=== PATIENT | female | born 1995 | race Caucasian/White ===

== ENCOUNTER 2019-04-30 17:07 | Emergency (ER) | payer MEDICAID, SELFPAY ==
[2019-04-30 17:13] VITALS: BP 101/66; PULSE 96; RESP 16; TEMP 36.3; O2SAT 100
[2019-04-30] MEDS: Acetaminophen 500 MG TAB 1000 MG PO (17:38)
--- NOTE | 2019-04-30 18:54 | ED.GENADUL_ITS ---
Discharge Plan Disposition Patient Disposition: HOME Condition: Stable Discharge Details Chief Complaint: EarProblem Clinical Impression: Viral illness Primary Care Provider: Jj Huff ED Provider: Rebecca Rod Home Meds and New Rx's Prescriptions: No Action levothyroxine [Synthroid] 88 MCG tablet 125 mcg PO DAILY RF: 0 sertraline 50 mg Tablet 50 mg DAILY RF: 0 Discharge Instructions Instructions: Viral Syndrome (ED) Additional Instructions: Drink plenty of fluids. Use nasal saline rinsing several times a day as discussed. 5 minutes after nasal saline rinsing use Flonase [id number]. Rest activities as tolerated. Increase vitamin C. Consider decongestants [id number] for your ear pain. Consider Motrin or Tylenol for your ear pain. If developing fevers, increasing cough, worsening symptoms or alarming symptoms have immediate reevaluation Recheck with PCP if not improving the next 3 to 5 days Stand Alone Forms: Work Release Discharge Data Discharge Date/Time-TO BE ENTERED AT DEPARTURE: 04/30/19 18:52 Medical Decision Making Is a pleasant 24-year-old patient presenting to the emergency room for complaints of left ear pain. Patient reports onset of illness approximately 4 days ago associated nasal congestion, sore throat, body ache mild headache. Patient reports she had a sore throat originally which has since improved. Patient does complain of moderate left-sided ear pain which has developed in the last 24 hours for which she is primarily concerned. Patient does report nausea developing in the last 24 hours no associated vomiting or diarrhea. Patient denies abdominal pain. Patient denies any voice change or trismus. No other concerning complaints at this time. Patient does report her child was ill with the flu 1-1/2 to 2 weeks ago. Patient's influenza testing is ultimately negative. We did discuss conservative treatments and management of her symptoms. Patient consents to nasal saline rinses, [id number] management. Encouraged prompt follow-up with primary care doctor. Work note provided. The patient was stable and requested discharge. Prior to discharge, my usual and customary return precautions were reviewed with the patient - this included follow-up instructions and reasons to return to the Emergency Department if conditions worsens, does not improve as expected, or other new concerns arise. HPI General Date/Time Provider Initiated Documentation: 04/30/19 17:14 . HPI Narrative: This is a 24-year-old patient presenting for complaints of 4 days of illness. Patient reports nasal congestion and sore throat. Patient reports sore throat has since improved. Persistent nasal congestion. Patient predominantly concerned with complaints of left-sided ear pain which is worse in the last 24 hours. Mild headache, reports body ache. Does report mild dizziness. Denies measured fever or chills. Does report nausea beginning yesterday without associated vomiting. No abdominal pain. Denies diarrhea. Patient has been reporting a food aversion for the last 2 days. Patient denies difficulty breathing shortness of breath or wheezing. No other concerns or complaints at this time. Related Data Home Medications Medication Instructions Recorded Confirmed levothyroxine [Synthroid] 125 mcg PO DAILY 04/20/17 04/30/19 sertraline 50 mg DAILY 04/30/19 04/30/19 Allergies Allergy/AdvReac Type Severity Reaction Status Date / Time No Known Allergies Allergy Unverified 04/20/17 15:11 General Stated Complaint: EarProblem ARIAS: 4 Review of Systems All systems reviewed & are unremarkable except as noted in HPI and below Constitutional Constitutional: Denies chills, Denies fever(s), Reports headache(s) and Reports malaise ENT Ears, Nose, Mouth, and Throat: Denies dizziness, Reports otalgia, Reports headache(s), Reports nasal congestion, Reports sinus pressure and Reports sore throat Cardiovascular Cardiovascular: Denies chest pain and Denies dyspnea on exertion Respiratory Respiratory: Reports cough, Denies dyspnea on exertion and Denies wheezing Gastrointestinal Gastrointestinal: Denies abdominal pain, Denies diarrhea, Reports nausea and Denies vomiting Genitourinary Genitourinary: Denies dysuria Neurologic Neurologic: Denies dizziness and Reports headache(s) Allergic/Immunologic Allergic/Immunologic: Denies wheezing [facility] Social History Smoking/Tobacco Use Status: Never Alcohol Intake: never Substance use type: does not use Do you feel safe at home: Yes Do you feel safe in your relationship?: Yes Exam Narrative Exam Narrative: CONST: Healthy appearing patient, in no acute distress. Well hydrated. Alert and oriented. HENMT: Head nomocephalic, normal to inspection. Atraumatic. Hearing grossly normal. TMs with effusion bilaterally, no associated erythema or bulging. Mild pharyngeal erythema. EYES: General normal appearance. Alignment normal. Eyelids normal. Conjunctiva normal. NECK: Normal visual inspection. FROM. Trachea midline. No Midline tenderness. No cervical lymphadenopathy present CHEST: Normal insepection of the chest. RESP: Normal respiratory effort. Speaking full sentences. No cough. No audible wheezing. No retractions. Breath sounds clear, full and equal bilaterally. No wheezing, rhonchi or rale CARDIO: No JVD. No murmurs, regular rate and rhythm GI: Abdomen soft, nontender. No peritoneal signs. Course Vital Signs Vital signs: Vital Signs Temperature 36.3 C L 04/30/19 17:13 Pulse 96 H 04/30/19 17:13 Respiratory Rate 16 04/30/19 17:13 Blood Pressure 101/66 04/30/19 17:13 Pulse Oximetry 100 04/30/19 17:13 Temperature 36.3 C L 04/30/19 17:13 Temperature Source Tympanic 04/30/19 17:13 Pulse 96 H 04/30/19 17:13 Respiratory Rate 16 04/30/19 17:13 Respiratory Effort Non-Labored 04/30/19 17:16 Blood Pressure 101/66 04/30/19 17:13 Blood Pressure Position Supine 04/30/19 17:13 Pulse Oximetry 100 04/30/19 17:13 Oxygen Delivery Method Room Air 04/30/19 17:13 Oxygen Flow Rate 0 04/30/19 17:13 Pain Level 4 04/30/19 17:38 Lab/Test Results Lab/Test Results: 04/30/19 17:30 Nose Influenza Types A,B Antigen - Final
== END 2019-04-30 18:52 | disposition home or self-care (01) ==
PROVIDERS: Emergency Provider Physician Assistant; PCP Internal Medicine Sleep Medicine
DX: B34.8 Other viral infections of unspecified site (principal)
CPT/HCPCS: 87449; 99282

== ENCOUNTER 2020-01-16 11:52 | Emergency (ER) | payer MEDICAID, SELFPAY ==
[2020-01-16] VITALS (12 sets, daily range): BP systolic 94–100; BP diastolic 58–65; PULSE 81–82; RESP 17; TEMP 36.5–37; O2SAT 97–100
--- NOTE | 2020-01-16 12:28 | ED.GENADUL_ITS ---
Discharge Plan Disposition Patient Disposition: HOME Condition: Good Discharge Details Clinical Impression: Viral illness Primary Care Provider: Josiane Chase ED Provider: Alix Juarez Home Meds and New Rx's Prescriptions: Continued levothyroxine [Synthroid] 88 MCG tablet 150 mcg PO DAILY RF: 0 sertraline 50 mg Tablet 100 mg PO DAILY RF: 0 [place] 200 mg tablet 200 mg PO BID RF: 0 Discharge Instructions Instructions: Viral Syndrome (ED) Additional Instructions: He has had any evidence of a fracture on your x-ray. However, there is concern for potential viral infection. Is also can cause discomfort you have been experiencing. This includes water intake. Tylenol intermittently as needed for discomfort. Felipe testing is pending. Please quarantine until his results have returned. If you develop difficulty breathing, shortness of breath or new/worsening symptoms to seek care with again. Otherwise no please follow-up with primary care if symptoms do not completely resolve in the next few weeks. Stand Alone Forms: PENDING COVID-19 TESTING, Work Release Discharge Data Discharge Date/Time-TO BE ENTERED AT DEPARTURE: 01/16/20 15:22 Medical Decision Making Patient is a pleasant 24-year-old female presents today with chief complaint of left-sided rib pain. She reports that a few weeks ago she fell and landed with her left arm under the left chest. Since that time she has been having left- sided anterior chest pain. Reports this primarily under the left breast. Worse with deep inspiration and coughing. Denies any pain at rest. She denies any cough. No fevers or chills. Denies any abdominal pain. Is concerned that the symptoms have persisted. Plan for XR. FINDINGS: Bones/joints: Old left clavicular fracture noted. Soft tissues: Normal. IMPRESSION: No evidence for fracture. FINDINGS: Lungs: There is some minimal ill-defined parenchymal opacity at the lung bases, mild ground-glass change. No definite focal consolidation. Pleural space: Unremarkable. No pleural effusion. No pneumothorax. Heart/Mediastinum: Unremarkable. No cardiomegaly. Bones/joints: Unremarkable. IMPRESSION: No evidence for acute posttraumatic abnormality. Minimal hazy ground-glass change in the lung bases uncertain chronicity or significance. Clinical correlation requested with respect to possible viral into Discussed findings with the patient. In particular, we did discuss the potential of COVID-19. 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 Patient continues to be concerned regarding the amount of discomfort she is having. X-ray advised that she does have a viral infection and this may be the source of her pain. We discussed disposition at length and decision was made to perform baseline labs. Labs reviewed. No leukocytosis. Stable H&H. D-dimer is within normal limits. CMP is without abnormality. Discussed with patient. Advised likely contusion contusion with persistent pleuritic chest discomfort. We also discussed that she could potentially have a small fracture that is noted to be visualized. Return precautions were discussed at length. Encourage close follow-up with her primary care. All of her questions and concerns were addressed she is agreement this plan. HPI General Mode of arrival: ambulatory . Date/Time Provider Initiated Documentation: 01/16/20 12:28 . Limitations to Documentation: no limitations . Information obtained by: patient and RN notes reviewed . History of Present Illness 24 year old F presents to the emergency department with the chief complaint of left sided pleuritic chest pain, described as moderate, with intensity rated at 8. Quality is described as aching, and is localized to the chest. Patient reports no radiation. Patient started experiencing this week(s) and it has been constant. Immobilization improves symptom(s), Movement worsens symptoms . Patient notes shortness of breath; denies fever/chills, loss of appetite, nausea/vomiting, rash and weakness. Patient did receive the following treatments prior to arrival, none Related Data Home Medications Medication Instructions Recorded Confirmed levothyroxine [Synthroid] 150 mcg PO DAILY 04/20/17 01/16/20 sertraline 100 mg PO DAILY 04/30/19 01/16/20 Orilissa 200 mg PO BID 01/16/20 01/16/20 Allergies Allergy/AdvReac Type Severity Reaction Status Date / Time No Known Allergies Allergy Unverified 01/16/20 12:06 General Stated Complaint: Chest/Rib ARIAS: 3 Review of Systems Constitutional Constitutional: Reports as per HPI, Denies chills, Denies fever(s), Denies headache(s), Denies lethargy and Denies poor appetite Eyes Eyes: Denies change in vision ENT Ears, Nose, Mouth, and Throat: Denies dizziness and Denies headache(s) Cardiovascular Cardiovascular: Reports as per HPI, Denies chest pain at rest, Denies dyspnea and Denies dyspnea on exertion Respiratory Respiratory: Reports as per HPI, Denies chest congestion, Denies cough, Reports pain on inspiration, Reports pain with cough, Denies dyspnea, Denies dyspnea on exertion and Denies wheezing Gastrointestinal Gastrointestinal: Reports as per HPI, Denies abdominal pain, Denies diarrhea, Denies nausea and Denies vomiting Musculoskeletal Musculoskeletal: Reports as per HPI and Denies back pain Integumentary/Breasts Skin/Breast: Reports as per HPI and Denies rash Neurologic Neurologic: Reports as per HPI, Denies dizziness and Denies headache(s) Allergic/Immunologic Allergic/Immunologic: Denies wheezing [facility] Social History Smoking/Tobacco Use Status: Never Alcohol Intake: never Drug use: Never Substance use type: does not use Do you feel safe at home: Yes Do you feel safe in your relationship?: Yes Exam Const General: cooperative, healthy appearing, comfortable, no acute distress and well developed Nutritional Appearance: average body habitus and well nourished Orientation: alert, awake and oriented x3 HENMT Head: normal to inspection Ears: hearing grossly normal bilaterally Mouth: moist mucous membranes Chest Chest: normal inspection of the chest, normal palpation of entire chest wall, no crepitus, localized rib tenderness with anteroposterior compression (under left breast) and tenderness Breast inspection: normal inspection of the breasts Resp Effort & Inspection: normal respiratory effort, able to speak in complete sentences and no respiratory distress Auscultation: clear to auscultation bilaterally, no rales, no rhonchi and no wheezes Cardio Rate: regular rate Rhythm: regular rhythm Heart Sounds: S1 normal and S2 normal GI Inspection: normal to inspection, no edema and non-distended Palpation: soft, no hepatosplenomegaly, not firm, no guarding, not rigid and nontender Auscultation: normal bowel sounds Back/Spine/Pelvis Back: no CVA tenderness Thoracic/Lumbar Spine: thoracic and lumbar spine normal to inspection Skin General skin exam: no rashes or lesions noted Trauma: no lacerations or abrasions Neuro General: patient alert, patient awake and patient oriented x3 Cognition: normal cognition Speech: speech normal Gait: normal gait Extrem General: normal to inspection, capillary refill normal, no pedal edema, no calf tenderness and normal gait Psych Appearance: grossly normal and well kempt Mental Status: mental status grossly normal Speech and Movement: speech and movement normal Course Vital Signs Vital signs: Vital Signs Temperature 36.5 C 01/16/20 12:02 Pulse 82 01/16/20 12:02 Blood Pressure 100/65 01/16/20 12:02 Pulse Oximetry 100 01/16/20 12:02 Temperature 36.5 C 01/16/20 12:02 Temperature Source Temporal Artery Scan 01/16/20 12:02 Pulse 82 01/16/20 12:02 Respiratory Effort 01/16/20 12:14 Blood Pressure 100/65 01/16/20 12:02 Blood Pressure Position Sitting 01/16/20 12:02 Pulse Oximetry 100 01/16/20 12:02 Oxygen Delivery Method Room Air 01/16/20 12:02 Oxygen Flow Rate 0 01/16/20 12:02 Pain Level 8 01/16/20 12:14 Lab/Test Results Lab/Test Results: POC- Test(urine) Negative
--- NOTE | 2020-01-16 12:50 | DI.RAD_ITS ---
EXAM: XR RIBS LT W PA LAT CHEST CLINICAL HISTORY: fall few weeks ago, left rib pain TECHNIQUE: COMPARISON: No exams were available for comparison FINDINGS: PA and lateral chest and 2 additional views of the left ribs were obtained. No rib fracture seen. N o evidence of pneumothorax or pleural effusion. The lungs are clear. Cardiac size is within normal limits. IMPRESSION: Negative examination of the chest and left ribs. RADIATION DOSE DELIVERED: Total DLP
--- NOTE | 2020-01-16 13:04 | DI.VRAD_ITS ---
PROCEDURE INFORMATION: Exam: XR Left Ribs Exam date and time: 01/16/2020 12:45 PM Age: 24 years old Clinical indication: Other: Fall few weeks ago, left rib pain TECHNIQUE: Imaging protocol: XR Left ribs. Views: 2 views. COMPARISON: No relevant prior studies available. FINDINGS: Bones/joints: Old left clavicular fracture noted. Soft tissues: Normal. IMPRESSION: No evidence for fracture. PROCEDURE INFORMATION: Exam: XR Chest, 2 Views Exam date and time: 01/16/2020 12:45 PM Age: 24 years old Clinical indication: Other: Fall few weeks ago, left rib pain TECHNIQUE: Imaging protocol: XR of the chest Views: 2 views. COMPARISON: No relevant prior studies available. FINDINGS: Lungs: There is some minimal ill-defined parenchymal opacity at the lung bases, mild ground-glass change. No definite focal consolidation. Pleural space: Unremarkable. No pleural effusion. No pneumothorax. Heart/Mediastinum: Unremarkable. No cardiomegaly. Bones/joints: Unremarkable. IMPRESSION: No evidence for acute posttraumatic abnormality. Minimal hazy ground-glass change in the lung bases uncertain chronicity or significance. Clinical correlation requested with respect to possible viral into T. Dictated and Authenticated by: Cyndee Garner MD. Ordering:MARCELO Thomson MD
[2020-01-16 13:55] LABS: Abs Immature Grans 0.02 10^3/uL (0.0-0.06); Absolute Basophil Count 0.02 10^3/uL (0.0-0.2); Absolute Eosinophil Count 0.07 10^3/uL (0.0-0.7); Absolute Lymphocyte Count 3.07 10^3/uL (1.2-3.4); Absolute Monocyte Count 0.39 10^3/uL (0.1-0.8); Absolute Neutrophil Count 3.57 10^3/uL (1.2-6.7); Basophils % 0.3; HGB 12.3 g/dL (11.2-15.7); Immature Grans % 0.3; MCH 29.9 pg (27.0-33.0); MCHC 33.2 % (32.0-36.0); MCV 89.8 fL (80-95); MPV 10.1 fL (8.0-11.0); Monocytes % 5.5; Neutrophils % 49.9; Nucleated RBC 0 %; Platelet Count 264 10^3/uL (130-400); RBC 4.12 10^6/uL (3.93-5.22); RDW 12.4 % (11.7-14.6); RDW-SD 40.6 fL; WBC 7.14 10^3/uL (4.4-10.8)
[2020-01-16] MEDS: Acetaminophen 500 MG TAB 1000 MG PO (14:02)
[2020-01-16 14:13] LABS: ALT 15 U/L (14-59); AST 20 U/L (15-37); Albumin 3.7 g/dL (3.4-5.0); Alkaline Phosphatase 47 U/L (46-116); Anion Gap 6.5 mmol/L (3-11); BUN 12 mg/dL (7-18); Bilirubin, Total 0.5 mg/dL (0.2-1.0); CO2 26.5 mmol/L (21.0-32.0); CREATININE 0.68 mg/dL (0.55-1.02); Calcium 8.6 mg/dL (8.5-10.1); Chloride 105 mmol/L (98-107); Glucose 93 mg/dL (74-106); Potassium 3.7 mmol/L (3.5-5.1); Sodium 138 mmol/L (136-145); Total Protein 7.4 g/dL (6.4-8.2)
[2020-01-16 14:30] LABS: D-Dimer 326 ng/mlFEU (<500)
[2020-01-17 02:52] LABS: COVID-19 RT-PCR UVMMC Result Negative (Negative)
--- NOTE | 2020-01-18 10:32 | NUR.NOTE ---
Nursing Note: Negative COVID result to pt by phone after identity verified at 1032.
== END 2020-01-16 15:22 | disposition home or self-care (01) ==
PROVIDERS: Emergency Provider Physician Assistant; PCP Nurse Practitioner
DX: S20.212A Contusion of left front wall of thorax, initial encounter (principal); W19.XXXA Unspecified fall, initial encounter; R07.81 Pleurodynia; B34.9 Viral infection, unspecified; Z03.818 Encounter for observation for suspected exposure to other biological agents ruled out
CPT/HCPCS: 36415; 80053; 81025; 99284; U0003; 71046; 71100; 85025; 85379

== ENCOUNTER 2020-04-04 14:57 | Outpatient (REF) | payer MEDICAID, SELFPAY ==
[2020-04-04 18:29] LABS: HCT 37.3 % (36.0-46.0); HGB 12.6 g/dL (11.2-15.7); MCH 29.4 pg (27.0-33.0); MCHC 33.8 % (32.0-36.0); MCV 86.9 fL (80-95); MPV 11.3 fL (8.0-11.0); Platelet Count 224 10^3/uL (130-400); RBC 4.29 10^6/uL (3.93-5.22); RDW 11.5 % (11.7-14.6)
[2020-04-04 18:33] LABS: Anion Gap 5.1 mmol/L (3-11); BUN 11 mg/dL (7-18); CO2 28.9 mmol/L (21.0-32.0); CREATININE 0.76 mg/dL (0.55-1.02); Calcium 8.9 mg/dL (8.5-10.1); Chloride 106 mmol/L (98-107); Glucose 72 mg/dL (74-106); Potassium 3.9 mmol/L (3.5-5.1); Sodium 140 mmol/L (136-145); TSH (W/Ref FT4) 0.12 uIU/mL (0.36-3.74)
[2020-04-04 18:52] LABS: FREE T4 1.21 ng/dL (0.76-1.46)
[2020-04-06 17:38] LABS: T4 10.4 ug/mL (4.7-13.3)
== END 2020-04-04 15:17 ==
LOC: NCHCN 14:57
PROVIDERS: PCP Family Medicine; Visit Provider Family Medicine
DX: E03.9 Hypothyroidism, unspecified (principal); R53.83 Other fatigue
CPT/HCPCS: 80048; 85027; 84436; 84439; 84443

== ENCOUNTER 2020-04-09 14:55 | Emergency (ER) | payer MEDICAID, SELFPAY ==
[2020-04-09] VITALS (29 sets, daily range): BP systolic 94–110; BP diastolic 42–73; PULSE 69–105; RESP 13–27; TEMP 36.4; O2SAT 97–100
--- NOTE | 2020-04-09 14:45 | RT.EKG_ITS ---
APPROVED REPORT Exam: Resting ECG Patient Location: E HR:93 bpm ECG Measurements Heart Rate 93 AXIS IA 146 P 76 QRSd 67 QRS 72 QT 342 T 53 QTc 426 Conclusion Sinus rhythm...normal P axis, V-rate 60- 99
--- NOTE | 2020-04-09 15:15 | DI.CT_ITS ---
EXAM: CT CHEST PE CTA CLINICAL HISTORY: chest tightness. TECHNIQUE: Imaging Protocol: Axial CT angiography was performed with multi-slice acquisition and mu lti-planar and/or 3D reconstructions. CONTRAST MATERIAL: Intravenous: Omnipaque 350 Contrast volume:60 mL COMPARISON: No exams were available for comparison FINDINGS: Tracheobronchial tree: Patent where visualized. Pulmonary parenchyma: No consolidation or dominant measurable mass. No architectural distortion. Pulmonary Arteries: No evidence of filling defect to suggest pulmonary emboli. Mediastinum and Daly: No dominant adenopathy or fluid collection. Visualized thyroid gland: Unremarkable. Pleura: No effusion or pneumothorax. Heart: The heart is not dilated. No coronary artery calcifications are seen. No pericardial effusion. Aorta: Thoracic aorta non-dilated. No evidence of dissection. Upper abdomen: Unremarkable. Bones: Normal. Soft tissues: Unremarkable. IMPRESSION: No evidence of pulmonary embolism, thoracic aortic dissection or aneurysm. RADIATION DOSE DELIVERED: 287.1mGy.cm Total DLP DATA REPOSITORY: All CT scans at this facility are submitted to the National Radiology Data Registry (NRDR) Dose Index Registry (DIR) with the [employer] (A[employer]). RADIATION OPTIMIZATION: All CT scans at this facility use at least one of these dose optimization te chniques: automated exposure control; mA and/or kV adjustment per patient size (includes targeted exa ms where dose is matched to clinical indication); or iterative reconstruction.
--- NOTE | 2020-04-09 15:21 | ED.GENADUL_ITS ---
Discharge Plan Disposition Patient Disposition: HOME Condition: Stable Discharge Details Clinical Impression: Heart palpitations, Hypokalemia Primary Care Provider: Elisabeth Louis ED Provider: Alix Juarez Home Meds and New Rx's Prescriptions: Continued levothyroxine [Synthroid] 88 mcg tablet 137 mcg PO DAILY RF: 0 sertraline 50 mg Tablet 100 mg PO DAILY RF: 0 [place] 200 mg tablet 200 mg PO BID RF: 0 Discharge Instructions Instructions: Heart Palpitations (ED), Hypokalemia (ED) Additional Instructions: Your labs showed low potassium. This was replaced here. Please read attached information on low potassium and had increased this in your diet. Your imaging and labs otherwise were without significant abnormality. Holter monitor has been placed. Please follow respiratory therapy guidelines regarding care of this. I would like for you to follow-up with your primary care this week for reevaluation. Please call on Saturday to schedule appointment. If you develop fever/chills, increased pain, difficulty breathing or any new/worsening symptoms please seek care urgently once again. Referrals: Elisabeth Louis MD [Primary Care Provider] - Discharge Data Discharge Date/Time-TO BE ENTERED AT DEPARTURE: 04/09/20 17:56 Medical Decision Making <Ruddy Springer MD - Last Filed: 05/07/20 10:57> 1524?- 24-year-old female with history of hypothyroidism, here with chest tigh tness that started around 1030. Lungs clear to auscultation with no wheeze. Saturating well in no respiratory distress. Patient is tachycardic with normal blood pressure. Concern for acute pulmonary embolism. Screening ECG was reviewed and interpreted by me: Please see report, sinus rhythm 93 bpm, no STEMI, nondiagnostic. No risk factor for ACS. Plan to obtain CT of the chest to assess for pulmonary embolism. <ROSSY Owens - Last Filed: 04/09/20 17:31> Care transition to myself from Dr. Springer. Please see his initial note regarding history, presentation and exam. In brief, patient is a pleasant 24-year-old female who presented today with chest tightness as well as a feeling of palpitations. Patient does have a history of hypothyroidism and did recently have her medications changed. At the time I assume care, labs and imaging were pending. Labs reviewed. No leukocytosis. Stable H&H. Potassium slightly low at 3.2. Will replenish this orally. Glucose 139. Otherwise, plan. Normal limits. Opponent is within normal limits. TSH within normal limits. CTA reviewed by radiologist: FINDINGS: Pulmonary arteries: Normal. No pulmonary emboli. Aorta: Unremarkable. No aortic aneurysm. No aortic dissection. Lungs: Unremarkable. No consolidation. No masses. Pleural space: Unremarkable. No pneumothorax. No pleural effusion. Heart: Unremarkable. No cardiomegaly. No pericardial effusion. Lymph nodes: Unremarkable. No enlarged lymph nodes. Bones/joints: Unremarkable. No acute fracture. Soft tissues: Unremarkable. IMPRESSION: No acute findings. I discussed these findings with the patient. She and I discussed her presentation further. Symptoms began approximately 6 hours prior to arrival. I do not feel that repeat troponin is warranted at point. Patient does report that she has had palpitations for several years. She reports that she gets them daily. This may or may not be accompanied with some shortness of breath or chest discomfort. I do feel that traffic monitor specialist would be appropriate. Encouraged to follow-up closely discussed this further with her primary care. Return precautions were discussed. All of her questions and concerns were addressed and she is in agreement with this plan. HPI <Ruddy Springer MD - Last Filed: 05/07/20 10:57> General Mode of arrival: ambulatory . Date/Time Provider Initiated Documentation: 04/09/20 14:57 . Limitations to Documentation: no limitations . Information obtained by: patient . HPI Narrative: 24-year-old female with history of hypothyroidism presents with chief complaint of chest pain. Patient notes that chest discomfort started around 1030 this morning while driving. Discomfort came on suddenly. Feels like tightness. She has associated shortness of breath. She notes she feels like her heart is racing. She has no associated nausea or dizziness. No leg swelling or calf pain. No recent immobility. Patient notes recently had levothyroxine dose decreased. Related Data Home Medications Medication Instructions Recorded Confirmed sertraline 100 mg PO DAILY 04/30/19 04/09/20 Orilissa 200 mg PO BID 01/16/20 04/09/20 levothyroxine 88 mcg tablet 137 mcg PO DAILY tab 04/06/20 04/09/20 Allergies Allergy/AdvReac Type Severity Reaction Status Date / Time No Known Allergies Allergy Unverified 04/09/20 15:03 General Stated Complaint: Chest Pain ARIAS: 2 Review of Systems <Ruddy Springer MD - Last Filed: 05/07/20 10:57> All systems reviewed & are unremarkable except as noted in HPI and below Constitutional Constitutional: Denies fever(s) Cardiovascular Cardiovascular: Reports as per HPI and Reports chest pain Respiratory Respiratory: Reports as per HPI PFSH <Ruddy Springer MD - Last Filed: 05/07/20 10:57> Medical History Endometriosis Hypothyroid Migraines Right hand paresthesia Surgical History H/O arthroscopy of shoulder H/O right knee surgery Social History Smoking/Tobacco Use Status: Never Smoking risk assessment performed?: Yes Alcohol Intake: never Drug use: Never Substance use type: does not use Household members: children Housing: apartment Number of Children: 2 current occupation: unemployed Pets and animals: Yes Pets and animals: cat(s) What type of physical activity do you participate in: none Seatbelt use: always Do you feel safe at home: Yes Do you feel safe in your relationship?: Yes Exam <Ruddy Springer MD - Last Filed: 05/07/20 10:57> Const General: cooperative and no acute distress HENMT Mouth: moist mucous membranes Eyes Conjunctivae: normal conjunctivae Sclera: normal sclerae Neck Neck: trachea midline Resp Auscultation: clear to auscultation bilaterally, no rales, no rhonchi and no wheezes Cardio Jugular venous pressure: no JVD Rate: tachycardic Rhythm: regular rhythm GI Palpation: soft, not firm, no guarding, no masses, not rigid and nontender Skin General skin exam: no rashes or lesions noted Neuro General: patient alert, patient awake and tone normal Extrem General: no calf tenderness and no edema Psych Appearance: grossly normal Mental Status: mental status grossly normal Course <Ruddy Springer MD - Last Filed: 05/07/20 10:57> Vital Signs Vital signs: Vital Signs Temperature 36.4 C L 04/09/20 14:59 Pulse 101 H 04/09/20 14:59 Respiratory Rate 18 04/09/20 14:59 Blood Pressure 105/67 04/09/20 14:59 Pulse Oximetry 98 04/09/20 14:59 Temperature 36.4 C L 04/09/20 14:59 Pulse 101 H 04/09/20 14:59 Respiratory Rate 18 04/09/20 14:59 Respiratory Effort 04/09/20 15:04 Blood Pressure 105/67 04/09/20 14:59 Blood Pressure Position Sitting 04/09/20 14:59 Pulse Oximetry 98 04/09/20 14:59 Oxygen Delivery Method Room Air 04/09/20 14:59 Oxygen Flow Rate 0 04/09/20 14:59 Pain Level 7 04/09/20 14:59 Sign Out <Ruddy Springer MD - Last Filed: 05/07/20 10:57> Sign Out Data: Sign Out Comment: Care signed out to ROSSY Juarez. Please see my documentation regarding initial ED presentation and course. Plan at signout is to followup labs and ct. reassess patient for disposition. Last updated by Ruddy Springer MD at 04/09/20 15:46
[2020-04-09 15:42] LABS: Absolute Basophil Count 0.03 10^3/uL (0.0-0.2); Absolute Eosinophil Count 0.08 10^3/uL (0.0-0.7); Absolute Lymphocyte Count 2.68 10^3/uL (1.2-3.4); Absolute Monocyte Count 0.28 10^3/uL (0.1-0.8); Absolute Neutrophil Count 2.08 10^3/uL (1.2-6.7); Basophils % 0.6; Eosinophils % 1.6; HCT 37.1 % (36.0-46.0); HGB 12.8 g/dL (11.2-15.7); MCHC 34.5 % (32.0-36.0); MCV 86.9 fL (80-95); MPV 10.6 fL (8.0-11.0); Monocytes % 5.4; Neutrophils % 40.4; Nucleated RBC 0 %; Platelet Count 209 10^3/uL (130-400); RBC 4.27 10^6/uL (3.93-5.22); RDW 12.1 % (11.7-14.6); RDW-SD 38.3 fL; WBC 5.15 10^3/uL (4.4-10.8)
[2020-04-09] MEDS: Omnipaque 350 MG/ML 100 ML BTL IJ (15:57)
[2020-04-09] MEDS: Normal Saline - Diluent 50 ML VIAL IV (15:58)
[2020-04-09 16:04] LABS: ALT 21 U/L (14-59); AST 17 U/L (15-37); Albumin 3.6 g/dL (3.4-5.0); Alkaline Phosphatase 65 U/L (46-116); Anion Gap 8.7 mmol/L (3-11); BUN 11 mg/dL (7-18); Bilirubin, Total 0.4 mg/dL (0.2-1.0); CO2 25.3 mmol/L (21.0-32.0); CREATININE 0.85 mg/dL (0.55-1.02); Calcium 8.6 mg/dL (8.5-10.1); Chloride 105 mmol/L (98-107); Glucose 139 mg/dL (74-106); Magnesium 1.9 mg/dL (1.8-2.4); Potassium 3.2 mmol/L (3.5-5.1); Sodium 139 mmol/L (136-145); TSH (W/Ref FT4) 0.45 uIU/mL (0.36-3.74); Total Protein 7.5 g/dL (6.4-8.2); Troponin I < 0.05 ng/mL (<0.06)
--- NOTE | 2020-04-09 16:26 | DI.VRAD_ITS ---
PROCEDURE INFORMATION: Exam: CT Angiography Chest With Contrast Exam date and time: 04/09/2020 4:00 PM Age: 24 years old Clinical indication: Chest pain; Other: Chest tightness TECHNIQUE: Imaging protocol: Computed tomographic angiography of the chest with intravenous contrast. 3D rendering (Not supervised by radiologist): MIP and/or 3D reconstructed images were created by the technologist. Radiation optimization: All CT scans at this facility use at least one of these dose optimization techniques: automated exposure control; mA and/or kV adjustment per patient size (includes targeted exams where dose is matched to clinical indication); or iterative reconstruction. Contrast material: OMNIPAQUE 350; Contrast volume: 60 ml; Contrast route: INTRAVENOUS (IV); COMPARISON: CR XR RIBS LT W PA LAT CHEST 01/16/2020 12:43 PM FINDINGS: Pulmonary arteries: Normal. No pulmonary emboli. Aorta: Unremarkable. No aortic aneurysm. No aortic dissection. Lungs: Unremarkable. No consolidation. No masses. Pleural space: Unremarkable. No pneumothorax. No pleural effusion. Heart: Unremarkable. No cardiomegaly. No pericardial effusion. Lymph nodes: Unremarkable. No enlarged lymph nodes. Bones/joints: Unremarkable. No acute fracture. Soft tissues: Unremarkable. IMPRESSION: No acute findings. Dictated and Authenticated by: Graham Conde MD. Ordering:MIN Fox MD
--- NOTE | 2020-04-09 17:00 | HOLTER_ITS ---
APPROVED REPORT Exam Type: HOLTER MONITOR APPLICATION Patient Location: E Conclusion This is a 48 Holter monitor ordered for symptoms of palpitations Rhythm throughout was sinus. Average heart rate was 80. Minimum was 58, maximum 135 There were no atrial or ventricular dysrhythmias There was no atrial fibrillation, no pauses greater than 3 seconds, no high-grade AV block No patient symptoms were reported
[2020-04-09] MEDS: POTASSIUM CHLORIDE 20 MEQ, POTASSIUM CHLORIDE 10 MEQ 30 MEQ PO (17:26)
== END 2020-04-09 17:56 | disposition home or self-care (01) ==
PROVIDERS: Student in an Organized Health Care Education/Training Program; Emergency Provider Physician Assistant; PCP Family Medicine
DX: R00.2 Palpitations (principal); E87.6 Hypokalemia; E03.9 Hypothyroidism, unspecified
CPT/HCPCS: 36415; 71275; 80053; 81025; 93005; 99285; 83735; 84443; 84484; 85025; 93010; 93225; 99284; J3490

== ENCOUNTER 2020-04-09 17:02 | Outpatient (RCR) | payer MEDICAID, SELFPAY | END 2020-04-24 23:59 | disposition home or self-care (01) | LOC: RT 17:02 | PROVIDERS: PCP Family Medicine; Visit Provider Family Medicine | DX: R00.2 Palpitations (principal) | CPT/HCPCS: 93225; 93226 ==

== ENCOUNTER 2020-05-31 14:50 | Outpatient (REF) | payer MEDICAID, SELFPAY ==
[2020-05-31 18:38] LABS: FREE T4 0.98 ng/dL (0.76-1.46); Potassium 3.5 mmol/L (3.5-5.1); TSH (W/Ref FT4) 0.58 uIU/mL (0.36-3.74)
[2020-06-01 16:37] LABS: T3, Total 116 ng/dL (97-169)
== END 2020-05-31 14:51 | disposition home or self-care (01) ==
LOC: NCHCN 14:50
PROVIDERS: PCP Family Medicine; Visit Provider Family Medicine
DX: E03.9 Hypothyroidism, unspecified (principal)
CPT/HCPCS: 84132; 84436; 84439; 84443; 84480

== ENCOUNTER 2020-06-02 12:10 | Outpatient (CLI) | payer MEDICAID, SELFPAY ==
--- NOTE | 2020-06-02 14:53 | DI.RAD_ITS ---
EXAM: XR FOOT RT COMPLETE CLINICAL HISTORY: PAIN IN RT TOE, M79.674, S/P TRIP AND FALL ON RT LEG, BABY TOE SWOLLEN,. TECHNIQUE: 2D digital imaging was performed. COMPARISON: No exams were available for comparison FINDINGS: BONES: There is an oblique lucency on the oblique view of the right foot passing through the base of the distal phalanx of the 5th toe consistent with a nondisplaced fracture. No bony destructive lesio n is seen. JOINTS: No dislocation present. SOFT TISSUE: Normal. IMPRESSION: Nondisplaced intra-articular fracture involving the distal phalanx of the right little toe. DATA REPOSITORY: RADIATION DOSE DELIVERED:
== END 2020-06-02 12:30 ==
PROVIDERS: PCP Family Medicine; Visit Provider Nurse Practitioner
DX: S92.534A Nondisplaced fracture of distal phalanx of right lesser toe(s), initial encounter for closed fracture (principal)
CPT/HCPCS: 73630

== ENCOUNTER 2020-06-29 10:51 | Outpatient (REF) | payer MEDICAID, SELFPAY ==
[2020-06-29 15:47] LABS: TSH (W/Ref FT4) 1.18 uIU/mL (0.36-3.74)
== END 2020-06-29 10:52 | disposition home or self-care (01) ==
LOC: NCHCN 10:51
PROVIDERS: PCP Family Medicine; Visit Provider Nurse Practitioner
DX: E03.9 Hypothyroidism, unspecified (principal)
CPT/HCPCS: 84443

== ENCOUNTER 2020-07-21 16:44 | Outpatient (REF) | payer MEDICAID, SELFPAY ==
[2020-07-21 14:03] LABS: Abs Immature Grans 0.01 10^3/uL (0.0-0.06); Absolute Basophil Count 0.05 10^3/uL (0.0-0.2); Absolute Eosinophil Count 0.37 10^3/uL (0.0-0.7); Absolute Lymphocyte Count 2.02 10^3/uL (1.2-3.4); Absolute Monocyte Count 0.52 10^3/uL (0.1-0.8); Absolute Neutrophil Count 3.28 10^3/uL (1.2-6.7); Basophils % 0.8; Eosinophils % 5.9; HCT 40.7 % (36.0-46.0); HGB 13.6 g/dL (11.2-15.7); Immature Grans % 0.2; Lymphocytes % 32.3; MCHC 33.4 % (32.0-36.0); MCV 89.6 fL (80-95); MPV 10.8 fL (8.0-11.0); Monocytes % 8.3; Neutrophils % 52.5; Nucleated RBC 0 %; Platelet Count 300 10^3/uL (130-400); RBC 4.54 10^6/uL (3.93-5.22); RDW 12.4 % (11.7-14.6); RDW-SD 41.4 fL; WBC 6.25 10^3/uL (4.4-10.8)
[2020-07-21 14:22] LABS: Total Iron Binding Capacity 406 ug/dL (250-450)
[2020-07-21 14:56] LABS: Lithium 0.3 mmol/l (0.6-1.2)
[2020-07-21 15:06] LABS: ALT 22 U/L (14-59); AST 19 U/L (15-37); Albumin 3.6 g/dL (3.4-5.0); Alkaline Phosphatase 85 U/L (46-116); Anion Gap 5.7 mmol/L (3-11); BUN 12 mg/dL (7-18); Bilirubin, Total 0.8 mg/dL (0.2-1.0); CO2 28.3 mmol/L (21.0-32.0); CREATININE 0.7 mg/dL (0.55-1.02); Calcium 8.9 mg/dL (8.5-10.1); Chloride 109 mmol/L (98-107); Ferritin 31 ng/mL (8-252); Glucose 80 mg/dL (74-106); Potassium 4.1 mmol/L (3.5-5.1); Sodium 143 mmol/L (136-145); TSH (W/Ref FT4) 0.09 uIU/mL (0.36-3.74); Total Protein 7.2 g/dL (6.4-8.2); Vitamin B12 552 pg/mL (193-986)
[2020-07-21 15:25] LABS: FREE T4 1.18 ng/dL (0.76-1.46)
== END 2020-07-21 16:45 | disposition home or self-care (01) ==
LOC: NCHCN 16:44
PROVIDERS: PCP Family Medicine; Visit Provider Nurse Practitioner
DX: F41.8 Other specified anxiety disorders (principal); Z51.81 Encounter for therapeutic drug level monitoring; Z79.899 Other long term (current) drug therapy; R51.9 Headache, unspecified; E03.9 Hypothyroidism, unspecified
CPT/HCPCS: 80053; 80178; 82607; 82728; 83550; 84439; 84443; 85025

== ENCOUNTER 2020-11-11 10:46 | Outpatient (REF) | payer MEDICAID, SELFPAY ==
[2020-11-11 15:01] LABS: T4 8.6 ug/mL (4.7-13.3)
[2020-11-11 21:52] LABS: T3, Total 130 ng/dL (97-169)
== END 2020-11-11 10:47 | disposition home or self-care (01) ==
LOC: NCHCN 10:46
PROVIDERS: PCP Family Medicine; Visit Provider Nurse Practitioner
DX: E03.9 Hypothyroidism, unspecified (principal)
CPT/HCPCS: 84436; 84443; 84480

== ENCOUNTER 2021-04-26 20:48 | Outpatient (REF) | payer MEDICAID, SELFPAY ==
[2021-04-26 21:22] LABS: Lithium 0.5 mmol/l (0.6-1.2)
[2021-04-26 21:36] LABS: Albumin 3.8 g/dL (3.4-5.0); Anion Gap 9.5 mmol/L (3-11); BUN 12 mg/dL (7-18); CO2 25.5 mmol/L (21.0-32.0); CREATININE 0.7 mg/dL (0.55-1.02); Calcium 9.4 mg/dL (8.5-10.1); Chloride 105 mmol/L (98-107); FREE T4 1.14 ng/dL (0.76-1.46); Glucose 73 mg/dL (74-106); PHOSPHORUS 2.9 mg/dL (2.6-4.7); Potassium 3.8 mmol/L (3.5-5.1); Sodium 140 mmol/L (136-145); TSH 0.52 uIU/mL (0.36-3.74)
[2021-04-27 18:02] LABS: T3,Free 3.2 pg/mL (2.8-5.3)
== END 2021-04-26 20:49 | disposition home or self-care (01) ==
LOC: LBN 20:48
PROVIDERS: PCP Family Medicine; Visit Provider Nurse Practitioner Family
DX: E03.9 Hypothyroidism, unspecified (principal); F31.78 Bipolar disorder, in full remission, most recent episode mixed; F43.12 Post-traumatic stress disorder, chronic; Z56.6 Other physical and mental strain related to work
CPT/HCPCS: 80069; 80178; 84439; 84443; 84481

== ENCOUNTER 2021-10-26 02:53 | Outpatient (CLI) | payer MEDICAID, SELFPAY ==
[2021-10-26 08:45] LABS: Anion Gap 6.5 mmol/L (3-11); BUN 12 mg/dL (7-18); CO2 25.5 mmol/L (21.0-32.0); CREATININE 0.8 mg/dL (0.55-1.02); Calcium 9.1 mg/dL (8.5-10.1); Chloride 105 mmol/L (98-107); FREE T4 1.07 ng/dL (0.76-1.46); Glucose 93 mg/dL (74-106); Potassium 3.9 mmol/L (3.5-5.1); Sodium 137 mmol/L (136-145); TSH 2.21 uIU/mL (0.36-3.74)
[2021-10-26 09:08] LABS: Lithium 0.5 mmol/l (0.6-1.2)
== END 2021-10-26 02:54 | disposition home or self-care (01) ==
LOC: LBO 02:53
PROVIDERS: PCP Family Medicine; Visit Provider Nurse Practitioner Family
DX: F31.78 Bipolar disorder, in full remission, most recent episode mixed (principal); F43.12 Post-traumatic stress disorder, chronic; F51.05 Insomnia due to other mental disorder; Z62.820 Parent-biological child conflict; Z79.899 Other long term (current) drug therapy; Z51.81 Encounter for therapeutic drug level monitoring
CPT/HCPCS: 36415; 80048; 80178; 84439; 84443

== ENCOUNTER 2022-05-29 21:05 | Outpatient (REF) | payer MEDICAID, SELFPAY ==
--- OUTSIDE RECORDS SUMMARY | 2022-05-29 21:07 | XMS_ITS | Continuity of Care Document ---
Author Name Unknown Organization [facility] Address [address] [place] [id number] Care Team Providers Care Vessel Operator Name Role Phone Ludin JOHNSON, Walt Vanegas Primary Care Physician Encounter [facility] NBR [id number] Date(s): 01/12/22 - 01/12/[address] [address]- [place] Encounter Diagnosis Shoulder pain, right(Discharge Diagnosis) - 01/12/22 Discharge Disposition: Home or Self Care Attending Physician: Melvin Chin DO Admitting Physician: Melvin Chin DO Allergies, Adverse Reactions, Alerts No Known Medication Allergies Assessment and Plan Future Appointments Functional Status 01/12/22 Other exposure to Infectious Disease Non e Medications Aleve 220 mg oral tablet 1 cap, Oral, every 8 hr, PRN as needed for pain, # 40 cap, 0 Refill(s) Start Date: 12/28/21 Status: Ordered lamoTRIgine 100 mg oral tablet, extended release 100 mg = 1 tab, Oral, Daily, # 7 tab, 0 Refill(s) Start Date: 12/28/21 Status: Ordered levothyroxine 125 mcg (0.125 mg) oral tablet 125 mcg = 1 tab, Oral, Daily, # 30 tab, 0 Refill(s) Start Date: 12/28/21 Status: Ordered lithium 300 mg oral tablet 300 mg = 1 tab, Oral, Daily, 0 Refill(s) Start Date: 12/28/21 Status: Ordered medroxyPROGESTERone 150 mg/mL intramuscular suspension 150 mg = 1 mL, IM, every 3 mo, # 1 mL, 0 Refill(s) Start Date: 12/28/21 Status: Ordered norethindrone 5 mg oral tablet 5 mg = 1 tab, Oral, Daily, # 90 tab, 0 Refill(s) Start Date: 12/28/21 Status: Ordered oxyCODONE 5 mg oral tablet 5 mg = 1 tab, Oral, every 4 hr, PRN pain, moderate, # 8 tab, 0 Refill(s), Pharmacy: [facility], 157, cm, 12/28/21 16:17:00 EDT, Height/Length Dosing, 73, kg, 12/28/21 16:17:00 EDT, WeightDosing Start Date: 01/04/22 Stop Date: 01/07/22 Status: Ordered Mental Status 01/12/22 Eye Opening Response Remy Spontaneous ly Best Verbal Response Remy Oriented Best Motor Response Ione Obeys comman ds Remy Coma Score 15 Problem List Condition Confirmation Course Effective Dates Status H ealth Status Informant Hypotension Confirmed Active Hypothyroidism Confirmed Active Migraine Confirmed Active Palpitations Confirmed Active Shoulder pain, right Confirmed Active Tachycardia Confirmed Active Procedures Procedure Date Related Diagnosis Body Site Status Cholecystectomy Laparoscopy 1 01/04/22 Completed Arthroscopic knee operation 2 Completed Arthroscopy of shoulder 3 Completed Bilateral guillotine tonsillectomy Completed EA - Endometrial ablation 4 Completed EGD - Esophagogastroduodenoscopy Completed Laparoscopic left salpingo-oophorectomy Completed Release of tendon 5 Compl eted 1auto-populated from documented surgical case 2x3 3x2 4x3 ablation and implants 5right wrist Results Laboratory List Name Date CBC w/ Diff 01/12/22 Comprehensive Metabolic Panel (CMP) 12/24 04/15 Lactic Acid 01/12/22 Automated Diff 01/12/22 Pathology Request 01/04/22 Most recent to oldest [Reference Range]: 1 WBC [4.8-10.8 K/mcL] 5.8 K/mcL (01/12/22 10:41 AM) RBC [4.20-6.10 Million/mcL] 4.18 Million /mcL *LOW* (01/12/22 10:41 AM) Neutro Auto [42.2-75.2 %] 65.5 % (01/12/22 10:41 AM) Lymph Auto [20.5-51.1 %] 22.2 % (01/12/22 10:41 AM) Pepin Auto [1.7-9.3 %] 10.1 % *HI* (01/12/22 10:41 AM) Basophil Auto [0.0-0.2 %] 0.3 % *HI* (01/12/22 10:41 AM) BUN [8-26 mg/dL] 10 mg/dL (01/12/22 10:41 AM) Glucose Level [74-106 mg/dL] 100 mg/dL (01/12/22 10:41 AM) Potassium Level [3.5-5.1 mmol/L] 3.6 mmo l/L (01/12/22 10:41 AM) Baso Absolute [0.0-0.2 K/mcL] 0.0 K/mcL (01/12/22 10:41 AM) MCV [80.0-99.0 fL] 89.7 fL (01/12/22 10:41 AM) AST [15-41 IntlUnit/L] 21 IntlUnit/L (01/12/22 10:41 AM) ALT [14-54 IntlUnit/L] 21 IntlUnit/L (01/12/22 10:41 AM) MCHC [32.0-36.0 g/dL] 32.8 g/dL (01/12/22 10:41 AM) Osmolality [275-295 mOsm/kg] 275 mOsm/kg (01/12/22 10:41 AM) Sodium Level [134-143 mmol/L] 138 mmol/L (01/12/22 10:41 AM) Lymph Absolute [1.2-3.4 K/mcL] 1.3 K/mcL (01/12/22 10:41 AM) Hct [37.0-52.0 %] 37.5 % (01/12/22 10:41 AM) Calcium Level [8.9-10.3 mg/dL] 9.0 mg/dL (01/12/22 10:41 AM) Pepin Absolute [0.1-0.6 K/mcL] 0.6 K/mcL (01/12/22 10:41 AM) Albumin Level [3.5-5.0 g/dL] 3.9 g/dL (01/12/22 10:41 AM) Protein Total [6.5-8.1 g/dL] 7.5 g/dL (01/12/22 10:41 AM) MCH [27.0-31.0 pg] 29.4 pg (01/12/22 10:41 AM) Neutro Absolute [1.4-6.5 K/mcL] 3.8 K/mc L (01/12/22 10:41 AM) Bilirubin Total [0.2-1.2 mg/dL] 1.0 mg/d L (01/12/22 10:41 AM) Hgb [12.0-18.0 g/dL] 12.3 g/dL (01/12/22 10:41 AM) Alk Phos [38-130 IntlUnit/L] 88 IntlUnit /L (01/12/22 10:41 AM) MPV [7.4-10.4 fL] 10.3 fL (01/12/22 10:41 AM) Platelets [130-400 K/mcL] 274 K/mcL (01/12/22 10:41 AM) CO2 [22-32 mmol/L] 23 mmol/L (01/12/22 10:41 AM) Eos Absolute [0.0-0.2 K/mcL] 0.1 K/mcL (01/12/22 10:41 AM) Lactic Acid Lvl [0.5-2.2 mmol/L] 0.9 mmo l/L (01/12/22 10:41 AM) eGFR Non-AA 123 *NA* (01/12/22 10:41 AM) eGFR AA 123 *NA* (01/12/22 10:41 AM) Chloride Level [98-111 mmol/L] 106 mmol/ L (01/12/22 10:41 AM) RDW-CV [11.5-14.5 %] 12.5 % (01/12/22 10:41 AM) A/G Ratio 1.1 *NA* (01/12/22 10:41 AM) BUN/Creat Ratio [8.0-20.0] 14.5 (01/12/22 10:41 AM) Globulin 3.6 *NA* (01/12/22 10:41 AM) Imm Gran Absolute 0.01 *NA* (01/12/22 10:41 AM) Imm Gran Auto [0.0-0.5 %] 0.2 % (01/12/22 10:41 AM) Pathology Request See scan report (01/04/22 9:00 AM) Creatinine Level [0.44-1.00 mg/dL] 0.69 mg/dL (01/12/22 10:41 AM) Anion Gap [3.0-12.0] 9.0 (01/12/22 10:41 AM) Eos, Auto [0.00-3.00 %] 1.70 % (01/12/22 10:41 AM) Radiology Reports * Exam Date Time Procedure Performing Provider Status 01/12/22 11:[address] Abdomen and Pelvi s w/ Contrast Maricel Wright (Verified) Notes: (CT Abdomen and Pelvis w/ Contrast) Reason For Exam: right shoulder pain CT Abdomen and Pelvis w/ Contrast EXAM DESCRIPTION: CT Abdomen and Pelvis w/ Contrast 01/12/2022 INDICATION: RIGHT SHOULDER PAIN TECHNIQUE: All CT scans at this facility use at least one of these dose optimization techniques: Automated exposure control; mA and/or kV adjustment per patient size (includes targeted exams where dose is matched to clinical indication); or iterative reconstruction. Technique: Axial CT images of the abdomen/pelvis with IV contrast administration 100 cc of Isovue-300 contrast was utilized COMPARISON: 12/01/2021 FINDINGS: No focal hepatic lesion. Normal enhancement of the main hepatic veins and main portal vein. Normal spleen size without focal mass Status post recent cholecystectomy by history. No findings in the surgical bed to suggest postsurgical complication. Adrenal glands and pancreas appear within normal limits. Stable small low-attenuation lesion involving the right mid kidney, too small to characterize. This likely reflects small cyst as described previously. No solid renal mass, hydronephrosis or perinephric fluid collection on either side. Normal caliber abdominal aorta. No retroperitoneal adenopathy in the abdomen or pelvis. No pelvic mass identified No bowel dilatation to suggest obstruction or ileus. Normal appendix. No ascites. Small pockets of free intraperitoneal air in the upper abdomen most consistent with recent postoperative state. Minimal subsegmental atelectasis or scarring in the lingula as described previously. Visualized lung bases are otherwise clear. No suspicious regional osseous lesions. IMPRESSION: Status post recent cholecystectomy. No abnormal fluid collection or findings in the surgical bed to suggest postsurgical complication. Nonobstructive bowel pattern. No mesenteric inflammatory stranding. Normal appendix Small pockets of free intraperitoneal air in the upper abdomen consistent with recent postoperative state. Additional nonacute findings as detailed above. JOB #: [id number] Final Signed by: Micheal Bettencourt MD Signed (Electronic Signature): 01/12/2022 11:27 am Vital Signs Most recent to oldest [Reference Range]: 1 Temperature Oral [35.8-37.3 Deg C] 36.8 Deg C (01/12/22 9:43 AM) Peripheral Pulse Rate [60-100 bpm] 95 bp m (01/12/22 9:43 AM) Respiratory Rate [12-24 br/min] 16 br/mi n (01/12/22 9:43 AM) Blood Pressure [90-140/60-90 mmHg] 112/6 6mmHg (01/12/22 9:43 AM) Weight Dosing 72.00 kg (01/12/22 10:04 AM) Weight Estimated 72.00 kg (01/12/22 9:43 AM) Height/Length Dosing 157.000 cm (01/12/22 10:04 AM) Height/Length Estimated 157.000 cm (01/12/22 9:43 AM) Social History Social History Type Response Tobacco Never tobacco user T obacco Use:. Sex Hospital Discharge Instructions Patient Education 01/12/2022 10:54:25 Minimally Invasive Cholecystectomy, Care After Minimally Invasive Cholecystectomy, Care After This sheet gives you information about how to care for yourself after your procedure. Your health care provider may also give you more specific instructions. If you have problems or questions, contact your health care provider. What can I expect after the procedure? After the procedure, it is common to have: ??? Pain at your incision sites. You will be given medicines to control this pain. ??? Mild nausea or vomiting. ??? Bloating and possible shoulder pain from the gas that was used during the procedure. Follow these instructions at home: Medicines ??? Take [id number] and prescription medicines only as told by your health care provider. ??? If you were prescribed an antibiotic medicine, take or use it as told by your health care provider. Do not stop using the antibiotic even if you start to feel better. ??? Ask your health care provider if the medicine prescribed to you: ??? Requires you to avoid driving or using machinery. ??? Can cause constipation. You may need to take these actions to prevent or treat constipation: ??? Drink enough fluid to keep your urine pale yellow. ??? Take [id number]-hukkxsc or prescription medicines. ??? Eat foods that are high in fiber, such as beans, whole grains, and fresh fruits and vegetables. ??? Limit foods that are high in fat and processed sugars, such as fried or sweet foods. Incision care ??? Follow instructions from your health care provider about how to take care of your incisions. Make sure you: ??? Wash your hands with soap and water for at least 20 seconds before and after you change your bandage (dressing). If soap and water are not available, use hand executive director sheltered workshop. ??? Change your dressing as told by your health care provider. ??? Leave stitches (sutures), skin glue, or adhesive strips in place. These skin closures may need to be in place for 2 weeks or longer. If adhesive strip edges start to loosen and curl up, you may trim the loose edges. Do not remove adhesive strips completely unless your health care provider tellsyou to do that. ??? Do not take baths, swim, or use a hot tub until your health care provider approves. Ask your health care provider if you may take showers. You may only be allowed to take sponge baths. ??? Check your incision area every day for signs of infection. Check for: ??? More redness, swelling, or pain. ??? Fluid or blood. ??? Warmth. ??? Pus or a bad smell. Activity ??? Rest as told by your health care provider. ??? Avoid sitting for a long time without moving. Get up to take short walks every 1???2 hours. This is important to improve blood flow and breathing. Ask for help if you feel weak or unsteady. ??? Do not lift anything that is heavier than 10 lb (4.5 kg), or the limit that you are told, untilyour health care provider says that it is safe. ??? Do not play contact sports until your health care provider approves. ??? Do not return to work or school until your health care provider approves. ??? Return to your normal activities as told by your health care provider. Ask your health care provider what activities are safe for you. General instructions ??? If you were given a sedative during the procedure, it can affect you for several hours. Do not drive or operate machinery until your health care provider says that it is safe. ??? Keep all follow-up visits as told by your health care provider. This is important. Contact a health care provider if: ??? You develop a rash. ??? You have more redness, swelling, or pain around your incisions. ??? You have fluid or blood coming from your incisions. ??? Your incisions feel warm to the touch. ??? You have pus or a bad smell coming from your incisions. ??? You have a fever. ??? One or more of your incisions breaks open. Get help right away if: ??? You have trouble breathing. ??? You have chest pain. ??? You have increasing pain in your shoulders. ??? You faint or feel dizzy when you stand. ??? You have severe pain in your abdomen. ??? You have nausea or vomiting that lasts for more than one day. ??? You have leg pain. Summary ??? After your procedure, it is common to have pain at the incision sites. You may also have nauseaor bloating. ??? Follow your health care provider's instructions about medicine, activity restrictions, and caring for your incision areas. Do not do activities that require a lot of effort. ??? Contact a health care provider if you have a fever or other signs of infection, such as more redness, swelling, or pain around the incisions. ??? Get help right away if you have chest pain, increasing pain in the shoulders, or trouble breathing. This information is not intended to replace advice given to you by your health care provider. Make sure you discuss any questions you have with your health care provider. Document Revised: 12/09/2019 Document Reviewed: 12/09/2019 Else[employer] Patient Education ?? 2021 [employer] Follow Up Care 01/12/2022 09:43:48 With:Walt Noland MD Address: [facility] [address] [place], [place] [id number]- When:[address] Abdomen and Pelvis W contrast IV * Micheal Bettencourt MD: VERIFY, VERIFY Event Display: Report EXAM DESCRIPTION: CT Abdomen and Pelvis w/ Contrast 01/12/2022 INDICATION: RIGHT SHOULDER PAIN TECHNIQUE: All CT scans at this facility use at least one of these dose optimization techniques: Automated exposure control; mA and/or kV adjustment per patient size (includes targeted exams where dose is matched to clinical indication); or iterative reconstruction. Technique: Axial CT images of the abdomen/pelvis with IV contrast administration 100 cc of Isovue-300 contrast was utilized COMPARISON: 12/01/2021 FINDINGS: No focal hepatic lesion. Normal enhancement of the main hepatic veins and main portal vein. Normal spleen size without focal mass Status post recent cholecystectomy by history. No findings in the surgical bed to suggest postsurgical complication. Adrenal glands and pancreas appear within normal limits. Stable small low-attenuation lesion involving the right mid kidney, too small to characterize. This likely reflects small cyst as described previously. No solid renal mass, hydronephrosis or perinephric fluid collection on either side. Normal caliber abdominal aorta. No retroperitoneal adenopathy in the abdomen or pelvis. No pelvic mass identified No bowel dilatation to suggest obstruction or ileus. Normal appendix. No ascites. Small pockets of free intraperitoneal air in the upper abdomen most consistent with recent postoperative state. Minimal subsegmental atelectasis or scarring in the lingula as described previously. Visualized lung bases are otherwise clear. No suspicious regional osseous lesions. IMPRESSION: Status post recent cholecystectomy. No abnormal fluid collection or findings in the surgical bed to suggest postsurgical complication. Nonobstructive bowel pattern. No mesenteric inflammatory stranding. Normal appendix Small pockets of free intraperitoneal air in the upper abdomen consistent with recent postoperative state. Additional nonacute findings as detailed above. JOB #: [id number] Final Signed by: Micheal Bettencourt MD Signed (Electronic Signature): 01/12/2022 11:27 am Patient Care team information Personnel Name: Walt Noland MD Address: Address: [facility] [address] [place] [address]
--- OUTSIDE RECORDS SUMMARY | 2022-05-29 21:07 | XMS_ITS | Continuity of Care Document ---
Author Name Unknown Organization [facility] Address [address] [place] [address] Encounter [facility] NBR [id number] Date(s): 01/04/22 - 01/04/22 [facility] [address] [place] [address]- [place] Encounter Diagnosis Biliary colic(Discharge Diagnosis) - 01/04/22 Gallbladder polyp(Discharge Diagnosis) - 01/04/22 Discharge Disposition: Home-No Follow Up Attending Physician: Walt Noland MD Admitting Physician: Walt Noland MD Allergies, Adverse Reactions, Alerts No Known Medication Allergies Functional Status 01/04/22 Anti-Embolism Device Activity: In place 01/04/22 Family Member Travel History No recent [facility] Recent Travel History No recent travel Other exposure to Infectious Disease Non e [...] moderate, # 8 tab, 0 Refill(s), Pharmacy: [facility], 157, cm, 12/28/21 16:17:00 EDT, Height/Length Dosing, 73, kg, 12/28/21 16:17:00 EDT, WeightDosing Start Date: 01/04/22 Stop Date: 01/07/22 Status: Ordered Problem List Condition Confirmation Course Effective Dates Status Health St atus Informant Hypotension Confirmed Active Hypothyroidism Confirmed Active Migraine Confirmed Active Palpitations Confirmed Active Tachycardia Confirmed Active Procedures Procedure [...] 3x2 4x3 ablation and implants 5right wrist Vital Signs Most recent to oldest [Reference Range]: 1 2 3 Temperature Temporal Artery [36-38 Deg C] 37.4 Deg C (01/04/22 12:03 PM) 37.5 Deg C (01/04/22 11:34 AM) 37.5 Deg C (01/04/22 10:50 AM) Temperature Temporal Artery (DegF) [97.3-100 Deg F] 99.5 Deg F (01/04/22 11:34 AM) 99.5 Deg F (01/04/22 10:50 AM) Peripheral Pulse Rate [60-100 bpm] 90 bpm (01/04/22 11:34 AM) 80 bpm (01/04/22 11:19 AM) 86 bpm (01/04/22 11:05 AM) Heart Rate Monitored [60-100 bpm] 90 bpm (01/04/22 6:50 AM) Blood Pressure [90-140/60-90 mmHg] 120/82mmHg (01/04/22 11:34 AM) 115/77mmHg (01/04/22 11:19 AM) 114/73mmHg (01/04/22 11:05 AM) Mean Arterial Pressure, Cuff [65-140 mmHg] 95 mmHg (01/04/22 11:34 AM) 90 mmHg (01/04/22 11:19 AM) 87 mmHg (01/04/22 11:05 AM) Mean Arterial Pressure Cuff 94 mmHg (01/04/22 11:34 AM) 88 mmHg (01/04/22 11:19 AM) 86 mmHg (01/04/22 11:05 AM) Weight 73.000 kg (12/28/21 4:12 PM) Weight Dosing 73.000 kg (12/28/21 4:12 PM) Height 157.000 cm (12/28/21 4:12 PM) Height/Length Dosing 157.000 cm (12/28/21 4:12 PM) Social History Social History Type Response Tobacco Never tobacco user T obacco Use:. Sex Hospital Discharge Instructions Follow Up Care 12/25/2021 17:01:21 With:Walt Noland MD Address: [facility] [address] [place] [address] When:01/31/2022 09:00:00
--- OUTSIDE RECORDS SUMMARY | 2022-05-29 21:07 | XMS_ITS | Continuity of Care Document ---
Author Name Unknown Organization [facility] Ambulatory Clinics Address [address] [place] [address] Care Team Providers Care Qualitative Field Coordinator Name Role Phone Ludin JOHNSON, Walt Vanegas Primary Care Physician Encounter [facility] NBR [id number] Date(s): 02/09/22 - 02/09/22 [facility] Ambulatory Clinics [address], [place] [address] Encounter Diagnosis Acne(Discharge Diagnosis) - 02/09/22 BCP ( control pills) initiation(Discharge Diagnosis) - 02/09/22 Women's annual routine gynecological examination(Discharge Diagnosis) - 02/09/22 Encounter for Papanicolaou smear for cervical cancer screening(Discharge Diagnosis) - 02/09/22 Encounter for special screening examination for infection with predominantly sexual mode of transmission(Discharge Diagnosis) - 02/09/22 Acquired hypothyroidism(Discharge Diagnosis) - 02/09/22 Endometriosis of pelvic peritoneum(Discharge Diagnosis) - 02/09/22 Discharge Disposition: Home or Self Care Attending Physician: Matias Levy MD, FACOG Allergies, Adverse Reactions, Alerts No Known Medication Allergies Functional Status 02/09/22 Recent Travel History No recent travel Other exposure to Infectious Disease Non e Medications !-Ortho Tri-Cyclen oral tablet 1 tab, Oral, Daily, # 84 tab, 4 Refill(s), Pharmacy: [facility], 157, cm, 01/12/22 10:04:00 EDT, Height/Length Dosing, 72, kg, 01/12/22 10:04:00 EDT, Weight Dosing Start Date: 02/09/22 Status: Ordered Aleve 220 mg oral tablet 1 cap, Oral, every 8 hr, PRN as needed for pain, # 40 cap, 0 Refill(s) Start Date: 12/28/21 Status: Ordered lamoTRIgine 100 mg oral tablet 60 EA, TAKE 1 TABLET BY MOUTH ONCE DAILY DIRECTED WITH 25MG TABLETS DIRECTED, 0 Refill(s) Start Date: 01/31/22 Status: Ordered lamoTRIgine 25 mg oral tablet 60 EA, TAKE ONE TABLET BY MOUTH ONCE DAILY WITH 100MG AND DIRECTED, 0 Refill(s) Start Date: 01/31/22 Status: Ordered levothyroxine 125 mcg (0.125 mg) oral tablet 125 mcg = 1 tab, Oral, Daily, # 30 tab, 0 Refill(s) Start Date: 12/28/21 Status: Ordered lithium 450 mg oral tablet, extended release 450 mg = 1 tab, Oral, Daily, # 60 tab, 0 Refill(s) Start Date: 01/31/22 Status: Ordered SEROquel 50 mg oral tablet 1 Unknown, 0 Refill(s) Start Date: 01/31/22 Status: Ordered Tylenol Extra Strength 500 mg oral tablet QID, 1 Unknown, 0 Refill(s) Start Date: 01/31/22 Status: Ordered Problem List Condition Confirmation Course Effective Dates Status H ealth Status Informant Acquired hypothyroidism Confirmed Active Blood pressure taking Confirmed Active Carpal tunnel syndrome of right wrist Confirmed Active Chest pain Confirmed Active Chronic migraine without aura with status migrainosus Confirmed Active Closed traumatic dislocation of patellofemoral joint Confirmed Active Dysmenorrhea Confirmed Active Dysphagia Confirmed Active Endometriosis of pelvic peritoneum Confirmed Active Flushing Confirmed Active Grief finding Confirmed Active Enoch thyroiditis Confirmed Active Hypotension Confirmed Active Hypothyroidism Confirmed Active Insomnia Confirmed Active Left lower quadrant pain Confirmed Active Migraine Confirmed Active Migraine with aura Confirmed Active Mixed anxiety and depressive disorder Confirmed Active Moderate recurrent major depression Confirmed Active Multiple joint pain Confirmed Active Pain of right knee joint Confirmed Active Palpitations Confirmed Active Persistent hypersomnia Confirmed Active Refractory migraine without aura Confirmed Active Restless legs Confirmed Active Sciatica Confirmed Active Shoulder pain, right Confirmed Active Snoring Confirmed Active Tachycardia Confirmed Active Tension-type headache Confirmed Active Procedures Procedure Date Related Diagnosis [...] Most recent to oldest [Reference Range]: 1 Blood Pressure [90-140/60-90 mmHg] 102/6 8mmHg (02/09/22 8:45 AM) Weight 71.5 kg (02/09/22 8:45 AM) Weight Measured (lbs) 157.63 lb (02/09/22 8:45 AM) [place] Body Weight Calculated 50.1 kg (02/09/22 8:45 AM) Height 157.48 cm (02/09/22 8:45 AM) Height/Length Measured (inches) 62 inch (02/09/22 8:45 AM) BSA Measured 1.77 m2 (02/09/22 8:45 AM) Body Mass Index 28.83 kg/m2 (02/09/22 8:45 AM) Social History Social History Type Response Tobacco Never tobacco user T obacco Use:. Sex Hospital Discharge Instructions Follow Up Care 02/05/2022 17:40:17 With:Matias Levy MD, FACOG Address: [address] [place] [id number] When:Within 1 Year(s) Physician Outpatient Note * Matias Levy MD, FACOG: PERFORM, MODIFY Event Display: Office Clinic Note Physician Authored Date: [id number] KENYETTA VASQUEZ :1995 Age:26 years Sex:Female Visit Date:02/09/2022 Primary Care Physician: Walt Noland MD Chief Complaint Bliat abdominal pain 08/01. Sharp, changes, feels when sitting. Vaginal odor? Would like a Pap with CT/NG. LMP in November, for 3 weeks, ??passed large clots. Normally doesn't get a period, on Depo. May want to switch to OCP. History of Present Illness 40 pound weight gain but on Depoprovera and norethindrone as well as Datil.?? Thyroid level checked recently and told it was okay. Diet and exercise okay. Review of Systems See above. Bipolar. S/P laparoscopic cholecystectomy Physical Exam Vitals & Measurements BP:??102/68?? HT:??157.48??cm?? WT:??71.5??kg?? BMI:??28.83?? BSA:??1.77?? HEENT- masked, acne.?? Thyroid palpable with greater lobe on right.Chest clear to P&A. Heart without murmur.?? Breasts normal without grave changes.?? Abdomen with recent GB scars. No masses or tenderness. BS active. Vulva with vitiligo left side.?? Marital introitus with no ulcers or papillarychanges.?? Cystocele. Vagina with white discharge.?? HUSSEIN/wet prep with pH high 5.5, neg whiff, no hy phae, trich and rare clue cell. Cervix with ectropion that bled with pap. Nontender. Uterus symmetrical, normal size, mobile and no cul de sac nodularity. Extremities benign. Psych- no evidence f anxiety or??depression today. ?? Assessment/Plan 1.??Acne??L70.9 Will be imroved off DepoProvera. Ordered: !-Ortho Tri-Cyclen oral tablet, 1 tab, Oral, Daily, # 84 tab, 4 Refill(s), Pharmacy: [facility], 157, cm, 01/12/22 10:04:00 EDT, Height/Length Dosing, 72, kg, 01/12/22 10:04:00 EDT, Weight Dosing ?? 2.??BCP ( control pills) initiation??Z30.011 Will get periods back but low dose should help from getting recurrent endometriosis Ordered: !-Ortho Tri-Cyclen oral tablet, 1 tab, Oral, Daily, # 84 tab, 4 Refill(s), Pharmacy: [facility], 157, cm, 01/12/22 10:04:00 EDT, Height/Length Dosing, 72, kg, 01/12/22 10:04:00 EDT, Weight Dosing ?? 3.??Encounter for special screening examination for infection with predominantly sexual mode of transmission??Z11.3 Pap GC/Chlamydia sent.?? Wet smear and HUSSEIN negative in the office. Declines blood work for syphilisand HIV/Hepatitis Ordered: !-Ortho Tri-Cyclen oral tablet, 1 tab, Oral, Daily, # 84 tab, 4 Refill(s), Pharmacy: [facility], 157, cm, 01/12/22 10:04:00 EDT, Height/Length Dosing, 72, kg, 01/12/22 10:04:00 EDT, Weight Dosing Outside Lab Request, 02/09/22 9:16:00 EST, Stop date 02/09/22 9:16:00 EST, [facility], Pap reflex to HPV if ASCUS, CT/NG, Encounter for Papanicolaou smear for cervical cancer screening Encounter for special screening examination for infection with predominantly sexual mode... ?? 4.??Encounter for Papanicolaou smear for cervical cancer screening??Z12.4 Pap done- call with result. Ordered: !-Ortho Tri-Cyclen oral tablet, 1 tab, Oral, Daily, # 84 tab, 4 Refill(s), Pharmacy: [facility], 157, cm, 01/12/22 10:04:00 EDT, Height/Length Dosing, 72, kg, 01/12/22 10:04:00 EDT, Weight Dosing Outside Lab Request, 02/09/22 9:16:00 EST, Stop date 02/09/22 9:16:00 EST, [facility], Pap reflex to HPV if ASCUS, CT/NG, Encounter for Papanicolaou smear for cervical cancer screening Encounter for special screening examination for infection with predominantly sexual mode... ?? 5.??Women's annual routine gynecological examination??Z01.419 Doing well otherwise. ?? 6.??Acquired hypothyroidism??E03.9 Has had thyroid level checked so less likely to be cause of weight gain??but can feel goiter.? 7.??Endometriosis of pelvic peritoneum??N80.30 No symptoms at present. ?? Follow Up Instructions With When Contact Information Matias Levy MD, FACOG In 1 year [address] [place] [address] Additional Instructions: Problem List/Past Medical History Ongoing Acquired hypothyroidism Blood pressure taking Carpal tunnel syndrome of right wrist Chest pain Chronic migraine without aura with status migrainosus Closed traumatic dislocation of patellofemoral joint Dysmenorrhea Dysphagia Endometriosis of pelvic peritoneum Flushing Grief finding Enoch thyroiditis Hypotension Hypothyroidism Insomnia Left lower quadrant pain Migraine Migraine with aura Mixed anxiety and depressive disorder Moderate recurrent major depression Multiple joint pain Pain of right knee joint Palpitations Persistent hypersomnia Refractory migraine without aura Restless legs Sciatica Shoulder pain, right Snoring Tachycardia Tension-type headache Historical Procedure/Surgical History ???Cholecystectomy Laparoscopy (01/04/2022)???Arthroscopic knee operation???Arthroscopy of shoulder???Bilateral guillotine tonsillectomy???EA - Endometrial ablation???EGD - Esophagogastroduodenoscopy???Laparoscopic left salpingo-oophorectomy???Release of tendon Medications !-Ortho Tri-Cyclen oral tablet, 1 tab, Oral, Daily, 4 refills Aleve 220 mg oral tablet, 1 cap, Oral, every 8 hr, PRN lamoTRIgine 100 mg oral tablet lamoTRIgine 25 mg oral tablet levothyroxine 125 mcg (0.125 mg) oral tablet, 125 mcg= 1 tab, Oral, Daily lithium 450 mg oral tablet, extended release, 450 mg= 1 tab, Oral, Daily SEROquel 50 mg oral tablet Tylenol Extra Strength 500 mg oral tablet, QID Allergies No Known Medication Allergies Social History Alcohol Never Electronic Cigarette/Vaping Electronic Cigarette Use: Never. 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 Home/Environment Lives with Children. Living situation: Home/Independent. Sexual Sexually active: No. Substance Use Never Tobacco Never tobacco user Tobacco Use:. Family History Alive and well: Mother. Asthma: Son. Heart attack: Father. Hypothyroidism: Father. Electronically Signed on 02/09/22 09:36 AM Matias Levy MD, FACOG Electronically Signed on 02/09/22 07:32 PM Matias Levy MD, FACOG Patient Care team information Personnel Name: Walt Noland MD Address: Address: [facility] [address] [place] [address]
--- OUTSIDE RECORDS SUMMARY | 2022-05-29 21:07 | XMS_ITS | Continuity of Care Document ---
Author Name Unknown Organization [facility] Ambulatory Clinics Address [address] [place] [address] Care Team Providers Care Propulsion Engineer Name Role Phone Ludin JOHNSON, Walt Vanegas Primary Care Physician Encounter [facility] NBR [id number] Date(s): 01/31/22 - 01/31/22 [facility] Ambulatory Clinics [address] [place] [address]- [place] Encounter Diagnosis S/P laparoscopic cholecystectomy(Discharge Diagnosis) - 01/31/22 Discharge Disposition: Home or Self Care Attending Physician: Walt Noland MD Allergies, Adverse Reactions, Alerts No Known Medication Allergies Functional Status 01/31/22 Living Environment Home Environment No qualifying data available Other exposure to Infectious Disease Non e [...] release 450 mg = 1 tab, Oral, BID, # 60 tab, 0 Refill(s) Start Date: 01/31/22 Status: Ordered medroxyPROGESTERone 150 mg/mL intramuscular suspension 150 mg = 1 mL, IM, every 3 mo, # 1 mL, 0 Refill(s) Start Date: 12/28/21 Status: Ordered norethindrone 5 mg oral tablet 5 mg = 1 tab, Oral, Daily, # 90 tab, 0 Refill(s) Start Date: 12/28/21 Status: Ordered norethindrone-ethinyl estradiol 1 mg-20 mcg oral tablet 0 Refill(s) Start Date: 01/31/22 Status: Ordered [...] recent to oldest [Reference Range]: 1 Temperature Temporal Artery [36-38 Deg C ] 36.8 Deg C (01/31/22 10:09 AM) Apical Heart Rate [60-100 bpm] 94 bpm (01/31/22 10:09 AM) Blood Pressure [90-140/60-90 mmHg] 108/7 4mmHg (01/31/22 10:09 AM) Weight 71.6 kg (01/31/22 10:09 AM) Weight Measured (lbs) 157.851 lb (01/31/22 10:09 AM) [place] Body Weight Calculated 50.1 kg (01/31/22 10:09 AM) Height 157.48 cm (01/31/22 10:09 AM) Height/Length Measured (inches) 62 inch (01/31/22 10:09 AM) BSA Measured 1.77 m2 (01/31/22 10:09 AM) Body Mass Index 28.87 kg/m2 (01/31/22 10:09 AM) Social History Social History Type Response Tobacco Never tobacco user T obacco Use:. Sex Physician Outpatient Note * Walt Noland MD: PERFORM Event Display: Office Clinic Note Physician Authored Date: [id number] YARELI GANT :1995 Age:26 years Sex:Female Visit Date:01/31/2022 Primary Care Physician: Walt Noland MD History of Present Illness Yareli Gant is a 26-year-old woman??who presents in follow-up 4 weeks s/p laparoscopic cholecystectomy. ??Yareli reports that she is recovering well from her surgery. ??She had??significant postoperative pain and presented to the emergency department on??01/12/2022??where CT was performed which demonstrated expected postsurgical changes and??no acute findings.?? Since that time, she has had resolution of her pain. ??She has been eating and drinking without issue. ??She denies diarrhea or constipation. ??She no longer is experiencing??colic symptoms. ??She has had no recent fevers or chills. ??Her incisions are healing well without erythema or drainage. Physical Exam Vitals & Measurements T:??36.8?C ??(Temporal Artery)?? HR:??94??(Apical)?? BP:??108/74?? SpO2:??99%?? HT:??157.48??cm?? WT:??71.6??kg?? BMI:??28.87?? BSA:??1.77?? General: No acute distress, pleasant, conversant CV: RRR Pulmonary: Regular breathing rate and effort Abdomen: Soft,??nontender, nondistended,??laparoscopic incisions healing well without erythema or drainage Assessment/Plan 1.??S/P laparoscopic cholecystectomy??Z90.49 Yareli Gant is a 26-year-old woman with??a history of biliary colic symptoms??and gallbladder??polyp??who is now 4 weeks s/p laparoscopic cholecystectomy. ??Yareli is recovering well. ??She has responded??quite well to??cholecystectomy and is no longer having??abdominal pain.?? We reviewed the results of her pathology which demonstrated cholesterolosis of the gallbladder.?? She??may now resume her usual activities without restriction. ??She has already to return to work. ??She can call with anyfurther questions or concerns. Problem List/Past Medical History Ongoing Acquired hypothyroidism [...] pain, right Snoring Tachycardia Tension-type headache Historical No qualifying data Procedure/Surgical History ???Cholecystectomy Laparoscopy (01/04/2022)???Arthroscopic knee operation???Arthroscopy of shoulder???Bilateral guillotine tonsillectomy???EA - Endometrial ablation???EGD - Esophagogastroduodenoscopy???Laparoscopic left salpingo-oophorectomy???Release of tendon Medications Aleve 220 mg oral tablet, 1 cap, Oral, every 8 hr, PRN lamoTRIgine 100 mg oral tablet lamoTRIgine 25 mg oral tablet levothyroxine 125 mcg (0.125 mg) oral tablet, 125 mcg= 1 tab, Oral, Daily lithium 450 mg oral tablet, extended release, 450 mg= 1 tab, Oral, BID medroxyPROGESTERone 150 mg/mL intramuscular suspension, 150 mg= 1 mL, IM, every 3 mo norethindrone 5 mg oral tablet, 5 mg= 1 tab, Oral, Daily norethindrone-ethinyl estradiol 1 mg-20 mcg oral tablet SEROquel 50 mg oral tablet Tylenol Extra Strength 500 mg oral tablet, QID Allergies No Known Medication Allergies Social History Alcohol Never Electronic Cigarette/Vaping Electronic Cigarette Use: Never. Substance Use Never Tobacco Never tobacco user Tobacco Use:. Electronically Signed on 01/31/22 10:32 AM Walt Noland MD Patient Care team information Care Team Personnel Name: Walt Noland MD Position: Physician Member Role: Primary Care Physician Address: Address: [facility] [address] [place] [address] Care Team Related Persons Name: JOHNNY VU
--- OUTSIDE RECORDS SUMMARY | 2022-05-29 21:07 | XMS_ITS | Continuity of Care Document ---
Author Name Unknown Organization [facility] Ambulatory Clinics Address [address] [place] [address] Care Team Providers Care Diabetologist Name Role Phone Ludin JOHNSON, Walt Vanegas Primary Care Physician Encounter [facility] NBR [id number] Date(s): 01/05/22 - 01/05/22 [facility] Ambulatory Clinics [address] [place] [address]- Discharge Disposition: Home or Self Care Attending Physician: Walt Noland MD Allergies, Adverse Reactions, Alerts No Known Medication Allergies Medications Aleve 220 mg oral tablet 1 [...] moderate, # 8 tab, 0 Refill(s), Pharmacy: [facility], 157, cm, 12/28/21 16:17:00 EDT, [...] 3x2 4x3 ablation and implants 5right wrist Social History Social History Type Response Tobacco Never tobacco user T obacco Use:. Sex Patient Care team information Personnel Name: Walt Noland MD Address: Address: [facility] [address] [place] [address]
--- OUTSIDE RECORDS SUMMARY | 2022-05-29 21:08 | XMS_ITS ---
Author Name Rubenskamari Walt Address [address], [place] [id number] Organization [facility] Address [address], [place] [id number] Care Team Providers Care Food And Drug Inspector Name Role Phone Walt Noland Unavailable [phone] PROBLEMS Type Condition ICD9-CM Code PBS92-NE Code Onset Dates Condition Status SNOMED Code Problem Encounter for examination of blood pressure without abnormal findings Z01.30 Active 30761858 Problem Migraine without aura, intractable 346.11 Active 482921216 Problem Chronic migraine w/o aura, w/ intractable migraine, w/ status migrainosus 346.73 Active 746547350 870235 Problem Depression, major, recurrent, moderate F33.1 Active 75364491 Problem Migraine with aura and without status migrainosus, not intractable G43.109 Active 3381898 Problem Dysphagia 787.20 Active 10502156 Problem Insomnia NOS 307.42 Active 284589884 Problem Polyarthralgia 719.49 Active 84488509 Problem Chest pain 786.50 Active 56073901 Problem Endometriosis of pelvic peritoneum N80.3 Active 229056068 Problem Dysmenorrhea N94.6 Active 868210140 Problem Depression with anxiety F41.8 Active 763318805 Problem Hypothyroidism, unspecified E03.9 Active 78407039 Problem Grief reaction F43.20 Active 30163864 Problem Tension headache G44.209 Active 3502210 08 Problem Hypothyroidism, unspecified type E03.9 Active Problem Vasomotor flushing R23.2 Active 32303 0007 Problem Snoring 786.09 Active 33239128 Problem Enoch's thyroiditis E06.3 Active 66357039 Problem Restless legs syndrome 333.94 Active 16528994 Problem Hypersomnia, persistent 307.44 Active 624516975 Problem Hypothyroidism (acquired) E03.9 Active Problem Acute back pain with sciatica, left M54.42 Active 46918992 Problem LLQ abdominal pain R10.32 Active 92009 6002 Problem Acquired hypothyroidism E03.9 Active ALLERGIES No Known Allergies ENCOUNTERS Encounter Location Date Diagnosis [facility] [address] [id number] Nov, Polyp of gallbladder K82.4 and Biliary colic K80.50 [facility] [address] [id number] Nov, [address] [id number] Nov, Encounter for management and injection of depo-Provera Z30.[address] [id number] Oct, [address] [id number] Sep, Encounter for management and injection of depo-Provera Z30.42 [facility] [address] [place] [address] [id number] July, Normal exam Z00.[address] [id number] Jun, Encounter for Depo-Provera contraception Z30.42 [facility] [address] [place] [address] [id number] Jun, Encounter for screening laboratory testing for COVID-19 virus Z20.822 and Right acute otitis media H66.[address] [id number] Apr, Endometriosis N80.[address] [id number] 11 Apr, 2021 Encounter for management and injection of depo-Provera Z30.[address] [id number] 09 Apr, [address] [id number] Feb, Endometriosis of pelvic peritoneum N80.3 ; Dysmenorrhea N94.6 ; Vasomotor flushing R23.2 and Initiation of Depo Provera Z30.[address] [id number] 13 Nov, 2020 Endometriosis of pelvic peritoneum N80.[address] [id number] 12 Jul, 2020 Endometriosis of pelvic peritoneum N80.3 ; Dysmenorrhea N94.6 and Vasomotor flushing R23.[address] [id number] July, Vasomotor flushing R23.[address] [id number] Jun, [address] [id number] Jun, [address] [id number] May, [address] [id number] May, Endometriosis of pelvic peritoneum N80.[address] [id number] 05 May, 2020 Endometriosis N80.9 ; Dysmenorrhea N94.6 and Endometriosis of pelvic peritoneum N80.[address] [id number] 08 Apr, 2020 Amenorrhea N91.2 and Encounter for Depo-Provera contraception Z30.[address] [id number] 08 Apr, 2020 Endometriosis of pelvic peritoneum N80.[address] [place], [place] [id number] Mar, [address] [id number] 14 Mar, 2020 Endometriosis of pelvic peritoneum N80.3 and Enoch's thyroiditis E06.[address] [place] [address] [id number] 14 Feb, 2020 Acquired hypothyroidism E03.[address] [id number] 09 Feb, 2020 Acquired hypothyroidism E03.[address] [id number] 08 Feb, 2020 Acquired hypothyroidism E03.9 ; Endometriosis of pelvic peritoneum N80.3 and Vasomotor flushing R23.[address] [id number] 11 Jan, 2020 Acquired hypothyroidism E03.[address] [id number] 10 Jan, 2020 Hypothyroidism (acquired) E03.[address] [id number] 10 Jan, 2020 Endometriosis of pelvic peritoneum N80.[address] [id number] 23 Dec, 2019 Acquired hypothyroidism E03.[address] [id number] Dec, LLQ abdominal pain R10.32 and Endometriosis of pelvic peritoneum N80.[address] [id number] 07 Dec, 2019 Endometriosis of pelvic peritoneum N80.3 and Vasomotor flushing R23.[address] [place] [address] [id number] 25 Nov, 2019 Endometriosis of pelvic peritoneum N80.3 and LLQ abdominal pain R10.[address] [id number] 14 Nov, 2019 Screening examination for infectious disease Z11.9 ; Other specified bacterial agents as the cause of diseases classified elsewhere B96.89 and Acute vaginitis N76.[address] [place], [place] [id number] 04 Nov, 2019 Depression with anxiety F41.8 ; Endometriosis N80.9 and Acquired hypothyroidism E03.9 Matias Levy MD [address] [place] [id number] Oct, Acquired hypothyroidism E03.[address] [place], [place] [id number] Oct, Depression with anxiety F41.8 and Acquired hypothyroidism E03.[address] [id number] Oct, [address] [id number] Sep, [address] [id number] Sep, Acute pelvic pain R10.2 and Endometriosis of pelvic peritoneum N80.[address] [id number] Sep, Endometriosis N80.[address] [id number] Aug, Incisional pain L76.[address] [id number] 15 Aug, 2019 Screening examination for infectious disease Z11.9 ; Endometriosis N80.9 and Dysmenorrhea N94.[address] [id number] 15 Aug, [address] [id number] 12 Aug, [address] [id number] 11 Aug, 2019 Dysuria R30.[address] [id number] 05 Aug, 2019 Surgery follow-up examination Z09 [address] [id number] 02 Aug, 2019 Encounter for removal of intrauterine contraceptive device Z30.432 and Encounter for Depo-Provera contraception Z30.[address] [place] [address] [id number] Aug, LLQ abdominal pain R10.32 ; Endometriosis determined by laparoscopy N80.9 ; IUD (intrauterine device) in place Z97.5 and Frequent urination R35.[address] [place] [address] [id number] July, [facility] [address] [place] [id number] July, Endometriosis determined by laparoscopy N80.9 ; LLQ abdominal pain R10.32 and IUD (intrauterine device) in place Z97.5 [facility] [place] [address] [id number] July, [address] [id number] July, [address] [id number] July, [address] [id number] July, LLQ abdominal pain R10.32 ; Endometriosis determined by laparoscopy N80.9 ; Encounter for observation for suspected exposure to other biological agents ruled out Z03.818 ; IUD (intrauterine device) in place Z97.5 and Vaginal discharge N89.[address] [id number] 16 Jun, 2019 Trichomoniasis A59.[address] [id number] Apr, Trichomoniasis of vagina A59.01 ; Encounter for screening for malignant neoplasm of cervix Z12.4 ; Encounter for screening for infections with a predominantly sexual mode of transmission Z11.3 and Vaginal discharge N89.[address] [id number] Apr, [address] [id number] Feb, [address] [id number] Jan, [address] [id number] Jan, IUD surveillance Z30.431 and History of chlamydia Z86.[address] [id number] Dec, [address] [id number] Dec, [facility] [address] [place], [place] [id number] Dec, [address] [id number] Nov, [address] [id number] Nov, [address] [id number] Nov, Screening examination for infectious disease Z11.9 ; Encounter for insertion of intrauterine contraceptive device Z30.430 ; General counseling and advice for contraceptive management Z30.09 ; Dysmenorrhea N94.6 and Endometriosis of pelvic peritoneum N80.[address] [id number] Nov, [address] [id number] Oct, Trichomonas contact, treated Z20.2 and Surgery follow-up examination Z09 [address] [id number] Oct, Trichomonas contact, treated Z20.2 ; Surgery follow-up examination Z09 and Hypothyroidism (acquired) E03.9 [facility] [address] [place], [place] [id number] Sep, [facility] [address] [facility] [address] [place], [place] [id number] Sep, Inguinal adenopathy R59.0 [facility] [place] [address], [place] [id number] Sep, [address] [id number] Sep, Encounter for management and injection of depo-Provera Z30.42 ; History of chlamydia Z86.19 and Trichomonas infection A59.[address] [id number] Aug, [facility] [address] [facility] [address] [place] [address] [id number] Aug, [facility] [address] [facility] [address] [place] [address] [id number] Aug, Left groin pain R10.32 and Endometriosis of pelvic peritoneum N80.3 [facility] [address] [facility] [address] [place] [address] [id number] Aug, [facility] [address] [facility] [address] [place] [address] [id number] Aug, [facility] [address] [facility] [address] [place] [address] [id number] Aug, Metrorrhagia N92.1 and Dysmenorrhea N94.[address] [place] [address] [id number] July, Vasomotor flushing R23.[address] [place] [address] [id number] Jun, [address] [place] [address] [id number] Jun, Initiation of Depo Provera Z30.013 and Encounter for Depo-Provera contraception Z30.[address] [place] [address] [id number] Jun, Hypothyroidism, unspecified E03.[address] [place] [address] [id number] May, [address] [place] [address] [id number] Apr, Depression with anxiety F41.[address] [place] [address] [id number] 14 Mar, 2018 care and examination Z39.2 and Other mental disorders complicating the puerperium O99.[address] [place] [address] [id number] Feb, care and examination immediately after delivery Z39.[address] [place] [address] [id number] Feb, [address] [place], [place] [id number] Feb, care and examination Z39.2 ; Tension headache G44.209 ; Migraine with aura and without status migrainosus, not intractable G43.109 and Acute back pain with sciatica, left M54.[address] [place] [id number] Feb, [address] [place] [address] [id number] Jan, Encounter for supervision of other normal , third trimester Z34.[address] [place] [address] [id number] Jan, [address] [place] [address] [id number] Jan, Encounter for supervision of other normal , third trimester Z34.[address] [place] [address] [id number] 20 Jan, [address] [place] [address] [id number] 19 Jan, 2018 Threatened labor at term O47.[address] [place] [address] [id number] Jan, [address] [place] [address] [id number] Jan, Encounter for supervision of other normal , third trimester Z34.83 and Uterine contractions during O62.[address] [place] [address] [id number] Jan, Encounter for supervision of other normal , third trimester Z34.83 and 38 weeks gestation of Z3A.[address] [place] [address] [id number] 07 Jan, 2018 Encounter for supervision of other normal , third trimester Z34.83 ; 37 weeks gestation of Z3A.37 and Encounter for screening Z36.[address] [place] [address] [id number] 30 Dec, 2017 Encounter for supervision of other normal , third trimester Z34.83 and 36 weeks gestation of Z3A.[address] [place] [address] [id number] Dec, [address] [place], [place] [id number] Dec, Threatened premature labor in third trimester O47.[address] [place], [place] [id number] Dec, [address] [facility] [address] [place], [place] [id number] Dec, [address] [place], [place] [id number] Dec, Encounter for supervision of other normal , third trimester Z34.[address] [place], [place] [id number] Dec, [address] [place], [place] [id number] Dec, Encounter for supervision of other normal , third trimester Z34.[address] [place] [address] [id number] Dec, [address] [place], [place] [id number] Dec, [address] [place] [address] [id number] Dec, Premature uterine contractions O47.[address] [place] [address] [id number] Dec, Encounter for supervision of other normal , third trimester Z34.83 and Hypothyroidism (acquired) E03.[address] [place] [address] [id number] Nov, Encounter for supervision of other normal , third trimester Z34.83 and Need for Tdap vaccination Z23 [address] [place], [place] [id number] Nov, Encounter for supervision of other normal , third trimester Z34.83 and Threatened premature labor in third trimester O47.[address] [place], [place] [id number] Oct, Encounter for supervision of other normal , second trimester Z34.[address] [place], [place] [id number] Oct, Encounter for supervision of other normal , second trimester Z34.82 and Hypothyroidism, unspecified type E03.[address] [id number] Oct, [address] [id number] Oct, Encounter for supervision of other normal , second trimester Z34.[address] [id number] Sep, Encounter for supervision of other normal , second trimester Z34.82 ; Endocrine, nutritional and metabolic diseases complicating , second trimester O99.282 and 20 weeks gestation of Z3A.[address] [id number] Sep, [address] [id number] Aug, [address] [id number] Aug, Encounter for supervision of other normal , second trimester Z34.[address] [id number] Aug, Encounter for supervision of other normal , second trimester Z34.[address] [id number] July, [facility] [address] [place] [address] [id number] July, Upper respiratory tract infection, unspecified type J06.[address] [id number] July, Encounter for supervision of other normal , first trimester Z34.81 [facility] [address] [place] [address] [id number] July, Depression with anxiety F41.8 ; Hypothyroidism, unspecified E03.9 and Migraine with aura and without status migrainosus, not intractable G43.[address] [id number] Jun, Irregular menstruation N92.[address] [id number] Jun, Threatened O20.0 [facility] [address] [place], [place] [id number] May, Acute midline low back pain without sciatica M54.[address] [id number] May, Secondary amenorrhea N91.1 ; Encounter for test, result positive Z32.01 and Hypothyroidism, unspecified E03.9 [facility] [address] [place], [place] [id number] May, Hypothyroidism, unspecified type E03.[address] [id number] May, Hypothyroidism, unspecified E03.9 ; Depression with anxiety F41.8 and Migraine with aura and without status migrainosus, not intractable G43.[address] [id number] Apr, Surgery follow-up examination Z09 ; Endometriosis of pelvic peritoneum N80.3 and Dysmenorrhea N94.6 [facility] [address] [place] [address] [id number] Apr, Tension headache G44.209 and Grief reaction F43.[address] [id number] Mar, [facility] [address] [place] [id number] Mar, [facility] [address] [place], [place] [id number] Feb, [address] [id number] Feb, Endometriosis of pelvic peritoneum N80.3 and Dysmenorrhea N94.[address] [id number] Feb, Endometriosis of pelvic peritoneum N80.3 [facility] [address] [id number] Feb, [address] [id number] Feb, [address] [id number] Jan, Dysmenorrhea N94.6 ; Endometriosis of pelvic peritoneum N80.3 and Vasomotor flushing R23.2 [facility] [address] [place], [place] [id number] Jan, Vasomotor flushing R23.2 ; Endometriosis of pelvic peritoneum N80.3 ; Dysmenorrhea N94.6 and LLQ abdominal pain R10.32 [facility] [address] [place], [place] [id number] Jan, [facility] [address] [facility] [address] [facility] [address] [place] [id number] Jan, Endometriosis of pelvic peritoneum N80.3 and Combined abdominal and pelvic pain R10.30 [facility] [address] [place], [place] [id number] Dec, [facility] [address] [facility] [address] [place] [id number] Dec, [facility] [address] [facility] [address] [facility] [address] [place] [address] [id number] Dec, [facility] [address] [place], [place] [id number] Dec, [facility] [address] [facility] [address] [place] [address] [id number] Dec, [facility] [address] [facility] [address] [place] [address] [id number] Dec, [facility] [address] [facility] [facility] [address] [place] [address] [id number] Dec, [facility] [address] [facility] [address] [place] [address] [id number] Dec, Endometriosis of pelvic peritoneum N80.3 [facility] [address] [place], [place] [id number] Nov, [facility] [address] [place], [place] [id number] Nov, [facility] [address] [place] [address] [id number] Nov, Endometriosis of pelvic peritoneum N80.3 [facility] [address] [place] [id number] Nov, [facility] [address] [facility] [facility] [address] [place] [address] [id number] Oct, [facility] [address] [id number] Oct, [address] [id number] Oct, [address] [id number] Oct, Encounter for screening for malignant neoplasm of cervix Z12.4 [facility] [address] [id number] Oct, [address] [id number] Oct, Hypothyroidism, unspecified E03.[address] [id number] Oct, [address] [id number] Oct, [address] [id number] Oct, Hypothyroidism, unspecified E03.9 ; Migraine with aura and without status migrainosus, not intractable G43.109 and Depression with anxiety F41.[address] [id number] Sep, [address] [id number] Sep, Depression, major, recurrent, moderate F33.[address] [id number] Sep, [address] [id number] Sep, Endometriosis of pelvic peritoneum N80.3 and Dysmenorrhea N94.[address] [id number] Sep, Abnormal thyroid blood test R94.[address] [id number] Sep, [address] [id number] Sep, [address] [id number] Sep, Annual physical exam Z00.00 ; Hypothyroidism, unspecified E03.9 ; Migraine with aura and without status migrainosus, not intractable G43.109 and Depression with anxiety F41.8 [facility] [address] [place], [place] [id number] Aug, [address] [place] [address] [id number] July, care and examination Z39.2 and OCP (oral contraceptive pills) initiation Z30.[address] [id number] Jun, Encounter for supervision of normal first in third trimester Z34.[address] [id number] Jun, Encounter for supervision of normal first in third trimester Z34.[address] [id number] May, Encounter for supervision of normal first in third trimester Z34.[address] [id number] May, Encounter for supervision of normal first in third trimester Z34.[address] [id number] May, [address] [id number] May, Encounter for supervision of normal first in third trimester Z34.03 and 37 weeks gestation of Z3A.[address] [id number] May, [address] [id number] May, Encounter for supervision of normal first in third trimester Z34.[address] [place] [address] [id number] May, [address] [id number] Apr, Encounter for supervision of normal first , third trimester Z34.03 ; Hypothyroidism, unspecified E03.9 ; 34 weeks gestation of Z3A.34 and Encounter for immunization Z23 [facility] [address] [place], [place] [id number] Apr, Encounter for supervision of normal first in third trimester Z34.03 and 32 weeks gestation of Z3A.32 [facility] [address] [place], [place] [id number] Apr, [facility] [address] [place], [place] [id number] Apr, [facility] [address] [place], [place] [id number] Mar, Encounter for supervision of normal first in third trimester Z34.03 [facility] [address] [place], [place] [id number] Mar, [facility] [address] [place], [place] [id number] Mar, Encounter for supervision of normal first , third trimester Z34.03 and 30 weeks gestation of Z3A.30 [facility] [address] [place], [place] [id number] Mar, Abnormal glucose tolerance test (GTT) during , antepartum O99.810 [facility] [address] [place], [place] [id number] Mar, Encounter for supervision of normal first in third trimester Z34.03 and Hypothyroidism, unspecified E03.9 [facility] [address] [place], [place] [id number] Mar, [facility] [address] [place], [place] [id number] Mar, [facility] [address] [place], [place] [id number] Feb, [facility] [address] [place], [place] [id number] Feb, [facility] [address] [place], [place] [id number] Feb, Encounter for supervision of normal first in second trimester Z34.02 [facility] [address] [place], [place] [id number] Jan, [facility] [address] [place], [place] [id number] Jan, Encounter for supervision of normal first in second trimester Z34.02 [facility] [address] [facility] [address] [place], [place] [id number] Dec, Encounter for supervision of normal first in second trimester Z34.02 [facility] [address] [facility] [address] [place], [place] [id number] Dec, Encounter for supervision of normal first in second trimester Z34.02 ; Pelvic and perineal pain R10.2 and Other specified related conditions, unspecified trimester O26.899 [facility] [address] [facility] [address] [place], [place] [id number] Dec, [facility] [address] [facility] [address] [place], [place] [id number] Dec, [facility] [address] [facility] [address] [place], [place] [id number] Nov, [facility] [address] [place], [place] [id number] Nov, Encounter for supervision of normal first , second trimester Z34.02 [facility] [address] [place], [place] [id number] Nov, Encounter for supervision of normal first in second trimester Z34.02 [facility] [address] [place], [place] [id number] Oct, Encounter for supervision of normal first in first trimester Z34.01 and RLQ abdominal pain R10.31 [facility] [address] [place], [place] [id number] Oct, [facility] [address] [facility] [address] [place], [place] [id number] Sep, [facility] [address] [facility] [address] [place], [place] [id number] Sep, [facility] [address] [place], [place] [id number] Sep, [facility] [address] [place], [place] [id number] July, Pre-conception counseling Z31.69 ; Endometriosis of pelvic peritoneum N80.3 and Dysmenorrhea N94.6 [facility] [address] [place], [place] [id number] July, [facility] [address] [place], [place] [id number] Jun, Endometriosis of pelvic peritoneum N80.3 [facility] [address] [place], [place] [id number] May, Endometriosis of pelvic peritoneum N80.3 [facility] [address] [place] [address] [id number] Apr, Endometriosis of pelvic peritoneum N80.3 [facility] [address] [place] [address] [id number] Apr, [facility] [address] [place] [address] [id number] Apr, Dysmenorrhea N94.6 and Endometriosis of pelvic peritoneum N80.[address] [place] [address] [id number] Mar, Endometriosis of pelvic peritoneum N80.3 [facility] [address] [place] [address] [id number] Mar, [facility] [address] [place] [address] [id number] Feb, Endometriosis of pelvic peritoneum N80.3 [facility] [address] [place] [address] [id number] Feb, [facility] [address] [place] [address] [id number] Jan, Endometriosis of pelvic peritoneum 617.3 [facility] [address] [place] [address] [id number] Dec, [facility] [address] [place], [place] [id number] Nov, Dysmenorrhea 625.3 and Endometriosis of pelvic peritoneum 617.3 [facility] [address] [place] [address] [id number] Nov, [facility] [address] [place], [place] [id number] Oct, Polyarthralgia 719.49 [facility] [address] [place], [place] [id number] Oct, Polyarthralgia 719.[address] [id number] Mar, Endometriosis of pelvic peritoneum 617.3 and Dysmenorrhea 625.[address] [id number] Mar, Abdominal pain, left lower quadrant 789.[address] [id number] Feb, [address] [id number] Feb, Abdominal pain, left lower quadrant 789.[address] [id number] Feb, Contraceptive management V25.9 ; Initiation of Depo Provera V25.02 and TEST NEGATIVE V72.[address] [id number] Jan, [address] [id number] Nov, Irregular menses 626.[address] [id number] Nov, [address] [id number] Nov, [address] [id number] Nov, Corpus luteum cyst 620.1 and Irregular menses 626.[address] [id number] Nov, Abdominal pain, left lower quadrant 789.[address] [id number] Sep, Irregular menses 626.4 and Hypothyroid 244.9 [facility] [address] [place] [address] [id number] Sep, [facility] [address] [place] [address] [id number] Sep, Insomnia NOS 307.42 ; Snoring 786.09 and Restless legs syndrome 333.94 [facility] [address] [place], [place] [id number] Aug, Dysphagia 787.20 [facility] [address] [place] [id number] Aug, [facility] [address] [place], [place] [id number] Aug, Chest pain 786.50 [facility] [address] [facility] [address] [place] [id number] Aug, Insomnia NOS 307.42 ; Hypersomnia, persistent 307.44 ; Snoring 786.09 and Restless legs syndrome 333.94 [facility] [address] [place] [id number] Aug, Dysphagia 787.20 [facility] [address] [place] [address] [id number] Aug, [facility] [address] [place] [address] [id number] Aug, Dysphagia 787.20 [facility] [address] [place] [address] [id number] Aug, [facility] [address] [place] [id number] Aug, [address] [place] [address] [id number] July, Hypothyroid 244.9 ; Irregular menstruation 626.4 and Pre-conception counseling V26.49 [facility] [address] [place] [address] [id number] July, [facility] [address] [place] [address] [id number] July, Dysphagia 787.20 [facility] [address] [facility] [address] [place] [id number] Jun, Insomnia NOS 307.42 ; Hypersomnia, persistent 307.44 ; Snoring 786.09 and Restless legs syndrome 333.94 [facility] [address] [place] [address] [id number] Jun, [facility] [address] [place] [address] [id number] Jun, Dysphagia 787.20 [facility] [address] [place] [id number] Jun, [facility] [address] [place] [id number] Jun, Dysmenorrhea 625.[address] [facility] [address] [place] [id number] May, Migraine without aura, intractable 346.11 and Depression 311 [facility] [address] [facility] [address] [place], [place] [id number] May, Dysmenorrhea 625.3 [facility] [address] [place], [place] [id number] Apr, [facility] [address] [place], [place] [id number] Apr, [facility] [address] [place], [place] [id number] Apr, Dysmenorrhea 625.3 [facility] [address] [place], [place] [id number] Mar, [facility] [address] [place], [place] [id number] Mar, Endometriosis of pelvic peritoneum 617.3 and Dysmenorrhea 625.3 [facility] [address] [place], [place] [id number] Mar, Dysmenorrhea 625.3 and Endometriosis of pelvic peritoneum 617.3 [facility] [address] [place], [place] [id number] Mar, [facility] [address] [place], [place] [id number] Mar, [facility] [address] [place] [id number] Feb, [facility] [address] [place] [id number] Feb, [facility] [address] [place], [place] [id number] Feb, [facility] [address] [place], [place] [id number] Feb, Abdominal pain 789.00 [facility] [address] [place], [place] [id number] Nov, 2012 Abdominal pain 789.[address] [facility] [address] [place] [address] [id number] Nov, [facility] [address] [place] [address] [id number] Nov, Abdominal pain 789.00 [facility] [address] [place], [place] [id number] Sep, [facility] [address] [id number] Sep, [facility] [address] [id number] Sep, Neoplasm of unspecified nature of bone, soft tissue, and skin 239.2 [facility] [address] [place] [address] [id number] July, Dehiscence of external operation wound 998.32 and Benign neoplasm of skin of ear 216.2 [facility] [address] [place] [address] [id number] Jun, [facility] [address] [place] [address] [id number] Jun, [facility] [address] [place] [id number] Jun, Enlargement of tonsils 474.11 ; Adenoids 474.9 ; 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.01 and Neoplasm of unspecified nature of bone, soft tissue, and skin 239.2 UNKNOWN Jun, [facility] [address] [place] [address] [id number] Jun, Enlargement of tonsils 474.11 and Neoplasm of unspecified nature of bone, soft tissue, and skin 239.2 [facility] [address] [place] [address] [id number] Mar, Enlargement of tonsils 474.11 and Neoplasm of unspecified nature of bone, soft tissue, and skin 239.2 [facility] [address] [place], [place] [id number] Mar, [facility] [address] [place], [place] [id number] Feb, Neck Sprain/Strain 847.[address] [facility] [address] [place], [place] [id number] Dec, Migraine variants, other, w/ intractable migraine, w/ status migrainosus 346.23 [facility] [address] [id number] Dec, [facility] [address] [id number] Dec, Chronic migraine w/o aura, w/ intractable migraine, w/ status migrainosus 346.73 and Dizziness 780.4 [facility] [address] [place] [address] [id number] Oct, Pharyngitis 462 [facility] [address] [place] [address] [id number] Oct, Pain, not otherwise specified 780.96 [facility] [address] [id number] July, [facility] [address] [id number] July, Chronic migraine w/o aura, w/ intractable migraine, w/ status migrainosus 346.73 ; Tachycardia 785.0 and Dizziness 780.4 [facility] [address] [place] [address] [id number] July, Anxiety disorder NOS 300.00 [facility] [address] [place] [address] [id number] May, Back pain 724.5 [facility] [address] [place] [address] [id number] Apr, Strep throat 034.0 [facility] [address] [place] [address] [id number] Mar, SHOULDER REGION DIS NEC 726.2 [facility] [address] [place] [address] [id number] Feb, CLAVICLE FX AT 767.2 [facility] [address] [id number] Jan, Migraine, other, with intractable migraine so stated 346.81 and Syncope and collapse 780.2 [facility] [address] [place] [address] [id number] Dec, [facility] [address] [place] [address] [id number] Dec, [facility] [address] [place] [address] [id number] Dec, CHEST PAIN NOS 786.50 [facility] [address] [id number] Dec, [facility] [address] [id number] Dec, Migraine, other, with intractable migraine so stated 346.81 [facility] [address] [place] [address] [id number] Nov, [facility] [address] [place] [address] [id number] Oct, Migraine, other, without mention of intractable migraine 346.80 [facility] [address] [place] [address] [id number] Oct, Bronchitis NOS 490 [facility] [address] [place] [address] [id number] Sep, Migraine, unspecified, without mention of intractable migraine 346.90 [facility] [address] [place] [address] [id number] Jun, Migraine, unspecified, without mention of intractable migraine 346.90 [facility] [address] [place] [address] [id number] Jun, [facility] [address] [place] [address] [id number] Apr, [facility] [address] [place] [address] [id number] Apr, [facility] [address] [place] [address] [id number] Mar, [facility] [address] [place] [address] [id number] Mar, [facility] [address] [place] [address] [id number] Mar, IMMUNIZATIONS Vaccine Route Administration Date Status Leuprolide IM Intramuscular June 23, 2013 Administe red Depo Provera 150mg/1mL (medroxyPROGESTERone) IM Intramuscular July 14, 2021 Administered medroxyprogesterone acetate IM Intramuscular Mar 02 014 Administered Depo Provera 150mg/1mL (medroxyPROGESTERone) IM Intramuscular September 22, 2021 Administered Lupron Depot (Leuprolide acetate) IM Intramuscular Feb 01, 2015 Administered Depo Provera 150mg/1mL (medroxyPROGESTERone) IM Intramuscular Dec 01, 2021 Administered Lupron Depot (Leuprolide acetate) IM Intramuscular Mar 03, 2015 Administered Peds - HPV Unknown Apr 21, 2007 Administered Depo Provera 150mg/1mL (medroxyPROGESTERone) IM Intramuscular August 25, 2019 Administered Peds - HPV Unknown August 13, 2007 Administered Depo Provera 150mg/1mL (medroxyPROGESTERone) IM Intramuscular May 02, 2020 Administered Td -Adult Unknown August 30, 2010 Administered Depo Provera 150mg/1mL (medroxyPROGESTERone) IM Intramuscular Feb 22, 2021 Administered Leuprolide IM Intramuscular May 26, 2013 Administe red Depo Provera 150mg/1mL (medroxyPROGESTERone) IM Intramuscular May 05, 2021 Administered Peds - DTaP Unknown 1995 Administered Lupron Depot (Leuprolide acetate) IM Intramuscular Apr 18, 2015 Administered Lupron Depot (Leuprolide acetate) IM Intramuscular May 17, 2015 Administered Peds - Hib Unknown July 15, 1996 Administered Peds - Hib Unknown 1995 Administered Peds - Hib Unknown 1995 Administered Peds - Hib Unknown 1995 Administered Peds - DTaP Unknown Nov 21, 2000 Administered Peds - DTaP Unknown July 15, 1996 Administered Peds - DTaP Unknown 1995 Administered Peds - DTaP Unknown 1995 Administered Lupron Depot (Leuprolide acetate) IM Intramuscular May Administered Polio ( eg.,IPV,OPV) Unknown Nov 21, 2000 Adminis tered Lupron Depot (Leuprolide acetate) IM Intramuscular Jan 30, 2017 Administered Peds - MMR Unknown July 15, 1996 Administered Lupron Depot (Leuprolide acetate) IM Intramuscular Mar 07, 2017 Administered Peds - MMR Unknown Nov 21, 2000 Administered Tdap - Adult IM Intramuscular Dec 13, 2017 Administer ed Peds - Hep B Unknown 1995 Administered MICHELLE - Flu VACC 6 MONTHS > IM Intramuscular Dec 25 8 Administered Lupron Depot (Leuprolide acetate) IM Intramuscular Jun Administered Polio ( eg.,IPV,OPV) Unknown 1995 Admin istered Tdap - Adult IM Intramuscular May 16, 2016 Administere d Polio ( eg.,IPV,OPV) Unknown 1995 Admini stered Lupron Depot (Leuprolide acetate) IM Intramuscular Nov Administered Polio ( eg.,IPV,OPV) Unknown 1995 Adminis tered Lupron Depot (Leuprolide acetate) IM Intramuscular Dec 31, 2016 Administered Peds - Hep B Unknown Mar 04, 1996 Administered zzMedroxyprrogesterone ACETA TE (Depo-Provera) IM Intramuscular July 04, 2018 Administered Peds - Varicella Unknown 1995 Administere d Peds - HPV Unknown Apr 19, 2006 Administered zzMedroxyprrogesterone ACETA TE (Depo-Provera) IM Intramuscular September 22, 2018 Administered Depo Provera 150mg/1mL (medroxyPROGESTERone) IM Intramuscular Dec 17, 2018 Administered SOCIAL HISTORY Qualifiers Date Never Smoker REASON FOR REFERRAL FUNCTIONAL STATUS PLAN OF CARE Activity Details VITAL SIGNS Height 62 in 2021-12-18 Height 62 in 2021-12-01 Height 62 in 2021-09-22 Height 62 in 2021-08-08 Height 62 in 2021-07-12 Height 62 in 2021-05-05 Height 62 in 2021-02-22 Height 62 in 2020-08-03 Height 62 in 2020-05-27 Height 62 in 2020-04-07 Height 62 in 2020-03-01 Height 62 in 2020-02-02 Height 62 in 2020-01-05 Height 62 in 2019-12-30 Height 62 in 2019-12-18 Height 62 in 2019-12-07 Height 62 in 2019-11-13 Height 62 in 2019-10-22 Height 62 in 2019-09-29 Height 62 in 2019-09-14 Height 62 in 2019-09-07 Height 62 in 2019-09-03 Height 62 in 2019-08-28 Height 62 in 2019-08-25 Height 62 in 2019-08-24 Height 62 in 2019-07-29 Height 62 in 2019-05-15 Height 62 in 2019-01-23 Height 62 in 2018-12-17 Height 62 in 2018-11-19 Height 62 in 2018-11-05 Height 62 in 2018-09-30 Height 62 in 2018-09-22 Height 62 in 2018-09-09 Height 62 in 2018-08-25 Height 62 in 2018-07-30 Height 62 in 2018-07-04 Height 62 in 2018-05-06 Height 62 in 2018-04-07 Height 62 in 2018-03-05 Height 62 in 2018-03-03 Height 62 in 2017-09-30 Height 62 in 2017-08-12 Height 62 in 2017-08-06 Height 62 in 2017-07-25 Height 62 in 2017-07-09 Height 62 in 2017-07-03 Height 62 in 2017-06-14 Height 62 in 2017-06-10 Height 62 in 2017-05-23 Height 62 in 2017-05-14 Height 62 in 2017-04-25 Height 62 in 2017-03-11 Height 62 in 2017-03-07 Height 62 in 2017-02-11 Height 62 in 2017-01-30 Height 62 in 2017-01-25 Height 62 in 2016-11-30 Height 62 in 2016-11-12 Height 62 in 2016-10-23 Height 62 in 2016-10-16 Height 62 in 2016-10-02 Height 62 in 2016-08-14 Height 62 in 2015-11-22 Height 62 in 2015-07-27 Height 62 in 2015-07-15 Height 62 in 2015-06-14 Height 62 in 2015-04-29 Height 62 in 2015-03-03 Height 62 in 2015-02-01 Height 62 in 2014-12-15 Height 62 in 2014-11-22 Height 62 in 2014-11-08 Height 62 in 2014-04-19 Height 62 in 2014-03-31 Height 62 in 2014-03-02 Height 62 in 2013-12-22 Height 62 in 2013-12-02 Height 62 in 2013-11-25 Height 62 in 2013-10-14 Height 5 ft 2 in in 2013-09-16 Height 5 ft 2 in in 2013-09-02 Height 5 ft 2 in in 2013-08-26 Height 62 in 2013-08-19 Height 62 in 2013-08-14 Height 62 in 2013-07-22 Height 62 in 2013-07-10 Height 62 in 2013-06-23 Height 62 in 2013-05-26 Height 62 in 2013 Height 62 in 2013-04-03 Height 62 in 2013-03-06 Height 62 in 2012-12-08 Height 5 ft 2 in in 2012-11-25 Height 62 in 2011-10-09 Height 62 in 2011-07-30 Height 62 in 2011-04-23 Height 60 in 2010-01-02 Weight 162.8 lbs 2021-12-18 Weight 162.4 lbs 2021-12-01 Weight 154.2 lbs 2021-09-22 Weight 150 lbs 2021-08-08 Weight 150.8 lbs 2021-07-12 Weight 155.8 lbs 2021-05-05 Weight 143 lbs 2021-02-22 Weight 140.0 lbs 2020-08-03 Weight 135 lbs 2020-05-27 Weight 127.8 lbs 2020-04-07 Weight 131 lbs 2020-03-01 Weight 127.8 lbs 2020-02-02 Weight 124.4 lbs 2020-01-05 Weight 123.6 lbs 2019-12-30 Weight 120.4 lbs 2019-12-18 Weight 119.4 lbs 2019-12-07 Weight 120 lb 6 oz lbs 2019-11-13 Weight 119 lb 8 oz lbs 2019-10-22 Weight 121.0 lbs 2019-09-29 Weight 119 lbs 2019-09-14 Weight 119.2 lbs 2019-09-07 Weight 120.2 lbs 2019-09-03 Weight 119.2 lbs 2019-08-28 Weight 120 lb 4 oz lbs 2019-08-25 Weight 119.8 lbs 2019-08-24 Weight 121 lb 6 oz lbs 2019-07-29 Weight 119 lb 8 oz lbs 2019-05-15 Weight 117.6 lbs 2019-01-23 Weight 113.6 lbs 2018-12-17 Weight 113.6 lbs 2018-11-19 Weight 116.6 lbs 2018-11-05 Weight 120.8 lbs 2018-09-30 Weight 120.0 lbs 2018-09-22 Weight 121.2 lbs 2018-09-09 Weight 121.6 lbs 2018-08-25 Weight 122.4 lbs 2018-07-30 Weight 125.2 lbs 2018-07-04 Weight 131.8 lbs 2018-05-06 Weight 137.2 lbs 2018-04-07 Weight 139.6 lbs 2018-03-05 Weight 140.6 lbs 2018-03-03 Weight 160.2 lbs 2018-02-18 Weight 159.6 lbs 2018-02-17 Weight 157.4 lbs 2018-02-10 Weight 157.8 lbs 2018-02-05 Weight 156.8 lbs 2018-01-29 Weight 153.2 lbs 2018-01-21 Weight 151.4 lbs 2018-01-15 Weight 151.4 lbs 2018-01-13 Weight 152.0 lbs 2018-01-06 Weight 150.6 lbs 2017-12-27 Weight 149.8 lbs 2017-12-25 Weight 146.6 lbs 2017-12-13 Weight 147.0 lbs 2017-12-09 Weight 141.6 lbs 2017-11-20 Weight 136.2 lbs 2017-10-23 Weight 129.8 lbs 2017-09-30 Weight 121.6 lbs 2017-09-02 Weight 124.0 lbs 2017-08-23 Weight 120.0 lbs 2017-08-12 Weight 120.8 lbs 2017-08-06 Weight 122 lbs 2017-07-25 Weight 126.6 lbs 2017-07-09 Weight 128.6 lbs 2017-07-03 Weight 129 lb 4 oz lbs 2017-06-14 Weight 128 lbs 2017-06-10 Weight 131 lbs 2017-05-23 Weight 131.6 lbs 2017-05-14 Weight 130.0 lbs 2017-04-25 Weight 132.0 lbs 2017-03-11 Weight 131.0 lbs 2017-03-07 Weight 133.6 lbs 2017-02-11 Weight 131.8 lbs 2017-01-30 Weight 131.0 lbs 2017-01-25 Weight 135.6 lbs 2016-11-12 Weight 136.8 lbs 2016-10-23 Weight 138.4 lbs 2016-10-16 Weight 132 lbs 2016-10-02 Weight 138.4 lbs 2016-08-14 Weight 159.6 lbs 2016-07-02 Weight 158.0 lbs 2016-06-26 Weight 157.4 lbs 2016-06-20 Weight 156.0 lbs 2016-06-13 Weight 155.8 lbs 2016-06-06 Weight 151.4 lbs 2016-05-29 Weight 149.4 lbs 2016-05-16 Weight 148.2 lbs 2016-05-02 Weight 147.2 lbs 2016-04-23 Weight 143.8 lbs 2016-04-18 Weight 141.0 lbs 2016-04-03 Weight 135.6 lbs 2016-03-06 Weight 129.8 lbs 2016-02-06 Weight 126.2 lbs 2016-01-12 Weight 124.6 lbs 2016-01-10 Weight 120.2 lbs 2015-12-15 Weight 121.4 lbs 2015-11-22 Weight 120.6 lbs 2015-07-27 Weight declined lbs 2015-07-15 Weight 122.8 lbs 2015-06-14 Weight 123.8 lbs 2015-05-17 Weight 125.4 lbs 2015-04-29 Weight 127.2 lbs 2015-03-03 Weight 130.6 lbs 2015-02-01 Weight 129.0 lbs 2014-12-15 Weight 125 lbs 2014-11-22 Weight 124 lbs 2014-11-08 Weight 117.6 lbs 2014-04-19 Weight 121.6 lbs 2014-03-31 Weight 122.6 lbs 2014-03-23 Weight 124 lbs 2014-03-02 Weight 126.2 lbs 2013-12-22 Weight 124.2 lbs 2013-12-02 Weight 124.2 lbs 2013-11-25 Weight 123 lbs 2013-10-14 Weight 123 lbs 2013-09-28 Weight 122 lb 2 oz lbs 2013-09-16 Weight 119 lb 8 oz lbs 2013-09-02 Weight 119 lbs 2013-09-02 Weight 124 lbs 2013-08-26 Weight 124.6 lbs 2013-08-19 Weight 120 lbs 2013-08-14 Weight 119 lbs 2013-07-22 Weight 118 lbs 2013-07-10 Weight 118.4 lbs 2013-06-23 Weight 118 lbs 2013-06-16 Weight 117.6 lbs 2013-05-26 Weight 117.4 lbs 2013-04-29 Weight 116 lbs 2013 Weight 115.2 lbs 2013-04-03 Weight 113 lb 4 oz lbs 2013-03-06 Weight 114 lb 0 oz lbs 2012-12-08 Weight 114 lbs 2012-11-25 Weight 109 lbs 2011-10-09 Weight 106 lbs 2011-07-30 Weight 104 lbs 2011-04-23 Weight 104.6 lbs 2010-01-02 Weight 100 lbs 2009-08-17 Weight 103.25 lbs lbs 2009-08-01 Weight 98lbs lbs 2009-06-17 Weight 98.6 lbs 2009-03-16 Weight 97 lbs 2009-02-03 Weight 97 lbs 2008-12-31 Weight 97.0 lbs 2008-11-19 Weight 100.4 lbs 2008-10-08 Weight 100.8 lbs lbs 2008-07-12 Temperature 98 degrees Fahrenheit 2021-12-18 Temperature 97.9 degrees Fahrenheit Temperature 98.8 degrees Fahrenheit Temperature Tympanic:98.1 degrees Fahrenheit 2019-08-25 Temperature 98.3 degrees Fahrenheit Temperature Temporal:98.7 degrees Fahrenheit 2018-09-30 Temperature Temporal:100.0 degrees Fahrenhei t 2013-09-02 Temperature 98.8 degrees Fahrenheit Temperature 99 degrees Fahrenheit 2009-11-19 Temperature 98.4 degrees Fahrenheit Temperature 98.3 degrees Fahrenheit Temperature 97.4 degrees Fahrenheit Temperature 98.3 degrees Fahrenheit Temperature 96.7 degrees Fahrenheit Temperature 98.5 degrees Fahrenheit Temperature 97.9 T degrees Fahrenheit 07-12 Heart Rate 88 /min 2021-12-18 Heart Rate 80 /min 2021-08-08 Heart Rate 98 /min 2021-07-12 Heart Rate 90 /min 2020-03-01 Heart Rate 76 /min 2018-09-30 Heart Rate 87 /min 2017-08-12 Heart Rate 80 /min 2017-07-25 Heart Rate 100 /min 2017-06-14 Heart Rate 94 /min 2017-05-23 Heart Rate 100 /min 2017-04-25 Heart Rate 72 /min 2016-10-23 Heart Rate 68 /min 2016-10-02 Heart Rate 88 /min 2014-11-22 Heart Rate 102 /min 2014-11-08 Heart Rate 68 /min 2013-09-28 Heart Rate 70 /min 2013-09-16 Heart Rate 104 /min 2013-09-02 Heart Rate 98 /min 2013-09-02 Heart Rate 80 /min 2013-08-26 Heart Rate 79 /min 2013-08-14 Heart Rate 92 /min 2013-07-22 Heart Rate 67 /min 2013-06-16 Heart Rate 100 /min 2012-11-25 Heart Rate 87 /min 2011-10-09 Heart Rate 92 /min 2011-07-30 Heart Rate 88 /min 2011-06-25 Heart Rate 84 /min 2011-04-23 Heart Rate 88 /min 2010-01-02 Heart Rate 100 /min 2009-08-17 Heart Rate 78 /min 2009-03-16 Heart Rate 68 /min 2009-02-03 Heart Rate 66 /min 2008-12-31 Oximetry 99 2021-12-18 Oximetry 100 2021-08-08 Oximetry 99 2021-07-12 Oximetry 98 2018-09-30 Oximetry 98 2017-08-12 Oximetry 100 2017-07-25 Oximetry 99 2017-06-14 Oximetry 96 2017-05-23 Oximetry 96 2017-04-25 Oximetry 98 2016-10-23 Oximetry 97 2016-10-02 Oximetry 100 2013-09-28 Oximetry 100 2013-09-02 Oximetry 100 2013-07-22 Respiratory Rate 18 /min 2021-07-12 Respiratory Rate 16 /min 2017-06-10 Respiratory Rate 16 /min 2013-09-02 Respiratory Rate 16 /min 2013-07-22 Respiratory Rate 16 /min 2011-10-09 Respiratory Rate 16 /min 2011-07-30 Respiratory Rate 16 /min 2011-06-25 Respiratory Rate 16 /min 2011-04-23 BMI 29.77 kg/m2 2021-12-18 BMI 29.70 kg/m2 2021-12-01 BMI 28.20 kg/m2 2021-09-22 BMI 27.43 kg/m2 2021-08-08 BMI 27.58 kg/m2 2021-07-12 BMI 28.49 kg/m2 2021-05-05 BMI 26.15 kg/m2 2021-02-22 BMI 25.60 kg/m2 2020-08-03 BMI 24.69 kg/m2 2020-05-27 BMI 23.37 kg/m2 2020-04-07 BMI 23.96 kg/m2 2020-03-01 BMI 23.37 kg/m2 2020-02-02 BMI 22.75 kg/m2 2020-01-05 BMI 22.60 kg/m2 2019-12-30 BMI 22.02 kg/m2 2019-12-18 BMI 21.84 kg/m2 2019-12-07 BMI 22.01 kg/m2 2019-11-13 BMI 21.85 kg/m2 2019-10-22 BMI 22.13 kg/m2 2019-09-29 BMI 21.76 kg/m2 2019-09-14 BMI 21.80 kg/m2 2019-09-07 BMI 21.98 kg/m2 2019-09-03 BMI 21.80 kg/m2 2019-08-28 BMI 21.99 kg/m2 2019-08-25 BMI 21.91 kg/m2 2019-08-24 BMI 22.20 kg/m2 2019-07-29 BMI 21.85 kg/m2 2019-05-15 BMI 21.51 kg/m2 2019-01-23 BMI 20.78 kg/m2 2018-12-17 BMI 20.78 kg/m2 2018-11-19 BMI 21.32 kg/m2 2018-11-05 BMI 22.09 kg/m2 2018-09-30 BMI 21.95 kg/m2 2018-09-22 BMI 22.17 kg/m2 2018-09-09 BMI 22.24 kg/m2 2018-08-25 BMI 22.38 kg/m2 2018-07-30 BMI 22.90 kg/m2 2018-07-04 BMI 24.10 kg/m2 2018-05-06 BMI 25.09 kg/m2 2018-04-07 BMI 25.53 kg/m2 2018-03-05 BMI 25.71 kg/m2 2018-03-03 BMI 23.741 kg/m2 2017-09-30 BMI 21.95 kg/m2 2017-08-12 BMI 22.095 kg/m2 2017-08-06 BMI 22.31 kg/m2 2017-07-25 BMI 23.15 kg/m2 2017-07-09 BMI 23.52 kg/m2 2017-07-03 BMI 23.64 kg/m2 2017-06-14 BMI 23.41 kg/m2 2017-06-10 BMI 23.96 kg/m2 2017-05-23 BMI 24.07 kg/m2 2017-05-14 BMI 23.77 kg/m2 2017-04-25 BMI 24.14 kg/m2 2017-03-11 BMI 23.96 kg/m2 2017-03-07 BMI 24.43 kg/m2 2017-02-11 BMI 24.10 kg/m2 2017-01-30 BMI 23.96 kg/m2 2017-01-25 BMI 24.80 kg/m2 2016-11-12 BMI 25.02 kg/m2 2016-10-23 BMI 25.31 kg/m2 2016-10-16 BMI 24.14 kg/m2 2016-10-02 BMI 25.31 kg/m2 2016-08-14 BMI 21.98 kg/m2 2015-12-15 BMI 22.20 kg/m2 2015-11-22 BMI 22.06 kg/m2 2015-07-27 BMI 22.46 kg/m2 2015-06-14 BMI 22.93 kg/m2 2015-04-29 BMI 23.26 kg/m2 2015-03-03 BMI 23.88 kg/m2 2015-02-01 BMI 23.59 kg/m2 2014-12-15 BMI 22.86 kg/m2 2014-11-22 BMI 22.68 kg/m2 2014-11-08 BMI 21.51 kg/m2 2014-04-19 BMI 22.24 kg/m2 2014-03-31 BMI 22.68 kg/m2 2014-03-02 BMI 23.08 kg/m2 2013-12-22 BMI 22.71 kg/m2 2013-12-02 BMI 22.71 kg/m2 2013-11-25 BMI 22.49 kg/m2 2013-10-14 BMI 22.33 kg/m2 2013-09-16 BMI 21.85 kg/m2 2013-09-02 BMI 22.68 kg/m2 2013-08-26 BMI 22.79 kg/m2 2013-08-19 BMI 21.95 kg/m2 2013-08-14 BMI 21.76 kg/m2 2013-07-22 BMI 21.58 kg/m2 2013-07-10 BMI 21.65 kg/m2 2013-06-23 BMI 21.51 kg/m2 2013-05-26 BMI 21.21 kg/m2 2013 BMI 21.07 kg/m2 2013-04-03 BMI 20.71 kg/m2 2013-03-06 BMI 20.85 kg/m2 2012-12-08 BMI 20.85 kg/m2 2012-11-25 BMI 19.93 kg/m2 2011-10-09 BMI 19.39 kg/m2 2011-07-30 BMI 19.02 kg/m2 2011-04-23 BMI 20.43 kg/m2 2010-01-02 Blood pressure systolic 110 mm Hg Blood pressure diastolic 72 mm Hg 2021-11 MEDICATIONS Medication Instructions Dosage Frequency Start Date End Date Duration Status Norethindrone Acetate 5 MG Orally Once a day 1 tablet 24h 11 Apr, 2021 7 Jul, 2022 90 days Active Aleve 220 MG Orally every 12 hrs 1 tablet with food or milk as needed 12h Active Levothyroxine Sodium 125 MCG Orally Once a day 1 tablet in the morning on an empty stomach 24h 25 Oct, 2019 Active Tylenol Extra Strength 500 MG Orally every 6 hrs 1 tablet as needed 6h Active Sertraline HCl 25 MG Orally once daily 1/2 tablets 24h Not-Takin g [place] Carbonate 300 MG Orally Once a day 1 capsule 24h Active lamoTRIgine 25 MG Orally once daily 1 tablets 24h Active SEROquel 50 MG Orally Once a day 1 tablet at bedtime 24h Not-Takin g LamoTRIgine 100mg Active PROCEDURES Procedure Date Ordered Result Body Site RAPID STREP TEST CLIA Nov 19, 2009 SUBSEQUENT CARE Dec 27, 2017 SUBSEQUENT CARE Jan 12, 2016 SUBSEQUENT CARE Jan 21, 2018 SUBSEQUENT CARE Nov 20, 2017 URINE TEST July 04, 2018 IH URINALYSIS NONAUTO W/O SCOPE Mar 31, 2014 REMOVE TONSILS AND ADENOIDS, AGE 12+ YRS July 04 2 MEDROXYPROGESTERONE ACETATE INJECTION 1 MG August 24 SUBSEQUENT CARE June 13, 2016 SUBSEQUENT CARE September 02, 2017 SUBSEQUENT CARE Feb 18, 2018 THER/PROPH/DIAG INJ, SC/IM Dec 31, 2016 THER/PROPH/DIAG INJ, SC/IM Mar 03, 2015 SUBSEQUENT CARE Mar 06, 2016 SUBSEQUENT CARE Jan 29, 2018 URINALYSIS NONAUTO W/O SCOPE October 22, 2019 IMMUNIZATION ADMINISTRATION May 16, 2016 SUBSEQUENT CARE Feb 06, 2016 URINE TEST Apr 29, 2013 THER/PROPH/DIAG INJ, SC/IM July 14, 2021 SUBSEQUENT CARE Dec 25, 2017 THER/PROPH/DIAG INJ, SC/IM July 15, 2015 URINE TEST Mar 02, 2014 SUBSEQUENT CARE Apr 18, 2016 THER/PROPH/DIAG INJ, SC/IM May 17, 2015 SUBSEQUENT CARE May 29, 2016 SUBSEQUENT CARE Feb 11, 2018 CARE VISIT Apr 07, 2018 SUBSEQUENT CARE Apr 23, 2016 CARE VISIT Mar 05, 2018 Lupron Depot (Leuprolide acetate) Jan 30, 2017 IUD INSERTION Dec 17, 2018 THER/PROPH/DIAG INJ, SC/IM June 14, 2015 SUBSEQUENT CARE May 02, 2016 CARE VISIT Mar 03, 2018 URINE TEST June 23, 2013 SUBSEQUENT CARE Feb 05, 2018 SUBSEQUENT CARE Jan 13, 2018 MEDROXYPROGESTERONE ACETATE INJECTION 1 MG May 02 1 SUBSEQUENT CARE July 02, 2016 Lupron Depot (Leuprolide acetate) Nov 30, 2016 SUBSEQUENT CARE Dec 13, 2017 PSYCHIATRIC DIAGNOSTIC EVALUATION October 18, 2016 IH URINALYSIS NONAUTO W/O SCOPE September 03, 2019 SUBSEQUENT CARE Feb 17, 2018 SUBSEQUENT CARE Dec 09, 2017 LEUPROLIDE ACETATE 7.5 MG SUSPENSION June 23, 2013 URINE TEST August 19, 2013 RAPID STREP TEST CLIA May 10, 2009 URINALYSIS NONAUTO W/O SCOPE May 15, 2019 MEDROXYPROGESTERONE ACETATE INJECTION 1 MG Feb 22 1 THER/PROPH/DIAG INJ, SC/IM Mar 02, 2014 THER/PROPH/DIAG INJ, SC/IM Dec 01, 2021 HUSSEIN/[place] VAGINAL May 15, 2019 SHAVE FACE <.5 CM July 05, 2011 IMMUNIZATION ADMINISTRATION Dec 25, 2017 MEDROXYPROGESTERONE ACETATE INJECTION 1 MG September 22 SUBSEQUENT CARE May 16, 2016 MICHELLE - Flu VACC 6 MONTHS > Dec 25, 2017 EGD WITH BIOPSYS September 01, 2013 SUBSEQUENT CARE September 30, 2017 SUBSEQUENT CARE August 23, 2017 IH URINALYSIS NONAUTO W/O SCOPE August 24, 2019 INITIAL CARE VISIT Dec 15, 2015 URINE TEST Mar 23, 2014 Tdap - Adult May 16, 2016 Lupron Depot (Leuprolide acetate) Mar 07, 2017 INITIAL CARE VISIT August 06, 2017 SUBSEQUENT CARE June 06, 2016 MEDROXYPROGESTERONE ACETATE INJECTION 1 MG July 04 019 THER/PROPH/DIAG INJ, SC/IM Feb 01, 2015 THER/PROPH/DIAG INJ, SC/IM August 25, 2019 IUD REMOVAL August 25, 2019 THER/PROPH/DIAG INJ, SC/IM May 02, 2020 THER/PROPH/DIAG INJ, SC/IM September 22, 2021 URINE TEST May 26, 2013 CHEMO [place] ANTINEOPL SQ/IM June 23, 2013 THER/PROPH/DIAG INJ, SC/IM Feb 22, 2021 IMMUNIZATION ADMINISTRATION Dec 13, 2017 THER/PROPH/DIAG INJ, SC/IM July 04, 2018 SUBSEQUENT CARE Apr 03, 2016 THER/PROPH/DIAG INJ, SC/IM Apr 18, 2015 CARE VISIT August 14, 2016 SUBSEQUENT CARE Feb 05, 2018 LEUPROLIDE ACETATE 7.5 MG SUSPENSION May 26, 2013 URINE TEST Apr 07, 2018 THER/PROPH/DIAG INJ, SC/IM May 05, 2021 LNG-RELEASING IUC SYS 52MG 5 YR DUR Dec 17, 2018 URINE TEST Feb 01, 2015 URINE TEST Dec 22, 2013 CHEMO [place] ANTINEOPL SQ/IM May 26, 2013 SHAVE FACE <.5 CM July 05, 2011 THER/PROPH/DIAG INJ, SC/IM Mar 07, 2017 MEDROXYPROGESTERONE ACETATE INJECTION 1 MG Dec 17 THER/PROPH/DIAG INJ, SC/IM September 22, 2018 SHAVE FACE <.5 CM July 05, 2011 THER/PROPH/DIAG INJ, SC/IM Dec 17, 2018 MEDROXYPROGESTERONE ACETATE INJECTION 1 MG May 05 2 SUBSEQUENT CARE Jan 06, 2018 SUBSEQUENT CARE Oct 23, 2017 URINE TEST June 10, 2017 HUSSEIN/[place] VAGINAL July 29, 2019 SUBSEQUENT CARE June 20, 2016 Tdap - Adult Dec 13, 2017 TREATMENT SUPERFICIAL WOUND DEHISCENCE; SIMPLE June [id number] SUBSEQUENT CARE June 26, 2016 IH URINALYSIS NONAUTO W/O SCOPE June 26, 2016 RESULTS Name Result Date Reference Range CBC, WITH AUTO DIFF 2021-12-01 WBC 10.1 4.8-10.8 RBC 4.52 4.20-5.40 HGB 13.5 12.0-16.0 HCT 40.9 37.0-47.0 MCV 90.5 81.0-99.0 MCH 29.9 27.0-31.0 MCHC 33.0 32.0-37.0 RDW-CV 12.3 11.5-14.5 PLT 325 130-400 MPV 10.4 7.4-10.4 NE% 55.7 42.2-75.2 LY% 33.8 20.5-51.1 MO% 7.1 1.7-9.3 EO% 2.6 0.9-2.9 BA% 0.5 0.0-0.8 NE# 5.6 1.4-6.5 LY# 3.4 1.2-3.4 MO# 0.7 0.1-0.6 EO# 0.3 0.0-0.2 BA# 0.1 0.0-0.2 CT ABD/PELVIS W CONTRAST 2021-12-01 URINALYSIS COMPLETE 2021-12-01 COLOR YELLOW YELLOW CLARITY CLEAR CLEAR SPECIFIC GRAVITY 1.015 1.000-1.030 pH 6.0 5.0-8.0 PROTEIN NEGATIVE NEGATIVE GLUCOSE NEGATIVE NEGATIVE KETONES NEGATIVE NEGATIVE UROBILINOGEN 0.2 0.2 E.U./DL BILIRUBIN NEGATIVE NEGATIVE BLOOD LARGE NEGATIVE LEUKOCYTES SMALL NEGATIVE NITRITES NEGATIVE NEGATIVE RBCs 0-3 0-3 SQ EPITHELIAL CELLS 0-3 0-3 CLUE CELLS NONE SEEN RTE CELLS 0-3 TRANSITIONAL EPIs 4-6 0-3 BACTERIA 1+ NONE SEEN CRYSTALS NONE SEEN HYALINE CASTS NONE SEEN GRANULAR CASTS NONE SEEN RBC CASTS NONE SEEN WBC CASTS NONE SEEN WAXY CASTS NONE SEEN CELLULAR CASTS NONE SEEN YEAST NONE SEEN TRICHOMONADS NONE SEEN SPERMATOZOA SEEN NONE SEEN URINE CULTURE YES NO COMPREHENSIVE METABOLIC PROFILE 2021-12-01 SODIUM 135 134-143 POTASSIUM 3.9 3.5-5.1 CHLORIDE 101 98-111 CO2 25 22-32 CALCIUM 9.6 8.9-10.3 GLUCOSE 94 74-106 BUN 16 8-26 CREATININE 0.94 0.44-1.00 TOTAL BILIRUBIN 1.1 0.3-1.2 TOTAL PROTEIN 8.3 6.5-8.1 ALBUMIN 4.7 3.5-5.0 ALKALINE PHOS 92 38-130 AST 24 15-41 ALT 17 14-54 A/GAP 9.0 3.0-12.0 B/CR 17.0 8.0-20.0 OSMOLARITY 271 275-295 GLOBULIN 3.6 2.3-3.5 A/G 1.3 1.0-2.5 CULTURE URINE 2021-12-01 HCG SCREEN, URINE 2021-12-01 HCG SCREEN, URINE NEGATIVE NEGATIVE UHCG-TEXT If a urine specimen is too dilute (ie: Specific [place] <1.005) it may not contain exhibit display representative levels of hcg. If the test is negative and is still suspected, a first morning specimen should be obtained and retested. COVID 19 (POS) SOFIA2 SARS Ag Flu A Flu B SARS negative COVID 19 SCREENING PCR ([id number]) 2021-02-28 SARS-CoV-2, [place] Detected Not Detected CT HEAD WO CONTRAST 2020-10-28 Test (Rapid) Urine 2020-05-02 Result negative Control Passed INFLUENZAE SCREEN (A, B) 2020-03-03 INFLUENZA A Ag NEGATIVE NEGATIVE INFLUENZA B Ag NEGATIVE NEGATIVE FLU INT Flu Negative Result: A negative flu test result does NOT exclude an influenza infection on this screening assay. Correlation with clinical impression is recommended to determine if subsequent test ABNORMAL TSH/FT4 2020-03-01 TSH 0.13 0.45-5.33 T4F 1.11 0.61-1.12 THYROID ABS EVALUATION ([id number]) 2020-03-01 Thyrotropin Receptor Ab, Serum <1.10 0.00-1.75 Thyroid Peroxidase (TPO) Ab 345 0-34 TSH 2020-02-02 TSH 5.82 0.45-5.33 XR RIBS LEFT W PA CHEST 2020-01-10 TSH THYROID STIMULATING HORMONE CHLAMYDIA/GONOCOCCUS, by PCR 2019-12-07 PCR GENITAL SPECIMEN GENITAL SPECIMEN FO R PCR TESTING C.trach by PCR NOT DETECTED NOT DETECTED N. gonorrhoeae PCR NOT DETECTED NOT DETEC MIQUEL TSH 2019-11-16 TSH 4.33 0.45-5.33 CBC, WITH AUTO DIFF 2019-10-25 WBC 7.0 4.8-10.8 RBC 4.22 4.20-5.40 HGB 12.7 12.0-16.0 HCT 37.3 37.0-47.0 MCV 88.4 81.0-99.0 MCH 30.1 27.0-31.0 MCHC 34.0 32.0-37.0 RDW-CV 12.4 11.5-14.5 PLT 249 130-400 MPV 10.5 7.4-10.4 NE% 46.8 42.2-75.2 LY% 42.9 20.5-51.1 MO% 8.4 1.7-9.3 EO% 1.4 0.9-2.9 BA% 0.4 0.0-0.8 NE# 3.3 1.4-6.5 LY# 3.0 1.2-3.4 MO# 0.6 0.1-0.6 EO# 0.1 0.0-0.2 BA# 0.0 0.0-0.2 URINALYSIS COMPLETE 2019-10-25 COLOR Yellow YELLOW CLARITY Clear CLEAR SPECIFIC GRAVITY 1.015 1.000-1.030 pH 6.5 5.0-8.0 PROTEIN Negative NEGATIVE GLUCOSE Negative NEGATIVE KETONES Negative NEGATIVE UROBILINOGEN 0.2 E.U./dL 0.2 E.U./DL BILIRUBIN Negative NEGATIVE BLOOD Negative NEGATIVE LEUKOCYTES Trace NEGATIVE NITRITES Negative NEGATIVE RBCs 0-3 0-3 SQ EPITHELIAL CELLS 4-6 0-3 CLUE CELLS NONE SEEN RTE CELLS 0-3 TRANSITIONAL EPIs 0-3 BACTERIA 1+ NONE SEEN CRYSTALS NONE SEEN HYALINE CASTS NONE SEEN GRANULAR CASTS NONE SEEN RBC CASTS NONE SEEN WBC CASTS NONE SEEN WAXY CASTS NONE SEEN CELLULAR CASTS NONE SEEN YEAST NONE SEEN TRICHOMONADS NONE SEEN SPERMATOZOA SEEN NONE SEEN URINE CULTURE YES NO COMPREHENSIVE METABOLIC PROFILE 2019-10-25 SODIUM 136 136-145 POTASSIUM 3.1 3.5-5.1 CHLORIDE 102 98-111 CO2 25 22-32 CALCIUM 8.9 8.9-10.3 BUN 12 8-26 CREATININE 0.65 0.44-1.00 TOTAL BILIRUBIN 1.2 0.3-1.2 TOTAL PROTEIN 7.2 6.5-8.1 ALBUMIN 4.2 3.5-5.0 ALKALINE PHOS 45 32-92 AST 32 15-41 ALT 17 14-54 A/GAP 9.0 3.0-12.0 B/CR 18.5 8.0-20.0 OSMOLARITY 271 275-295 GLOBULIN 3.0 2.3-3.5 A/G 1.4 1.0-2.5 CULTURE URINE 2019-10-25 LIPASE 2019-10-25 LIPASE 49 18-51 MAGNESIUM 2019-10-25 MAGNESIUM 2.1 1.8-2.5 HCG SCREEN, URINE 2019-10-25 HCG SCREEN, URINE NEGATIVE NEGATIVE UHCG-TEXT If a urine specimen is too dilute (ie: Specific [place] <1.005) it may not contain exhibit display representative levels of hcg. If the test is negative and is still suspected, a first morning specimen vickie URINALYSIS, DIP ONLY 2019-10-22 CLARITY clear COLOR light yellow NITRITES negative REDUCING SUBSTANCES SPECIFIC GRAVITY 1.010 UROBILINOGEN negative BILIRUBIN negative BLOOD negative GLUCOSE negative KETONES small pH 6 PROTEIN negative LEUKOCYTES negative CBC, WITH AUTO DIFF 2019-09-27 WBC 6.3 4.8-10.8 RBC 4.34 4.20-5.40 HGB 13.0 12.0-16.0 HCT 38.2 37.0-47.0 MCV 88.0 81.0-99.0 MCH 30.0 27.0-31.0 MCHC 34.0 32.0-37.0 RDW-CV 12.5 11.5-14.5 PLT 252 130-400 MPV 10.4 7.4-10.4 NE% 46.8 42.2-75.2 LY% 44.7 20.5-51.1 MO% 6.7 1.7-9.3 EO% 1.1 0.9-2.9 BA% 0.5 0.0-0.8 NE# 2.9 1.4-6.5 LY# 2.8 1.2-3.4 MO# 0.4 0.1-0.6 EO# 0.1 0.0-0.2 BA# 0.0 0.0-0.2 URINALYSIS COMPLETE 2019-09-27 COLOR Yellow YELLOW CLARITY Clear CLEAR SPECIFIC GRAVITY 1.015 1.000-1.030 pH 6.5 5.0-8.0 PROTEIN Negative NEGATIVE GLUCOSE Negative NEGATIVE KETONES Negative NEGATIVE UROBILINOGEN 0.2 E.U./dL 0.2 E.U./DL BILIRUBIN Negative NEGATIVE BLOOD Negative NEGATIVE LEUKOCYTES Trace NEGATIVE NITRITES Negative NEGATIVE RBCs 0-3 0-3 SQ EPITHELIAL CELLS 0-3 0-3 CLUE CELLS NONE SEEN RTE CELLS 0-3 TRANSITIONAL EPIs 0-3 0-3 BACTERIA RARE NONE SEEN CRYSTALS NONE SEEN HYALINE CASTS NONE SEEN GRANULAR CASTS NONE SEEN RBC CASTS NONE SEEN WBC CASTS NONE SEEN WAXY CASTS NONE SEEN CELLULAR CASTS NONE SEEN YEAST NONE SEEN TRICHOMONADS NONE SEEN SPERMATOZOA SEEN NONE SEEN URINE CULTURE YES NO COMPREHENSIVE METABOLIC PROFILE 2019-09-27 SODIUM 139 136-145 POTASSIUM 3.3 3.5-5.1 CHLORIDE 106 98-111 CO2 25 22-32 CALCIUM 9.4 8.9-10.3 BUN 10 8-26 CREATININE 0.57 0.44-1.00 TOTAL BILIRUBIN 1.5 0.3-1.2 TOTAL PROTEIN 7.4 6.5-8.1 ALBUMIN 4.3 3.5-5.0 ALKALINE PHOS 47 32-92 AST 19 15-41 ALT 15 14-54 A/GAP 8.0 3.0-12.0 B/CR 17.5 8.0-20.0 OSMOLARITY 276 275-295 GLOBULIN 3.1 2.3-3.5 A/G 1.4 1.0-2.5 CULTURE URINE 2019-09-27 LIPASE 2019-09-27 LIPASE 40 18-51 HCG SCREEN, URINE 2019-09-27 HCG SCREEN, URINE NEGATIVE NEGATIVE UHCG-TEXT If a urine specimen is too dilute (ie: Specific [place] <1.005) it may not contain exhibit display representative levels of hcg. If the test is negative and is still suspected, a first morning specimen vickie CHLAMYDIA/GONOCOCCUS, by PCR 2019-09-07 PCR GENITAL SPECIMEN GENITAL SPECIMEN FO R PCR TESTING C.trach by PCR NOT DETECTED NOT DETECTED N. gonorrhoeae PCR NOT DETECTED NOT DETEC MIQUEL URINE DIP ([facility]) 2019-09-03 Color yellow Clarity clear Glucose negative Bilirubin negative Ketones small Specific [place] 1.010 Blood negative PH 6 Protein negative Uro negative Nitrates negative Leukocytes trace CULTURE URINE 2019-09-03 URINE DIP ([facility]) 2019-08-24 Color dk yellow Clarity clear Glucose neg Bilirubin neg Ketones neg Specific [place] 1.020 Blood about 250 PH 5 Protein trace Uro normal Nitrates neg Leukocytes ++ CULTURE URINE 2019-08-24 COVID 19 SCREENING PCR ([id number]) 2019-08-10 SARS-CoV-2, [place] Not Detected Not Detected Pap Lb, rfx HPV ASCU 2019-05-15 . Note: . Clinical history: DIAGNOSIS: Specimen adequacy: Additional comment: Recommendation: Performed by: Electronically signed by: Test ordered: Maturation index: Amended report: Addendum: QC reviewed by: Cytology history: Special procedure: QA comment: Diagnosis provided by: Source: Pathologist provided ICD9: * * * * Clinician provided ICD9: Interpretation LBP CPT Code Automation URINALYSIS, DIP ONLY 2019-05-15 CLARITY cloudy COLOR yellow NITRITES negative REDUCING SUBSTANCES SPECIFIC GRAVITY 1.005 UROBILINOGEN negative BILIRUBIN negative BLOOD trace GLUCOSE negative KETONES small pH 6 PROTEIN negative LEUKOCYTES 2+ CHLAMYDIA/GONOCOCCUS, by PCR 2019-05-15 C. trachomatis by PCR Not detected PCR GENITAL SPECIMEN N. gonorrhoeae by PCR Not detected Chlamydia trachomatis, [place] Neisseria gonorrhoeae, [place] Please note: CHLAMYDIA/GONOCOCCUS, by PCR 2019-01-23 PCR GENITAL SPECIMEN GENITAL SPECIMEN FO R PCR TESTING C.trach by PCR NOT DETECTED NOT DETECTED N. gonorrhoeae PCR NOT DETECTED NOT DETEC MIQUEL CHLAMYDIA/GONOCOCCUS, by PCR 2018-12-17 PCR GENITAL SPECIMEN GENITAL SPECIMEN FO R PCR TESTING C.trach by PCR DETECTED NOT DETECTED N. gonorrhoeae PCR NOT DETECTED NOT DETEC MIQUEL Vaginitis/Vaginosis, DNA Probe 2018-11-19 Kristina species Gardnerella vaginalis Trichomonas vaginalis TSH 2018-11-05 TSH 3.97 0.45-5.33 CHLAMYDIA/GONOCOCCUS, by PCR 2018-09-22 C.trach by PCR NOT DETECTED NOT DETECTED N. gonorrhoeae PCR NOT DETECTED NOT DETEC MIQUEL US PELVIC LIMITED 2018-09-24 ABNORMAL TSH/FT4 2018-07-04 TSH 0.03 0.45-5.33 T4F 0.91 0.61-1.12 Test (Rapid) Urine 2018-07-04 Result negative Control Passed Test (Rapid) Urine 2018-04-07 Result negative Control Passed CBC, NO DIFF 2018-02-18 WBC 11.3 4.8-10.8 RBC 4.22 4.20-5.40 HGB 11.5 12.0-16.0 HCT 34.8 37.0-47.0 MCV 82.5 81.0-99.0 MCH 27.3 27.0-31.0 MCHC 33.0 32.0-37.0 RDW-CV 14.6 11.5-14.5 PLT 293 130-400 URINE DIP ([facility]) 2018-02-17 Color Clarity Glucose negative Bilirubin Ketones Specific [place] Blood PH Protein negative Uro Nitrates Leukocytes URINE DIP ([facility]) Color Clarity Glucose neg Bilirubin Ketones Specific [place] Blood PH Protein negative Uro Nitrates Leukocytes URINE DIP ([facility]) 2018-01-29 Color Clarity Glucose negative Bilirubin Ketones Specific [place] Blood PH Protein negative Uro Nitrates Leukocytes GROUP-B STREP SCREEN - RAPID PCR 2018-01-29 Group B Strep by PCR NEGATIVE NEGATIV E URINE DIP ([facility]) 2018-01-21 Color Clarity Glucose negative Bilirubin Ketones Specific [place] Blood PH Protein negative Uro Nitrates Leukocytes URINE DIP ([facility]) 2018-01-13 Color Clarity Glucose negative Bilirubin Ketones Specific [place] Blood PH Protein negative Uro Nitrates Leukocytes URINALYSIS COMPLETE 2018-01-02 COLOR Yellow YELLOW CLARITY Clear CLEAR SPECIFIC GRAVITY 1.015 1.000-1.030 pH 7.5 5.0-8.0 PROTEIN Negative NEGATIVE GLUCOSE Negative NEGATIVE KETONES Negative NEGATIVE UROBILINOGEN 0.2 E.U./dL 0.2 E.U./DL BILIRUBIN Negative NEGATIVE BLOOD Negative NEGATIVE LEUKOCYTES Small NEGATIVE NITRITES Negative NEGATIVE RBCs 0-3 0-3 SQ EPITHELIAL CELLS 6-10 0-3 CLUE CELLS NONE SEEN RTE CELLS 0-3 TRANSITIONAL EPIs 0-3 BACTERIA NONE SEEN NONE SEEN CRYSTALS NONE SEEN HYALINE CASTS NONE SEEN GRANULAR CASTS NONE SEEN RBC CASTS NONE SEEN WBC CASTS NONE SEEN WAXY CASTS NONE SEEN CELLULAR CASTS NONE SEEN YEAST NONE SEEN TRICHOMONADS NONE SEEN URINE CULTURE NO NO CBC, WITH AUTO DIFF 2017-12-28 WBC 10.8 4.8-10.8 RBC 3.81 4.20-5.40 HGB 11.1 12.0-16.0 HCT 33.3 37.0-47.0 MCV 87.4 81.0-99.0 MCH 29.1 27.0-31.0 MCHC 33.3 32.0-37.0 RDW-CV 13.2 11.5-14.5 PLT 252 130-400 MPV 11.1 7.4-10.4 NE% 77.3 42.2-75.2 LY% 14.1 20.5-51.1 MO% 7.1 1.7-9.3 EO% 0.7 0.9-2.9 BA% 0.2 0.0-0.8 NE# 8.4 1.4-6.5 LY# 1.5 1.2-3.4 MO# 0.8 0.1-0.6 EO# 0.1 0.0-0.2 BA# 0.0 0.0-0.2 RPR 2017-12-28 RPR NON-REACTIVE NON-REACTIVE GROUP-B STREP SCREEN - RAPID PCR 2017-12-28 Group B Strep by PCR NEGATIVE NEGATIV E URINALYSIS COMPLETE 2017-12-28 COLOR Yellow YELLOW CLARITY Clear CLEAR SPECIFIC GRAVITY 1.010 1.000-1.030 pH 7.0 5.0-8.0 PROTEIN Negative NEGATIVE GLUCOSE Negative NEGATIVE KETONES Negative NEGATIVE UROBILINOGEN 0.2 E.U./dL 0.2 E.U./DL BILIRUBIN Negative NEGATIVE BLOOD Trace-intact NEGATIVE LEUKOCYTES Negative NEGATIVE NITRITES Negative NEGATIVE RBCs 0-3 0-3 SQ EPITHELIAL CELLS 50-99 0-3 CLUE CELLS NONE SEEN RTE CELLS 0-3 TRANSITIONAL EPIs 0-3 BACTERIA NONE SEEN NONE SEEN CRYSTALS NONE SEEN HYALINE CASTS NONE SEEN GRANULAR CASTS NONE SEEN RBC CASTS NONE SEEN WBC CASTS NONE SEEN WAXY CASTS NONE SEEN CELLULAR CASTS NONE SEEN YEAST NONE SEEN TRICHOMONADS NONE SEEN URINE CULTURE NO NO COMPREHENSIVE METABOLIC PROFILE 2017-12-28 SODIUM 135 136-145 POTASSIUM 3.6 3.5-5.1 CHLORIDE 103 98-111 CO2 22 22-32 CALCIUM 8.3 8.9-10.3 BUN 7 8-26 CREATININE 0.35 0.44-1.00 TOTAL BILIRUBIN 0.8 0.3-1.2 TOTAL PROTEIN 6.7 6.5-8.1 ALBUMIN 3.0 3.5-5.0 ALKALINE PHOS 110 38-130 AST 19 15-41 ALT 12 14-54 A/GAP 10.0 3.0-12.0 B/CR 20.0 8.0-20.0 OSMOLARITY 267 275-295 GLOBULIN 3.7 2.3-3.5 A/G 0.8 1.0-2.5 FIBRINOGEN 2017-12-28 FIBRINOGEN 421 208-434 FIBRONECTIN 2017-12-27 FIBRONECTIN POSITIVE NEGATIVE FFN_TEXT Interpretation of NE GATIVE result: a) 124 out of 125 symptomatic women with a negative result will not deliver within the next 14 days. b) 15 out of 16 high-risk asymptomatic women with a negative r TSH 2017-12-25 TSH 4.11 0.45-5.33 URINE DIP ([facility]) 2017-12-25 Color Clarity Glucose negative Bilirubin Ketones Specific [place] Blood PH Protein negative Uro Nitrates Leukocytes URINE DIP ([facility]) 2017-12-13 Color Clarity Glucose negative Bilirubin Ketones Specific [place] Blood PH Protein negative Uro Nitrates Leukocytes URINE DIP ([facility]) 2017-12-09 Color Clarity Glucose negative Bilirubin Ketones Specific [place] Blood PH Protein negative Uro Nitrates Leukocytes FIBRONECTIN 2017-12-09 FIBRONECTIN NEGATIVE NEGATIVE FFN_TEXT Interpretation of NE GATIVE result: a) 124 out of 125 symptomatic women with a negative result will not deliver within the next 14 days. b) 15 out of 16 high-risk asymptomatic women with a negative r CBC, WITH AUTO DIFF 2017-11-20 WBC 9.0 4.8-10.8 RBC 3.65 4.20-5.40 HGB 11.1 12.0-16.0 HCT 32.6 37.0-47.0 MCV 89.3 81.0-99.0 MCH 30.4 27.0-31.0 MCHC 34.0 32.0-37.0 RDW-CV 12.9 11.5-14.5 PLT 214 130-400 MPV 11.0 7.4-10.4 NE% 77.0 42.2-75.2 LY% 14.7 20.5-51.1 MO% 6.9 1.7-9.3 EO% 0.6 0.9-2.9 BA% 0.2 0.0-0.8 NE# 7.0 1.4-6.5 LY# 1.3 1.2-3.4 MO# 0.6 0.1-0.6 EO# 0.1 0.0-0.2 BA# 0.0 0.0-0.2 TSH 2017-11-20 TSH 8.43 0.45-5.33 URINE DIP ([facility]) 2017-11-20 Color Clarity Glucose negative Bilirubin Ketones Specific [place] Blood PH Protein negative Uro Nitrates Leukocytes GLUCOSE DRAKE GESTATIONAL(50GM) 2017-11-20 GLUCOSE - 1 HR POST 98 <=135 URINALYSIS DIP w/REFLEX MICRO 2017-11-02 COLOR Yellow YELLOW CLARITY Clear CLEAR SPECIFIC GRAVITY 1.020 1.000-1.030 pH 7.0 5.0-8.0 PROTEIN Negative NEGATIVE GLUCOSE Negative NEGATIVE KETONES 15 mg/dL NEGATIVE UROBILINOGEN 0.2 E.U./dL 0.2 E.U./DL BILIRUBIN Negative NEGATIVE BLOOD Negative NEGATIVE LEUKOCYTES Negative NEGATIVE NITRITES Negative NEGATIVE TSH 2017-10-23 TSH 2.34 0.45-5.33 URINE DIP ([facility]) 2017-10-23 Color Clarity Glucose negative Bilirubin Ketones Specific [place] Blood PH Protein negative Uro Nitrates Leukocytes CHLAMYDIA/GC by PCR URINE 2017-09-30 C.trach by PCR NOT DETECTED NOT DETECTED N. gonorrhoeae PCR NOT DETECTED NOT DETEC MIQUEL USR The patient should n ot have urinated for at least 1 hour prior to specimen collection. Female patients should not cleanse the labial area prior to collecting the specimen. Male patients should n TSH 2017-09-30 TSH 5.84 0.45-5.33 URINE DIP ([facility]) 2017-09-30 Color Clarity Glucose negative Bilirubin Ketones Specific [place] Blood PH Protein negative Uro Nitrates Leukocytes ALPHA FETOPROTEIN, QUAD SCREEN ([id number]) 2017-09-02 Results Report Test Results: *Screen Negative* Gest. Age on Collection Date 16.1 Gestat. Age Based On LMP Maternal Age At BEATRIZ 22.8 Race Weight 122 Insulin Dep Diabetes No Multiple Gestation No AFP Value 38.4 AFP MoM 1.00 hCG Value 32803 hCG MoM 0.29 uE3 Value 1.04 uE3 MoM 1.24 ARIANA Value 105.05 ARIANA MoM 0.54 OSBR [place] 1 [place] [address] DSR (Second Trimester) 1 [place] [address] DSR (By Age) 1 IN 1108 T18 Risk Not increased T18 (By Age) 1:4318 Interpretation Comment Comments: Comment PDF . US OB GREATER THAN 14 WEEKS 2017-09-30 CULTURE URINE & COLONY COUNT 2017-08-06 URINE DIP ([facility]) Color Clarity Glucose negative Bilirubin Ketones Specific [place] Blood PH Protein negative Uro Nitrates Leukocytes CBC, WITH AUTO DIFF 2017-08-05 COMPREHENSIVE METABOLIC PROFILE 2017-08-05 ALBUMIN 4.3 3.5-5.0 ALKALINE PHOS 63 38-130 A/GAP 9.0 3.0-12.0 B/CR 15.1 8.0-20.0 OSMOLARITY 267 275-295 GLOBULIN 2.9 2.3-3.5 A/G 1.5 1.0-2.5 AMYLASE 2017-08-05 LIPASE 2017-08-05 URINALYSIS DIP w/REFLEX MICRO 2017-08-05 COLOR Dark yellow YELLOW CLARITY Slightly Cloudy CLEAR SPECIFIC GRAVITY 1.015 1.000-1.030 pH 5.5 5.0-8.0 PROTEIN 30 mg/dL NEGATIVE GLUCOSE Negative NEGATIVE KETONES >=160 mg/dL NEGATIVE UROBILINOGEN 0.2 E.U./dL 0.2 E.U./DL BILIRUBIN Small NEGATIVE BLOOD Negative NEGATIVE LEUKOCYTES Negative NEGATIVE NITRITES Negative NEGATIVE TSH / Reflexed FT4 2017-08-05 CBC, WITH AUTO DIFF 2017-07-12 WBC 9.8 4.8-10.8 RBC 4.16 4.20-5.40 HGB 12.1 12.0-16.0 HCT 35.7 37.0-47.0 MCV 85.8 81.0-99.0 MCH 29.1 27.0-31.0 MCHC 33.9 32.0-37.0 RDW-CV 13.0 11.5-14.5 PLT 231 130-400 MPV 10.9 7.4-10.4 NE% 87.7 42.2-75.2 LY% 6.7 20.5-51.1 MO% 4.4 1.7-9.3 EO% 0.9 0.9-2.9 BA% 0.1 0.0-0.8 NE# 8.6 1.4-6.5 LY# 0.7 1.2-3.4 MO# 0.4 0.1-0.6 EO# 0.1 0.0-0.2 BA# 0.0 0.0-0.2 COMPREHENSIVE METABOLIC PROFILE 2017-07-12 SODIUM 134 136-145 POTASSIUM 3.2 3.5-5.1 CHLORIDE 102 98-111 CO2 22 22-32 CALCIUM 8.9 8.9-10.3 BUN 8 8-26 CREATININE 0.45 0.44-1.00 TOTAL BILIRUBIN 1.9 0.3-1.2 TOTAL PROTEIN 7.3 6.5-8.1 ALBUMIN 4.2 3.5-5.0 [place]KALINE PHOS 58 38-130 AST 16 15-41 ALT 13 14-54 A/GAP 10.0 3.0-12.0 B/CR 17.8 8.0-20.0 OSMOLARITY 266 275-295 GLOBULIN 3.1 2.3-3.5 A/G 1.4 1.0-2.5 LIPASE 2017-07-12 LIPASE 26 18-51 US OB LESS THAN 14 WEEKS 2017-07-09 BASIC METABOLIC PROFILE 2017-07-02 SODIUM 134 136-145 POTASSIUM 3.4 3.5-5.1 CHLORIDE 102 98-111 CO2 24 22-32 CALCIUM 9.0 8.9-10.3 BUN 9 8-26 CREATININE 0.50 0.44-1.00 EGFR >60 EGFR CMT Multiply calculated EGFR by 1.025 for Afro-americans. A/GAP 8.0 3.0-12.0 OSMOLARITY 267 275-295 B/CR 18.0 8.0-20.0 CBC, WITH AUTO DIFF 2017-07-02 WBC 7.9 4.8-10.8 RBC 4.20 4.20-5.40 HGB 12.2 12.0-16.0 HCT 36.0 37.0-47.0 MCV 85.7 81.0-99.0 MCH 29.0 27.0-31.0 MCHC 33.9 32.0-37.0 RDW-CV 12.7 11.5-14.5 PLT 288 130-400 MPV 10.8 7.4-10.4 NE% 63.3 42.2-75.2 LY% 27.7 20.5-51.1 MO% 7.8 1.7-9.3 EO% 0.8 0.9-2.9 BA% 0.3 0.0-0.8 NE# 5.0 1.4-6.5 LY# 2.2 1.2-3.4 MO# 0.6 0.1-0.6 EO# 0.1 0.0-0.2 BA# 0.0 0.0-0.2 HCG, BETA (QUANT) 2017-07-02 BETA HCG 79573.0 <=5.0 BHCG INT WEEKS POST LMP APPRO XIMATE HCG (mIU/mL) 3-4 weeks 9 - 130 4-5 weeks 75 - 2600 5-6 weeks URINALYSIS DIP w/REFLEX MICRO 2017-07-02 COLOR Yellow YELLOW CLARITY Clear CLEAR SPECIFIC GRAVITY 1.010 1.000-1.030 pH 7.0 5.0-8.0 PROTEIN Negative NEGATIVE GLUCOSE Negative NEGATIVE KETONES Negative NEGATIVE UROBILINOGEN 0.2 E.U./dL 0.2 E.U./DL BILIRUBIN Negative NEGATIVE BLOOD Negative NEGATIVE LEUKOCYTES Negative NEGATIVE NITRITES Negative NEGATIVE TSH 2017-06-10 TSH 1.04 0.45-5.33 Test (Rapid) Urine 2017-06-10 Result positive Control Passed HEPATITIS B SURFACE ANTIGEN, 2017-06-10 HEP B SURFACE AG NON-REACTIVE NON-REACTIV E RPR, 2017-06-10 RPR NON-REACTIVE NON-REACTIVE RUBELLA IGG ANTIBODY 2017-06-10 TYPE AND SCREEN, 2017-06-10 ABORh O POSITIVE ANTIBODY SCREEN NEGATIVE NEGATIVE TS COMM Pre-op Type & Screen specimens are valid for 7 days. If the patient has been transfused or been within the past 3 months, the specimen is only valid for 3 days. CBC (W/HIV) 2017-06-10 WBC 4.9 4.8-10.8 RBC 4.35 4.20-5.40 HGB 12.5 12.0-16.0 HCT 37.0 37.0-47.0 MCV 85.1 81.0-99.0 MCH 28.7 27.0-31.0 MCHC 33.8 32.0-37.0 RDW-CV 12.7 11.5-14.5 PLT 294 130-400 MPV 10.3 7.4-10.4 NE% 62.3 42.2-75.2 LY% 26.6 20.5-51.1 MO% 8.5 1.7-9.3 EO% 1.6 0.9-2.9 BA% 0.6 0.0-0.8 NE# 3.0 1.4-6.5 LY# 1.3 1.2-3.4 MO# 0.4 0.1-0.6 EO# 0.1 0.0-0.2 BA# 0.0 0.0-0.2 HIV12P 2017-06-10 HIV1/O/2 Abs,P24Ag NON-REACTIVE NON-REACT MARIA ELENA TSH 2017-05-23 TSH 30.32 0.45-5.33 T4, FREE 2017-05-23 T4F 0.55 0.61-1.12 US PELVIC ULTRASOUND 2017-02-11 HCG, BETA (QUANT) 2017-01-25 BETA HCG <0.6 <=5.0 BHCG INT WEEKS POST LMP APPRO XIMATE HCG (mIU/mL) 3-4 weeks 9 - 130 4-5 weeks 75 - 2600 5-6 weeks XR RIBS LEFT W PA CHEST 2016-11-18 Pap Lb, rfx HPV ASCU 2016-11-12 . Note: . Clinical history: DIAGNOSIS: Specimen adequacy: Additional comment: Recommendation: Performed by: Electronically signed by: Test ordered: Maturation index: Amended report: Addendum: QC reviewed by: Cytology history: Special procedure: QA comment: Diagnosis provided by: Source: Pathologist provided ICD9: * * * * Clinician provided ICD9: Interpretation LBP CPT Code Automation XR FOOT 3 VIEW RIGHT 2016-10-24 TSH 2016-10-18 TSH 0.39 0.45-5.33 CBC, WITH AUTO DIFF 2016-10-10 WBC 6.1 4.8-10.8 RBC 4.64 4.20-5.40 HGB 13.1 12.0-16.0 HCT 39.5 37.0-47.0 MCV 85.1 81.0-99.0 MCH 28.2 27.0-31.0 MCHC 33.2 32.0-37.0 RDW-CV 12.5 11.5-14.5 PLT 283 130-400 MPV 10.8 7.4-10.4 NE% 62.7 42.2-75.2 LY% 27.4 20.5-51.1 MO% 7.6 1.7-9.3 EO% 1.8 0.9-2.9 BA% 0.3 0.0-0.8 NE# 3.8 1.4-6.5 LY# 1.7 1.2-3.4 MO# 0.5 0.1-0.6 EO# 0.1 0.0-0.2 BA# 0.0 0.0-0.2 URINALYSIS COMPLETE 2016-10-10 COLOR Yellow YELLOW CLARITY Slightly Cloudy CLEAR SPECIFIC GRAVITY 1.020 1.000-1.030 pH 6.0 5.0-8.0 PROTEIN Negative NEGATIVE GLUCOSE Negative NEGATIVE KETONES Negative NEGATIVE UROBILINOGEN 0.2 E.U./dL 0.2 E.U./DL BILIRUBIN Negative NEGATIVE BLOOD Negative NEGATIVE LEUKOCYTES Trace NEGATIVE NITRITES Negative NEGATIVE RBCs 0-3 SQ EPITHELIAL CELLS 10-25 0-3 RTE CELLS 0-3 TRANSITIONAL EPIs 0-3 BACTERIA RARE NONE SEEN CRYSTALS NONE SEEN HYALINE CASTS NONE SEEN GRANULAR CASTS NONE SEEN RBC CASTS NONE SEEN WBC CASTS NONE SEEN WAXY CASTS NONE SEEN YEAST NONE SEEN TRICHOMONADS NONE SEEN LIPID PROFILE 2016-10-10 CHOLESTEROL 146 129-209 TRIGLYCERIDES 100 10-150 HDL 50 40-80 LDL (CALCULATED) 76 RISK RATIO 2.9 RISK INTERP RISK MALE FEMALE 1/2 average 3.4 3.3 Average 5.0 4.4 2x Average 9.6 COMPREHENSIVE METABOLIC PROFILE 2016-10-10 SODIUM 133 136-145 POTASSIUM 4.0 3.5-5.1 CHLORIDE 102 98-111 CO2 27 22-32 CALCIUM 9.1 8.9-10.3 BUN 9 8-26 CREATININE 0.59 0.44-1.00 TOTAL BILIRUBIN 1.4 0.3-1.2 TOTAL PROTEIN 6.8 6.5-8.1 ALBUMIN 4.0 3.5-5.0 ALKALINE PHOS 89 38-130 AST 23 15-41 ALT 21 14-54 A/GAP 4.0 3.0-12.0 B/CR 15.3 8.0-20.0 OSMOLARITY 264 275-295 GLOBULIN 2.8 2.3-3.5 A/G 1.4 1.0-2.5 TSH / Reflexed FT4 2016-10-10 CBC, WITH AUTO DIFF 2016-07-03 WBC 17.8 4.8-10.8 RBC 4.21 4.20-5.40 HGB 12.8 12.0-16.0 HCT 37.8 37.0-47.0 MCV 89.8 81.0-99.0 MCH 30.4 27.0-31.0 MCHC 33.9 32.0-37.0 RDW-CV 13.7 11.5-14.5 PLT 237 130-400 MPV 10.9 7.4-10.4 NE% 90.2 42.2-75.2 LY% 5.3 20.5-51.1 MO% 4.1 1.7-9.3 EO% 0.0 0.9-2.9 BA% 0.1 0.0-0.8 NE# 16.1 1.4-6.5 LY# 0.9 1.2-3.4 MO# 0.7 0.1-0.6 EO# 0.0 0.0-0.2 BA# 0.0 0.0-0.2 URINE DIP ([facility]) 2016-06-26 Color Clarity Glucose negative Bilirubin Ketones Specific [place] Blood PH Protein negative Uro Nitrates Leukocytes URINE DIP ([facility]) 2016-06-20 Color Clarity Glucose negative Bilirubin Ketones Specific [place] Blood PH Protein negative Uro Nitrates Leukocytes URINE DIP ([facility]) 2016-06-13 Color Clarity Glucose negative Bilirubin Ketones Specific [place] Blood PH Protein negative Uro Nitrates Leukocytes URINALYSIS DIP w/REFLEX MICRO 2016-06-04 COLOR Light yellow YELLOW CLARITY HAZY CLEAR SPECIFIC GRAVITY 1.010 1.000-1.030 pH 7.0 5.0-8.0 PROTEIN Negative NEGATIVE GLUCOSE Negative NEGATIVE KETONES 80 mg/dL NEGATIVE UROBILINOGEN 0.2 E.U./dL 0.2 E.U./DL BILIRUBIN Negative NEGATIVE BLOOD Negative NEGATIVE LEUKOCYTES Negative NEGATIVE NITRITES Negative NEGATIVE URINE DIP ([facility]) 2016-05-29 Color Clarity Glucose negative Bilirubin Ketones Specific [place] Blood PH Protein negative Uro Nitrates Leukocytes GROUP-B STREP SCREEN - RAPID PCR 2016-05-29 Group B Strep by PCR NEGATIVE NEGATIV E URINE DIP ([facility]) 2016-04-23 Color Clarity Glucose negative Bilirubin Ketones Specific [place] Blood PH Protein negative Uro Nitrates Leukocytes GLUCOSE DRAKE - 3HR 2016-04-16 FASTING 84 <=95 1 HOUR GLUCOSE 85 <=180 2 HR GLUCOSE 98 <=155 3 HR GLUCOSE 100 <=140 URINE DIP ([facility]) 2016-04-03 Color Clarity Glucose negative Bilirubin Ketones Specific [place] Blood PH Protein negative Uro Nitrates Leukocytes GLUCOSE DRAKE GESTATIONAL(50GM) 2016-04-03 GLUCOSE - 1 HR POST 136 <=135 CHLAMYDIA/GC by PCR URINE 2016-04-03 C.trach by PCR NOT DETECTED NOT DETECTED N. gonorrhoeae PCR NOT DETECTED NOT DETEC MIQUEL USR The patient should n ot have urinated for at least 1 hour prior to specimen collection. Female patients should not cleanse the labial area prior to collecting the specimen. Male patients should n US ABDOMINAL LIMITED 2016-04-02 CBC, WITH AUTO DIFF 2016-03-30 WBC 11.9 4.8-10.8 RBC 3.82 4.20-5.40 HGB 11.8 12.0-16.0 HCT 34.5 37.0-47.0 MCV 90.3 81.0-99.0 MCH 30.9 27.0-31.0 MCHC 34.2 32.0-37.0 RDW-CV 13.1 11.5-14.5 PLT 243 130-400 MPV 10.4 7.4-10.4 NE% 76.4 42.2-75.2 LY% 13.9 20.5-51.1 MO% 8.0 1.7-9.3 EO% 0.9 0.9-2.9 BA% 0.1 0.0-0.8 NE# 9.1 1.4-6.5 LY# 1.7 1.2-3.4 MO# 1.0 0.1-0.6 EO# 0.1 0.0-0.2 BA# 0.0 0.0-0.2 COMPREHENSIVE METABOLIC PROFILE 2016-03-30 SODIUM 136 136-145 POTASSIUM 3.3 3.5-5.1 CHLORIDE 104 98-111 CO2 23 21-32 CALCIUM 8.6 8.9-10.3 BUN 7 7-18 CREATININE 0.31 0.55-1.02 TOTAL BILIRUBIN 0.4 0.3-1.2 TOTAL PROTEIN 6.3 6.4-8.2 ALBUMIN 3.1 3.5-5.0 ALKALINE PHOS 80 38-130 ALT 14 14-54 AST 20 15-41 A/GAP 9.0 3.0-12.0 B/CR 22.6 8.0-20.0 OSMOLARITY 269 275-295 GLOBULIN 3.2 2.3-3.5 A/G 1.0 1.0-2.5 LIPASE 2016-03-30 LIPASE 20 18-51 BASIC METABOLIC PROFILE 2016-03-21 SODIUM 135 136-145 POTASSIUM 3.9 3.5-5.1 CHLORIDE 103 101-111 CO2 26 21-32 CALCIUM 9.0 8.9-10.3 BUN 10 7-18 CREATININE 0.40 0.55-1.02 EGFR >60 EGFR CMT Multiply calculated EGFR by 1.025 for Afro-americans. A/GAP 6.0 3.0-12.0 OSMOLARITY 267 275-295 B/CR 25.0 8.0-20.0 CBC, WITH AUTO DIFF 2016-03-21 WBC 10.5 4.8-10.8 RBC 3.95 4.20-5.40 HGB 12.2 12.0-16.0 HCT 36.1 37.0-47.0 MCV 91.4 81.0-99.0 MCH 30.9 27.0-31.0 MCHC 33.8 32.0-37.0 RDW-CV 13.2 11.5-14.5 PLT 234 130-400 MPV 10.5 7.4-10.4 NE% 79.7 42.2-75.2 LY% 10.5 20.5-51.1 MO% 8.4 1.7-9.3 EO% 0.8 0.9-2.9 BA% 0.1 0.0-0.8 NE# 8.4 1.4-6.5 LY# 1.1 1.2-3.4 MO# 0.9 0.1-0.6 EO# 0.1 0.0-0.2 BA# 0.0 0.0-0.2 TSH w/REFLEX TO FT4 2016-03-21 TSH 3.82 0.45-5.33 ALPHA FETOPROTEIN, QUAD SCREEN ([id number]) 2016-01-12 Results Report Test Results: *Screen Negative* Gest. Age on Collection Date 16.3 Gestat. Age Based On BEATRIZ Maternal Age At BEATRIZ 21.2 Race Weight 126 Insulin Dep Diabetes No Multiple Gestation No AFP Value 74.4 AFP MoM 1.98 hCG Value 00153 hCG MoM 1.61 uE3 Value 1.28 uE3 MoM 1.32 ARIANA Value 140.47 ARIANA MoM 0.72 OSBR Risk 1 IN 842 DSR (Second Trimester) 1 [place] [address] DSR (By Age) 1 IN 1144 T18 Risk Not increased T18 (By Age) 1:4459 Interpretation Comment Comments: Comment US OB GREATER THAN 14 WEEKS 2016-02-06 URINE DIP ([facility]) 2016-01-10 Color lt yellow Clarity clear Glucose negative Bilirubin negative Ketones negative Specific [place] 1.005 Blood negative PH 7 Protein negative Uro negative Nitrates negative Leukocytes negative US OB LESS THAN 14 WEEKS 2015-12-23 URINE DIP ([facility]) 2015-12-15 Color Clarity Glucose negative Bilirubin Ketones Specific [place] Blood PH Protein negative Uro Nitrates Leukocytes CULTURE URINE 2015-11-22 HEPATITIS B SURFACE ANTIGEN, 2015-11-22 HEP B SURFACE AG NON-REACTIVE NON-REACTIV E RPR, 2015-11-22 RPR NON-REACTIVE NON-REACTIVE RUBELLA IGG ANTIBODY 2015-11-22 RUB HEAD REFERENCE RANGE: (IU /mL) <5.0 : NON-IMMUNE 5.0 - 9.9 : CRAWFORD ZONE >= 10.0 : IMMUNE TYPE AND SCREEN, 2015-11-22 ABORh O POSITIVE ANTIBODY SCREEN NEGATIVE NEGATIVE TS COMM Pre-op Type & Screen specimens are valid for 7 days. If the patient has been transfused or been within the past 3 months, the specimen is only valid for 3 days. CBC (W/HIV) 2015-11-22 WBC 9.2 4.8-10.8 RBC 4.19 4.20-5.40 HGB 12.4 12.0-16.0 HCT 36.8 37.0-47.0 MCV 87.8 81.0-99.0 MCH 29.6 27.0-31.0 MCHC 33.7 32.0-37.0 RDW-CV 12.7 11.5-14.5 PLT 229 130-400 MPV 10.7 7.4-10.4 NE% 76.6 42.2-75.2 LY% 16.1 20.5-51.1 MO% 6.3 1.7-9.3 EO% 0.7 0.9-2.9 BA% 0.1 0.0-0.8 NE# 7.0 1.4-6.5 LY# 1.5 1.2-3.4 MO# 0.6 0.1-0.6 EO# 0.1 0.0-0.2 BA# 0.0 0.0-0.2 HIV12P 2015-11-22 HIV1/O/2 Abs,P24Ag NON-REACTIVE NON-REACT MARIA ELENA BASIC METABOLIC PROFILE 2015-10-19 SODIUM 138 136-145 POTASSIUM 3.7 3.5-5.1 CHLORIDE 104 98-107 CO2 26 21-32 CALCIUM 9.0 8.5-10.1 BUN 9 7-18 CREATININE 0.70 0.55-1.02 EGFR >60 EGFR CMT Multiply calculated EGFR by 1.025 for Afro-americans. A/GAP 8.0 3.0-12.0 OSMOLARITY 274 275-295 B/CR 12.9 8.0-20.0 CBC, WITH AUTO DIFF 2015-10-19 WBC 9.3 4.8-10.8 RBC 4.46 4.20-5.40 HGB 13.1 12.0-16.0 HCT 38.6 37.0-47.0 MCV 86.5 81.0-99.0 MCH 29.4 27.0-31.0 MCHC 33.9 32.0-37.0 RDW-CV 13.2 11.5-14.5 PLT 257 130-400 MPV 10.5 7.4-10.4 NE% 59.2 42.2-75.2 LY% 30.9 20.5-51.1 MO% 7.9 1.7-9.3 EO% 1.6 0.9-2.9 BA% 0.3 0.0-0.8 NE# 5.5 1.4-6.5 LY# 2.9 1.2-3.4 MO# 0.7 0.1-0.6 EO# 0.2 0.0-0.2 BA# 0.0 0.0-0.2 HCG, BETA (QUANT) 2015-10-19 BETA HCG 232.0 <=6.0 BHCG INT WEEKS POST LMP APPRO XIMATE HCG (mIU/mL) 3-4 weeks 9 - 130 4-5 weeks 75 - 2600 5-6 weeks URINALYSIS DIP w/REFLEX MICRO 2015-10-19 COLOR Yellow YELLOW CLARITY Clear CLEAR SPECIFIC GRAVITY <=1.005 1.000-1.030 pH 6.0 5.0-8.0 PROTEIN Negative NEGATIVE GLUCOSE Negative NEGATIVE KETONES Negative NEGATIVE UROBILINOGEN 0.2 E.U./dL 0.2 E.U./DL BILIRUBIN Negative NEGATIVE BLOOD Negative NEGATIVE LEUKOCYTES Negative NEGATIVE NITRITES Negative NEGATIVE HCG SCREEN, URINE 2015-10-19 HCG SCREEN, URINE POSITIVE NEGATIVE UHCG-TEXT If a urine specimen is too dilute (ie: Specific [place] <1.005) it may not contain exhibit display representative levels of hcg. If the test is negative and is still suspected, a first morning specimen vickie US PELVIC ULTRASOUND 2015-10-19 Test (Rapid) Urine 2015-02-01 Result negative Control Passed SEDIMENTATION RATE 2014-11-08 ESR 13 <=20 CASS W/REFLEX ([id number]) 2014-11-08 CASS Direct Negative Negative ANTI-CCP IgG ANTIBODY ([id number]) 2014-11-08 CCP Antibodies IgG/IgA <1 0-19 C-REACTIVE PROTEIN (CRP) 2014-11-08 CRP 1.5 <=3.0 HLA-B27 ([id number]) 2014-11-08 HLA-B27 Negative RHEUMATOID FACTOR ([id number]) 2014-11-08 RA Latex Turbid 11.3 0.0-13.9 ANTI-RO (SS-A) IgG ANTIBODY ([id number]) 2014-11-08 Sjogren's Anti-SS-A <0.2 0.0-0.9 URINE DIP ([facility]) 2014-03-31 Color yellow Clarity clear Glucose neg Bilirubin neg Ketones neg Specific [place] 1.010 Blood neg PH 7 Protein neg Uro neg Nitrates neg Leukocytes neg US PELVIC ULTRASOUND 2014-03-24 Test (Rapid) Urine 2014-03-23 Result negative Control Passed Test (Rapid) Urine 2014-03-02 Result negatve Control Passed Test (Rapid) Urine 2013-12-22 Result negative Control Passed US GEOLOGICAL ENGINEERING TEACHER TRANSVAGINAL 2013-11-26 FERRITIN 2013-09-28 IRON/TRANSFERRIN PANEL 2013-09-28 IRON 136 50-170 TIBC 357 250-400 IRON SATURATION 38 20-55 TSH 2013-08-19 Test (Rapid) Urine Result Control Passed FL BARIUM SWALLOW WITH SPEECH 2013-07-31 Test (Rapid) Urine 2013-06-23 Result negative Control Passed Test (Rapid) Urine 2013-05-26 Result negative Control Passed Test (Rapid) Urine 2013-04-29 Result negative Control Passed CT ABD/PELVIS W CONTRAST 2012-12-02 HCG SCREEN, URINE 2011-07-05 URINE HCG SCREEN NEGATIVE NEGATIVE UHCG INTERPRETIVE TEXT If a urine specim en is too dilute (ie: Specific [place] <1.005) it may not contain exhibit display representative levels of hcg. If the test is negative and is still suspected, a first morning specimen vickie CBC WITH DIF 2010 CBC WITH DIF WBC 9.5 4.80-10.80 RBC 4.51 4.20-5.40 HGB 13.3 12.0-16.0 HCT 39.9 37.0-47.0 MCV 88.6 81.0-99.0 MCH 29.6 27.0-31.0 MCHC 33.4 32.0-36.0 RDW 12.0 11.50-14.50 PLT 215 130-400 MPV 8.9 7.40-10.40 NE% 80.8 42.20-75.20 LY% 12.8 20.50-51.10 MO% 5.0 1.70-9.30 EO% 0.7 0.90-2.90 BA% 0.7 0.0-0.80 NE# 7.6 1.40-6.50 LY# 1.2 1.20-3.40 MO# 0.5 0.10-0.60 EO# 0.1 0.0-0.20 BA# 0.1 0.0-0.20 RBC MORPH NORMAL ANISO MICRO MACRO HYPO POIK SEGS 76 42-75 BAND 1 0-6 LYM 14 20-51 LYMA 2 0-0 MONO 6 2-9 EO 1 0.90-2.90 PLT ESTIMATE ADEQUATE PANEL II 2010 PANEL II SODIUM 139 136-145 POTASSIUM 3.8 3.50-5.10 CHLORIDE 103 99-108 CO2 26 21-31 CALCIUM 9.3 8.40-10.30 GLUCOSE 107 70-105 BUN 13 7-22 CREATININE 0.56 0.30-0.80 A/GAP 10.0 3.0-12.0 B/CR 23.2 8.0-20.0 AGE 15 eGFR NON-AFR 146 XR CERVICAL 3 VIEW 2010-03-17 CULTURE ROUTINE/NOT BLOOD 2009-11-19 CULTURE ROUTINE/NOT BLOOD XR CERVICAL 3 VIEW 2009-11-09 TSH 2009-08-17 TSH 4.06 0.49-4.67 Rapid Strep Screen 2009-05-10 Result positive XR CLAVICLE LEFT 2009-01-17 MRI : Brain without contrast REASON FOR VISIT GEOLOGICAL ENGINEERING TEACHER purvi Pradhan, GEOLOGICAL ENGINEERING TEACHER abnormal bleeding/pelvic pain, GS G/U ED VISIT GB PAIN, GS- F/U ED VISIT GBPAIN., ED f/u - gallbladder, GEOLOGICAL ENGINEERING TEACHER Depo-has been for about a week now. dark red bleeding, passing clots and is crampy, Pt brought her own depo to the office to be given, passing large blood clots, GEOLOGICAL ENGINEERING TEACHER Depo, michelle blood pressure check, pt reports that she was at ortho appointment earlier today and had high blood pressure and wants to be checked out, Depo Inj, michelle congestion ear pain-orourke f150 blue, Point of Service COVID 19 Screening, refill request Norethindrone Acetate 5 mg. , GEOLOGICAL ENGINEERING TEACHER DEPO INJ, NS forInjection today, GEOLOGICAL ENGINEERING TEACHER DEPO INJ, GEOLOGICAL ENGINEERING TEACHER discuss going back on Depo, * pt called update/ Prior Auth request, GEOLOGICAL ENGINEERING TEACHER 6 month follow up, GEOLOGICAL ENGINEERING TEACHER 1 month follow up, GEOLOGICAL ENGINEERING TEACHER pain, same pain , new diagnosis of bipolar , hot flashes, GEOLOGICAL ENGINEERING TEACHER Depo, FYI-Addendum to closed t.e. 07/15/2020, ? cancel Depo appt and start the oral BCP, prior auth, Med refill PA, GEOLOGICAL ENGINEERING TEACHER having a lot of pain, GEOLOGICAL ENGINEERING TEACHER Depo Shot, FYI-rx Depo, *Orilissa->depo, GEOLOGICAL ENGINEERING TEACHER 4 month follow up , GEOLOGICAL ENGINEERING TEACHER 4 month follow up , Thyroid, lab results, GEOLOGICAL ENGINEERING TEACHER EST ? HORMONE ISSUES ? 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, GEOLOGICAL ENGINEERING TEACHER , GEOLOGICAL ENGINEERING TEACHER 2 month follow up, GEOLOGICAL ENGINEERING TEACHER vaginal burning and itching, burning and itching for a few day , GEOLOGICAL ENGINEERING TEACHER EST TELE VISIT, GEOLOGICAL ENGINEERING TEACHER f/u and Depo, Labs, GEOLOGICAL ENGINEERING TEACHER discuss changing meds, FYI-starting new med, Prior Authorization request, *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 UTI, GEOLOGICAL ENGINEERING TEACHER 2 wk post-op, started feeling better Saturday night after IUD was removed by Dr. Levy. Still some pain but it is improving. Was given Depo this day too. , GEOLOGICAL ENGINEERING TEACHER lot of pain, unable to work, GEOLOGICAL ENGINEERING TEACHER , return to work, GEOLOGICAL ENGINEERING TEACHER , Preop update, pre op phone call, Increasing pain, surgery , GEOLOGICAL ENGINEERING TEACHER re- testing, yellow discharge/ foul odor, GEOLOGICAL ENGINEERING TEACHER , discuss wheel worker. concern, GEOLOGICAL ENGINEERING TEACHER Depo, Levothyroxine Refill Request, GEOLOGICAL ENGINEERING TEACHER 4 week Mirena follow up, currently taking Keflex for Mastitis, No Show for 4m f/up appt today, Shoulder pain/wants refe rral to Dr. Barajas, gy est f/up , thrush, Referral - Left Shoulder Pain, L/M w/answering service, +Chlam, GEOLOGICAL ENGINEERING TEACHER discussion about changing b/c, has 1 week of bleeding about every 2 weeks, she a lot of pelvic pain. Wants to try a different control , N/S Call, GEOLOGICAL ENGINEERING TEACHER Depo, GEOLOGICAL ENGINEERING TEACHER Depo, GEOLOGICAL ENGINEERING TEACHER follow up, GEOLOGICAL ENGINEERING TEACHER 2 week f/u , GEOLOGICAL ENGINEERING TEACHER 4 week post op, LAZARO, GEOLOGICAL ENGINEERING TEACHER Laparoscopy with possible resection or ablation of endometriosis, [facility]/testing with ANN MARIE Snow left groin pain (u/s being done on 09/24), pre op phone call, GEOLOGICAL ENGINEERING TEACHER Depo & follow up Chlamydia, ? yeast infection-itching, vaginal irritation, white discharge, surgery, Left groin pain, GEOLOGICAL ENGINEERING TEACHER Continued pain and bleeding, sharp pain left groin area-feels swollen and she thinks that there is a lump there-wants exam, Preop for laparoscopy with ablation of endometriosos, STD treatment question, OCP Rx denial, GEOLOGICAL ENGINEERING TEACHER heavy bleeding for 3 weeks,GEOLOGICAL ENGINEERING TEACHER hot flashes, hot flashes worse at night, GEOLOGICAL ENGINEERING TEACHER , Results request, GEOLOGICAL ENGINEERING TEACHER initiate depo, mini pill and bleeding, rx, EILEEN- Refugio Pt - Transfer of Care/DATA WAREHOUSING MANAGER, GEOLOGICAL ENGINEERING TEACHER 4 week follow up, mood has improved since starting the Zoloft, GEOLOGICAL ENGINEERING TEACHER 6 week post , wants rx for ocp, GEOLOGICAL ENGINEERING TEACHER 6 week post , GEOLOGICAL ENGINEERING TEACHER 6 week post , GEOLOGICAL ENGINEERING TEACHER vaginal discharge, would like exam. , Mucus question, PC - cough x 2 weeks, Est pt -2 week post - headache and back ache, Headache and back pain, OB labor check, Bloody show, cramping, OB follow up, Pain, * OB follow up, OB- back pain, tailbone pain, stomach pain, OB- back pain, tailbone pain, stomach pain, Non-tolerable pain, OB EST PER [facility], OB follow up, [facility]: OB f/u, OB followup, [facility]: OB f/u, PC-6 mo f/up, PC-re establish care/refugio pt, OB EST 2 WK F/UP, [facility]: OB f/u, pressure/pain, OB fu-back pain, cramping, feeling worse- 35 weeks , Back and , OB fu back pain, Back pain , tylenol not helping, ? labor, contractions, back pain, msg left w/msg mgmt, OB increase cramping and back pain , OB follow up, * OB follow up, OB 3 WK F/U, OB EST ABD & BACK PAIN, # 7 SCALE 1-10, 30 WKS ob, PC 6mo f/up , TSH, OB follow up, Abdominal pain after eating , OB follow up, not feeling well, headache for last 3 days, crampy, OB EST 4 WK F/UP S/P OB I.S., msg left w/msg mgmt, Need to schedule OB US & appt here to follow, OB follow up- CC urine, OB f/u-want to discuss her placenta. , please call, PSY CONSULT, PC- Coughing x 1 week, LMP 05/12/17, LMP 05/12/17, PC-thyroid chk, GEOLOGICAL ENGINEERING TEACHER follow up , GEOLOGICAL ENGINEERING TEACHER ED F/U L SIDE PAIN-, went to the ED last night due to dizziness and LLQ pain, PSY CONSULT, PC - back pain post fall a couple weeks ago/fell down the stairs a couple of weeks ago, GEOLOGICAL ENGINEERING TEACHER EST OB CONFIRMATION NEEDED, PC- Follow up Thyroid, wheel worker 6 wk post op, PC - headache x 3 days, fatigue, Lupron Injections, GEOLOGICAL ENGINEERING TEACHER Laparoscopic removal of endometriosis implants, pre op phone call, GEOLOGICAL ENGINEERING TEACHER EST still has pain despite Lupron, wants to discuss plan, Preop- laparoscopic evaluation with ablation of endometriosis, Lupron, Lupron, Lupron, meds, Lupron-fyi, GEOLOGICAL ENGINEERING TEACHER follow up, still has pain and hot flashes, student ok, GEOLOGICAL ENGINEERING TEACHER discuss new plan/possible Lupron injection, GEOLOGICAL ENGINEERING TEACHER discuss new plan/possible Lupron injection, GEOLOGICAL ENGINEERING TEACHER Lupron, HCG results, GEOLOGICAL ENGINEERING TEACHER abdominal pain, PC-3 mo f/up thyroid, test, FYI, Cramping while on Lupron, Referral to [facility] Dr Barajas, * BC pills,please call , PC - on-going rib pain, GEOLOGICAL ENGINEERING TEACHER Lupron, GEOLOGICAL ENGINEERING TEACHER Lupron, please call , FYI, GEOLOGICAL ENGINEERING TEACHER Lupron, NS CALL #1, psy f/u, Depo, Returning you rcall, bleeding again, GEOLOGICAL ENGINEERING TEACHER 3 month follow up pap, PSY f/u, Lupron, resend Rx, unknown, Lupron forms, PC-3 wk f/up, Lupron, PSY Consult, Prior Auth. request for Lupron, GEOLOGICAL ENGINEERING TEACHER ? endometriosis coming back, repeat TSH, and has a cold., new patient, PC-DATA WAREHOUSING MANAGER, Needs DATA WAREHOUSING MANAGER appointment, GEOLOGICAL ENGINEERING TEACHER 6 week post , wants BCP, OB follow up ob, OB follow up ob, OB- severe back pain since 4am, hurts to move out of bed, OB follow up ob, OB follow up ob, pain, OB follow up ob, Pt seen sooner- OB follow up ob, OB EST pelvic pressure, lost mucus plug yesterday and since th en has had cramping and back pain, have a lot of pelvic pressure. , Lost mucous plug, OB follow up ob, OB follow up ob, ? sick with Flu, OB follow up- heart check, Pain in the pelvis, decreasedFM, OB follow up, * Needs 3 hr, OB follow up- need urine for chlamydia/ GC, pain, Pain at top of belly, dizziness, OB follow up, TSH from [facility], OB follow up ob, GEOLOGICAL ENGINEERING TEACHER follow up Lupron, OB follow up, OB? bladder infection, Ultrasound, OB US , r/s to [facility] on 12/14 for new OB, NEW OB- confirmed in ER on 10/19/15-LMP-09/05/15, GEOLOGICAL ENGINEERING TEACHER-pain in lower right side of abdomen, pain in lower right side of abdomen, moved appt in nov , pain, please call, pt not getting these anymore, GEOLOGICAL ENGINEERING TEACHER talk about getting , stop Lupron, GEOLOGICAL ENGINEERING TEACHER Lupron, GEOLOGICAL ENGINEERING TEACHER Lupron, GEOLOGICAL ENGINEERING TEACHER Lupron, GEOLOGICAL ENGINEERING TEACHER discuss Lupron, GEOLOGICAL ENGINEERING TEACHER Lupron, ?, GEOLOGICAL ENGINEERING TEACHER Lupron follow up, GEOLOGICAL ENGINEERING TEACHER Lupron, GEOLOGICAL ENGINEERING TEACHER Lupron, * Appt, needed latest appt of the day, GEOLOGICAL ENGINEERING TEACHER Lupron, side effects from the Lupron, GEOLOGICAL ENGINEERING TEACHER Lupron injection, prescription, GEOLOGICAL ENGINEERING TEACHER irregular bleeding and pain with intercourse, appointment, RHE f/u on labs, c/o of aching all over/KN, RHE-polyarticular hand pain-new pt paperwork mailed, c/o of joints hurting all over /KN, GEOLOGICAL ENGINEERING TEACHER follow up from [facility] infertility consult, pt comingin every 8 weeks, Pt will call back to reschedule, GEOLOGICAL ENGINEERING TEACHER - followup Depo/Pelvic Pain, GEOLOGICAL ENGINEERING TEACHER follow up after ultrasound, increased pain, GEOLOGICAL ENGINEERING TEACHER left ovarian pain, started a week ago, GEOLOGICAL ENGINEERING TEACHER discuss control options. PT has used Depo in the past and thinks she would like to start this again, Clomid, GEOLOGICAL ENGINEERING TEACHER test. Pt says she has sharp pains that come and go since yesterday, questions, seen 12/02/13, timing of clomid second dose - FYI, GEOLOGICAL ENGINEERING TEACHER follow up from 11/26 ultrasound, GEOLOGICAL ENGINEERING TEACHER follow up from 11/26 ultrasound-dr in the OR, GEOLOGICAL ENGINEERING TEACHER follow up from ER visit 11/23/13, still has some pain only slightly better , GEOLOGICAL ENGINEERING TEACHER no period x 2 months. Pt would like to try to get and has not had period for last 2 months, Ferritin level, NCPUL 3wk f/up, GI 2 wk fu 09/01 egd. Pt reports that the painful breathing/SOB normalized after a couple days. She continues to c/o dysphagia. The Zegrid did help a little withacid reflux, progress note, GI fu egd 09/[address] ramos, difficulty breathing after EGD yesterday. Pt states it hurts, on her left side, to breath, NCPUL sleep study f/up, GI EGD, progress note, GI -dyspahagia, Pt c/o difficulties swallowing liquid and solid food. This has been problematic for herentire life. Occasionaly she will choke on her food but is able to cough it up, Lab results, PSG, GEOLOGICAL ENGINEERING TEACHER ? endometriosis of the bladder, referral, ENT -1 mo fu;scope, poss GI eval, ent-1 mo fu , GEOLOGICAL ENGINEERING TEACHER lupron hast not shipped yet, shot to be delivered 07/24, NCPUL snoring and insomnia, referral, ent-spots in ears, dysphagia, *hot flashes, GEOLOGICAL ENGINEERING TEACHER lupron shot, SHILPI fu headaches, GEOLOGICAL ENGINEERING TEACHER Lupron injection, Lupron,Depo, GEOLOGICAL ENGINEERING TEACHER test, burning, GEOLOGICAL ENGINEERING TEACHER 4 wk post op, Pt states Worse , GEOLOGICAL ENGINEERING TEACHER continued pain, Pt states as above-Continuous sharp pain rates 9/10 on pain scale, pain, still in pain, GEOLOGICAL ENGINEERING TEACHER laparoscopy w/ probably removal of endometriosis, Preop phone ge, surgery consent, GEOLOGICAL ENGINEERING TEACHER uterine pain, has bothered her since the summer. she says that it is sharp shooting pain. does not have a regular menses due to the depo, Preop for laparoscopic evaluation, GEOLOGICAL ENGINEERING TEACHER worsening superpubic pain/neg CT-has had lower abdominal pain for a few months now, does not have menses due to depo. was having menses when due to get shot-LMP 3 months ago. Tylenol #3 was given for pain but it doesn't really work so she doesn't use it often, oral contrast, [facility] abd pain referred by Pat Ojeda; Pt c/o lower abdominal pain that has been present for the past month. Pt states that this is a constant pain that progressivly getting worse. She had US a few weeks that were normal. Only recent lab is TSH (per pt)., ENT blisters in her ear, ENT 1 MO FU T&A, ENT STITCH REMOVAL, ENT TONSILS , ENT PRE-OP SURGERY NB, ENT TONSILS, XR RESULTS, PED hurts to turn her head...going on x 1 month...no injury..hastried Motrin, Aleve and heat with no improvement, Sore throat started today, holter, Waiting for call back, SHILPI fu headaches, PED poss thrush, ped neck pain x 2 mos, No known injury, Stopped Prozac and Topamax... ran out of meds, PED 3 wk F/U anxiety, thyroid, SHILPI fu migraines, PED fu er for anxiety, Chest pain on and off for two months/back pain for 1 mth-has seen . , sick for1 day-headache, congested. No fever, PED fu fx clavical, fu collarbone fx, fu migraines, Less amounts of migraines daily. Fainting spell 12/31., school note, xray results, left collarbone hurts-fell 1 week ago, migraines, MRI, migraines, MRI, FU HEADACHES, cold x 2 weeks, Cough and runny nose, FU HEADACHES, fu headaches, fu headaches, immunizations pre-load, fu headaches, shoulder hurts, roldan, headaches, fainting spells Insurance Providers Health Insurance Type Health Plan Insurance Address Health Plan Insurance Phone Health Plan Insurance Name Health Plan Coverage Dates Member ID Patient Relationship to Subscriber Patient Address Patient Phone Patient Name Patient Date of Subscriber ID Subscriber Name Subscriber Date of Group No [place] [address] [place] self Yareli Gant [id number] [place] [address] CLAIM PROCESSING DEPT [facility] [address] [place] self Yareli Gant [id number] [employer] [place] CLAIMS [address] [facility] [address] [employer] self Yareli Gant [id number] [place] [address] [facility] [id number] [place] Yareli Gant [id number] [employer] [place] CLAIMS [address] [facility] [address] [employer] self Yareli Gant [id number] RHC CENPATICO for N[employer] [address] [facility] [address] [employer] C[employer] for N[employer]F self Yareli Gant [id number] [place] [address] [facility] [address] [place] self Yareli Gant [id number] [place] CLAIM PROCESSING DEPT [address] [facility] [address] [place] self Yareli Gant [id number] [place] [address] [facility] [address] [place] self Yareli Gant [id number]
[2022-05-29 21:40] LABS: Abs Immature Grans 0.03 10^3/uL (0.0-0.06); Absolute Basophil Count 0.05 10^3/uL (0.0-0.2); Absolute Eosinophil Count 0.18 10^3/uL (0.0-0.7); Absolute Lymphocyte Count 2.68 10^3/uL (1.2-3.4); Absolute Monocyte Count 0.46 10^3/uL (0.1-0.8); Absolute Neutrophil Count 5.11 10^3/uL (1.2-6.7); Basophils % 0.6; Eosinophils % 2.1; HCT 37.5 % (36.0-46.0); HGB 12.2 g/dL (11.2-15.7); Immature Grans % 0.4; Lymphocytes % 31.5; MCH 29.3 pg (27.0-33.0); MCHC 32.5 % (32.0-36.0); MCV 90 fL (80-95); MPV 10.9 fL (8.0-11.0); Monocytes % 5.4; Platelet Count 302 10^3/uL (130-400); RBC 4.17 10^6/uL (3.93-5.22); RDW 12.9 % (11.7-14.6); WBC 8.51 10^3/uL (4.4-10.8)
[2022-05-29 22:06] LABS: ALT 17 U/L (14-59); AST 31 U/L (15-37); Albumin 3.6 g/dL (3.4-5.0); Alkaline Phosphatase 96 U/L (46-116); Anion Gap 8.5 mmol/L (3-11); BUN 11 mg/dL (7-18); Bilirubin, Total 0.3 mg/dL (0.2-1.0); CO2 26.5 mmol/L (21.0-32.0); CREATININE 0.9 mg/dL (0.55-1.02); Calcium 9.1 mg/dL (8.5-10.1); Chloride 106 mmol/L (98-107); Estimated GFR 89.86 (mL/min/1.73m2); Glucose 92 mg/dL (74-106); Potassium 4.3 mmol/L (3.5-5.1); Sodium 141 mmol/L (136-145); TSH (W/Ref FT4) 49.88 uIU/mL (0.36-3.74); Total Protein 7.6 g/dL (6.4-8.2)
== END 2022-05-29 21:06 | disposition home or self-care (01) ==
LOC: NCHCN 21:05
PROVIDERS: PCP Family Medicine; Visit Provider Nurse Practitioner Family
DX: E03.9 Hypothyroidism, unspecified (principal); F41.8 Other specified anxiety disorders; F43.10 Post-traumatic stress disorder, unspecified; R53.83 Other fatigue; Z79.899 Other long term (current) drug therapy
CPT/HCPCS: 80053; 84439; 84443; 85025

== ENCOUNTER 2022-07-16 15:05 | Outpatient (REF) | payer MEDICAID, SELFPAY ==
[2022-07-16 15:23] LABS: TSH (W/Ref FT4) 0.04 uIU/mL (0.36-3.74)
[2022-07-16 15:51] LABS: FREE T4 1.27 ng/dL (0.76-1.46)
== END 2022-07-16 15:06 | disposition home or self-care (01) ==
LOC: NCHCN 15:05
PROVIDERS: PCP Family Medicine; Visit Provider Nurse Practitioner Family
DX: E03.9 Hypothyroidism, unspecified (principal)
CPT/HCPCS: 84439; 84443

== ENCOUNTER 2022-08-08 12:09 | Outpatient (REF) | payer MEDICAID, SELFPAY ==
[2022-08-08 16:41] LABS: ALT 29 U/L (14-59); AST 20 U/L (15-37); Albumin 3.9 g/dL (3.4-5.0); Alkaline Phosphatase 100 U/L (46-116); Anion Gap 8.3 mmol/L (3-11); BUN 7 mg/dL (7-18); Bilirubin, Total 0.9 mg/dL (0.2-1.0); CO2 26.7 mmol/L (21.0-32.0); CREATININE 0.8 mg/dL (0.55-1.02); Calcium 9.9 mg/dL (8.5-10.1); Chloride 104 mmol/L (98-107); Glucose 92 mg/dL (74-106); Lipase 35 U/L (16-77); Potassium 4.2 mmol/L (3.5-5.1); Sodium 139 mmol/L (136-145); Total Protein 7.8 g/dL (6.4-8.2)
== END 2022-08-08 12:10 | disposition home or self-care (01) ==
LOC: LBN 12:09
PROVIDERS: PCP Family Medicine; Visit Provider Physician Assistant Medical
DX: R11.10 Vomiting, unspecified (principal)
CPT/HCPCS: 80053; 83690

== ENCOUNTER 2022-09-04 15:48 | Outpatient (REF) | payer MEDICAID, SELFPAY ==
[2022-09-04 16:20] LABS: TSH 0.02 uIU/mL (0.36-3.74)
== END 2022-09-04 15:49 | disposition home or self-care (01) ==
LOC: NCHCN 15:48
PROVIDERS: PCP Family Medicine; Visit Provider Nurse Practitioner Family
DX: E03.9 Hypothyroidism, unspecified (principal)
CPT/HCPCS: 84443

== ENCOUNTER 2022-11-07 07:15 | Day surgery (SDC) | payer MEDICAID, SELFPAY ==
[2022-11-07 07:38] VITALS: BP 103/71; PULSE 82; RESP 16; TEMP 36.4; O2SAT 95
--- NOTE | 2022-11-07 07:52 | ANES.PREOP_ITS ---
General Info Date of Service Date Performed: 11/07/22 Height: 5 ft 2 in Weight: 64.3 kg Body Mass Index (BMI): 25.9 Surgical Procedure: Operation Date: 11/07/22 09:05 Proposed Procedure Side Surgeon p Gastroscopy Susy Grande MD Meds Allergies and Home Medications Allergies Allergy/AdvReac Type Severity Reaction Status Date / Time No Known Allergies Allergy Unverified 11/07/22 07:42 Home Medication Medication Instructions Recorded albuterol sulfate 90 mcg/actuation 2 puff inhalation Q6H PRN 10/11/22 aerosol inhaler (ProAir HFA) lamotrigine 100 mg tablet 100 mg PO DAILY 10/11/22 lamotrigine 25 mg tablet 25 mg PO DAILY 10/11/22 levothyroxine 100 mcg capsule 100 mcg PO DAILY 10/11/22 lithium carbonate 300 mg capsule 300 mg PO QHS 10/11/22 norgestimate-ethinyl estradiol 1 tab PO DAILY 10/11/22 0.18 mg/0.215mg/0.25mg-35 mcg(28)tablet (Tri-Estarylla) omeprazole 20 mg capsule,delayed 20 mg PO DAILY 10/11/22 release quetiapine 100 mg tablet 100 mg PO DAILY 10/11/22 sucralfate 1 gram tablet (Carafate) 1 g PO QACHS 10/11/22 Current Visit Medications: Current Medications Generic Name Dose Route Start Last Admin Trade Name Freq PRN Reason Stop Dose Admin Ringer's Solution 1,000 mls @ 80 mls/hr 11/07/22 06:00 IV 11/07/22 23:59 INFUSION NIKITA IV Miscellaneous Supplies 1 each 11/07/22 06:00 Iv Access IV 11/07/22 23:59 DIRECTED NIKITA Sodium Chloride 0 ml 11/07/22 06:00 Normal Saline Flush 10 Ml Syr IV 11/07/22 23:59 PRN PRN Sodium Chloride 0 ml 11/07/22 06:00 Normal Saline 10 Ml Vial IJ 11/07/22 23:59 DIRECTED PRN Sterile Water 0 ml 11/07/22 06:00 Water,Injection,Sterile 10 Ml Vial IJ 11/07/22 23:59 DIRECTED PRN PFSH Active Problems Active Problems: Problem Status Onset Code Viral illness B34.9 Right hand paresthesia R20.2 Gastritis K29.70 Dehydration E86.0 Diarrhea R19.7 Nausea and vomiting R11.2 Abdominal pain R10.9 Medical History Medical History Anxiety and depression Asthma, exercise induced Endometriosis Fatigue Generalized headaches Hypothyroid Migraines PTSD (post-traumatic stress disorder) Per pt. states she usually has panic attacks when she's waken up where she has to be put back to sleep Medical History Comments:: Per pt. states she usually has panic attacks when she's waken up where she has to be put back to sleep Surgical History Surgical History H/O arthroscopy of shoulder H/O right knee surgery Tobacco Smoking/Tobacco Use Status: Never Alcohol Alcohol Intake: never Substance Use Substance use: Never Substance use type: does not use Vital Signs and Lab Results Vital Signs Most Recent Vital Signs in EMR: Most Recent Vital Signs Temp Pulse Resp BP Pulse Ox 36.4 C L 82 16 103/71 95 11/07/22 07:38 11/07/22 07:38 11/07/22 07:38 11/07/22 07:38 11/07/22 07:38 Point of Care Results Point of Care Results: POC- Test(urine) Negative 11/07/22 07:41 Lab Results Blood Type / Crossmatch: No Data to Display Complete Blood Count: No Data to Display Complete Metabolic Panel: No Data to Display Liver Function Panel: No Data to Display Coagulation Panel: No Data to Display Cardiac Panel: No Data to Display Arterial Blood Gas: No Data to Display Venous Blood Gas: No Data to Display Pancreas Panel: No Data to Display Thyroid Panel: 2 No Data to Display Infectious Disease: No Data to Display Blood Cultures: No Data to Display Toxicology Panel: No Data to Display Panel: No Data to Display Anesthesia Assessment and Plan Anesthesia History Personal History: No History of Anesthesia Complications and Other Family History: No Family History of Anesthesia Complications Exercise Tolerance Exercise Tolerance: Metabolic Equivalents>4 Pertinent Negatives Pertinent Negatives: No Symptoms of GERD Cardiac & Pulmonary Exam Cardiac Exam: Normal S1/S2 Heart Sounds Pulmonary Exam: Clear Bilateral Breath Sounds Implantable Cardiac Device Does patient have a Pacemaker or an ICD?: No Airway Exam Known Difficult Airway: No Mallampati Class: 1 Mouth Opening: Normal (> 3cm) Thyromental Distance: Less than 3 cm Neck Range of Motion: Full ROM Neck Circumference: Normal Teeth Condition: Normal Dentition ASA Classification ASA Score: ASA 2 Emergency Case?: No NPO Status NPO Status: NPO Clears >2 hours, Solids >8 hours Status Status: Negative HCG Anesthesia Plan Resuscitation Status: Full Code Anesthesia Technique: General Anesthesia Airway Planned: Natural Airway Monitors Used: Standard Monitors
[2022-11-07 07:53] VITALS: BMI 25.9
[2022-11-07] MEDS: Lactated Ringers 1,000 ML 80 ML IV (07:57)
--- NOTE | 2022-11-07 07:58 | PGE_ITS ---
Date of Service Date of service: 11/07/22 Time of Service: 07:58 Assessment and Plan Assessment and plan (1) Abdominal pain: Status: Acute Assessment and plan: Yareli is a pleasant 27-year-old female with nausea, vomiting and abdominal pain.? She is status post cholecystectomy late last year.? She does have a history of gastritis diagnosed back in 2016 for similar symptoms.? I think with all her symptoms it is reasonable to do another upper endoscopy.? We reviewed the procedure in detail and went over the complications.? At the end of her conversation she had a good understanding of the complications and the procedure itself.? Risks, benefits and complications have been reviewed. Complications include but are not limited to bleeding, pain, perforation, sore throat, a spiration, and adverse reaction to the medications.? Questions were entertained and answered to their satisfaction and they wished to proceed. No guarantees were given or implied. Proceed with EGD under sedation. (2) Nausea and vomiting: Status: Acute Subjective Subjective Interval history since last seen: I saw Yareli in same-day surgery today prior to her procedure. She is doing well. She continues to have the abdominal pain and nausea. She has not had any more vomiting. She has not had any upper respiratory symptoms. She has not had any chest pain or shortness of breath. We reviewed the procedure and its possible complications again. Yareli had no other questions and wished to proceed. Objective Last Vital Signs Temp 97.5 F L 11/07/22 07:38 Pulse 82 11/07/22 07:38 Resp 16 11/07/22 07:38 BP 103/71 11/07/22 07:38 Pulse Ox 95 11/07/22 07:38 Time Spent with Patient Time Spent with Patient: <25 minutes Time was spent: counseling the patient
--- NOTE | 2022-11-07 08:04 | ENDO_ITS ---
Date of service: 11/07/22 Time of Service: 09:31 Endoscopy Report DATE OF PROCEDURE: 11/07/22 PRE-OP DIAGNOSIS: Abdominal pain, and Nausea POST-OP DIAGNOSIS: other (Bile reflux, gastritis) PROCEDURE: EGD with biopsies SURGEON: Susy Grande ANESTHESIA TYPE: General:No Airway ESTIMATED BLOOD LOSS: 3 PATHOLOGY: other (Bx of stomach, duodenum and GE junction) COMPLICATIONS: None DISPOSITION: same day INDICATIONS: Yareli is a pleasant 27-year-old female with nausea, vomiting and abdominal pain.? She is status postcholecystectomy late last year.? She does have a history of gastritis diagnosed back in 2016 for similar symptoms.? I think with all her symptoms it is reasonable to do another upper endoscopy.? We reviewed the procedure in detail and went over the complications.? At the end of her conversation she had a good understanding of the complications and the procedure itself.? Risks, benefits and complications have been reviewed. Complications include but are not limited to bleeding, pain, perforation, sore throat, aspiration, and adverse reaction to the medications.? Questions were entertained and answered to their satisfaction and they wished to proceed. No guarantees were given or implied. FINDINGS: Bile within the stomach. Mild inflammation in the stomach PROCEDURE DESCRIPTION: After informed consent was obtained the patient was take to the procedure room and placed in a supine position. Monitors were applied and a time out was done. The patients name, date of , procedure type, allergies to medications and metal in their body was reviewed. A bite block was placed and the patient was sedated. Once sedated and comfortable the gastroscope was advanced through the oropharynx which was grossly normal into the esophagus. The proximal and mid- esophagus were normal. In the distal esophagus there was mild inflammation noted. The scope was advanced into the stomach and through the pylorus into the 3rd portion of the duodenum. The duodenum was noted to be normal. Biopsies were done to rule out Celiac. The scope was retracted back into the stomach and biopsies were done to rule out H. pylori. There were no ulcers. The scope was retroflexed. The cardia and fundus were noted to be normal. There was no hiatal hernia noted. The scope was retracted back into the esophagus and biopsies were done of the GE junction to rule out Larry's. The Z line was regular. The GE junction was at 35 cm. The scope was removed and the patient was woken up and taken back to [facility] in stable condition. Follow up: 2 weeks
--- NOTE | 2022-11-07 08:05 | PDOC.DSDIS_ITS ---
Date of service: 11/07/22 Time of Service: 09:31 Discharge Plan Disposition Patient Disposition: Home Discharge Details Reason For Visit: abdominal pain and ansuea Attending Provider: Susy Grande Primary Care Provider: Elisabeth Louis Home Meds and New Rx's Prescriptions: New colestipol 1 gram tablet 1 g PO TID Qty: 90 0RF Rx Instructions: take with your meals omeprazole 40 mg capsule,delayed release(DR/EC) 40 mg PO DAILY Qty: 30 0RF Continued lithium carbonate 300 mg capsule 300 mg PO QHS levothyroxine 100 mcg capsule 100 mcg PO DAILY lamotrigine 100 mg tablet 100 mg PO DAILY lamotrigine 25 mg tablet 25 mg PO DAILY quetiapine 100 mg tablet 100 mg PO DAILY norgestimate-ethinyl estradiol [Tri-Estarylla] 0.18/0.215/0.25 mg-35 mcg (28) tablet 1 tab PO DAILY albuterol sulfate [ProAir HFA] 90 mcg/actuation HFA aerosol inhaler 2 puff inhalation Q6H PRN Discontinued omeprazole 20 mg capsule,delayed release(DR/EC) 20 mg PO DAILY sucralfate [Carafate] 1 gram tablet 1 g PO QACHS Discharge Instructions Instructions: Gastritis (DC) Additional Instructions: Findings: bile within the stomach inflammation in the stomach Follow up: 2 weeks Medications: I have increased the Omeprazole to 40 mg daily Take the new medication 3 times a day before meals to absorb some of the extra bile Please call if you develop: fevers >101.5 Nausea or Vomiting Abdominal pain that is not transient Rectal bleeding that is more then a tbsp A hard abdomen and inability to pass gas DAY SURGERY UNIT POST ENDOSCOPY INSTRUCTIONS Instructions for everyone who is given Anesthesia: For your safety, please do the following for the next 24 Hours: a. Do not drive or operate dangerous equipment b. Do not drink alcohol beverages or use any recreational drugs for the first 24 hours or while taking pain medications. The medications in your body may have a reaction that can be dangerous. c. Do not make any important decisions or sign any important papers 1. Generally there are no restrictions on your activity after a day or so has gone by, but you may feel a bit fatigued for a few days. 2. After you arrive home you may have a light meal and return to a normal diet as you can tolerate it without feeling sick to your stomach. 3. After surgery, you may feel pain or discomfort. This should be only transient, but if it persists please contact your doctor. 4. If there are any questions regarding the findings of your procedure, please feel free to contact your doctor. 6. If you are unable to contact your doctor with a problem, contact the hospital at [phone]. 7. Continue all your regular medications unless directed otherwise. I understand the above instructions and have no questions. Signature of Patient or Responsible Adult Escort Date/Time Name of Responsible Adult Escort Signature of Nurse Date/Time Referrals: Susy Grande MD [ [facility] STAFF PHYSICIAN] - 11/20/22 8:00 am Activity:: Activity as Tolerated Diet:: As Tolerated DS: Diagnosis Discharge Diagnosis (1) Abdominal pain: Status: Acute Asessment and Plan: Patient is seen and examined after their endoscopy. Patient has minimal sore throat. They have been able to tolerate liquids. They do not have any Nausea or Vomiting. They are not having any chest pain or shortness of breath. They have been able to pass gas and are not having any abdominal pain or distention. they have not vomited any blood. The vital signs have been stable-see nursing notes. We discussed findings on their endoscopy We reviewed the importance of lifestyle modifications- see diet recommendations We reviewed any new medications that the patient may be prescribed- see medicine reconciliation. Patient will either be sent a letter with the biopsy results or follow up in the office- see discharge instructions Patient was given explicit instructions for emergency follow up post endoscopy- see discharge instructions Patient verbalized understanding and was discharged in stable and satisfactory condition. See nursing notes. (2) Nausea and vomiting: Status: Acute
--- NOTE | 2022-11-07 08:33 | BOWEL_PTH ---
PATIENT: Yareli Gant LOC: [facility] U#:[id number] AGE/SX: 27/F ROOM: RE11/07/[address]: Susy Grande MD : 1995 BED: DIS: 11/07/2022 SPEC #: [id number] RECD: 11/08/22 16:31 STATUS: CANDELARIO REAneudy #: [id number] OBDULIO: 11/07/22 08:[address]: Susy Grande DEPT: Surgical Specimen RECD BY: Willow Arrington ENTERED: 11/08/22 16:35 SP TYPE: Bowel OTHR DR: Elisabeth Louis Tissues: 1 - BIOPSY BOWEL 2 - STOMACH BIOPSY 3 - ESOPHAGUS BIOPSY Procedures: GROSS AND MICRO LEVEL 4 Comments: [id number]
[2022-11-07 08:44] VITALS: BP 103/64; PULSE 77; RESP 16; TEMP 36.2; O2SAT 100
--- NOTE | 2022-11-07 08:57 | W.ANESPOSTOP ---
Postoperative Evaluation Date, Time and Location Date Performed: 11/07/22 Time Performed: 08:57 Patient Location: Day Surgery Unit Vital Signs Most Recent Imported Vital Signs: Most Recent Vital Signs Temp Pulse Resp BP Pulse Ox 36.2 C L 77 16 103/64 100 11/07/22 08:44 11/07/22 08:44 11/07/22 08:44 11/07/22 08:44 11/07/22 08:44 Pain Score Most Recent Pain Score: Most Recent Pain Score Pain Level 0 11/07/22 07:38 Assessment Mental Status: Arousable with meaningful communication Airway and Respiratory Function: Patent airway with normal (patient baseline) respiratory exam Cardiovascular Function: Hemodynamically Stable Hydration Status: Adequately Hydrated Nausea & Vomiting: No Nausea or Vomiting Pain: Pt. Denies Any Pain Peripheral Nerve Block: Patient did not receive a nerve block
[2022-11-07 09:19] VITALS: BP 97/61; PULSE 68; RESP 16; TEMP 36.3; O2SAT 100
--- NOTE | 2022-11-07 09:45 | W.ANESPOSTOP ---
Postoperative Evaluation Date, Time and Location Date Performed: 11/07/22 Time Performed: 09:46 Patient Location: Day Surgery Unit Vital Signs Most Recent Imported Vital Signs: Most Recent Vital Signs Temp Pulse Resp BP Pulse Ox 36.3 C L 68 16 97/61 L 100 11/07/22 09:19 11/07/22 09:19 11/07/22 09:19 11/07/22 09:19 11/07/22 09:19 Most Recent Vital Signs Temp Pulse Resp BP Pulse Ox 36.2 C L 77 16 103/64 100 11/07/22 08:44 11/07/22 08:44 11/07/22 08:44 11/07/22 08:44 11/07/22 08:44 Pain Score Most Recent Pain Score: Most Recent Pain Score Pain Level 0 11/07/22 09:19 Assessment Mental Status: Arousable with meaningful communication Airway and Respiratory Function: Patent airway with normal (patient baseline) respiratory exam Cardiovascular Function: Hemodynamically Stable Hydration Status: Adequately Hydrated Nausea & Vomiting: No Nausea or Vomiting Pain: Pt. Denies Any Pain Peripheral Nerve Block: Patient did not receive a nerve block
== END 2022-11-07 09:45 | disposition home or self-care (01) ==
PROVIDERS: PCP Family Medicine; Visit Provider Surgery
PROC: 0DJ68ZZ Inspection of Stomach, Via Natural or Artificial Opening Endoscopic (ICD-10-PCS; CPT 43235; principal; 2022-11-07 09:00)
DX: K29.70 Gastritis, unspecified, without bleeding (principal); R10.9 Unspecified abdominal pain; R11.2 Nausea with vomiting, unspecified; K21.9 Gastro-esophageal reflux disease without esophagitis
CPT/HCPCS: 43239; 88305; J1100; J2001; J2405

== ENCOUNTER 2023-01-24 03:05 | Outpatient (CLI) | payer MEDICAID, SELFPAY ==
[2023-01-24 07:42] LABS: Abs Immature Grans 0.01 10^3/uL (0.0-0.06); Absolute Basophil Count 0.03 10^3/uL (0.0-0.2); Absolute Eosinophil Count 0.15 10^3/uL (0.0-0.7); Absolute Lymphocyte Count 2.02 10^3/uL (1.2-3.4); Absolute Monocyte Count 0.32 10^3/uL (0.1-0.8); Absolute Neutrophil Count 3.08 10^3/uL (1.2-6.7); Basophils % 0.5; Eosinophils % 2.7; HCT 36.7 % (36.0-46.0); HGB 12.1 g/dL (11.2-15.7); Immature Grans % 0.2; MCH 28.9 pg (27.0-33.0); MCV 88 fL (80-95); MPV 10.3 fL (8.0-11.0); Monocytes % 5.7; Neutrophils % 54.9; Platelet Count 269 10^3/uL (130-400); RBC 4.19 10^6/uL (3.93-5.22); RDW 12.4 % (11.7-14.6); RDW-SD 39.5 fL; WBC 5.61 10^3/uL (4.4-10.8)
[2023-01-24 08:14] LABS: ALT 20 U/L (14-59); AST 19 U/L (15-37); Albumin 3.5 g/dL (3.4-5.0); Alkaline Phosphatase 84 U/L (46-116); Anion Gap 7.7 mmol/L (3-11); BUN 12 mg/dL (7-18); Bilirubin, Total 0.7 mg/dL (0.2-1.0); CO2 27.3 mmol/L (21.0-32.0); CREATININE 0.9 mg/dL (0.55-1.02); Calcium 9.4 mg/dL (8.5-10.1); Chloride 103 mmol/L (98-107); Estimated GFR 89.86 (mL/min/1.73m2); FREE T4 1.11 ng/dL (0.76-1.46); Glucose 99 mg/dL (74-106); Potassium 3.1 mmol/L (3.5-5.1); Sodium 138 mmol/L (136-145); TSH 0.42 uIU/mL (0.36-3.74); Total Protein 7.2 g/dL (6.4-8.2)
== END 2023-01-24 03:06 | disposition home or self-care (01) ==
PROVIDERS: PCP Family Medicine; Visit Provider Nurse Practitioner Family
DX: E03.8 Other specified hypothyroidism (principal); F43.12 Post-traumatic stress disorder, chronic; F31.74 Bipolar disorder, in full remission, most recent episode manic; Z62.820 Parent-biological child conflict; Z79.899 Other long term (current) drug therapy
CPT/HCPCS: 36415; 80053; 84439; 84443; 85025

== ENCOUNTER 2023-02-18 09:38 | Emergency (ER) | payer MEDICAID, SELFPAY ==
[2023-02-18 09:44] VITALS: BP 122/80; PULSE 92; RESP 16; TEMP 37; O2SAT 100
--- NOTE | 2023-02-18 10:02 | ED.GENADUL_ITS ---
Discharge Plan Disposition Patient Disposition: Home Discharge Details Primary Care Provider: GISELA LOJA ED Provider: Francie Michaud Home Meds and New Rx's Prescriptions: Continued lithium carbonate 300 mg capsule 300 mg PO QHS levothyroxine 100 mcg capsule 100 mcg PO DAILY lamotrigine 100 mg tablet 100 mg PO DAILY lamotrigine 25 mg tablet 25 mg PO DAILY quetiapine 100 mg tablet 100 mg PO DAILY norgestimate-ethinyl estradiol [Tri-Estarylla] 0.18/0.215/0.25 mg-35 mcg (28) tablet 1 tab PO DAILY albuterol sulfate [ProAir HFA] 90 mcg/actuation HFA aerosol inhaler 2 puff inhalation Q6H PRN omeprazole 40 mg capsule,delayed release(DR/EC) See Rx Instructions .ROUTE .COMPLEX Qty: 30 5RF Dose Instruction: TAKE ONE CAPSULE BY MOUTH EVERY DAY Rx Instructions: TAKE ONE CAPSULE BY MOUTH EVERY DAY Discharge Instructions Instructions: Syncope (ED), Head Injury (ED) Additional Instructions: CT of your head and neck is within normal limits. Follow up with primary care provider in 3-5 days. Return to ED sooner if any worsening or concerns. Increase oral fluids. Take the muscle relaxers as needed for neck pain. Alternate ice and heat. Please take Tylenol or Ibuprofen with food every 4-6 hours as needed for pain and swelling. Referrals: GISELA LOJA, [employer] INJURY ADJUSTER [Primary Care Provider] - 3 days Discharge Data Discharge Date/Time-TO BE ENTERED AT DEPARTURE: 02/18/23 11:25 Medical Decision Making 27 year old female reports syncopal episode last night while sitting on the toilet helping her son with a nose bleed. She reports waking up on the floor. She is complaining of right frontal head pain, and midline c-spine pain. Neuroexam is within normal limits GCS 15. Reports nausea no vomiting. PERRLA. Past medical history includes PTSD, asthma, migraines hypothyroidism and endometriosis. Patient placed in a c-collar by director of medical staff services in triage. Ordered CT head C-spine without contrast CT chest. Pending urine test. Patient does have some midline C-spine tenderness no crepitus or step-off noted. CT head and C-spine negative , will remove C-collar. Flexeril ordered for here and to go. Will discharge with syncope and closed head injury instructions. This text was generated using PressConnectation system, please disregard any oddities of phrase or misspellings. HPI General Mode of arrival: ambulatory . Date/Time Provider Initiated Documentation: 02/18/23 09:52 . Limitations to Documentation: no limitations . Information obtained by: patient, RN notes reviewed and old records reviewed . HPI Narrative: 27 year old female reports syncopal episode last night while sitting on the toilet helping her son with a nose bleed. She reports waking up on the floor. She is complaining of right frontal head pain, and midline c-spine pain. Neuroexam is within normal limits GCS 15. Reports nausea no vomiting. PERRLA. Past medical history includes PTSD, asthma, migraines hypothyroidism and endometriosis. Related Data Home Medications Medication Instructions Recorded Confirmed albuterol sulfate 90 mcg/actuation 2 puff inhalation Q6H PRN 10/11/22 02/18/23 aerosol inhaler (ProAir HFA) lamotrigine 100 mg tablet 100 mg PO DAILY 10/11/22 02/18/23 lamotrigine 25 mg tablet 25 mg PO DAILY 10/11/22 02/18/23 levothyroxine 100 mcg capsule 100 mcg PO DAILY 10/11/22 02/18/23 lithium carbonate 300 mg capsule 300 mg PO QHS 10/11/22 02/18/23 norgestimate-ethinyl estradiol 1 tab PO DAILY 10/11/22 02/18/23 0.18 mg/0.215mg/0.25mg-35 mcg(28)tablet (Tri-Estarylla) quetiapine 100 mg tablet 100 mg PO DAILY 10/11/22 02/18/23 omeprazole 40 mg capsule,delayed See Rx Instructions .Route 01/14/23 02/18/23 release .COMPLEX #30 caps Previous Rx's Medication Instructions Recorded omeprazole 40 mg capsule,delayed See Rx Instructions .Route 01/14/23 release .COMPLEX #30 caps Allergies Allergy/AdvReac Type Severity Reaction Status Date / Time No Known Allergies Allergy Unverified 02/18/23 09:53 General Stated Complaint: HeadInjury ARIAS: 3 Review of Systems All systems reviewed & are unremarkable except as noted in HPI and below Constitutional Constitutional: Reports as per HPI and Reports headache(s) ENT Ears, Nose, Mouth, and Throat: Reports headache(s) and Reports neck pain Cardiovascular Cardiovascular: Reports syncope Musculoskeletal Musculoskeletal: Reports as per HPI and Reports neck pain Neurologic Neurologic: Reports syncope and Reports headache(s) PFSH All Active Problems Nausea (Acute) Viral illness (Acute) Right hand paresthesia (Acute) Gastritis (Acute) Dehydration (Acute) Diarrhea (Acute) Nausea and vomiting (Acute) Abdominal pain (Acute) Medical History Generalized headaches PTSD (post-traumatic stress disorder) Per pt. states she usually has panic attacks when she's waken up where she has to be put back to sleep Anxiety and depression Fatigue Asthma, exercise induced Migraines Hypothyroid Endometriosis Surgical History History of esophagogastroduodenoscopy (~10/2022) H/O right knee surgery H/O arthroscopy of shoulder Social History Smoking/Tobacco Use Status: Never Smoking risk assessment performed?: Yes Alcohol Intake: never Drug use: Never Substance use type: does not use Household members: children Housing: apartment Number of Children: 2 current occupation: unemployed Pets and animals: Yes Pets and animals: cat(s) What type of physical activity do you participate in: none Seatbelt use: always Do you feel safe at home: Yes Do you feel safe in your relationship?: Yes Exam Narrative Exam Narrative: General: Well Developed, Awake and Alert, conversant. Skin: Warm and Dry HEENT: Head: No palpable deformities, Normocephalic Eyes: Pupils PERRLA, EOM's intact. No periorbital eccymosis or step off Ears: Canal patent. Tympanic membranes are clear . No murguia's sign, no hemptympanum. Nose/Face: Atraumatic. Facial bones nontender to palpation and stable with manipulation. Mouth/Throat: No intraoral trauma. Teeth and mandible are intact. Neck: No midline tenderness, no step off, no deformity to palpation of C-spine. Trachea midline. Chest: No surface trauma. Nontender without crepitus or deformity. Lungs clear to ausculatation bilaterally. Heart: RRR, no rubs, murmurs or gallop. Abdomen: No abrasions, ecchymosis, or surface trauma. Nondistended. Nontender to palpation no guarding, rebound, or rigidity. Pelvis: Nontender to palpation and stable to compression. Femoral pulses strong and equal Extremities: no surface trauma. Sensation intact. Peripheral pulses intact and equal. Neuro: ANO x4, GCS 15, cranial nerves II through XII intact. Motor and sensory exam nonfocal. Reflexes are symmetric. Course Vital Signs Vital signs: Vital Signs Temperature 37.0 C 02/18/23 09:44 Pulse 92 H 02/18/23 09:44 Respiratory Rate 16 02/18/23 09:44 Blood Pressure 122/80 02/18/23 09:44 Pulse Oximetry 100 02/18/23 09:44 Temperature 37.0 C 02/18/23 09:44 Temperature Source Temporal Artery Scan 02/18/23 09:44 Pulse 92 H 02/18/23 09:44 Respiratory Rate 16 02/18/23 09:44 Respiratory Effort Normal 02/18/23 09:50 Respiratory Depth Normal 02/18/23 09:50 Respiratory Pattern Normal 02/18/23 09:50 Blood Pressure 122/80 02/18/23 09:44 Blood Pressure Position Sitting 02/18/23 09:44 Pulse Oximetry 100 02/18/23 09:44 Oxygen Delivery Method Room Air 02/18/23 09:44 Oxygen Flow Rate 0 02/18/23 09:44
--- NOTE | 2023-02-18 10:35 | DI.CT_ITS ---
Exam(s) CT HEAD CERVICAL SPINE WO EXAM: CT HEAD CERVICAL SPINE WO CLINICAL HISTORY: Fall, LOC yesterday. TECHNIQUE: Imaging Protocol: Axial computed tomography images with coronal and sagittal reformatted images were created and reviewed COMPARISON: No exams were available for comparison FINDINGS: CT Head: Ventricles and Extra axial spaces: Normal in size and morphology for the patient's age. Hemorrhage: None. Cerebral parenchyma: Normal. Midline shift: None. Brainstem/Cerebellum: Normal. Calvarium: Normal. Visualized Paranasal sinuses/Mastoids: Clear. Soft Tissues: Unremarkable. CT Cervical Spine: Bones: No acute fracture or subluxation. Soft Tissues: Unremarkable. Lung Apices: Clear. IMPRESSION: 1. No acute intracranial process. 2. No acute fracture or subluxation in the cervical spine. 3. Findings were discussed with the emergency department at 11:10 a.m. on 02/18/2023. RADIATION DOSE DELIVERED: Total DLP DATA REPOSITORY: All CT scans at this facility are submitted to the National Radiology Data Registry (NRDR) Dose Index Registry (DIR) with the [employer] (ACR). RADIATION OPTIMIZATION: All CT scans at this facility use at least one of these dose optimization te chniques: automated exposure control; mA and/or kV adjustment per patient size (includes targeted exa ms where dose is matched to clinical indication); or iterative reconstruction.
[2023-02-18 10:36] VITALS: BP 96/64; PULSE 80; RESP 16; O2SAT 100
[2023-02-18 11:09] VITALS: BP 96/62; PULSE 79; RESP 16; O2SAT 100
[2023-02-18] MEDS: Cyclobenzaprine 10 MG TAB PO (11:21)
[2023-02-18] MEDS: Cyclobenzaprine 10 MG TAB, 3 TABS/BTL PO (11:21)
== END 2023-02-18 11:25 | disposition home or self-care (01) ==
PROVIDERS: Emergency Provider Registered Nurse Emergency; PCP Nurse Practitioner Family
DX: S06.0XAA Concussion with loss of consciousness status unknown, initial encounter (principal); X58.XXXA Exposure to other specified factors, initial encounter
CPT/HCPCS: 99284; 70450; 72125; 99283

== ENCOUNTER 2023-02-19 15:04 | Emergency (ER) | payer MEDICAID, SELFPAY ==
--- NOTE | 2023-02-19 15:00 | RT.EKG_ITS ---
APPROVED REPORT Exam: Resting ECG Reason for Exam: Dizzy Patient Location: E HR:72 bpm ECG Measurements Heart Rate 72 AXIS DC 168 P 59 QRSd 73 QRS 55 QT 387 T 45 QTc 424 Conclusion Sinus rhythm... V-rate 60- [address]. [address] segment or T wave abnormalities to suggest occlusive HI
[2023-02-19 15:04] VITALS: BP 110/66; PULSE 80; RESP 15; TEMP 36.6; O2SAT 100
[2023-02-19 15:09] VITALS: RESP 15
--- OUTSIDE RECORDS SUMMARY | 2023-02-19 15:13 | XMS_ITS | Continuity of Care Document ---
Author Name Unknown Organization [facility] Ambulatory Clinics Address [address] [place] [address] Care Team Providers Care Digital Imager Name Role Phone GISELA LOJA Primary Care Physician Encounter [facility] NBR [id number] Date(s): 10/04/22 - 10/04/22 [facility] [address] [place] [address]- Encounter Diagnosis Ovarian cyst(Discharge Diagnosis) - 10/04/22 Endometriosis(Discharge Diagnosis) - 10/04/22 Discharge Disposition: Home or Self Care Attending Physician: Micheal Butt MD Allergies, Adverse Reactions, Alerts No Known Medication Allergies Assessment and Plan Future Appointments Appointment Date:11/02/2022 02:00:00 PM Scheduled Provider:Micheal Butt MD Location:[facility] Appointment Type:OB Follow Up Future Scheduled Tests Radiology* US Pelvic Complete 11/02/22 Functional Status 10/04/22 Other exposure to Infectious Disease Non e Medications !-Ortho Tri-Cyclen oral tablet 1 tab, Oral, Daily, # 84 tab, 4 Refill(s), Pharmacy: [facility], 157, cm, 01/12/22 10:04:00 EDT, Height/Length Dosing, 72, kg, 01/12/22 10:04:00 EDT, Weight Dosing Start Date: 02/09/22 Status: Ordered lamoTRIgine 100 mg oral tablet 60 EA, TAKE 1 TABLET BY MOUTH ONCE DAILY DIRECTED WITH 25MG TABLETS DIRECTED, 0 Refill(s) Start Date: 01/31/22 Status: Ordered lamoTRIgine 25 mg oral tablet 60 EA, TAKE ONE TABLET BY MOUTH ONCE DAILY WITH 100MG AND DIRECTED, 0 Refill(s) Start Date: 01/31/22 Status: Ordered levothyroxine 100 mcg (0.1 mg) oral tablet 100 mcg = 1 tab, Oral, Daily, # 90 tab, 0 Refill(s) Start Date: 10/04/22 Status: Ordered lithium 300 mg oral tablet, extended release 300 mg = 1 tab, Oral, Daily, # 360 tab, 0 Refill(s) Start Date: 10/04/22 Status: Ordered QUEtiapine 100 mg oral tablet 100 mg = 1 tab, Oral, TID, # 270 tab, 0 Refill(s) Start Date: 10/04/22 Status: Ordered Tylenol Extra Strength 500 mg [...] [Reference Range]: 1 Blood Pressure [90-140/60-90 mmHg] 108/7 4mmHg (10/04/22 2:44 PM) Weight 63.7 kg (10/04/22 2:44 PM) Weight Measured (lbs) 140.434 lb (10/04/22 2:44 PM) Social History Social History Type Response Smoking Status Smoking tobacco use: Never tobacco user;Never entered on: 10/04/22 Sex Female Physician Outpatient Note * Micheal Butt MD: PERFORM Event Display: Office Clinic Note Physician Authored Date: [id number] KENYETTA VASQUEZ :1995 Age:27 years Sex:Female Visit Date:10/04/2022 Primary Care Physician: GISELA LOJA Chief Complaint Ovarian cyst f/u, seen at ??[facility] in [place], [place] on 09/24/2022, last PAP: 02/09/2022: NILM, - CT, - NG History of Present Illness 27-year-old presents today for follow-up on ovarian cyst. ??The patient was seen in the emergency department at [facility]??for severe acute abdominal pain.?? She had a CT of the abdomen and pelvis which demonstrated a 3 cm??right ovarian cyst. ??The patient does have a long history of endometriosis and had previously been on Lupron and Orilissa.?? She does take an oral contraceptive??and menses are regular. ??She does have a fair amount of pain with her menses still to this point.?? She is status post left salpingo-oophorectomy for endometriosis. ?? Relative to her presentation at the emergency department her pain is markedly improved.?? She denies any fevers or chills. ??Bowel and bladder function are normal. Physical Exam Vitals & Measurements BP:??108/74?? WT:??63.7??kg?? Assessment/Plan 1.??Ovarian cyst??N83.209 ?? 2.??Endometriosis??N80.9 Ordered: US Pelvic Complete, 11/04/22, Routine, Reason: Follow up ovarian cyst, Transport Mode: Ambulatory, Endometriosis ?? Likely the ovarian cyst that was noted on her CT was a functional ovulatory cyst.?? It may be of benefit to repeat a pelvic ultrasound in approximately 1 month to ensure resolution.?? Endometrioma would be in the differential.?? In terms of managing her??pelvic pain and dysmenorrhea??ongoing??I didrecommend switching her contraceptive to be taken continuously, omitting??the inactive pills.?? Thepatient is happy with this plan.?She is referred for pelvic ultrasound and follow-up in 1 month. Future Orders US Pelvic Complete, 11/04/22, Routine, Reason: Follow up ovarian cyst, Transport Mode: Ambulatory, Endometriosis Problem List/Past Medical History Ongoing Acquired hypothyroidism [...] tablet, 1 tab, Oral, Daily, 4 refills lamoTRIgine 100 mg oral tablet lamoTRIgine 25 mg oral tablet levothyroxine 100 mcg (0.1 mg) oral tablet, 100 mcg= 1 tab, Oral, Daily lithium 300 mg oral tablet, extended release, 300 mg= 1 tab, Oral, Daily QUEtiapine 100 mg oral tablet, 100 mg= 1 tab, Oral, TID Tylenol Extra Strength 500 mg oral tablet, QID Allergies No Known Medication Allergies Social History Alcohol Never Electronic Cigarette/Vaping Electronic Cigarette Use: Never. 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 Home/Environment Lives with Children. Living situation: Home/Independent. Sexual Sexually active: Yes. Other sexual concerns: Does have pain during intercourse. Substance Use Never Tobacco Never tobacco user Tobacco Use:. Never Smokeless Tobacco use:. Family History Alive and well: Mother, Son and Son. Asthma: Son. Heart attack: Father. Hypothyroidism: Father. Electronically Signed on 10/04/22 03:21 PM Micheal Butt MD Patient Care team information Care Team Personnel Name: GISELA LOJA Position: No Access Member Role: Primary Care Physician Address: Address: [address] [place] [address]- Care Team Related Persons Name: JOHNNY VU Address: Home
--- OUTSIDE RECORDS SUMMARY | 2023-02-19 15:13 | XMS_ITS | Continuity of Care Document ---
Author Name Unknown Organization [facility] Ambulatory [facility] Address [address] [place] [address] Care Team Providers Care [employer] Membership Advisors Name Role Phone GISELA LOJA APRN Primary Care Physician [phone] Encounter [facility] NBR [id number] Date(s): 11/21/22 - 11/21/22 [facility] [address], [place] [address] Encounter Diagnosis Increased urinary frequency(Discharge Diagnosis) - 11/21/22 Dysuria(Discharge Diagnosis) - 11/21/22 Menometrorrhagia(Discharge Diagnosis) - 11/21/22 Discharge Disposition: Home or Self Care Attending Physician: Amy Mcmullen Referring Physician: Amy Mcmullen Allergies, Adverse Reactions, Alerts No Known Medication Allergies Medications !-Ortho Tri-Cyclen oral tablet 1 tab, Oral, Daily, # 84 tab, 4 Refill(s), Pharmacy: [id number], 157, cm, 01/12/22 10:04:00 EDT, Height/Length Dosing, 72, kg, 01/12/22 10:04:00 EDT, Weight Dosing Start Date: 11/09/22 Status: Ordered colestipol 1 g oral tablet 1 g = 1 tab, Oral, TID, with a full glass of water, taken w/meals, # 120 tab, 0 Refill(s) Start Date: 11/09/22 Status: Ordered lamoTRIgine 100 mg oral tablet [...] 0 Refill(s) Start Date: 10/04/22 Status: Ordered Macrobid 100 mg oral capsule 100 mg = 1 cap, Oral, BID, # 10 cap, 0 Refill(s), Pharmacy: [facility], 157, cm, 01/12/22 10:04:00 EDT, Height/Length Dosing, 72, kg, 01/12/22 10:04:00 EDT, Weight Dosing Start Date: 11/21/22 Stop Date: 11/26/22 Status: Ordered omeprazole 40 mg oral delayed release capsule 40 mg = 1 cap, Oral, Daily, # 90 cap, 0 Refill(s) Start Date: 11/09/22 Status: Ordered QUEtiapine 100 mg oral tablet 100 mg = 1 tab, Oral, Daily, # 270 tab, 0 Refill(s) Start Date: [...] 5right wrist Results Laboratory List Name Date .Urinalysis POCT 11/21/22 Urine Qual POCT 11/21/22 Most recent to oldest [Reference Range]: 1 Method of Collect POC clean catch *NA* (11/21/22 11:42 AM) Specific [place], Ur POC 1.015 *NA* (11/21/22 11:42 AM) Specimen Color POC [Yellow] Dark Yellow *ABN* (11/21/22 11:42 AM) Glucose, Urine POC Negative mg/dL *NA* (11/21/22 11:42 AM) Bilirubin, Urine POC [Negative] Negative (11/21/22 11:42 AM) Ketones, Urine POC [Negative mg/dL] Nega tive mg/dL (11/21/22 11:42 AM) Blood, Urine POC [Negative] Large *ABN* (11/21/22 11:42 AM) pH, Urine POC 7.00 *NA* (11/21/22 11:42 AM) Protein, Urine POC [Negative mg/dL] Trac e mg/dL *ABN* (11/21/22 11:42 AM) Urobilinogen, Urine POC [0.2] 0.2 (11/21/22 11:42 AM) Nitrite, Urine POC [Negative] Negative (11/21/22 11:42 AM) Leuk Esterase, Urine POC [Negative] Mode rate *ABN* (11/21/22 11:42 AM) Clarity, Urine POC [Clear] Cloudy *ABN* (11/21/22 11:42 AM) U Preg POCT [Negative] Negative (11/21/22 11:41 AM) Vital Signs Most recent to oldest [Reference Range]: 1 Blood Pressure [90-140/60-90 mmHg] 100/6 2mmHg (11/21/22 10:42 AM) Weight 64.8 kg (11/21/22 10:42 AM) Weight Measured (lbs) 142.859 lb (11/21/22 10:42 AM) [place] Body Weight Calculated 49.665 kg (11/21/22 10:42 AM) Height 157.0 cm (11/21/22 10:42 AM) Height/Length Measured (inches) 61.81 in (11/21/22 10:42 AM) BSA Measured 1.68 m2 (11/21/22 10:42 AM) Body Mass Index 26.29 kg/m2 (11/21/22 10:42 AM) Social History Social History Type Response Smoking Status Smoking tobacco use: Never tobacco user;Never entered on: 10/04/22 Sex Female Physician Outpatient Note * Amy Mcmullen: PERFORM Event Display: Office Clinic Note Physician Authored Date: [id number] YARELI VASQUEZ :1995 Age:27 years Sex:Female Visit Date:11/21/2022 Primary Care Physician: GISELA LOJA APRN Chief Complaint started having bilateral abdominal pain a few days ago. doesn't have her menses since she switched her pill. she is currently in the first week of her pill pack. she is not having any issues with [facility] History of Present Illness Yareli presents today with two issues. She has been having brownish spotting for 4 days and increased urinary frequency and urgency. She switched from Depo Provera to a continuous OCP about a year ago. She hasn't had any spotting or bleeding until recently. She denies fever/chills/flank pain. ?? Review of Systems GENERAL??Overall she feels well.. 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 Physical Exam Vitals & Measurements BP:??100/62?? HT:??157.0??cm?? WT:??64.8??kg?? BMI:??26.29?? BSA:??1.68?? GENERAL?Alert and oriented, well nourished, no acute distress Reasonable historian.? Assessment/Plan 1.??Increased urinary frequency??R35.0 Given her symptoms, a script for Macrobid [place] [facility] and will send urine for cx. She will be notified of results Saturday. If she develops worsening symptoms including fever/flank pain tocall. Ordered: Urine Culture, Urine, Clean Catch, Routine collect, RT - Routine, 11/21/22 11:49:00 EDT, Once, Nurse collect, Urinary frequency ?? 2.??Dysuria??R30.0 ?? 3.??Menometrorrhagia??N92.1 She has been experiencing brown spotting for about 4 days. This is the first episode since switching from Depo-Provera to a continuous cycling OCP. I reviewed that it is common for this to occur in those women who use continuous cycling, lower dose estrogen pills, or 24/4 type??pills. If it does not improve over the next week, to call. ?? Orders: Macrobid 100 mg oral capsule, 100 mg = 1 cap, Oral, BID, # 10 cap, 0 Refill(s), Pharmacy: [facility], 157, cm, 01/12/22 10:04:00 EDT, Height/Length Dosing, 72, kg, 01/12/22 10:04:00 EDT, Weight Dosing Follow Up Instructions prn Problem List/Past Medical History Ongoing Acquired hypothyroidism [...] tablet, 1 tab, Oral, Daily, 4 refills colestipol 1 g oral tablet, 1 g= 1 tab, Oral, TID lamoTRIgine 100 mg oral tablet lamoTRIgine 25 mg oral tablet levothyroxine 100 mcg (0.1 mg) oral tablet, 100 mcg= 1 tab, Oral, Daily lithium 300 mg oral tablet, extended release, 300 mg= 1 tab, Oral, Daily Macrobid 100 mg oral capsule, 100 mg= 1 cap, Oral, BID omeprazole 40 mg oral delayed release capsule, 40 mg= 1 cap, Oral, Daily QUEtiapine 100 mg oral tablet, 100 mg= 1 tab, Oral, Daily Tylenol Extra Strength 500 mg oral tablet, QID Allergies No Known Medication Allergies Social History Alcohol Never Electronic Cigarette/Vaping Electronic Cigarette Use: Never. 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 Home/Environment Lives with Children. Living situation: Home/Independent. Sexual Sexually active: Yes. Other sexual concerns: Does have pain during intercourse. Substance Use Never Tobacco Never tobacco user Tobacco Use:. Never Smokeless Tobacco use:. Family History Alive and well: Mother, Son and Son. Asthma: Son. Heart attack: Father. Hypothyroidism: Father. Lab Results Test Name Test Result Date/Time Method of Collect POC clean catch 11/21/2022 11:42 EDT Specimen Color POC Dark Yellow 11/21/2022 11:42 EDT Clarity, Urine POC Cloudy 11/21/2022 11:42 EDT Glucose, Urine POC Negative 11/21/2022 11:42 EDT Bilirubin, Urine POC Negative 11/21/2022 11:42 EDT Ketones, Urine POC Negative 11/21/2022 11:42 EDT Specific [place], Ur POC 1.015 11/21/2022 11:42 EDT pH, Urine POC 7.00 11/21/2022 11:42 EDT Protein, Urine POC Trace 11/21/2022 11:42 EDT Urobilinogen, Urine POC 0.2 11/21/2022 11:42 EDT Nitrite, Urine POC Negative 11/21/2022 11:42 EDT Blood, Urine POC Large 11/21/2022 11:42 EDT Leuk Esterase, Urine POC Moderate 11/21/2022 11:42 EDT U Preg POCT Negative 11/21/2022 11:41 EDT Electronically Signed on 08/30/23 12:44 PM Amy Mcmullen Patient Care team information Care Team Personnel Name: GISELA LOJA APRN Position: No Access Member Role: Primary Care Physician Address: Address: [address] [place] [address]- Care Team Related Persons Name: JOHNNY VU Address: Home
--- OUTSIDE RECORDS SUMMARY | 2023-02-19 15:13 | XMS_ITS | Continuity of Care Document ---
Author Name Unknown Address [address], [place] [address] Phone [facility] Address [address], [place] [address] Phone Care Team Providers Care Adjuster Piano Action Name Role Phone PCP, of Choice Primary Care Provider MD Mal Castellanos Emergency Provider Care Teams Patient Care Team Team Status: Active Member Role Status Dates of Choice PCP Primary Care Provider Active Visit Care Team Team Status: Inactive Member Role Status Dates of Choice PCP Primary Care Provider Active Mal Phipps MD Emergency Provider Active Chief Complaint and Reason for Visit Chief Complaint VOMITING Allergies, Adverse Reactions, Alerts No known allergies Social History Smoking Status Status Start Date End Date Date of Observa tion Never smoked tobacco (finding) September 24, 2022 9:27am Observation Status Observation Response Date of Response Alcohol Use Yes September 24, 2022 9 :27am alcohol intake frequency holidays/special occasi ons only September 24, 2022 9:27am Substance/Street Drug Use No September 242022 9:27am Smoking Status Never smoker September 24, 2022 9 :27am Additional Data Assigned Sex Female Problems Active Problems Medical Problem Onset Date Status Ovarian cyst Active Abdominal pain Active Vomiting Active Medications Medication Status Dose Units Route Directions Qty Days St art Date End Date Instructions Seroquel Active September 24, 2022 12:00am lamotrigine Active September 24, 2022 12:00am levothyroxine Active Sep 12:00am lithium carbonate Active September 24, 2022 12:00am Ondansetron Hcl Active 4 MG PO Q4H 10 J herlinda 2022 12:00am Pantoprazole (Protonix) 40 mg tablet,delayed release (DR/EC) Active 40 MG PO DAILY 14 September 24, 2022 12:00am Procedures Procedure Date Performed Status EKG September 24, 2022 9:25am completed CT Abd Pel w/ Contrast September 24, 2022 11:19am co mpleted Relevant Diagnostic Tests and/or Laboratory Data Laboratory Results Test Date/Time Result Interpretation Reference Range Result Comment Performing Site White Blood Count September 24, 2022 9:53am 11.71 1000/mm3 4.8-10.8 [facility] [id number] [address] [address] Red Blood Count September 24, 2022 9:53am 4.99 M/mm3 4.20-5.40 [facility] [id number] [address] [address] Hemoglobin September 24, 2022 9:53am 14.6 g/dL 12.0-16.0 [facility] [id number] [address] [address] Hematocrit September 24, 2022 9:53am 42.8 % 37-47 [facility] [id number] [address] [address] Mean Corpuscular Volume September 24, 2022 9:53am 85.8 fL 81.0-99.0 [facility] [id number] [address] [address] Mean Corpuscular Hemoglobin September 24, 2022 9:53am 29.3 pg 27-31 [facility] [id number] [address] [address] Mean Corpuscular Hemoglobin Concent September 24, 2022 9:53am 34.1 g/dL 33-37 [facility] [id number] [address] [address] Red Cell Distribution Width September 24, 2022 9:53am 12.4 % 11.5-14.5 [facility] [id number] [address] [address] Platelet Count September 24, 2022 9:53am 314 1000/mm3 140-440 [facility] [id number] [address] [address] Mean Platelet Volume September 24, 2022 9:53am 10.4 fL 7.4-10.4 [facility] LAB [id number] [address] [address] Neutrophils (%) (Auto) September 24, 2022 9:53am 84.8 % 40.0-72.0 MA[facility] LAB [id number] [address] [address] Lymphocytes (%) (Auto) September 24, 2022 9:53am 10.8 % 17-45 MA[facility] [id number] [address] [address] Monocytes (%) (Auto) September 24, 2022 9:53am 3.6 % 3-11 MA[facility] LAB [id number] [address] [address] Eosinophils (%) (Auto) September 24, 2022 9:53am 0.1 % 0-3 MA[facility] LAB [id number] [address] [address] Basophils (%) (Auto) September 24, 2022 9:53am 0.3 % 0-1 MA[facility] LAB [id number] [address] [address] Immature Granulocyte % (Auto) September 24, 2022 9:53am 0.4 % 0-1 MAIN LAB [id number] [address] [address] Neutrophils # (Auto) September 24, 2022 9:53am 9.93 1000/mm3 1.4-6.5 MAIN LAB [id number] [address] [address] Lymphocytes # (Auto) September 24, 2022 9:53am 1.27 1000/mm3 1.2-3.4 MAIN LAB [id number] [address] [address] Monocytes # (Auto) September 24, 2022 9:53am 0.42 1000/mm3 0.0-0.8 MAIN LAB [id number] [address] [address] Eosinophils # (Auto) September 24, 2022 9:53am 0.01 1000/mm3 0.0-0.7 MAIN LAB [id number] [address] [address] Basophils # (Auto) September 24, 2022 9:53am 0.03 1000/mm3 0.0-0.1 MAIN LAB [id number] [place] [address] Absolute Immature Granulocyte (auto September 24, 2022 9:53am 0.1 0-1 MAIN LAB [id number] [place] [address]9918 Differential Method September 24, 2022 9:53am Automated MAIN LAB [id number] [place] [address] Sodium Level September 24, 2022 9:53am 143 mmol/L 137-145 MAIN LAB [id number] [place] [address] Potassium Level September 24, 2022 9:53am 3.7 mmol/L 3.6-5.0 MAIN LAB [id number] [place] [address]18 Chloride Level September 24, 2022 9:53am 105 mmol/L 98-107 MAIN LAB [id number] [place] [address]18 Carbon Dioxide Level September 24, 2022 9:53am 25 mmol/L 22-30 MAIN LAB [id number] [address] [address] Anion Gap September 24, 2022 9:53am 13 7-16 MAIN LAB [id number] [place] [address]9918 Blood Urea Nitrogen September 24, 2022 9:53am 10 mg/dL 7-17 MAIN LAB [id number] [address] [address] Creatinine September 24, 2022 9:53am 0.50 mg/dL 0.52-1.04 MAIN LAB [id number] [place] [address]9918 Glomerular Filtration Rate Calc September 24, 2022 9:53am 132 mL/min >60.0 MAIN LAB [id number] [address] [address] Glucose Level September 24, 2022 9:53am 111 mg/dL 70-100 MAIN LAB [id number] [place] [address]18 Calcium Level September 24, 2022 9:53am 9.5 mg/dL 8.4-10.2 MAIN LAB [id number] [address] [address] Calcium Adjusted for Albumin September 24, 2022 9:53am 9.3 mg/dL 8.4-10.2 MAIN LAB [id number] [address] [address] Albumin September 24, 2022 9:53am 4.6 g/dL 3.5-5.0 MAIN LAB [id number] [place] [address] Total Protein September 24, 2022 9:53am 8.0 g/dL 6.3-8.2 MAIN LAB [id number] [place] [address] Alkaline Phosphatase September 24, 2022 9:53am 94 U/L 38-126 MAIN LAB [id number] [place] [address]9918 Alanine Aminotransfera se (ALT/SGPT) September 24, 2022 9:53am 25 U/L <35 Per [facility]'s notification dated May 28, 2022, note that ascorbic acid concentrations of 100 mg/dL may produce a negative bias greater than 12.5%. MAIN LAB [id number] [place] [address]18 Aspartate Amino Transf (AST/SGOT) September 24, 2022 9:53am 26 U/L 14-36 MAIN LAB [id number] [place] [address] Total Bilirubin September 24, 2022 9:53am 0.9 mg/dL 0.2-1.3 MAIN LAB [id number] [place] [address] Lipase September 24, 2022 9:53am 80 U/L 23-300 MAIN LAB [id number] [address] [address] Troponin I September 24, 2022 9:53am < 0.012 ng/mL 0-0.034 Reference Range: <0.034 ng/mL AMI Cut-off 0.120 ng/mLThe results of this assay can be falsely decreased in patients who consume Biotin. MAIN LAB [id number] [address] [address] Diagnostic Imaging Reports Author Mal Phipps [facility] September 24, 2022 9:39am Report Date/Time September 24, 2022 9:40a m [facility] EKG PATIENT NAME: KENYETTA VASQUEZ [age] DATE OF : 1995 ATTENDING PHYSICIAN: PRIMARY CARE PHYS: No Pcp DICTATING PHYSICIAN: aMl Phipps MD REPORT STATUS: Signed Test Reason : chest pain, dyspnea, or tachycardia Blood Pressure : / mmHG Vent. Rate : 071 BPM Atrial Rate : 071 BPM P-R Int : 164 ms QRS Dur : 080 ms QT Int : 406 ms P-R-T Axes : 063 066 043 degrees QTc Int : 441 ms Normal sinus rhythm with sinus arrhythmia Normal ECG No previous ECGs available Confirmed by Mal Phipps ([id number]) on 09/24/2022 9:39:47 AM Referred By: Mal Phipps Confirmed By:Mal Phipps 09/24/22 0939 cc: Mal Phipps MD; No Pcp~ Author Stu Roque [facility] September 24, 2022 12:19pm Report Date/Time September 24, 2022 12:21 pm [facility] CAT SCAN REPORT PATIENT NAME: KENYETTA VASQUEZ 12 DATE OF : 1995 ATTENDING/ER PHYSICIAN: ER/ATTENDING PHYSICIAN: Mal Phipps MD PRIMARY CARE PHYS: No Pcp ADMITTING PHYSICIAN: CONSULTING PHYSICIAN: PROCEDURE DATE: 09/24/22 REPORT STATUS: Signed DICTATING PHYSICIAN: Stu Roque MD REASON FOR EXAM: abdominal pain r/o appendicitis EXAMINATION: CT ABDOMEN AND PELVIS WITH CONTRAST CLINICAL INFORMATION: Abdominal pain, rule out appendicitis. COMPARISON: None available. TECHNIQUE: Multidetector volumetric imaging was performed of the abdomen and pelvis following administration of oral and 89 mL Omnipaque 350 intravenous contrast. Sagittal and coronal reformatted images were obtained on the technologist's workstation. This CT examination was performed using dose optimization techniques as appropriate, variously including the following: *Automated exposure control *Adjustment of mA and/or kV according to patient size (this includes techniques or standardized protocols for targeted exams where dose is matched to indication/reason for exam; i.e. extremities or head) *Use of iterative reconstruction technique DLP: 284 mGycm. FINDINGS: LUNG BASES: The visualized lung bases are unremarkable. LIVER, GALLBLADDER, AND BILIARY TREE: The liver is enlarged measuring 21 cm in right lobe length. No discrete liver mass. No biliary ductal dilatation. The gallbladder has been removed. PANCREAS: No discrete pancreatic mass. No ductal dilatation. SPLEEN: The spleen is not enlarged ADRENAL GLANDS: No adrenal mass per KIDNEYS AND URETERS: Tiny cortical hypodensity in the posterior mid right kidney is too small to characterize but most likely a cyst. No follow-up imaging is recommended. No hydronephrosis. No discrete nephrolithiasis. BLADDER: Unremarkable. GASTROINTESTINAL TRACT: The small bowel is normal in caliber. No mesenteric mass or fluid. The appendix is normal. No inflammatory changes around the appendix to suggest appendicitis. Minimal sigmoid diverticulosis without evidence of acute diverticulitis. ABDOMINAL WALL: No significant hernia is appreciated. LYMPH NODES: Normal VASCULAR: No aortic aneurysm. PELVIC VISCERA: 3.2 x 2.5 x 3.3 cm right ovarian cyst. Otherwise unremarkable. OSSEOUS STRUCTURES: No suspicious osseous lesions. IMPRESSION: Normal appendix. 3.3 cm right simple appearing ovarian cyst. This is a physiologic finding and no follow-up imaging is recommended on the basis of the imaging. Recommend clinical correlation and consider pelvic ultrasound if the patient has symptoms consistent with cyst pain. Fleischner guidelines were followed. dd: 09/24/22 1210 <Electronically signed by Stu Roque MD in OV> 09/24/22 1219 Vital Signs Vital Reading Result Reference Range Collection Date/Time Weight 65.31 kg September 24, 2022 8:26am Body Temperature 97.5 [degF] 97.6-99.6 Katiana 3rd, 2 023 8:26am Heart Rate 60 /min 60-100 September 24, 2022 3:20pm Respiratory rate 16 /min 12-24 September 24, 2 023 1:16pm Oxygen saturation by Pulse oximetry 100 % 95-10 0 September 24, 2022 3:20pm BP Systolic 107 mm[Hg] 100-140 September 24, 2022 3:20pm BP Diastolic 67 mm[Hg] 50-85 September 24, 2022 3:20pm Advance Directives Advance Directive Response Recorded Date/ Time Does patient have an Advance Directive? No September 24, 2022 10:17am Does patient have a COLST form? No September 24, 2022 10:17am Insurance Providers Guarantor KENYETTA VASQUEZ Address [address] [place] [address] [place] [address] Contact Info. Home Phone: Payer Policy Id Coverage Id Subscriber's Name Subscriber Id Effective Date Expiration Date [facility] [id number] KENYETTA VASQUEZ [id number] Encounters Encounter Location(s) Arrival/Admit Date Discharge/Depart Date Provider(s) Departed Emergency [facility]-Emergency Department September 24, 2022 8:11am September 24, 2022 3:20pm null Functional Status Observation Response Date Recorded Living Situation With Significant Other September 3:20pm Mental Status Observation Response Date Recorded Speech Appropriate September 24, 2022 9 :00am Plan of Treatment Future Tests Future scheduled test information is unavailable Pending Tests Pending diagnostic test information is unavailable Future Visits Future appointment information is unavailable Referrals to Other Providers Reason for Referral Referral Start Date Provider Provider Contact Information Provider Address No Pcp Lynne benites MD Work Phone: [facility] [address] [facility] [address] Future Procedures Future procedure information is unavailable Future Medications Future medication information is unavailable Patient Instructions Nausea and Vomiting, Adult ( DC) Ovarian Cyst (DC) Abdominal Pain, Adult ED Hospital Discharge Instructions Additional Instructions Be sure to call your primary physician today to be seen this week to be rechecked, to discuss referral to surgery for endoscopy, your medications, and coordination with your [facility] provider regarding your ovarian cyst. Return right away if any worsening pain, vomiting, fever, or any other new symptoms or concerns. Tylenol and/or Zofran as needed. Trial of Protonix as we discussed. Stay hydrated. Light diet as tolerated. Patient contact information: Primary phone:[phone] (Note to patient; Please let our registration staff know if this phone number is not correct so we can keep our systems accurate) *Regarding pending labs, you will only be called for positive/abnormal results. Negative/normal results can be found on the patient portal. Suicide Prevention: Dial 988 for immediate access to crisis hotline.
--- OUTSIDE RECORDS SUMMARY | 2023-02-19 15:13 | XMS_ITS | Continuity of Care Document ---
Author Name Unknown Organization [facility] Ambulatory Clinics Address [address] [place] [address] Care Team Providers Care Trim Technician Name Role Phone GISELA LOJA APRN Primary Care Physician Encounter [facility] NBR [id number] Date(s): 11/09/22 - 11/09/22 [facility] Ambulatory Clinics [address] [place], [place] [address] Encounter Diagnosis BCP ( control pills) initiation(Discharge Diagnosis) - 11/09/22 Acne(Discharge Diagnosis) - 11/09/22 Encounter for Papanicolaou smear for cervical cancer screening(Discharge Diagnosis) - 11/09/22 Encounter for special screening examination for infection with predominantly sexual mode of transmission(Discharge Diagnosis) - 11/09/22 Discharge Disposition: Home or Self Care Attending Physician: Micheal Butt MD Allergies, Adverse Reactions, Alerts No Known Medication Allergies Medications !-Ortho Tri-Cyclen oral tablet 1 tab, Oral, Daily, # 84 tab, 4 Refill(s), Pharmacy: [id number], 157, cm, 01/12/22 10:04:00 EDT, Height/Length [...] 0 Refill(s) Start Date: 10/04/22 Status: Ordered omeprazole 40 mg oral delayed [...] Results Laboratory List Name Date .Urinalysis POCT 11/09/22 Most recent to oldest [Reference Range]: 1 Specific [place], Ur POC 1.010 *NA* (11/09/22 3:45 PM) Specimen Color POC [Yellow] Light Yellow (11/09/22 3:45 PM) Glucose, Urine POC Negative mg/dL *NA* (11/09/22 3:45 PM) Bilirubin, Urine POC [Negative] Negative (11/09/22 3:45 PM) Ketones, Urine POC [Negative mg/dL] Nega tive mg/dL (11/09/22 3:45 PM) Blood, Urine POC [Negative] Negative (11/09/22 3:45 PM) pH, Urine POC 5.00 *NA* (11/09/22 3:45 PM) Protein, Urine POC [Negative mg/dL] Nega tive mg/dL (11/09/22 3:45 PM) Urobilinogen, Urine POC [0.2] 0.2 (11/09/22 3:45 PM) Nitrite, Urine POC [Negative] Negative (11/09/22 3:45 PM) Leuk Esterase, Urine POC [Negative] Trac e *ABN* (11/09/22 3:45 PM) Clarity, Urine POC [Clear] Clear (11/09/22 3:45 PM) Vital Signs Most recent to oldest [Reference Range]: 1 Blood Pressure [90-140/60-90 mmHg] 104/6 8mmHg (11/09/22 3:36 PM) Weight 64.9 kg (11/09/22 3:36 PM) Weight Measured (lbs) 143.08 lb (11/09/22 3:36 PM) Social History Social History Type Response Smoking Status Smoking tobacco use: Never tobacco user;Never entered on: 10/04/22 Sex Female Patient Care team information Care Team Personnel Name: GISELA LOJA APRN Position: No Access Member Role: Primary Care Physician Address: Address: [facility] [address] [place] [address]- Care Team Related Persons Name: JOHNNY VU Address: Home
--- OUTSIDE RECORDS SUMMARY | 2023-02-19 15:13 | XMS_ITS | Continuity of Care Document ---
Author Name Unknown Organization [facility] Address [address] [place] [address] Care Team Providers Care Assessment Director Name Role Phone GISELA LOJA APRN Primary Care Physician Encounter [facility] NBR [id number] Date(s): 11/02/22 - 11/02/[address] [address]- [place] Discharge Disposition: Home or Self Care Attending Physician: Micheal uBtt MD Admitting Physician: Micheal Butt MD Referring Physician: GISELA LOJA APRN Allergies, Adverse Reactions, Alerts No Known Medication Allergies Assessment and Plan Future Appointments Medications !-Ortho Tri-Cyclen oral tablet 1 tab, Oral, Daily, # 84 tab, 4 Refill(s), Pharmacy: [facility], 157, cm, 01/12/22 10:04:00 EDT, [...] 4x3 ablation and implants 5right wrist Results Radiology Reports * Exam Date Time Procedure Performing Provider Status 11/02/22 1:15 PM US Pelvic Complete Nena Adams; Talat (Verified) Notes: (US Pelvic Complete) Reason For Exam: Follow up ovarian cyst US Pelvic Complete EXAM DESCRIPTION: US Pelvic Complete 11/02/2022 INDICATION: FOLLOW UP OVARIAN CYST TECHNIQUE: Transabdominal and transvaginal Grayscale and color Doppler ultrasound examination of the pelvis. COMPARISON: Pelvic ultrasound from 02/11/2017 FINDINGS: The uterus measures 4.1 cm x 7.1 cm x 6 cm. No focal uterine lesion. The endometrial stripe thickness is 3.2 mm. Status post left oophorectomy by history. The right ovary measures 1.6 cm x 2.7 cm x 2.4 cm. No solid or cystic right ovarian mass. Color-flow analysis demonstrated right ovarian blood flow Mild free fluid. IMPRESSION: Normal uterus Normal right ovary. No solid or cystic right ovarian mass identified currently. Status post left oophorectomy Mild free fluid. JOB #: [id number] Final Signed by: Micheal Bettencourt MD Signed (Electronic Signature): 11/02/2022 1:44 pm Social History Social History Type Response Smoking Status Smoking tobacco use: Never tobacco user;Never entered on: 10/04/22 Sex Female Patient Care team information Care Team Personnel Name: GISELA LOJA APRN Position: No Access Member Role: Primary Care Physician Address: Address: [address] [address] [place] Care Team Related Persons Name: JOHNNY VU Address: Home
--- OUTSIDE RECORDS SUMMARY | 2023-02-19 15:13 | XMS_ITS | Continuity of Care Document ---
Author Name Unknown Organization [facility] Ambulatory Clinics Address [address] [place] [address] Care Team Providers Care Resident In Diagnostic Radiology Name Role Phone GISELA LOJA Primary Care Physician [phone] Encounter [facility] NBR [id number] Date(s): 10/04/22 - 10/04/22 [facility] Ambulatory Clinics [address] [place] [address]- Discharge Disposition: Home Allergies, Adverse Reactions, Alerts No Known Medication Allergies Assessment and Plan Future Appointments Appointment Date:11/02/2022 02:00:00 PM Scheduled Provider:Micheal Butt MD Location:[facility] Appointment Type:OB Follow Up Future Scheduled Tests Radiology* US Pelvic Complete 11/02/22 Medications !-Ortho Tri-Cyclen oral tablet 1 tab, Oral, Daily, # 84 tab, 4 Refill(s), Pharmacy: [facility], 157, cm, 01/12/22 10:04:00 EDT, Height/Length [...] wrist Social History Social History Type Response Smoking Status Smoking tobacco use: Never tobacco user;Never entered on: 10/04/22 Sex Female Patient Care team information Care Team Personnel Name: GISELA LOJA Position: No Access Member Role: Primary Care Physician Address: Address: [facility] [address] [facility], [place] [address] Care Team Related Persons Name: JOHNNY VU Address: Home
--- OUTSIDE RECORDS SUMMARY | 2023-02-19 15:13 | XMS_ITS | Continuity of Care Document ---
Author Name Unknown Organization [facility] Address [address] [place] [address] Care Team Providers Care Heel Top Lift Splitter Name Role Phone GISELA LOJA APRN Primary Care Physician Encounter [facility] NBR [id number] Date(s): 11/21/22 - 11/21/[address] [address] Encounter Diagnosis Urinary frequency(Discharge Diagnosis) - 11/21/22 Frequency of micturition(Final) - Discharge Disposition: Home or Self Care Attending Physician: Amy Mcmullen Admitting Physician: Amy Mcmullen Allergies, Adverse Reactions, Alerts No Known Medication Allergies Medications !-Ortho Tri-Cyclen oral tablet 1 tab, Oral, Daily, # 84 tab, 4 Refill(s), Pharmacy: [facility], 157, cm, 01/12/22 10:04:00 EDT, Height/Length [...] BID, # 10 cap, 0 Refill(s), Pharmacy: [facility], 157, cm, 01/12/22 10:04:00 EDT, [...] 4x3 ablation and implants 5right wrist Results Orders for Microbiology Reports Name Date Urine Culture 11/21/22 Microbiology Reports TEST:Urine Culture STATUS:Order in Progress BODY SITE: SOURCE:Urine, Clean Catch COLLECTED DATE/TIME:11/21/22 11:30 AM PRELIMINARY REPORT No growth of uropathogens Social History Social History Type Response Smoking Status Smoking tobacco use: Never tobacco user;Never entered on: 10/04/22 Sex Female Patient Care team information Care Team Personnel Name: GISELA LOJA APRN Position: No Access Member Role: Primary Care Physician Address: Address: [address] [place] [address]- Care Team Related Persons Name: JOHNNY VU Address: Home
--- OUTSIDE RECORDS SUMMARY | 2023-02-19 15:13 | XMS_ITS | Continuity of Care Document ---
Author Name Unknown Address [address] [place], [place] [address] Phone [facility] Address [address] [place], [place] [address] Phone Care Team Providers Care Replenishment Analyst Name Role Phone PCP, of Choice Primary [...] 2022 9:53am 11.71 1000/mm3 4.8-10.8 MAIN LAB [id number] [address] [address] Red Blood Count September 24, 2022 9:53am 4.99 M/mm3 4.20-5.40 MAIN LAB [id number] [address] [address] Hemoglobin September 24, 2022 9:53am 14.6 g/dL 12.0-16.0 MAIN LAB [id number] [address] [address] Hematocrit September 24, 2022 9:53am 42.8 % 37-47 MAIN LAB [id number] [address] [address] Mean Corpuscular Volume September 24, 2022 9:53am 85.8 fL 81.0-99.0 MAIN LAB [id number] [address] [address] Mean Corpuscular Hemoglobin September 24, 2022 9:53am 29.3 pg 27-31 MAIN LAB [id number] [address] [address] Mean Corpuscular Hemoglobin Concent September 24, 2022 9:53am 34.1 g/dL 33-37 MAIN LAB [id number] [address] [address] Red Cell Distribution Width September 24, 2022 9:53am 12.4 % 11.5-14.5 MAIN LAB [id number] [address] [address] Platelet Count September 24, 2022 9:53am 314 1000/mm3 140-440 MAIN LAB [id number] [address] [address] Mean Platelet Volume September 24, 2022 9:53am 10.4 fL 7.4-10.4 MAIN LAB [id number] [address] [address] Neutrophils (%) (Auto) September 24, 2022 9:53am 84.8 % 40.0-72.0 MAIN LAB [id number] [address] [address] Lymphocytes (%) (Auto) September 24, 2022 9:53am 10.8 % 17-45 MAIN LAB [id number] [address] [address] Monocytes (%) (Auto) September 24, 2022 9:53am 3.6 % 3-11 MAIN LAB [id number] [address] [address] Eosinophils (%) (Auto) September 24, 2022 9:53am 0.1 % 0-3 MAIN LAB [id number] [address] [address] Basophils (%) (Auto) September 24, 2022 9:53am 0.3 % 0-1 MAIN LAB [id number] [address] [address] Immature Granulocyte % (Auto) September 24, 2022 9:53am 0.4 % 0-1 MAIN LAB [id number] [address] [address] Neutrophils # (Auto) September 24, 2022 9:53am 9.93 1000/mm3 1.4-6.5 MAIN LAB [id number] [address] [address] Lymphocytes # (Auto) September 24, 2022 9:53am 1.27 1000/mm3 1.2-3.4 MAIN LAB [id number] [address] [address] Monocytes # (Auto) September 24, 2022 9:53am 0.42 1000/mm3 0.0-0.8 MAIN LAB [id number] [address] [address] Eosinophils # (Auto) September 24, 2022 9:53am 0.01 1000/mm3 0.0-0.7 MAIN LAB [id number] [address] [address] Basophils # (Auto) September 24, 2022 9:53am 0.03 1000/mm3 0.0-0.1 MAIN LAB [id number] [place] [address] Absolute Immature Granulocyte (auto September 24, 2022 9:53am 0.1 0-1 MAIN LAB [id number] [place] [address]018 Differential Method September 24, 2022 9:53am Automated MAIN LAB [id number] [place] [address] Sodium Level September 24, 2022 9:53am 143 mmol/L 137-145 MAIN LAB [id number] [place] [address] Potassium Level September 24, 2022 9:53am 3.7 mmol/L 3.6-5.0 MAIN LAB [id number] [place] [address] Chloride Level September 24, 2022 9:53am 105 mmol/L 98-107 MAIN LAB [id number] [place] [address] Carbon Dioxide Level September 24, 2022 9:53am 25 mmol/L 22-30 MAIN LAB [id number] [address] [address] Anion Gap September 24, 2022 9:53am 13 7-16 MAIN LAB [id number] [place] [address] Blood Urea Nitrogen September 24, 2022 9:53am 10 mg/dL 7-17 MAIN LAB [id number] [address] [address] Creatinine September 24, 2022 9:53am 0.50 mg/dL 0.52-1.04 MAIN LAB [id number] [place] [address] Glomerular Filtration Rate Calc September 24, 2022 9:53am 132 mL/min >60.0 MAIN LAB [id number] [address] [address] Glucose Level September 24, 2022 9:53am 111 mg/dL 70-100 MAIN LAB [id number] [place] [address] Calcium Level September 24, 2022 9:53am 9.5 mg/dL 8.4-10.2 MAIN LAB [id number] [address] [address] Calcium Adjusted for Albumin September 24, 2022 9:53am 9.3 mg/dL 8.4-10.2 MAIN LAB [id number] [address] [address] Albumin September 24, 2022 9:53am 4.6 g/dL 3.5-5.0 MAIN LAB [id number] [place] [address] Total Protein September 24, 2022 9:53am 8.0 g/dL 6.3-8.2 MAIN LAB [id number] [place] [address] Alkaline Phosphatase September 24, 2022 9:53am 94 U/L 38-126 MAIN LAB [id number] [place] [address] Alanine Aminotransfera se (ALT/SGPT) September 24, 2022 9:53am 25 U/L <35 Per Ortho Clinical Diagnostic's notification dated May 28, 2022, note that ascorbic acid concentrations of 100 mg/dL may produce a negative bias greater than 12.5%. MAIN LAB [id number] [place] [address] Aspartate Amino Transf (AST/SGOT) September 24, 2022 9:53am 26 U/L 14-36 MAIN LAB [id number] [place] [address] Total Bilirubin September 24, 2022 9:53am 0.9 mg/dL 0.2-1.3 MAIN LAB [id number] [place] [address] Lipase September 24, 2022 9:53am 80 U/L 23-300 MAIN LAB [id number] [address] [address] Troponin I September 24, 2022 9:53am < 0.012 ng/mL 0-0.034 Reference Range: <0.034 ng/mL AMI Cut-off 0.120 ng/mLThe results of this assay can be falsely decreased in patients who consume Biotin. MAIN LAB [id number] [address] [address] Diagnostic Imaging Reports Author Mal Phipps [facility] [place] [facility] September 24, 2022 9:39am Report Date/Time September 24, 2022 9:40a m [facility] EKG PATIENT NAME: KENYETTA VASQUEZ [id number] DATE OF : 1995 ATTENDING PHYSICIAN: PRIMARY CARE PHYS: No Pcp DICTATING PHYSICIAN: Mal Phipps MD REPORT STATUS: Signed Test Reason [...] Phipps MD; No Pcp~ Author Stu Roque [facility] [place] [facility] September 24, 2022 12:19pm Report Date/Time September 24, 2022 12:21 pm [facility] CAT SCAN REPORT PATIENT NAME: KENYETTA [...] 10:17am Insurance Providers Guarantor KENYETTA VASQUEZ Address [address] [place] [address] [place] [address] Contact Info. Home Phone: Payer Policy Id Coverage Id Subscriber's Name Subscriber Id Effective Date Expiration Date [employer] [id number] KENYETTA VASQUEZ [id number] Encounters Encounter Location(s) Arrival/Admit Date Discharge/Depart Date Provider(s) Departed Emergency [facility] [place] [facility]-Emergency Department September 24, 2022 8:11am September 24, [...] No Pcp Lynne benites MD Work Phone: [facility] [address] [facility] [address] Future Procedures Future procedure information is unavailable Future Medications Future medication information is unavailable Patient Instructions Nausea and Vomiting, Adult ( DC) Ovarian Cyst (DC) Abdominal Pain, Adult ED Hospital Discharge Instructions Additional Instructions Be sure to call your primary physician today to be seen this week to be rechecked, to discuss referral to surgery for endoscopy, your medications, and coordination with your PICCOLOIST provider regarding your ovarian cyst. Return right away if any worsening pain, vomiting, fever, or any other new symptoms or concerns. Tylenol and/or Zofran as needed. Trial of Protonix as we discussed. Stay hydrated. Light diet as tolerated. Patient contact information: Primary phone:[phone] (Note to patient; Please let our registration staff know if this phone number is not correct so we can keep our systems accurate) *Regarding pending labs, you will only be called for positive/abnormal results. Negative/normal results can be found on the patient portal. Suicide Prevention: Dial [phone] for immediate access to crisis hotline.
[2023-02-19 16:15] LABS: Abs Immature Grans 0.02 10^3/uL (0.0-0.06); Absolute Basophil Count 0.04 10^3/uL (0.0-0.2); Absolute Eosinophil Count 0.11 10^3/uL (0.0-0.7); Absolute Lymphocyte Count 2.39 10^3/uL (1.2-3.4); Absolute Monocyte Count 0.49 10^3/uL (0.1-0.8); Absolute Neutrophil Count 5.31 10^3/uL (1.2-6.7); Basophils % 0.5; Eosinophils % 1.3; HCT 38.4 % (36.0-46.0); HGB 12.5 g/dL (11.2-15.7); Immature Grans % 0.2; Lymphocytes % 28.6; MCH 28.9 pg (27.0-33.0); MCHC 32.6 % (32.0-36.0); MCV 89 fL (80-95); MPV 10.7 fL (8.0-11.0); Monocytes % 5.9; Neutrophils % 63.5; Platelet Count 301 10^3/uL (130-400); RBC 4.33 10^6/uL (3.93-5.22); RDW 12.3 % (11.7-14.6); WBC 8.36 10^3/uL (4.4-10.8)
[2023-02-19] MEDS: ACETAMINOPHEN 1,000 MG/100 ML BTL 400 MG IVPB (16:21)
[2023-02-19 16:25] LABS: Lithium 0.3 mmol/l (0.6-1.2)
[2023-02-19 16:37] LABS: HCG Qual (Serum) Negative
[2023-02-19 16:41] LABS: ALT 20 U/L (14-59); AST 15 U/L (15-37); Albumin 3.7 g/dL (3.4-5.0); Alkaline Phosphatase 77 U/L (46-116); BUN 10 mg/dL (7-18); Bilirubin, Total 0.3 mg/dL (0.2-1.0); CREATININE 0.8 mg/dL (0.55-1.02); Calcium 9.3 mg/dL (8.5-10.1); Chloride 103 mmol/L (98-107); Glucose 109 mg/dL (74-106); Potassium 3.4 mmol/L (3.5-5.1); Sodium 141 mmol/L (136-145); Total Protein 7.9 g/dL (6.4-8.2)
[2023-02-19] MEDS: Lactated Ringers 1,000 ML 1000 ML IV (17:21)
--- NOTE | 2023-02-19 17:51 | ED.GENADUL_ITS ---
Discharge Plan Disposition Patient Disposition: Home Discharge Details Clinical Impression: Concussion Primary Care Provider: GISELA LOJA ED Provider: Kathleen Mathis Home Meds and New Rx's Prescriptions: Continued lithium carbonate 300 mg capsule 300 mg PO QHS levothyroxine 100 mcg capsule 100 mcg PO DAILY lamotrigine 100 mg tablet 100 mg PO DAILY lamotrigine 25 mg tablet 25 mg PO DAILY quetiapine 100 mg tablet 100 mg PO DAILY norgestimate-ethinyl estradiol [Tri-Estarylla] 0.18/0.215/0.25 mg-35 mcg (28) tablet 1 tab PO DAILY albuterol sulfate [ProAir HFA] 90 mcg/actuation HFA aerosol inhaler 2 puff inhalation Q6H PRN omeprazole 40 mg capsule,delayed release(DR/EC) See Rx Instructions .ROUTE .COMPLEX Qty: 30 5RF Dose Instruction: TAKE ONE CAPSULE BY MOUTH EVERY DAY Rx Instructions: TAKE ONE CAPSULE BY MOUTH EVERY DAY Discharge Instructions Instructions: Concussion (ED) Additional Instructions: Stay home for the next week and do not drive a vehicle until you are feeling symptomatically inflamed Regular food and meals Increase your hydration and regular meals Return earlier should he have new or worsening complaints Should he have persistent symptoms longer than 1 week I do recommend reassessment please refer to enclose packet information regarding concussion when you go from sitting to standing Stand Alone Forms: Work Release Referrals: GISELA LOJA, FEED MILL OPERATOR [Primary Care Provider] - Discharge Data Discharge Date/Time-TO BE ENTERED AT DEPARTURE: 02/19/23 18:07 Medical Decision Making 27-year-old female arriving in no acute distress, GCS 15, cranial nerves II through XII intact, alert, oriented, ambulatory, tolerating p.o. He was equal round reactive to light and accommodation, extraocular muscles intact, right cardiac rate rhythm regular, lungs clear to auscultation bilaterally, ambulatory steady gait, no hemotympanum No visible sign of head injury, reviewed CT findings of patient's head from yesterday which were negative for acute abnormality Will check blood work as patient did not have any laboratory evaluation yesterday, labs do not show acute abnormality, negative Feeling improvement after Tylenol, fluids Maunie low at 0.3, encouraged to talk to her psychiatrist regarding dosing of her lithium level At this time patient is requesting discharge home, I suspect she has a concussion from head injury yesterday, she is given the rest the week off of work, concussion precautions reviewed in detail and patient expressed understanding I did consider repeat CT scan, however with a normal neurological exam and no recurrent events, I think the risk of imaging outweighs benefit at this time Given the threshold to return to [place] or worsening complaints HPI General Date/Time Provider Initiated Documentation: 02/19/23 15:12 . HPI Narrative: This 27-year-old female presents with report of dizziness while at work. States she had a syncopal episode yesterday and was evaluated in the emergency department had CT head and cervical spine CT for head and neck pain. Denies chance . Here because she had a recurrent presyncopal episode. History of syncope and presyncope in the past, has had Holter monitor and evaluation outpatient previously without any obvious dysrhythmia. Has mild headache currently. Denies vasovagal symptoms. Related Data Home Medications Medication Instructions Recorded Confirmed albuterol sulfate 90 mcg/actuation 2 puff inhalation Q6H PRN 10/11/22 02/19/23 aerosol inhaler (ProAir HFA) lamotrigine 100 mg tablet 100 mg PO DAILY 10/11/22 02/19/23 lamotrigine 25 mg tablet 25 mg PO DAILY 10/11/22 02/19/23 levothyroxine 100 mcg capsule 100 mcg PO DAILY 10/11/22 02/19/23 lithium carbonate 300 mg capsule 300 mg PO QHS 10/11/22 02/19/23 norgestimate-ethinyl estradiol 1 tab PO DAILY 10/11/22 02/19/23 0.18 mg/0.215mg/0.25mg-35 mcg(28)tablet (Tri-Estarylla) quetiapine 100 mg tablet 100 mg PO DAILY 10/11/22 02/19/23 omeprazole 40 mg capsule,delayed See Rx Instructions .Route 01/14/23 02/19/23 release .COMPLEX #30 caps Previous Rx's Medication Instructions Recorded omeprazole 40 mg capsule,delayed See Rx Instructions .Route 01/14/23 release .COMPLEX #30 caps Allergies Allergy/AdvReac Type Severity Reaction Status Date / Time No Known Allergies Allergy Unverified 02/19/23 15:11 General Stated Complaint: Dizzy/Sync ARIAS: 3 PFSH All Active Problems (Updated 02/19/23 @ 17:52 by ROSSY Rivera) Concussion (Acute) Nausea (Acute) Viral illness (Acute) Right hand paresthesia (Acute) Gastritis (Acute) Dehydration (Acute) Diarrhea (Acute) Nausea and vomiting (Acute) Abdominal pain (Acute) Medical History Generalized headaches PTSD (post-traumatic stress disorder) Per pt. states she usually has panic attacks when she's waken up where she has to be put back to sleep Anxiety and depression Fatigue Asthma, exercise induced Migraines Hypothyroid Endometriosis Surgical History History of esophagogastroduodenoscopy (~10/2022) H/O right knee surgery H/O arthroscopy of shoulder Social History Smoking/Tobacco Use Status: Never Smoking risk assessment performed?: Yes Alcohol Intake: never Drug use: Never Substance use type: does not use Household members: children Housing: apartment Number of Children: 2 current occupation: unemployed Pets and animals: Yes Pets and animals: cat(s) What type of physical activity do you participate in: none Seatbelt use: always Do you feel safe at home: Yes Do you feel safe in your relationship?: Yes Course Vital Signs Vital signs: Vital Signs Temperature 36.6 C 02/19/23 15:04 Pulse 80 02/19/23 15:04 Respiratory Rate 15 02/19/23 15:04 Blood Pressure 110/66 02/19/23 15:04 Pulse Oximetry 100 02/19/23 15:04 Temperature 36.6 C 02/19/23 15:04 Temperature Source Oral 02/19/23 15:04 Pulse 80 02/19/23 15:04 Respiratory Rate 15 02/19/23 15:09 Respiratory Effort Normal 02/19/23 15:09 Respiratory Depth Normal 02/19/23 15:09 Respiratory Pattern Normal 02/19/23 15:09 Blood Pressure 110/66 02/19/23 15:04 Blood Pressure Position Sitting 02/19/23 15:04 Pulse Oximetry 100 02/19/23 15:04 Oxygen Delivery Method Room Air 02/19/23 15:04 Oxygen Flow Rate 0 02/19/23 15:04 Pain Level 7 02/19/23 15:04 Lab/Test Results Lab/Test Results: Laboratory Tests Range/Units 02/19/23 15:15 WBC (4.4-10.8) 10^3/uL 8.36 RBC (3.93-5.22) 10^6/uL 4.33 Hgb (11.2-15.7) g/dL 12.5 Hct (36.0-46.0) % 38.4 MCV (80-95) fL 89 MCH (27.0-33.0) pg 28.9 MCHC (32.0-36.0) % 32.6 RDW (11.7-14.6) % 12.3 Plt Count (130-400) 10^3/uL 301 MPV (8.0-11.0) fL 10.7 Immature Gran % 0.2 Neutrophils % 63.5 Lymphocytes % 28.6 Monocytes % 5.9 Eosinophils % 1.3 Basophils % 0.5 Nucleated RBC % (0.0-0.3) % 0.0 Absolute Neutrophils (1.2-6.7) 10^3/uL 5.31 Absolute Lymphocytes (1.2-3.4) 10^3/uL 2.39 Absolute Monocytes (0.1-0.8) 10^3/uL 0.49 Absolute Eosinophils (0.0-0.7) 10^3/uL 0.11 Absolute Basophils (0.0-0.2) 10^3/uL 0.04 Sodium (136-145) mmol/L 141 Potassium (3.5-5.1) mmol/L 3.4 L Chloride (98-107) mmol/L 103 Carbon Dioxide (21.0-32.0) mmol/L 28.0 Anion Gap (3-11) mmol/L 10.0 BUN (7-18) mg/dL 10 Creatinine (0.55-1.02) mg/dL 0.8 Est GFR (CKD-EPI 2020) (mL/min/1.73m2) 103.50 Glucose (74-106) mg/dL 109 H Calcium (8.5-10.1) mg/dL 9.3 Total Bilirubin (0.2-1.0) mg/dL 0.3 AST (15-37) U/L 15 ALT (14-59) U/L 20 Alkaline Phosphatase (46-116) U/L 77 Total Protein (6.4-8.2) g/dL 7.9 Albumin (3.4-5.0) g/dL 3.7 TSH (0.36-3.74) uIU/mL 0.50 Serum HCG, Qual Negative Maunie (0.6-1.2) mmol/l 0.3 L
[2023-02-19 18:06] VITALS: BP 101/65; PULSE 79; RESP 23; O2SAT 99
--- NOTE | 2023-02-20 11:30 | NUR.NOTE ---
Accessed chart to determine orders for EKG and to determine whether or not one needs to be cancelled. Nursing Note:
== END 2023-02-19 18:07 | disposition home or self-care (01) ==
PROVIDERS: Emergency Provider Physician Assistant; PCP Nurse Practitioner Family
DX: R42 Dizziness and giddiness (principal); R51.9 Headache, unspecified; S06.0X0A Concussion without loss of consciousness, initial encounter; Z79.899 Other long term (current) drug therapy; E03.9 Hypothyroidism, unspecified
CPT/HCPCS: 36415; 80053; 87637; 93005; 96374; 99284; 80178; 84443; 84703; 85025; 93010; J0131

== ENCOUNTER 2023-04-29 16:57 | Outpatient (REF) | payer MEDICAID, SELFPAY ==
[2023-04-29 19:28] LABS: HCT 35.8 % (36.0-46.0); HGB 11.6 g/dL (11.2-15.7); MCH 28.4 pg (27.0-33.0); MCHC 32.4 % (32.0-36.0); MCV 88 fL (80-95); MPV 10.9 fL (8.0-11.0); Platelet Count 301 10^3/uL (130-400); RBC 4.08 10^6/uL (3.93-5.22); RDW 13.2 % (11.7-14.6); RDW-SD 42.2 fL; WBC 8.26 10^3/uL (4.4-10.8)
[2023-04-29 19:39] LABS: Iron 20 ug/dL (50-170); Total Iron Binding Capacity 382 ug/dL (250-450); Transferrin Sat 5 % (15-50)
[2023-04-29 19:55] LABS: Anion Gap 8.2 mmol/L (3-11); BUN 9 mg/dL (7-18); CO2 27.8 mmol/L (21.0-32.0); CREATININE 0.7 mg/dL (0.55-1.02); Chloride 105 mmol/L (98-107); Estimated GFR 120.74 (mL/min/1.73m2); Ferritin 17 ng/mL (8-252); Glucose 91 mg/dL (74-106); Potassium 3.6 mmol/L (3.5-5.1); Sodium 141 mmol/L (136-145); TSH (W/Ref FT4) 0.24 uIU/mL (0.36-3.74)
[2023-04-29 20:14] LABS: FREE T4 1.07 ng/dL (0.76-1.46)
== END 2023-04-29 16:58 | disposition home or self-care (01) ==
LOC: NCHCN 16:57
PROVIDERS: PCP Nurse Practitioner Family; Visit Provider Nurse Practitioner Family
DX: R42 Dizziness and giddiness (principal); E03.9 Hypothyroidism, unspecified; R53.83 Other fatigue; E61.1 Iron deficiency
CPT/HCPCS: 80048; 85027; 82728; 83540; 83550; 84439; 84443

== ENCOUNTER 2023-07-16 14:11 | Outpatient (REF) | payer MEDICAID, SELFPAY ==
[2023-07-16 15:41] LABS: Abs Immature Grans 0.01 10^3/uL (0.0-0.06); Absolute Basophil Count 0.04 10^3/uL (0.0-0.2); Absolute Eosinophil Count 0.11 10^3/uL (0.0-0.7); Absolute Lymphocyte Count 1.71 10^3/uL (1.2-3.4); Absolute Monocyte Count 0.41 10^3/uL (0.1-0.8); Absolute Neutrophil Count 3.69 10^3/uL (1.2-6.7); Basophils % 0.7; Eosinophils % 1.8; HCT 37.6 % (36.0-46.0); HGB 12.3 g/dL (11.2-15.7); Immature Grans % 0.2; Lymphocytes % 28.6; MCH 29.1 pg (27.0-33.0); MCHC 32.7 % (32.0-36.0); MCV 89 fL (80-95); MPV 11.5 fL (8.0-11.0); Monocytes % 6.9; Neutrophils % 61.8; Platelet Count 258 10^3/uL (130-400); RBC 4.22 10^6/uL (3.93-5.22); RDW 13.1 % (11.7-14.6); RDW-SD 42.5 fL; WBC 5.97 10^3/uL (4.4-10.8)
[2023-07-16 16:01] LABS: ALT 21 U/L (14-59); AST 12 U/L (15-37); Albumin 3.4 g/dL (3.4-5.0); Alkaline Phosphatase 67 U/L (46-116); Anion Gap 10.6 mmol/L (3-11); BUN 11 mg/dL (7-18); Bilirubin, Total 0.5 mg/dL (0.2-1.0); CO2 24.4 mmol/L (21.0-32.0); CREATININE 0.7 mg/dL (0.55-1.02); Calcium 8.8 mg/dL (8.5-10.1); Chloride 109 mmol/L (98-107); Estimated GFR 120.74 (mL/min/1.73m2); Glucose 99 mg/dL (74-106); Potassium 4.1 mmol/L (3.5-5.1); Sodium 144 mmol/L (136-145); TSH (W/Ref FT4) 0.39 uIU/mL (0.36-3.74); Total Protein 6.8 g/dL (6.4-8.2)
[2023-07-17 09:20] LABS: Ferritin 27 ng/mL (8-252)
[2023-07-18 18:35] LABS: Iron 76 ug/dL (50-170); Total Iron Binding Capacity 355 ug/dL (250-450); Transferrin Sat 21 % (15-50)
== END 2023-07-16 14:12 | disposition home or self-care (01) ==
LOC: NCHCN 14:11
PROVIDERS: PCP Nurse Practitioner Family; Visit Provider Nurse Practitioner Family
DX: E03.9 Hypothyroidism, unspecified (principal)
CPT/HCPCS: 80053; 82728; 83540; 83550; 84443; 85025

== ENCOUNTER 2023-08-08 05:28 | Outpatient (CLI) | payer MEDICAID, SELFPAY ==
--- NOTE | 2023-08-13 11:23 | W.NUTRFU ---
Date of service: 08/08/23 Time of Service: 14:30 Nutrition Note NOTE: received nutrition referral regarding chronic gastritis ((K29.50) with consideration of diet for slow emptying. Pt is 28yo female with history of GI issues/food intolerance. reported to be intolerant to dairy (can drink goat milk) and cheese (diarrhea), but can have cooked milk in products. No eggs (but can be cooked in items). Most meats give her problems, especially ham and turkey. Red pasta sauce (this is new onset) and sweets( cause a lot of pain). She has back and forth diarrhea and constipation. She notes that she was noted to have scar tissue on my bowels with history of endometriosis and states she had L ovarian tube taken out surgically. She compares her GI pain is just like her gallbladder pain. She is s/p cholecystectomy 2021 and had EGD noting mild inflammation 11/07/22. She reprts can't finish meals - throat feels on fire or I get super nauseous . gets full and nauseous easily but then reports being hungry again 10 minutes later after this feeling. She reports feeling dizzy if she is not eating constantly- reports eating every hour. We discussed trying to have a consistent, repeatable menu that she can tolerated and start to increase variety (and fiber) at the same time. Reviewed starting off low fiber and avoiding known trigger foods. Suggested trial of OTC digestive enzymes routinely prior to eating and considering marshmallow root tea, erik tea. We started to work on some menu planning and maybe keeping a food diary with gi sx to see if we can see a pattern. We were discussing if she could remember when she wasn't having this much concern with her GI system and she suddenly remembered that she felt perfectly fine for about 2 years doing [employer] program for eating (raw, vegan lifestyle plan with supplements). She can't remember exactly why she stopped but seemed like the thought made her excited about getting back on [employer] and seeing it it helps again. She felt she had some direction from what we discussed and her memory of doing better on Thrive program. Her goal is to start this eating program again. She did take my card and will call if needing more assistance or wants to troubleshoot her sx again. Time Spent in Nutritional Counseling and Treatment: 30 minutes
== END 2023-08-08 05:29 | disposition home or self-care (01) ==
LOC: DS 05:28
PROVIDERS: PCP Nurse Practitioner Family; Visit Provider Dietitian, Registered
DX: K29.50 Unspecified chronic gastritis without bleeding (principal)
CPT/HCPCS: 00123; 97802

== ENCOUNTER 2023-12-16 08:09 | Emergency (ER) | payer MEDICAID, SELFPAY ==
[2023-12-16 08:14] VITALS: BP 115/79; PULSE 106; RESP 16; TEMP 37.1; O2SAT 99
--- NOTE | 2023-12-16 08:31 | W.ED.GENAD ---
Discharge Plan Disposition Patient Disposition: Home Condition: Stable Discharge Details Clinical Impression: URI (upper respiratory infection), Earache on right Primary Care Provider: GISELA LOJA ED Provider: Ruddy Springer Home Meds and New Rx's Prescriptions: New amoxicillin 875 mg tablet 875 mg PO BID Qty: 14 0RF Continued levothyroxine 100 mcg capsule 88 mcg PO DAILY lamotrigine 100 mg tablet 100 mg PO DAILY lamotrigine 25 mg tablet 25 mg PO DAILY albuterol sulfate [ProAir HFA] 90 mcg/actuation HFA aerosol inhaler 2 puff inhalation Q6H PRN omeprazole 40 mg capsule,delayed release(DR/EC) See Rx Instructions .ROUTE .COMPLEX Qty: 30 5RF Dose Instruction: TAKE ONE CAPSULE BY MOUTH EVERY DAY Rx Instructions: TAKE ONE CAPSULE BY MOUTH EVERY DAY Discontinued norgestimate-ethinyl estradiol [Tri-Estarylla] 0.18/0.215/0.25 mg-35 mcg (28) tablet 1 tab PO DAILY Discharge Instructions Instructions: Upper Respiratory Infection ED, Ear Pain ED Additional Instructions: Please drink plenty fluid to stay hydrated. Allow for plenty of rest. If pain does not improve over the next 48 hours, take antibiotic as prescribed. Please take acetaminophen (tylenol) - 650mg every 6 hours by mouth as needed for pain. Please take ibuprofen over the counter. Take 600mg by mouth every 6 hours as needed for pain. Please contact your primary care physician to arrange follow-up. Return to the ER immediately for any worsening or new concerning symptoms. Stand Alone Forms: Work Release Referrals: GISELA LOJA, CARETAKER [Primary Care Provider] - [facility] General Mode of arrival: ambulatory. Date/Time Provider Initiated Documentation: 12/16/23 08:15. Limitations to Documentation: no limitations. Information obtained by: patient. HPI Narrative: 28-year-old female presents with chief complaint of right earache. Pain started this morning and has persisted. She notes upper respiratory tract infection symptoms including sinus congestion intermittent cough over the past 6 days. She has no associated drainage from her ear. No fever. No headache. Related Data Home Medications ?Medication ?Instructions ?Recorded ?Confirmed albuterol sulfate 90 mcg/actuation 2 puff inhalation Q6H PRN 10/11/22 12/16/23 aerosol inhaler (ProAir HFA) lamotrigine 100 mg tablet 100 mg PO DAILY 10/11/22 12/16/23 lamotrigine 25 mg tablet 25 mg PO DAILY 10/11/22 12/16/23 levothyroxine 100 mcg capsule 88 mcg PO DAILY 10/11/22 12/16/23 omeprazole 40 mg capsule,delayed See Rx Instructions .Route 01/14/23 12/16/23 release .COMPLEX #30 caps amoxicillin 875 mg tablet 875 mg PO BID #14 tabs 12/16/23 Previous Rx's ?Medication ?Instructions ?Recorded omeprazole 40 mg capsule,delayed See Rx Instructions .Route 01/14/23 release .COMPLEX #30 caps amoxicillin 875 mg tablet 875 mg PO BID #14 tabs 12/16/23 Allergies Allergy/AdvReac Type Severity Reaction Status Date / Time No Known Allergies Allergy Unverified 12/16/23 08:19 General Stated Complaint: EarProblem ARIAS: 4 Review of Systems Constitutional Constitutional: Denies fever(s) and Denies headache(s) ENT Ears, Nose, Mouth, and Throat: Reports as per HPI, Denies dental pain, Denies dysphagia, Denies headache(s), Denies odynophagia, Reports sinus pressure, Denies sore throat and Denies throat swelling Gastrointestinal Gastrointestinal: Denies dysphagia and Denies odynophagia Neurologic Neurologic: Denies headache(s) Allergic/Immunologic Allergic/Immunologic: Denies throat swelling Exam Const General: cooperative and no acute distress HENMT Ears: external ears normal, EAC's normal, mastoids normal, no periauricular adenopathy and TM abnormal bulging bilaterally; not with effusion, not erythematous and with no fluid behind the TM General nose exam: external nose normal Mouth: moist mucous membranes Throat: posterior oropharynx normal and uvula midline Eyes Conjunctivae: normal conjunctivae Sclera: normal sclerae Neck Neck: trachea midline Resp Auscultation: clear to auscultation bilaterally, no rales, no rhonchi and no wheezes Cardio Rhythm: regular rhythm Skin General skin exam: no rashes or lesions noted Neuro General: patient alert, patient awake and tone normal Course Vital Signs Vital signs: Vital Signs Temperature 37.1 C 12/16/23 08:14 Pulse 106 H 12/16/23 08:14 Respiratory Rate 16 12/16/23 08:14 Blood Pressure 115/79 12/16/23 08:14 Pulse Oximetry 99 12/16/23 08:14 Temperature 37.1 C 12/16/23 08:14 Temperature Source Oral 12/16/23 08:14 Pulse 106 H 12/16/23 08:14 Respiratory Rate 16 12/16/23 08:14 Respiratory Effort Normal, Non-Labored 12/16/23 08:16 Blood Pressure 115/79 12/16/23 08:14 Pulse Oximetry 99 12/16/23 08:14 Oxygen Delivery Method Room Air 12/16/23 08:14 Oxygen Flow Rate 0 12/16/23 08:14 Pain Level 7 12/16/23 08:16 Medical Decision Making 28-year-old female with URI over the past 6 days, here with right otalgia. Patient has bulging TM bilaterally. Patient has no other acute inflammatory changes on exam. Suspect viral URI. Plan for supportive care. I will provide prescription for amoxicillin should symptoms not improve over the 48 hours with conservative management. Usual and customary discharge instructions were reviewed with the patient. Quality:SDOH Health Related Social Needs: No Data to Display PFSH All Active Problems Earache on right (Acute) URI (upper respiratory infection) (Acute) Nausea (Acute) Viral illness (Acute) Right hand paresthesia (Acute) Gastritis (Acute) Dehydration (Acute) Diarrhea (Acute) Nausea and vomiting (Acute) Abdominal pain (Acute) Medical History Generalized headaches PTSD (post-traumatic stress disorder) Per pt. states she usually has panic attacks when she's waken up where she has to be put back to sleep Anxiety and depression Fatigue Asthma, exercise induced Migraines Hypothyroid Endometriosis Surgical History History of esophagogastroduodenoscopy (~10/2022) H/O right knee surgery H/O arthroscopy of shoulder Social History Smoking/Tobacco Use Status: Never Smoking risk assessment performed?: Yes Alcohol Intake: never Drug use: Never Substance use type: does not use Household members: children Housing: apartment Number of Children: 2 current occupation: unemployed Pets and animals: Yes Pets and animals: cat(s) What type of physical activity do you participate in: none Seatbelt use: always Do you feel safe at home: Yes Do you feel safe in your relationship?: Yes
[2023-12-16] MEDS: Ibuprofen 600 MG TAB PO (08:42)
[2023-12-16] MEDS: Acetaminophen 325 MG TAB 650 MG PO (08:42)
== END 2023-12-16 08:44 | disposition home or self-care (01) ==
LOC: ER 08:41
PROVIDERS: Emergency Provider Student in an Organized Health Care Education/Training Program; PCP Nurse Practitioner Family
DX: J06.9 Acute upper respiratory infection, unspecified (principal); H92.01 Otalgia, right ear
CPT/HCPCS: 99283

== ENCOUNTER 2024-02-05 02:21 | Outpatient (CLI) | payer MEDICAID, SELFPAY ==
[2024-02-05 09:08] LABS: HCT 42.3 % (36.0-46.0); HGB 13.7 g/dL (11.2-15.7); MCH 29.4 pg (27.0-33.0); MCHC 32.4 % (32.0-36.0); MCV 91 fL (80-95); MPV 9.5 fL (8.0-11.0); Platelet Count 284 10^3/uL (130-400); RBC 4.66 10^6/uL (3.93-5.22); RDW-SD 43.1 fL; WBC 5.51 10^3/uL (4.4-10.8)
[2024-02-05 10:06] LABS: Iron 101 ug/dL (50-170); Total Iron Binding Capacity 395 ug/dL (250-450); Transferrin Sat 26 % (15-50)
[2024-02-05 10:08] LABS: ALT 27 U/L (14-59); AST 19 U/L (15-37); Albumin 3.7 g/dL (3.4-5.0); Alkaline Phosphatase 76 U/L (46-116); Anion Gap 8.5 mmol/L (3-11); BUN 9 mg/dL (7-18); Bilirubin, Total 1.17 mg/dL (0.2-1.0); CO2 27.5 mmol/L (21.0-32.0); CREATININE 0.8 mg/dL (0.55-1.02); Calcium 9.1 mg/dL (8.5-10.1); Chloride 107 mmol/L (98-107); Estimated GFR 102.86 (mL/min/1.73m2); Ferritin 30 ng/mL (8-252); Glucose 70 mg/dL (74-106); Potassium 3.7 mmol/L (3.5-5.1); Sodium 143 mmol/L (136-145); TSH 4.28 uIU/mL (0.36-3.74); Total Protein 7.9 g/dL (6.4-8.2)
[2024-02-05 10:40] LABS: FREE T4 0.96 ng/dL (0.76-1.46)
== END 2024-02-05 02:22 | disposition home or self-care (01) ==
LOC: LBO 02:21
PROVIDERS: PCP Nurse Practitioner Family; Visit Provider Nurse Practitioner Family
DX: R53.83 Other fatigue (principal); E03.9 Hypothyroidism, unspecified
CPT/HCPCS: 36415; 80053; 85027; 82728; 83540; 83550; 84439; 84443

== ENCOUNTER 2024-03-03 13:24 | Outpatient (CLI) | payer MEDICAID, SELFPAY ==
--- NOTE | 2024-03-03 | DI.RAD_ITS ---
Exam(s) XR KNEE LT 3V AP,LAT,ASHLEE EXAM: XR KNEE LT 3V AP,LAT,ASHLEE CLINICAL HISTORY: PAIN LEFT KNEE M25.562 HX TIBIAL TRANSFER TTT IN 2016, EVAL HARDWARE. TECHNIQUE: 2D digital imaging was performed. Three views. COMPARISON: No exams were available for comparison FINDINGS: BONES: No acute fracture is present. No bony destructive lesion is seen. Two screws are noted in t he proximal tibia. No surrounding lucencies. JOINTS: The knee is normally aligned. No joint effusion is seen. The joint spaces are maintained. SOFT TISSUE: Normal. IMPRESSION: Screws in proximal tibia. No acute abnormality. DATA REPOSITORY: RADIATION DOSE DELIVERED:
== END 2024-03-03 13:44 ==
PROVIDERS: PCP Nurse Practitioner Family; Visit Provider Nurse Practitioner Family
DX: M25.562 Pain in left knee (principal)
CPT/HCPCS: 73562

== ENCOUNTER 2024-04-16 16:57 | Outpatient (REF) | payer MEDICAID, SELFPAY ==
--- OUTSIDE RECORDS SUMMARY | 2024-04-16 16:59 | XMS_ITS | Continuity of Care Document ---
Author Organization [facility] Address [address] [place] [address] Care Team Providers Care Lumber Driver Name Role Phone Dara Durbin Primary Care Physician Encounter [facility] Date(s): 11/07/23 - 11/07/23 [facility] [address] [place] [address] Discharge Disposition: Home Allergies, Adverse Reactions, Alerts No Known Medication Allergies Assessment and Plan Future Appointments Medications lamoTRIgine 100 mg oral tablet, disintegrating 100 mg = 1 tab, Oral, Daily, # 30 tab, 0 Refill(s) Start Date: 10/18/23 Status: Ordered lamoTRIgine 25 mg oral tablet, chewable dispersible 25 mg = 1 tab, Oral, Daily, # 60 tab, 0 Refill(s) Start Date: 10/18/23 Status: Ordered levothyroxine 88 mcg (0.088 mg) oral capsule 88 mcg = 1 cap, Oral, Daily, # 30 cap, 0 Refill(s) Start Date: 10/18/23 Status: Ordered omeprazole 40 mg oral delayed release capsule 40 mg = 1 cap, Oral, Daily, # 30 cap, 0 Refill(s) Start Date: 10/18/23 Status: Ordered Velivet oral tablet 1 tab, Oral, Daily, # 28 tab, 0 Refill(s) Start Date: 11/06/23 Status: Ordered Ventolin HFA 90 mcg/inh inhalation aerosol 1 puffs, Inhale, every 4 hr, PRN as needed for wheezing, # 8 g, 0 Refill(s) Start Date: 10/18/23 Status: Ordered Problem List Condition Confirmation Course Effective Dates Status H ealth Status Informant Anxiety Confirmed Active Chronic gastritis Confirmed Active Exercise-induced asthma Confirmed Active Fatigue Confirmed Active Hypothyroidism Confirmed Active Iron deficiency Confirmed Active Lightheadedness Confirmed Active PTSD (post-traumatic stress disorder) Confirmed Active Restless leg syndrome Confirmed Active Sleep pattern disturbance Confirmed Active Social History Social History Type Response Tobacco Never tobacco user T obacco Use:. Sex Patient Care team information Care Team Personnel Name: Dara Durbin BUCK PRESSER Position: No Access Member Role: Primary Care Physician Address: Address: [place] [address]- Care Team Related Persons Name: JOHNNY STACK
--- OUTSIDE RECORDS SUMMARY | 2024-04-16 16:59 | XMS_ITS | Clinical Summary ---
Author Organization [facility] Address [address] [place] [address] Care Team Providers Care Package Pick Up Name Role Phone Dara Durbin ACID REGENERATOR Primary Care Provider Allergies No known active allergies Medications levothyroxine (SYNTHROID) 88 mcg tablet Take 1 Tablet by mouth daily. Active lamoTRIgine (LAMICTAL) 100 mg tablet Take 1 Tablet by mouth daily. Active lamoTRIgine (LAMICTAL) 25 mg tablet Take 2 Tablets by mouth 2 times daily. Active norethindrone-e thinyl estradiol (MICROGESTIN ,) 1-20 mg-mcg per tablet Take 1 Tablet by mouth daily. Active omeprazole (PRILOSEC) 20 mg capsule Take 2 Capsules by mouth daily. Active ferrous sulfate 324 mg, 65 mg elemental, 324 mg (65 mg iron) tablet,delayed release (DR/EC) Take 1 Tablet by mouth daily with breakfast. Active lithium carbonate 300 mg tablet Take 1 Tablet by mouth 3 times daily. Active calcium citrate 200 mg (950 mg) Take 1 Tablet by mouth 2 times daily. Active QUEtiapine (SEROQUEL) 25 mg tablet Take 2 Tablets by mouth 2 times daily. Active Social History Tobacco Use Types Packs/Day Years Used Date Smoking Tobacco: Never Smokeless Tobacco: Never Tobacco Cessation:Counseling Given: Not Answered Comments Unknown Sex and Gender Information Value Date Recorded Sex Assigned at Not on file Legal Sex Female 18:55 EST Gender Identity Not on file Sexual Orientation Not on file Obstetrics History Last Filed Vital Signs Vital Sign Reading Time Taken Comments Blood Pressure 112/78 06/17/2023 0913 EDT Pulse 80 06/17/2023 0913 EDT Temperature - - Respiratory Rate - - Oxygen Saturation - - Inhaled Oxygen Concentration - - Weight 57.3 kg (126 lb 6.4 oz) 06/17/2023 0913 E DT Height - - Body Mass Index - - Plan of Treatment Health Maintenance Due Date Last Done Comments Hepatitis C Screen 1995 Hepatitis B Vaccine (1 of 3 - 19+ 3-dose series) 04/15 COVID-19 Vaccine (2023- season) 2023 Insurance * Guarantor: Yareli Gant Account Type Relation to Patient Date of Phone Billing Address Personal/Family Self [address] [place], [place] [id number] MEDICAID [place] * Guarantor: Yareli Gant Account Type Relation to Patient Date of Phone Billing Address Personal/Family Self [address] [place] [address] * Guarantor: Gant, Yareli A Account Type Relation to Patient Date of Phone Billing Address Personal/Family Self [address] [place] [address] * Guarantor: Yareli Gant Account Type Relation to Patient Date of Phone Billing Address Personal/Family Self [address] [place] [address] * Guarantor: Yareli Gant Account Type Relation to Patient Date of Phone Billing Address Personal/Family Self [address] [place] [address] Care Teams Package Pick Up Relationship Specialty Start Date End Date Dara Durbin, [place] [address] PCP - General Family Medicine - Primary Care 06/17/23
--- OUTSIDE RECORDS SUMMARY | 2024-04-16 16:59 | XMS_ITS | Encounter Summary ---
Author Organization [facility] Address [address] [place] [address] Care Team Providers Care Railroad Crane Operator Name Role Phone Unknown, Provider Primary Care Provider Unava ilable Encounter Details Date Type Department Care Team (Late st Contact Info) Description 07/05/2011 Results Only [facility] [phone] Hemanth Hooper, DO [address] [place] [address] [address] [place], [place] [id number] Social History Tobacco Use Types Packs/Day Years Used Date Smoking Tobacco: Never Assessed Comments Unknown Sex and Gender Information Value Date Recorded Sex Assigned at Not on file Legal Sex Female 18:55 EST Gender Identity Not on file Sexual Orientation Not on file documented as of this encounter Plan of Treatment Not on file documented as of this encounter Procedures Procedure Name Priority Date/Time Associated Diagnosis Comments SURGICAL PATHOLOGY Routine 07/05/2011 0:00 EDT documented in this encounter Results * SURGICAL PATHOLOGY (07/05/2011 0:00 EDT) Pathology Report: SURGICAL PATHOLOGY REPORT Reports generated via electronic interface contain original data; however they are lacking the format of the original report. Caution should be taken when reading/interpreti ng unformatted reports. Name: ? YARELI GANT ? Accession #: ? [id number] ? : ? 1995 (Age: 16) ??F ? Collect Date: ? 07/05/2011 ? Location: ? [facility] ? Receive Date: ? 07/06/2011 ? Provider: HEMANTH HOOPER DO Copy to: ? Final Pathologic Diagnosis: A. ?Submitted as conchal bowl lesions, left, excision: 1. ?Scant sinonasal tissue. ??See comment. B. ?Tonsil, right, superior, partial resection: 1. ?Fragments of filamentous bacteria and scant tonsillar tissue. C. ?Tonsil, right, tonsillectomy: 1. ?Tonsil with no specific gross pathologic features. ??Gross only. D. ?Tonsil, left, tonsillectomy: 1. ?Tonsil with no specific gross pathologic features. ??Gross only. Comment: ? Sections of (A) show minute fragments of squamous epithelium and underlying mucosal glands. ??The quantity of tissue is insufficient for further diagnosis. (Dr. Magana)/[facility] Document reviewed and electronically signed by: CORINNE MAGANA MD Report ??Date: 07/10/2011 15:09 By the signature above, the attending physician certifies that he/she has personally conducted a gross and/or microscopic examination of the described specimens and rendered or confirmed the above diagnosis. Specimen(s) Received: A. ?Left conchal bowl lesions B. ? Right superior tonsil C. ? Right tonsil D. ? Left tonsil Clinical History: ? Left conchal bowl lesions; chronic tonsillitis and adenoiditis. ??Clinical diagnosis code: ??474.11 239.2 Gross Description: ? Received in formalin labelled Yareli Gant and left conchal bowl lesions are two minute alexis tissue fragments, each less than 0.1 x 0.1 x 0.1 cm. Submitted in toto in (A). Received in formalin labelled Gant, Yareli and right superior tonsil is a 0.7 x 0.7 x 0.4 cm aggregate of alexis-yellow, slightly firm to friable debris. ??No definitive soft tissue is identified. ??The specimen is entirely submitted in (B). Received in formalin labelled Stalin, Yareli and right tonsil is a 2.7 x 2.7 x 1.5 cm, partially fragmented, nodular tissue consistent with palatine tonsil. The specimen is partially surfaced by pink-alexis, smooth and cryptic mucosa. ??The cut surface is pink-alexis and lobulated without discrete masses. ??No sections are submitted. ??Gross only. Received in formalin labelled Yareli Gant and left tonsil is a 2.9 x 2.0 x 1.9 cm nodular tissue grossly consistent with a palatine tonsil. ??The specimen is partially surfaced by pink-alexis, smooth and cryptic mucosa. ??The cut surface is pink-alexis and lobulated without discrete masses. ??No sections are submitted. Gross only. (Shruthi Graham)/[facility]k End of Report [facility] 07/05/2011 07/06/2011 8:3 7 EDT Hemanth Hooper DO PATHOLOGY ORDERABLES Fi nal Result [facility] [address] [place] [address] documented in this encounter Visit Diagnoses Not on filedocumented in this encounter Care Teams Railroad Crane Operator Relationship Specialty Start Date End Date Unknown, Provider, PCP - General 07/06/11 06/16/23 documented as of this encounter
--- OUTSIDE RECORDS SUMMARY | 2024-04-16 16:59 | XMS_ITS | Encounter Summary ---
Author Organization [facility] Address [address] [place] [address] Care Team Providers Care Regional Vice President Surgical Sales Name Role Phone Unknown, Provider Primary Care Provider Dara Klein RESET MERCHANDISER Primary Care Provider [phone] Encounter Details Date Type Department Care Team (Late st Contact Info) Description 06/01/2020 Lab Requisition [facility] Pathology & Laboratory Medicine - [address] [address] Outr Resulting Lab, Provider Social History Tobacco Use Types Packs/Day Years [...] Procedure Name Priority Date/Time Associated Diagnosis Comments T3, TOTAL Routine 05/31/2020 14:29 EST documented in this encounter Results * T3, TOTAL (05/31/2020 14:29 EST) T3, Total 116 97 - 169 ng/dL 06/01/2020 16:32 EST [facility] Blood VENOUS BLOOD / Unknown 05/31/2020 14:29 EST 06/01/2020 15:46 EST us Provider Outr Resulting Lab CHEMISTRY & BLOOD GA S ORDERABLES Final Result [facility] [address] [place] [address] documented in this encounter Visit Diagnoses Not on filedocumented in this encounter Care Teams Regional Vice President Surgical Sales Relationship Specialty Start Date End Date Unknown, Provider, PCP - General 07/06/11 06/16/23 Dara Durbin, RESET MERCHANDISER [address] [place] [address] PCP - General Family Medicine - Primary Care 06/17/23 documented as of this encounter
--- OUTSIDE RECORDS SUMMARY | 2024-04-16 16:59 | XMS_ITS | Encounter Summary ---
Author Organization [facility] Address [address] [place] [address] Care Team Providers Care Equities Trader Name Role Phone Unknown, Provider Primary Care Provider Unava ilable Encounter Details Date Type Department Care Team (Late st Contact Info) Description 09/01/2013 Results Only [facility] [phone] Alvaro Melo MD [address] [facility] [address] [place] [address] Social History Tobacco Use Types Packs/Day Years [...] Date/Time Associated Diagnosis Comments SURGICAL PATHOLOGY Routine 09/01/2013 9:16 EDT documented in this encounter Results * SURGICAL PATHOLOGY (09/01/2013 9:16 EDT) Pathology Report: SURGICAL PATHOLOGY REPORT Reports generated via electronic interface contain original data; however they are lacking the format of the original report. Caution should be taken when reading/interpreting unformatted reports. Name: ? YARELI GANT ? Accession #: ? [id number] ? : ? 1995 (Age: 18) ??F ? Collect Date: ? 09/01/2013 ? Location: ? [facility] ? Receive Date: ? 09/02/2013 ? Provider: SEBASTIAN MELO MD Copy to: MIROSLAVA XIONG MD ? Final Pathologic Diagnosis: A. SMALL INTESTINE, SECOND PORTION, BIOPSY: - ??Duodenal mucosa with no diagnostic alteration. B. STOMACH, ANTRUM, BIOPSY: - ?? Antral mucosa with reactive gastropathy and inactive chronic inflammation. - ?? No evidence of Helicobacter pylori by immunostaining. C. ??ESOPHAGUS, MID, BIOPSY: - ??Reactive squamous mucosa with no diagnostic alteration. Comment: Immunohistochemical staining was performed on this case. Positive and negative controls stained appropriately. ? ANTIBODY(CLONE)(BLOCK) :RESULT H. pylori (Rabbit Monoclonal (SP48), [place])(B1): negative ? NOTE: ??One or more of the reagents used in immunohistochemical testing in this case may not have been cleared or approved by the U.S. Food and Drug Administration (FDA). ??The FDA has determined that such clearance or approval is not necessary. ??These tests are used for clinical purposes. ??They should not be regarded as investigational or for research. ??These reagents' performance characteristics have been determined by [facility]. ??This laboratory is certified under the Clinical Laboratory Improvement Amendments of 1988 (CLIA-88) as qualified to perform high complexity clinical laboratory testing. ?? Document reviewed and electronically signed by: KIMBERLEY CABEZAS MD Report ??Date: 09/06/2013 17:14 By the signature above, the attending physician certifies that he/she has personally conducted a gross and/or microscopic examination of the described specimens and rendered or confirmed the above diagnosis. Specimen(s) Received: A. ??2nd portion bx B. ??Antrum bx C. ??Mid esophageal bx Clinical History: Dysphagia; R/O eosinophilic esophagitis, celiac, H. Pylori; clinical diagnosis code: 787.20 Gross Description: A. ?Received in formalin labelled with proper patient identification (initials B, K) and A. 2nd portion bx is a single pink-alexis tissue fragment (0.3 x 0.3 x 0.2 cm). Submitted intact in A1. B. ?Received in formalin labelled with proper patient identification (initials B, K) and B. antrum bx is a single pink-alexis tissue fragment (0.3 x 0.3 x 0.3 cm). Submitted intact in B1. C. ?Received in formalin labelled with proper patient identification (initials B, K) and C. mid esophagus bx is a single pink-white tissue fragment (0.4 x 0.3 x 0.2 cm). Submitted intact in C1. Ana Lilia Garner 09/02/2013 11:33 AM End of Report [facility] 09/01/2013 9:16 EDT 09/02/2013 9:16 EDT us Alvaro Melo MD PATHOLOGY ORDERABLES Final Resul t [facility] [address] [place] [address] documented in this encounter Visit Diagnoses Not on filedocumented in this encounter Care Teams Equities Trader Relationship Specialty Start Date End Date Unknown, Provider, PCP - General 07/06/11 06/16/23 documented as of this encounter
--- OUTSIDE RECORDS SUMMARY | 2024-04-16 16:59 | XMS_ITS | Encounter Summary ---
Author Organization [facility] Address [address] [place] [address] Care Team Providers Care Scrum Master Name Role Phone Unknown, Provider Primary Care Provider Dara Klein RESOURCE ROOM TEACHER Primary Care Provider [phone] Encounter Details Date Type Department Care Team (Late st Contact Info) Description 04/27/2021 Lab Requisition [facility] Pathology & Laboratory Medicine - [address] [address] Outr Resulting Lab, Provider Social History Tobacco [...] Procedure Name Priority Date/Time Associated Diagnosis Comments T3 FREE Routine 04/26/2021 11:07 EST documented in this encounter Results * T3 FREE (04/26/2021 11:07 EST) T3, Free 3.2 2.8 - 5.3 pg/mL 04/27/2021 17:57 EST [facility] Blood VENOUS BLOOD / Unknown 04/26/2021 11:07 EST 04/27/2021 17:25 EST us Provider Outr Resulting Lab CHEMISTRY & BLOOD GA S ORDERABLES Final Result [facility] [address] [place] [address] documented in this encounter Visit Diagnoses Not on filedocumented in this encounter Care Teams Scrum Master Relationship Specialty Start Date End Date Unknown, Provider, PCP - General 07/06/11 06/16/23 Dara Durbin, RESOURCE ROOM TEACHER [address] [place] [address] PCP - General Family Medicine - Primary Care 06/17/23 documented as of this encounter
--- OUTSIDE RECORDS SUMMARY | 2024-04-16 16:59 | XMS_ITS | Continuity of Care Document ---
Author Organization [facility] Address [address] [place] [address] Care Team Providers Care Pocket Secretary Assembler Name Role Phone GISELA LOJA APRN Primary Care Physician [phone] Encounter [facility]MD FIN NBR [id number] Date(s): 12/19/23 - 12/19/23 [facility] [address], [place] [address] Encounter Diagnosis Right otitis media(Discharge Diagnosis) - 12/19/23 Otitis media, unspecified, right ear(Final) - Discharge Disposition: Home or Self Care Attending Physician: ROSSY Jimenez Allergies, Adverse Reactions, Alerts No Known Medication Allergies Assessment and Plan Extracted from: Title:[facility] Office Visit Note Author:ROSSY Long Date:12/19/23 1.??Right otitis media??H66. 91 ??Recommend changing to Augmentin. ??Recheck if not improving in 48 to 72 hours.?? Follow-up as needed. Ordered: amoxicillin-clavulanate 875 mg-125 mg oral tablet, 1 tab, Oral, every 12 hr, # 14 tab, 0 Refill(s), Pharmacy: [facility], 157.48, cm, 09/16/23 15:16:00 EDT, Height, 57.3, kg, 09/16/23 15:24:00 EDT, Weight Dosing ?? Future Appointments Medications !-Ortho Tri-Cyclen oral tablet 1 tab, Oral, Daily, # 84 tab, 4 Refill(s), Pharmacy: [facility], 157, cm, 01/12/22 10:04:00 EDT, Height/Length Dosing, 72, kg, 01/12/22 10:04:00 EDT, Weight Dosing Start Date: 11/09/22 Status: Ordered amoxicillin 875 mg oral tablet 0 Refill(s) Start Date: 12/19/23 Status: Ordered amoxicillin-clavulanate 875 mg-125 mg oral tablet 1 tab, Oral, every 12 hr, # 14 tab, 0 Refill(s), Pharmacy: [facility], 157.48, cm, 09/16/23 15:16:00 EDT, Height, 57.3, kg, 09/16/23 15:24:00 EDT, Weight Dosing Start Date: 12/19/23 Stop Date: 12/26/23 Status: Ordered colestipol 1 g oral tablet 1 g = 1 tab, Oral, TID, with a full glass of water, taken w/meals, # 120 tab, 0 Refill(s) Start Date: 11/09/22 Status: Ordered desogestrel-ethinyl estradiol triphasic oral tablet 1 tab, Oral, Daily, # 28 tab, 12 Refill(s), Pharmacy: [facility], 157.48, cm, 06/17/23 15:06:00 EDT, Height, 57.3, kg, 06/17/23 15:14:00 EDT, Weight Dosing Start Date: 08/21/23 Stop Date: 08/19/24 Status: Ordered lamoTRIgine 100 mg oral tablet [...] 0 Refill(s) Start Date: 10/04/22 Status: Ordered levothyroxine 88 mcg (0.088 mg) oral tablet 88 mcg = 1 tab, Oral, Daily, # 30 tab, 0 Refill(s) Start Date: 06/17/23 Status: Ordered lithium 300 mg oral tablet, extended release 300 mg = 1 tab, Oral, Daily, # 360 tab, 0 Refill(s) Start Date: 10/04/22 Status: Ordered Macrobid 100 mg oral capsule 100 mg = 1 cap, Oral, BID, # 10 cap, 0 Refill(s), Pharmacy: [facility], 157, cm, 01/12/22 10:04:00 EDT, Height/Length Dosing, 72, kg, 01/12/22 10:04:00 EDT, Weight Dosing Start Date: 11/21/22 Stop Date: 11/26/22 Status: Ordered norgestimate-ethinyl estradiol triphasic (0.18 mg-0.215 mg-0.250 mg)-25 mcg oral tablet 1 tab, Oral, Daily, # 84 tab, 4 Refill(s), Pharmacy: [facility], 157.48, cm, 06/17/23 15:06:00 EDT, Height, 57.3, kg, 06/17/23 15:14:00 EDT, Weight Dosing Start Date: 06/17/23 Stop Date: 08/10/24 Status: Ordered omeprazole 40 mg oral delayed [...] 0 Refill(s) Start Date: 01/31/22 Status: Ordered Velivet oral tablet 0 Refill(s) Start Date: 12/19/23 Status: Ordered Problem List Condition Confirmation Course [...] shoulder 3 Completed Bilateral guillotine tonsillectomy Completed EGD - Esophagogastroduodenoscopy Completed Laparoscopic left salpingo-oophorectomy Completed Release of tendon 4 Compl eted 1auto-populated from documented surgical case 2x3 3x2 4right wrist Vital Signs Most recent to oldest [Reference Range]: 1 Temperature Temporal Artery [36-38 Deg C ] 36.5 Deg C (12/19/23 10:43 AM) Peripheral Pulse Rate [60-100 bpm] 90 bp m (12/19/23 10:43 AM) Blood Pressure [90-120/60-80 mmHg] 105/6 5mmHg (12/19/23 10:43 AM) Mean Arterial Pressure, Cuff [65-140 mmH g] 78 mmHg (12/19/23 10:43 AM) Social History Social History Type Response Smoking Status Smoking tobacco use: Never tobacco user;Never entered on: 06/17/23 Sex Female Sex Representation Female (finding) Hospital Discharge Instructions Patient Education 12/19/2023 10:12:10 Otitis Media, Adult, Jldx-fx-Mglo Otitis Media, Adult Otitis media is a condition in which the middle ear is red and swollen (inflamed) and full of fluid. The middle ear is the part of the ear that contains bones for hearing as well as air that helps send sounds to the brain. The condition usually goes away on its own. What are the causes? This condition is caused by a blockage in the eustachian tube. This tube connects the middle ear tothe back of the nose. It normally allows air into the middle ear. The blockage is caused by fluid or swelling. Problems that can cause blockage include: ??? A cold or infection that affects the nose, mouth, or throat. ??? Allergies. ??? An irritant, such as tobacco smoke. ??? Adenoids that have become large. The adenoids are soft tissue located in the back of the throat, behind the nose and the roof of the mouth. ??? Growth or swelling in the upper part of the throat, just behind the nose (nasopharynx). ??? Damage to the ear caused by a change in pressure. This is called barotrauma. What increases the risk? You are more likely to develop this condition if you: ??? Smoke or are exposed to tobacco smoke. ??? Have an opening in the roof of your mouth (cleft palate). ??? Have acid reflux. ??? Have problems in your body's defense system (immune system). What are the signs or symptoms? Symptoms of this condition include: ??? Ear pain. ??? Fever. ??? Problems with hearing. ??? Being tired. ??? Fluid leaking from the ear. ??? Ringing in the ear. How is this treated? This condition can go away on its own within 3???5 days. But if the condition is caused by germs (bacteria) and does not go away on its own, or if it keeps coming back, your doctor may: ??? Give you antibiotic medicines. ??? Give you medicines for pain. Follow these instructions at home: ??? Take ylzd-njo-tkwkgbr and prescription medicines only as told by your doctor. ??? If you were prescribed an antibiotic medicine, take it as told by your doctor. Do not stop taking it even if you start to feel better. ??? Keep all follow-up visits. Contact a doctor if: ??? You have bleeding from your nose. ??? There is a lump on your neck. ??? You are not feeling better in 5 days. ??? You feel worse instead of better. Get help right away if: ??? You have pain that is not helped with medicine. ??? You have swelling, redness, or pain around your ear. ??? You get a stiff neck. ??? You cannot move part of your face (paralysis). ??? You notice that the bone behind your ear hurts when you touch it. ??? You get a very bad headache. Summary ??? Otitis media means that the middle ear is red, swollen, and full of fluid. ??? This condition usually goes away on its own. ??? If the problem does not go away, treatment may be needed. You may be given medicines to treat the infection or to treat your pain. ??? If you were prescribed an antibiotic medicine, take it as told by your doctor. Do not stop taking it even if you start to feel better. ??? Keep all follow-up visits. This information is not intended to replace advice given to you by your health care provider. Make sure you discuss any questions you have with your health care provider. Document Revised: 06/19/2021 Document Reviewed: 06/19/2021 [employer] Patient Education ?? 2022 [employer]. Physician Outpatient Note * ROSSY Jimenez: PERFORM Event Display: Office Clinic Note Physician Authored Date: [id number] KENYETTA VASQUEZ Cuco :1995 Age:28 years Sex:Female Visit Date:12/19/2023 Primary Care Physician: GISELA LOJA APRN Chief Complaint Bilateral ear pain: I'm getting over a cold and I went to the ER Saturday, he said my eardrums were buldging (. ER). Tues started Amox. I don't feel any better at all (ears). No reported fever. History of Present Illness Patient had upper respiratory symptoms 1 to 2 weeks ago. ??Was seen Saturday at another facility??given antibiotics to start if her ears worsen. ??She started antibiotics??amoxicillin 875??2 days ago. ??Not improving. ??Symptoms worse increased pain. ??No drainage or discharge. ??No fever. ??No sore throat. ??Otherwise well. Physical Exam Vitals & Measurements T:??36.5?C ??(Temporal Artery)?? HR:??90??(Peripheral)?? BP:??105/65?? SpO2:??99%?? Well-appearing no acute distress examination of the ear shows left TM with fluid. ??Right TM red, bulging, loss of landmarks. Assessment/Plan 1.??Right otitis media??H66.91 ??Recommend changing to Augmentin. ??Recheck if not improving in 48 to 72 hours.?? Follow-up as needed. Ordered: amoxicillin-clavulanate 875 mg-125 mg oral tablet, 1 tab, Oral, every 12 hr, # 14 tab, 0 Refill(s),Pharmacy: [facility], 157.48, cm, 09/16/23 15:16:00 EDT, Height, 57.3, kg, 09/16/23 15:24:00 EDT, Weight Dosing ?? Patient Instructions If no improvement in 48 to 72 hours then recheck.?? Finish all medications as prescribed. Patient Education Otitis Media, Adult, Kdur-fq-Qsdf Problem List/Past Medical History Ongoing Acquired hypothyroidism [...] Laparoscopy (01/04/2022)???Arthroscopic knee operation???Arthroscopy of shoulder???Bilateral guillotine tonsillectomy???EGD - Esophagogastroduodenoscopy???Laparoscopic left salpingo-oophorectomy???Release of tendon Medications !-Ortho Tri-Cyclen oral tablet, 1 tab, Oral, Daily, 4 refills amoxicillin 875 mg oral tablet amoxicillin-clavulanate 875 mg-125 mg oral tablet, 1 tab, Oral, every 12 hr colestipol 1 g oral tablet, 1 g= 1 tab, Oral, TID desogestrel-ethinyl estradiol triphasic oral tablet, 1 tab, Oral, Daily, 12 refills lamoTRIgine 100 mg oral tablet lamoTRIgine 25 mg oral tablet levothyroxine 100 mcg (0.1 mg) oral tablet, 100 mcg= 1 tab, Oral, Daily levothyroxine 88 mcg (0.088 mg) oral tablet, 88 mcg= 1 tab, Oral, Daily lithium 300 mg oral tablet, extended release, 300 mg= 1 tab, Oral, Daily Macrobid 100 mg oral capsule, 100 mg= 1 cap, Oral, BID norgestimate-ethinyl estradiol triphasic (0.18 mg-0.215 mg-0.250 mg)-25 mcg oral tablet, 1 tab, Oral, Daily, 4 refills omeprazole 40 mg oral delayed release capsule, 40 mg= 1 cap, Oral, Daily QUEtiapine 100 mg oral tablet, 100 mg= 1 tab, Oral, Daily Tylenol Extra Strength 500 mg oral tablet, QID Velivet oral tablet Allergies No Known Medication Allergies Social History Alcohol Never Electronic Cigarette/Vaping Electronic Cigarette Use: Never. Employment/School Employed, Work/School description: [employer]. Highest education level: Highschool. Home/Environment Lives with Children. Living situation: Home/Independent. Sexual Sexually active: Yes. Substance Use Never Tobacco Never tobacco user Tobacco Use:. Never Smokeless Tobacco use:. Family History Alive and well: Mother, Son and Son. Asthma: Son. Heart attack: Father. Hypothyroidism: Father. Electronically Signed on 12/19/2023 11:14 EDT ROSSY Jimenez Outpatient Summary note * ROSSY Jimenez: PERFORM Event Display: Ambulatory Patient Summary Authored Date: [id number] KENYETTA VASQUEZ :1995 Age:28 years Sex:Female Visit Date:12/19/2023 Primary Care Physician: GISELA LOJA APRN Ambulatory Visit Instructions We would like to thank you for allowing us to assist you with your healthcare needs. The following includes patient education materials and information regarding your injury/illness. Your Next Steps Instructions From Your Care Team If no improvement in 48 to 72 hours then recheck.?? Finish all medications as prescribed. Scheduled Future Appointments 2024 4:15 PM EDT ?? With: Carrington Geiger MD Where: [facility] Women's Health Status: Confirmed Medications What How Much When Why Instructions New amoxicillin-clavulanate (amoxicillin- clavulanate 875 mg-125mg oral tablet) 1 tab Oral (given by mouth) Every 12 hours Right otitis media Duration: 7 Days Pickup at [facility] Unchanged acetaminophen (Tylenol Extra Strength 500 mg oral tablet) 4 times a day 1 Unknown ?? Unchanged amoxicillin (amoxicillin 875 mg oral tablet) Unchanged colestipol (colestipol 1 g oral tablet) 1 tab Oral (given by mouth) 3 times a day with a full glass of water, taken w/ meals ?? Unchanged desogestrel-ethinyl estradiol (desogestrel-ethinyl estradiol triphasic oral tablet) 1 tab Oral (given by mouth) Every day Duration: 28 Days Unchanged desogestrel-ethinyl estradiol (Velivet oral tablet) Unchanged lamoTRIgine (lamoTRIgine 100 mg oral tablet) 60 EA, TAKE 1 TABLET BY MOUTH ONCE DAILY DIRECTED WITH 25MG TABLETS DIRECTED ?? Unchanged lamoTRIgine (lamoTRIgine 25 mg oral tablet) 60 EA, TAKE ONE TABLET BY MOUTH ONCE DAILY WITH 100MG AND DIRECTED ?? Unchanged levothyroxine (levothyroxine 100 mcg (0.1 mg) oral tablet) 1 tab Oral (given by mouth) Every day Unchanged levothyroxine (levothyroxine 88 mcg (0.088 mg) oral tablet) 1 tab Oral (given by mouth) Every day Unchanged lithium (lithium 300 mg oral tablet, extended release) 1 tab Oral (given by mouth) Every day Unchanged nitrofurantoin (Macrobid 100 mg oral capsule) 1 Capsules Oral (given by mouth) 2 times a day Duration: 5 Days Unchanged norgestimate-ethinyl estradiol (!-Ortho Tri-Cyclen oral tablet) 1 tab Oral (given by mouth) Every day BCP ( control pills) initiation Acne Encounter for Papanicolaou smear for cervical cancer screening Encounter for special screening examination for infection with predominantly sexual mode of transmission Unchanged norgestimate-ethinyl estradiol (norgestimate-ethinyl estradiol triphasic (0.18 mg-0.215 mg-0.250 mg)-25 mcg oral tablet) 1 tab Oral (given by mouth) Every day Duration: 84 Days Unchanged omeprazole (omeprazole 40 mg oral delayed release capsule) 1 Capsules Oral (given by mouth) Every day Unchanged QUEtiapine (QUEtiapine 100 mg oral tablet) 1 tab Oral (given by mouth) Every day Pharmacy Information [facility]: [address] [place] [address] [phone] Your Summary Your Diagnosis Right otitis media Problems Ongoing - Any problem that you are currently receiving treatment for. Acquired hypothyroidism Blood pressure taking Carpal tunnel [...] pain, right Snoring Tachycardia Tension-type headache Historical - Any problem that you are no longer receiving treatment for. Your Care Team Attending Physician - ROSSY Jimenez Primary Care Physician - GISELA LOJA APRN Discharge Vitals Temperature??(Temporal Artery) 97.7 ??F (36.5 ??C) Heart Rate??(Peripheral) 90 Blood Pressure?? 105/65?? SpO2?? 99% Allergies No Known Medication Allergies Education Materials Otitis Media, Adult Otitis media is a condition in which the middle ear is red and swollen (inflamed) and full of fluid. The middle ear is the part of the ear that contains bones for hearing as well as air that helps send sounds to the brain. The condition usually goes away on its own. What are the causes? This condition is caused by a blockage in the eustachian tube. This tube connects the middle ear tothe back of the nose. It normally allows air into the middle ear. The blockage is caused by fluid or swelling. Problems that can cause blockage include: ? A cold or infection that affects the nose, mouth, or throat. ? Allergies. ? An irritant, such as tobacco smoke. ? Adenoids that have become large. The adenoids are soft tissue located in the back of the throat, behind the nose and the roof of the mouth. ? Growth or swelling in the upper part of the throat, just behind the nose (nasopharynx). ? Damage to the ear caused by a change in pressure. This is called barotrauma. What increases the risk? You are more likely to develop this condition if you: ? Smoke or are exposed to tobacco smoke. ? Have an opening in the roof of your mouth (cleft palate). ? Have acid reflux. ? Have problems in your body's defense system (immune system). What are the signs or symptoms? Symptoms of this condition include: ? Ear pain. ? Fever. ? Problems with hearing. ? Being tired. ? Fluid leaking from the ear. ? Ringing in the ear. How is this treated? This condition can go away on its own within 3???5 days. But if the condition is caused by germs (bacteria) and does not go away on its own, or if it keeps coming back, your doctor may: ? Give you antibiotic medicines. ? Give you medicines for pain. Follow these instructions at home: ? Take lmua-xoo-sdwqfhv and prescription medicines only as told by your doctor. ? If you were prescribed an antibiotic medicine, take it as told by your doctor. Do not stop taking it even if you start to feel better. ? Keep all follow-up visits. Contact a doctor if: ? You have bleeding from your nose. ? There is a lump on your neck. ? You are not feeling better in 5 days. ? You feel worse instead of better. Get help right away if: ? You have pain that is not helped with medicine. ? You have swelling, redness, or pain around your ear. ? You get a stiff neck. ? You cannot move part of your face (paralysis). ? You notice that the bone behind your ear hurts when you touch it. ? You get a very bad headache. Summary ? Otitis media means that the middle ear is red, swollen, and full of fluid. ? This condition usually goes away on its own. ? If the problem does not go away, treatment may be needed. You may be given medicines to treat the infection or to treat your pain. ? If you were prescribed an antibiotic medicine, take it as told by your doctor. Do not stop taking it even if you start to feel better. ? Keep all follow-up visits. This information is not intended to replace advice given to you by your health care provider. Make sure you discuss any questions you have with your health care provider. Document Revised: 06/19/2021 Document Reviewed: 06/19/2021 [employer] Patient Education ?? 2022 [employer] Electronically Signed on: 12/19/2023 11:13 EDTSigned by:SHANE Patient Care team information Care Team Personnel Name: GISELA LOJA APRN Position: No Access Member Role: Primary Care Physician Address: [place] [address]- Care Team Related Persons Name: JOHNNY VU Insurance Providers Guarantor name: KENYETTA VASQUEZ Health Plan Information #: 1 Payer: [place] [place] Member Number: [id number] Policy Number: NA Health Plan Information #: 2 Payer: [place] [place] Member Number: [id number] Policy Number: NA Health Plan Information #: 3 Payer: [place] [place] Member Number: [id number] Policy Number: NA
--- OUTSIDE RECORDS SUMMARY | 2024-04-16 16:59 | XMS_ITS | Encounter Summary ---
Author Organization [facility] Address [address] [place] [address] Care Team Providers Care Branch Service Leader Name Role Phone Dara Durbin PROFILE GRINDER TECHNICIAN Primary Care Provider Reason for Visit * Reason Comments New Patient Visit NPV. / Gastritis, Na usea / Notes in scans 11/22/22 * Consult (Routine) - Receiving Office to Obtain Authorization Specialty Diagnoses / Procedures Referred By Contact Referred To Contact Gastroenterology and Hepatology Diagnoses Nausea Gastritis, unspecified, without bleeding Unspecified abdominal pain Raimundo Grande MD [address] [place] [address] [place] [address] Phone: tel: fax:[phone] [facility] Gastroenterology [address] [address] Phone: tel: fax: Referral ID Status Reason Start Date Expiration Date Visits Requested Visits Authorized [id number] Receiving Office to Obtain Authorization Specialty Services Required 1 1 Encounter Details Date Type Department Care Team (Late st Contact Info) Description 06/17/2023 9:00 EDT Office Visit [facility] Gastroenterology [address] [address] Tracee Bustillos PA-C [address] [place] [address], [address] [place] [address] Pain of upper abdomen (Primary Dx); Nausea Social History Tobacco Use Types Packs/Day Years Used Date Smoking Tobacco: Never Smokeless Tobacco: Never Tobacco Cessation:Counseling Given: Not Answered Comments Unknown Sex and Gender Information Value Date Recorded Sex Assigned at Not on file Legal Sex Female 18:55 EST Gender Identity Not on file Sexual Orientation Not on file documented as of this encounter Last Filed Vital Signs Vital Sign Reading Time Taken Comments Blood Pressure 112/78 06/17/2023 09 EDT Pulse 80 06/17/2023 0913 EDT Temperature - - Respiratory Rate - - Oxygen Saturation - - Inhaled Oxygen Concentration - - Weight 57.3 kg (126 lb 6.4 oz) 06/17/2023 0913 E DT Height - - Body Mass Index - - documented in this encounter Progress Notes * Tracee Bustillos PA-C - 06/17/2023 09 EDT Gastroenterology & Hepatology Initial Visit Reason for Referral: Nausea, gastritis PCP: Dara Durbin HPI: Yareli Gant is a 28 y.o. female with a past medical history of biopolar disorder, radha's, migraines here today for consultation regarding nausea, gastritis. Patient endorses she has had stomach issues for a while. Endorses she had RUQ s/p cholecystectomy 2 years ago in [facility] where patient is from. She endorses she is always hungry but feels she cannot eat a full meal because she has fullness. Bms normal unless eats trigger foods. Denies red or black stools. Nausea and abdominal pain with and without food intake. If consumes dairy, certain meats, red sauce, pizza- will have heartburn, regurgitation, abdominal pain in RUQ, or will have diarrhea. Had EGD at [facility] 10/2022 which revealed squamocolumnar mucosa with mild reactive changes consistent with reflux esophagitis.Takes omeprazole 40mg daily in the last year. She endorses she had taken twice daily with less pain and nausea. Noted she had emesis when she stopped for 1 day due to running out of medication. Symptoms sometimes worse with stress. Had gone to ED 09/23- due to persistent emesis. Has lost some weight in the last couple of years, 40lbs which she attributes to change in her psychmedications. Has stabilized. EGD 10/2022: Final diagnosis A. Duodenum, biopsy: -Small intestinal mucosa with no significant diagnostic abnormalities. B. Stomach, antrum, biopsy: -Antral and fundic mucosa with reactive chemical gastropathy. -Negative for Helicobacter pylori C. gastroesophageal junction, biopsy: -Squamocolumnar mucosa with mild reactive changes consistent with reflux esophagitis. -Negative for intestinal metaplasia and dysplasia. Pertinent surgical history: Cholecystectomy Endometrial ablation, left ovary removal PMH: As stated in HPI. ROS: A 10-point ROS was performed and is negative other than stated in HPI. Current Outpatient Medications: calcium citrate 200 mg (950 mg), Take 1 Tablet by mouth 2 times daily., Disp: , Rfl: ferrous sulfate 324 mg, 65 mg elemental, 324 mg (65 mg iron) tablet,delayed release (DR/EC), Take 1Tablet by mouth daily with breakfast., Disp: , Rfl: lamoTRIgine (LAMICTAL) 100 mg tablet, Take 1 Tablet by mouth daily., Disp: , Rfl: lamoTRIgine (LAMICTAL) 25 mg tablet, Take 2 Tablets by mouth 2 times daily., Disp: , Rfl: levothyroxine (SYNTHROID) 88 mcg tablet, Take 1 Tablet by mouth daily., Disp: , Rfl: lithium carbonate 300 mg tablet, Take 1 Tablet by mouth 3 times daily., Disp: , Rfl: norethindrone-ethinyl estradiol (MICROGESTIN 04/13, ,) 1-20 mg-mcg per tablet, Take 1 Tablet by mouth daily., Disp: , Rfl: omeprazole (PRILOSEC) 20 mg capsule, Take 2 Capsules by mouth daily., Disp: , Rfl: QUEtiapine (SEROQUEL) 25 mg tablet, Take 2 Tablets by mouth 2 times daily., Disp: , Rfl: No Known Allergies Family History: Denies celiac disease, GI malignancy Social History: 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 Speech is fluent and clear. Skin: Color pink. Warm and dry. Nails without clubbing or cyanosis. HEENT: Conjunctiva pink, sclera white. Resp: Breath sounds vesicular; no rales, wheezes or rhonchi. CV: RRR, no m/g/r Abd: Soft, non-tender, non-distended, positive bowel sounds. No guarding or rebound tenderness. No palpable hepatosplenomegaly. Ext: Extremities warm and without edema. Impression: Yareli Gant is a 28 y.o. female with a past medical history of biopolar disorder, radha's, migraines here today for consultation regarding nausea, gastritis. Patient endorses abdominal pain, nausea worse with trigger foods which include dairy, acidic foods as well as stress, with work up revealing normal EGD. Discussed differentials include GERD, functional dyspepsia, slow gastric emptying, functional abdominal pain, food intolerance, medication- induced. Plan: 1. Abdominal pain, nausea: -- Recommend take omeprazole 40mg BID which helped to improve symptoms per patient; can consider titrating this down prn -- Avoid trigger foods (acidic, spicy, fried, fatty foods), eat smaller portions throughout the day -- Stress management, [facility] -- If no improvement, PCP may consider refer to power distributor to consider diet for slow gastric emptying -- Consider CMP, US abdomen if worsened RUQ pain to evaluate for stone -- Follow-up 3-4 months Tracee Bustillos PA-C Gastroenterology & Hepatology I spent a total of 40 minutes on the date of this encounter meeting with the patient and reviewing documentation/coordinating care as described in the above note. documented in this encounter Plan of Treatment Not on file documented as of this encounter Visit Diagnoses Diagnosis Pain of upper abdomen- Primary Abdominal pain, other specified site Nausea Nausea alone documented in this encounter Historical Medications * This list may reflect changes made after this encounter. QUEtiapine (SEROQUEL) 25 mg tablet Take 2 Tablets by mouth 2 times daily. calcium citrate 200 mg (950 mg) Take 1 Tablet by mouth 2 times daily. lithium carbonate 300 mg tablet Take 1 Tablet by mouth 3 times daily. ferrous sulfate 324 mg, 65 mg elemental, 324 mg (65 mg iron) tablet,delayed release (DR/EC) Take 1 Tablet by mouth daily with breakfast. omeprazole (PRILOSEC) 20 mg capsule Take 2 Capsules by mouth daily. norethindrone-eth inyl estradiol (MICROGESTIN ,) 1-20 mg-mcg per tablet Take 1 Tablet by mouth daily. lamoTRIgine (LAMICTAL) 25 mg tablet Take 2 Tablets by mouth 2 times daily. lamoTRIgine (LAMICTAL) 100 mg tablet Take 1 Tablet by mouth daily. levothyroxine (SYNTHROID) 88 mcg tablet Take 1 Tablet by mouth daily. added in this encounter Care Teams Branch Service Leader Relationship Specialty Start Date End Date Dara Durbin NP [address] [place] [address] PCP - General Family Medicine - Primary Care 06/17/23 documented as of this encounter
--- OUTSIDE RECORDS SUMMARY | 2024-04-16 16:59 | XMS_ITS | Encounter Summary ---
Author Organization [facility] Address [address] [place] [address] Care Team Providers Care Net Manager Name Role Phone Unknown, Provider Primary Care Provider Dara Klein LABORER GOLD LEAF Primary Care Provider [phone] Encounter Details Date Type Department Care Team (Late st Contact Info) Description 08/18/2019 Lab Requisition [facility] Pathology & Laboratory Medicine - [address] [address] Carrington Geiger MD [address] [place] [address] Left lower quadrant pain; Endometriosis, unspecified; Presence of (intrauterine) contraceptive device Social History Tobacco Use Types Packs/Day Years [...] Priority Date/Time Associated Diagnosis Comments SURGICAL PATHOLOGY Today 08/14/2019 11 :52 EDT Left lower quadrant pain Endometriosis, unspecified Presence of (intrauterine) contraceptive device documented in this encounter Results * SURGICAL PATHOLOGY (08/14/2019 11:52 EDT) Final Diagnosis A. OVARY AND FALLOPIAN TUBE, LEFT, SALPINGO-OOPHOREC RUFINO: - Ovary, left: - Focal surface adhesions with hemosiderin. See comment. - Fallopian tube, left: - No specific pathologic features. 08/20/2019 15:48 EDT [facility] at 1548 Attestation By the signature below, the attending physician certifies that they have 1) personally conducted a gross and/or microscopic examination of the described specimen(s), and/or personally interpreted the results of laboratory testing of the described specimen(s), and 2) personally rendered or confirmed the above diagnosis. 08/20/2019 15:48 [facility] at 1548 Diagnosis Comment The focal adhesions and hemosiderin raises the possibility of endometriosis, but not definitve endometrial stroma is identified. Please correlate with clinical and surgical findings. 08/20/2019 15:48 [facility] Clinical History Left lower quadrant pain 08/20/2019 15:48 [facility] Gross Description A. Received in formalin labelled with proper patient identification (initials B, K) and left fallopian tube and left ovary is a fimbriated fallopian tube (3.4 cm in length x 0.8 cm in diameter) with an attached ovary (2.4 x 1.5 x 0.9 cm). The serosal surface of the fallopian tube is smooth, alexis-purple and glistening. Sectioning of the fallopian tube reveals white-alexis cut surfaces with a central pinpoint to stellate lumen. The outer surface of the ovary is wren-white and smooth to cerebriform. Sectioning of the ovary reveals several smooth-walled cysts (0.3 cm to 0.5 cm in diameter) devoid of excrescences containing clear alexis serous fluid. The remaining cut surfaces of the ovary show heterogeneous normal ovarian parenchyma. Microfilm Clerk sections are submitted as follows: BLOCK TRUJILLO A1-A2- entire [employer] sales representative cross-section of tube A3-A4- Ovary Sarah Cavazos 08/19/2019 9:50 08/20/2019 15:48 [facility] Scanned Images 08/20/2019 15:48 [facility] Tissue FALLOPIAN TUBE AND OVARY, CS / Unknown 08/14/2019 11:52 EDT 08/18/2019 18:25 EDT us Carrington Geiger MD PATHOLOGY ORDERABLES Final Res ult [facility] [address] [place] [address] documented in this encounter Visit Diagnoses Diagnosis Left lower quadrant pain Abdominal pain, left lower quadrant Endometriosis, unspecified Presence of (intrauterine) contraceptive device Presence of intrauterine contraceptive device documented in this encounter Care Teams Net Manager Relationship Specialty Start Date End Date Unknown, Provider, PCP - General 07/06/11 06/16/23 Dara Durbin, LABORER GOLD LEAF [address] [place] [address] PCP - General Family Medicine - Primary Care 06/17/23 documented as of this encounter
--- OUTSIDE RECORDS SUMMARY | 2024-04-16 16:59 | XMS_ITS | Encounter Summary ---
Author Organization [facility] Address [address] [place] [address] Care Team Providers Care Waste Water Worker Name Role Phone Unknown, Provider Primary Care Provider Dara Klein TOLL TEST DESK WORKER Primary Care Provider [phone] Encounter Details Date Type Department Care Team (Late st Contact Info) Description 11/11/2020 Lab Requisition [facility] Pathology & Laboratory Medicine - [address] [address] Outr Resulting Lab, Provider Social History Tobacco [...] Date/Time Associated Diagnosis Comments T3, TOTAL Routine 11/11/2020 8:24 EDT documented in this encounter Results * T3, TOTAL (11/11/2020 8:24 EDT) T3, Total 130 97 - 169 ng/dL 11/11/2020 21:45 EDT [facility] Blood VENOUS BLOOD / Unknown 11/11/2020 8:24 EDT 11/11/2020 20:58 EDT us Provider Outr Resulting Lab CHEMISTRY & BLOOD GA S ORDERABLES Final Result [facility] [address] [place] [address] documented in this encounter Visit Diagnoses Not on filedocumented in this encounter Care Teams Waste Water Worker Relationship Specialty Start Date End Date Unknown, Provider, PCP - General 07/06/11 06/16/23 Dara Durbin, GOSIA [address] [place] [address] PCP - General Family Medicine - Primary Care 06/17/23 documented as of this encounter
--- OUTSIDE RECORDS SUMMARY | 2024-04-16 16:59 | XMS_ITS | Encounter Summary ---
Author Organization [facility] Address [address] [place] [address] Care Team Providers Care Button Tufting Machine Operator Name Role Phone Unknown, Provider Primary Care Provider Dara Klein NANNY BABYSITTER Primary Care Provider [phone] Encounter Details Date Type Department Care Team (Late st Contact Info) Description 11/09/2022 Lab Requisition [facility] Pathology & Laboratory Medicine - [facility] [address] [place] [address] Raimundo Grande MD [address] [address] [place], [place] [id number] Encounter for other general examination Social History Tobacco Use Types Packs/Day Years [...] Date/Time Associated Diagnosis Comments SURGICAL PATHOLOGY Today 11/07/2022 8: 33 EDT Encounter for other general examination documented in this encounter Results * SURGICAL PATHOLOGY (11/07/2022 8:33 EDT) Note to Patient The following pathology results have been interpreted by your pathologist and may be available to you before your health provider has had the opportunity to review them. Please allow time for your provider to receive these results and explore management options, if applicable. 11/12/2022 13:33 EDT [facility] Final Diagnosis A. DUODENUM, BIOPSY: - Small intestinal mucosa with no significant diagnostic abnormalities. B. STOMACH, ANTRUM, BIOPSY: - Antral and fundic mucosa with reactive (chemical) gastropathy. - Negative for Helicobacter pylori on H&E stained sections. C. GASTROESOPHAGEAL JUNCTION, BIOPSY: - Squamocolumnar mucosa with mild reactive changes consistent with reflux esophagitis. - Negative for intestinal metaplasia and dysplasia. 11/12/2022 13:33 [facility] Attestation By the signature below, the attending physician certifies that they have 1) personally conducted a gross and/or microscopic examination of the described specimen(s), and/or personally interpreted the results of laboratory testing of the described specimen(s), and 2) personally rendered or confirmed the above diagnosis. 11/12/2022 13:33 [facility] at 1333 Clinical History History of gastritis, nausea vomiting and abdominal pain, bile reflux mild gastritis 11/12/2022 13:33 [facility] Gross Description A. Received in formalin labelled with proper patient identification (initials B, K) and duodenal biopsy x2 are 4 pale alexis-pink elongated soft tissue fragments which range from 0.4-0.8 cm and are submitted in toto in A1. B. Received in formalin labelled with proper patient identification (initials B, K) and biopsy antrum x2 are 4 alexis-pink irregular soft tissue fragments which range from 0.1-0.3 cm and are submitted in toto in B1. C. Received in formalin labelled with proper patient identification (initials B, K) and biopsy GE junction is a 0.7 cm alexis-pink elongated soft tissue fragment which is submitted in toto in C1. ROSSY CHEW(ASCP) 11/09/2022 15:25 11/12/2022 13:33 [facility] Performing Lab [facility] 13:33 [facility] Scanned Images 11/12/2022 13:33 [facility] Tissue CARDIOESOPHAGEAL JUNCTION STRUCTURE / Unknown 11/07/2022 8:33 EDT 11/09/2022 8:16 EDT Tissue specimen (specimen) PYLORIC ANTRUM STRUCTURE / Unknown 11/07/2022 8:33 EDT 11/09/2022 8:17 EDT Tissue specimen (specimen) CARDIOESOPHAGEAL JUNCTION STRUCTURE / Unknown 11/07/2022 8:33 EDT 11/09/2022 8:17 EDT us Raimundo Grande MD PATHOLOGY ORDERABLES Fin al Result [facility] [address] [place] [address] documented in this encounter Visit Diagnoses Diagnosis Encounter for other general examination documented in this encounter Care Teams Button Tufting Machine Operator Relationship Specialty Start Date End Date Unknown, Provider, PCP - General 07/06/11 06/16/23 Dara Durbin, NANNY BABYSITTER [address] [place] [address] PCP - General Family Medicine - Primary Care 06/17/23 documented as of this encounter
--- OUTSIDE RECORDS SUMMARY | 2024-04-16 16:59 | XMS_ITS | Encounter Summary ---
Author Organization [facility] Address [address] [place] [address] Care Team Providers Care Fitter Type Bar And Segment Name Role Phone Unknown, Provider MD Primary Care Provider Dara Klein MILL HAND Primary Care Provider [phone] Encounter Details Date Type Department Care Team (Late st Contact Info) Description 01/16/2020 Lab Requisition [facility] Pathology & Laboratory Medicine - [address] [address] Outr Resulting Lab, Provider Social History Tobacco [...] Procedure Name Priority Date/Time Associated Diagnosis Comments ZZCOVID-19 TEST [facility] PCR Today 01/16/2020 13:42 EDT COVID-19 TESTING Routine 01/16/2020 13:4 2 EDT documented in this encounter Results * COVID-19 TEST [facility] PCR (01/16/2020 13:42 EDT) Swab ENTIRE NASOPHARYNX / Unknown 01/16/2020 13:42 EDT 01/16/2020 21:09 EDT us Provider Outr Resulting Lab MICROBIOLOGY - GENER AL ORDERABLES Final Result [facility] [address] [place] [address] * COVID-19 TESTING (01/16/2020 13:42 EDT) COVID-19 rt-PCR Result Negative Negative 01/17/2020 2:47 EDT [facility] Comment: This test has not been FDA cleared or approved. This test has been authorized by FDA under an EUA for use by authorized laboratories. This test has been authorized only for detection of nucleic acid from 2019-nCoV, not for any other viruses or pathogens. This test is only authorized for the duration of the declaration that circumstances exist justifying the authorization of emergency use of in vitro diagnostic tests for detection and/or diagnosis of 2019-nCoV under section 564(b)(1) of Act, 21 U.S.C ?? 360bbb-3(b) (1), unless the authorization is terminated or revoked sooner. Negative results do not preclude 2019-nCoV infection and should not be used as the sole basis for treatment or other patient management decisions. Negative results must be combined with clinical observations, patient history, and epidemiological information. Performed on the [employer] Fusion instrument Performing Lab [place] [facility] 01/17/2020 2:47 EDT [facility] Swab 01/16/2020 13:4 2 EDT 01/16/2020 21:09 EDT us Provider Outr Resulting Lab MICROBIOLOGY - GENER AL ORDERABLES Final Result [facility] [address] [place] [address] documented in this encounter Visit Diagnoses Not on filedocumented in this encounter Care Teams Fitter Type Bar And Segment Relationship Specialty Start Date End Date Unknown, Provider, PCP - General 07/06/11 06/16/23 Dara Durbin NP [address] [place] [address] PCP - General Family Medicine - Primary Care 06/17/23 documented as of this encounter
--- OUTSIDE RECORDS SUMMARY | 2024-04-16 16:59 | XMS_ITS | Encounter Summary ---
Author Organization [facility] Address [address] [place] [address] Care Team Providers Care Count Team Clerk Name Role Phone Unknown, Provider Primary Care Provider Dara Klein NATIONAL SECRETARY Primary Care Provider [phone] Encounter Details Date Type Department Care Team (Late st Contact Info) Description 01/04/[address] [facility] Pathology & Laboratory Medicine - [facility] [address] [place] [address] Walt Noland MD [address] [place] [address] Calculus of bile duct without cholangitis or cholecystitis without obstruction; Cholesterolosis of gallbladder Social History Tobacco Use Types Packs/Day Years [...] Date/Time Associated Diagnosis Comments SURGICAL PATHOLOGY Today 01/04/2022 9: 00 EDT Calculus of bile duct without cholangitis or cholecystitis without obstruction Cholesterolosis of gallbladder documented in this encounter Results * SURGICAL PATHOLOGY (01/04/2022 9:00 EDT) Note to Patient The following pathology results have been interpreted by your pathologist and may be available to you before your health provider has had the opportunity to review them. Please allow time for your provider to receive these results and explore management options, if applicable. 01/09/2022 9:44 EDT [facility] Final Diagnosis A. GALLBLADDER, CHOLECYSTECTOMY: - Cholesterolosis. 01/09/2022 9:44 EDT [facility] Attestation There was significant resident/fellow involvement in the diagnostic evaluation of this case. By the signature below, the attending physician certifies that they have personally conducted a gross and/or microscopic examination of the described specimens and rendered or confirmed the above diagnosis. 01/09/2022 9:44 EDT [facility] at 0944 Clinical History Clinical diagnosis code: K80.50; K82.4 01/09/2022 9:44 EDT [facility] Gross Description A. Received in formalin labelled with proper patient identification (initials B, K) and gallbladder is an intact gallbladder with an attached segment of cystic duct (7.8 x 1.2 x 1.0 cm). A cystic duct lymph node is not present. The serosa is blue wren to alexis smooth. The mucosa is dark green velvety and diffusely studded with slightly raised yellow flecks and the wall is 0.1 cm in thickness. The cystic duct lumen is patent and measures 0.1 cm in diameter. The cystic duct margin is inked blue. No calculi are present. Two termite control representative sections and the en face cystic duct margin are submitted in A1. BRENTON BARCENAS MD 01/05/2022 11:31 01/09/2022 9:44 EDT [facility] Resident/Yevgeniy w: Brenton Barcenas MD 01/09/2022 9:44 EDT [facility] Performing Lab [facility] 01/09/2022 9:44 EDT [facility] Scanned Images 01/09/2022 9:44 EDT [facility] Tissue ENTIRE GALLBLADDER / Unknown 01/04/2022 9:00 EDT 01/04/2022 21:40 EDT us Walt Noland MD PATHOLOGY ORDERABLES F inal Result [facility] [address] [place] [address] documented in this encounter Visit Diagnoses Diagnosis Calculus of bile duct without cholangitis or cholecystitis without obstruction Calculus of bile duct without mention of cholecystitis or obstruction Cholesterolosis of gallbladder documented in this encounter Care Teams Count Team Clerk Relationship Specialty Start Date End Date Unknown, Provider, PCP - General 07/06/11 06/16/23 Dara Durbin, NATIONAL SECRETARY [address] [place] [address] PCP - General Family Medicine - Primary Care 06/17/23 documented as of this encounter
--- OUTSIDE RECORDS SUMMARY | 2024-04-16 16:59 | XMS_ITS | Referral Summary ---
Author Organization [facility] Address [address] [place] [address] Care Team Providers Care Electrical Manufacturing Technician Name Role Phone Dara Durbin PLANT RELIABILITY ENGINEER Primary Care Provider [phone] Allergies No known active allergies Medications levothyroxine [...] on file Sexual Orientation Not on file Last Filed Vital Signs Vital Sign Reading Time Taken Comments Blood Pressure 112/78 06/17/2023 0913 EDT Pulse 80 06/17/2023 0913 EDT Temperature - - Respiratory Rate - - Oxygen Saturation - - Inhaled Oxygen Concentration - - Weight 57.3 kg (126 lb 6.4 oz) 06/17/2023 0913 E DT Height - - Body Mass Index - - Plan of Treatment Not on file Insurance * Guarantor: Yareli Gant Account Type Relation to Patient Date of Phone Billing Address Personal/Family Self [address] [place] [address] [place] * Guarantor: Yareli Gant Account Type Relation to Patient Date of Phone Billing Address Personal/Family Self [address] [place] [id number] * Guarantor: Yareli Gant Account Type Relation to Patient Date of Phone Billing Address Personal/Family Self [address] [place] [address] * Guarantor: Yareli Gant Account Type Relation to Patient Date of Phone Billing Address Personal/Family Self [address] [place] [address] * Guarantor: Yareli Gant Account Type Relation to Patient Date of Phone Billing Address Personal/Family Self [address] [place] [address] * Guarantor: Yareli Gant Account Type Relation to Patient Date of Phone Billing Address Personal/Family Self [address] [place] [address] Care Teams Electrical Manufacturing Technician Relationship Specialty Start Date End Date Dara Durbin, GOSIA [address] [place] [address] PCP - General Family Medicine - Primary Care 06/17/23
--- OUTSIDE RECORDS SUMMARY | 2024-04-16 16:59 | XMS_ITS | Encounter Summary ---
Author Organization [facility] Address [address] [place] [address] Care Team Providers Care Cake Washer Name Role Phone Unknown, Provider Primary Care Provider Unava ilable Encounter Details Date Type Department Care Team (Latest Contact Info) Description 09/01/2013 13:06 EDT - 09/01/2013 23:59 EDT Hospital Encounter [address] [address] Unknown, Provider, Discharge Disposition: Home or Self Care Social History Tobacco Use Types Packs/Day Years Used Date Smoking Tobacco: Never Assessed Comments Unknown Sex and Gender Information Value Date Recorded Sex Assigned at Not on file Legal Sex Female 18:55 EST Gender Identity Not on file Sexual Orientation Not on file documented as of this encounter Discharge Disposition Disposition Code Departure Means Destination Home or Self [facility] documented in this encounter Plan of Treatment Not on file documented as of this encounter Visit Diagnoses Not on filedocumented in this encounter Care Teams Cake Washer Relationship Specialty Start Date End Date Unknown, ProviderMD PCP - General 07/06/11 06/16/23 documented as of this encounter
--- OUTSIDE RECORDS SUMMARY | 2024-04-16 16:59 | XMS_ITS | Continuity of Care Document ---
Author Organization [facility] Address [address] [place] [address] Care Team Providers Care Outdoor Adventure Leader Name Role Phone GISELA LOJA APRN Primary Care Physician [phone] Encounter [facility] NBR [id number] Date(s): 01/09/24 - 01/09/24 [facility] [address] [place], [place] [address] Discharge Disposition: Home Allergies, Adverse Reactions, Alerts No Known Medication Allergies Assessment and Plan Future Appointments Medications !-Ortho Tri-Cyclen oral tablet 1 tab, Oral, Daily, # 84 tab, 4 Refill(s), Pharmacy: [facility], 157, cm, 01/12/22 10:04:00 EDT, Height/Length Dosing, 72, kg, 01/12/22 10:04:00 EDT, Weight Dosing Start Date: 11/09/22 Status: Ordered amoxicillin 875 mg oral tablet 0 Refill(s) Start Date: 12/19/23 Status: Ordered amoxicillin-clavulanate 875 mg-125 mg oral tablet 1 tab, Oral, every 12 hr, # 14 tab, 0 Refill(s), Pharmacy: [facility], 157.48, cm, 09/16/23 15:16:00 [...] Daily, # 28 tab, 12 Refill(s), Pharmacy: [facility], 157.48, cm, 06/17/23 15:06:00 EDT, Height, 57.3, [...] BID, # 10 cap, 0 Refill(s), Pharmacy: [facility], 157, cm, 01/12/22 10:04:00 EDT, Height/Length Dosing, 72, kg, 01/12/22 10:04:00 EDT, Weight Dosing Start Date: 11/21/22 Stop Date: 11/26/22 Status: Ordered norgestimate-ethinyl estradiol triphasic (0.18 mg-0.215 mg-0.250 mg)-25 mcg oral tablet 1 tab, Oral, Daily, # 84 tab, 4 Refill(s), Pharmacy: [facility], 157.48, cm, 06/17/23 15:06:00 [...] documented surgical case 2x3 3x2 4right wrist Social History Social History Type Response Smoking Status Smoking tobacco use: Never tobacco user;Never entered on: 06/17/23 Sex Female Sex Representation Female (finding) Patient Care team information Care Team Personnel Name: GISELA LOJA APRN Position: No Access Member Role: Primary Care Physician Address: [facility] [address] [place] [address]- Care Team Related Persons Name: JOHNNY VU Insurance Providers Guarantor name: KENYETTA VASQUEZ ProBinder Plan Information #: 1 Payer: [place] Member Number: NA Policy Number: NA Health Plan Information #: 2 Payer: [place] Member Number: NA Policy Number: NA
--- OUTSIDE RECORDS SUMMARY | 2024-04-16 17:00 | XMS_ITS | Continuity of Care Document ---
Author Organization [facility] Address [address] [place] [address] Care Team Providers Care Aadc Plans Staff Officer Name Role Phone GISELA LOAJ APRN Primary Care Physician [phone] Encounter [facility] NBR [id number] Date(s): 01/16/24 - 01/16/24 [facility] [address] [place], [place] [address] Encounter Diagnosis Endometriosis of pelvic peritoneum(Discharge Diagnosis) - 01/16/24 Migraine with aura(Discharge Diagnosis) - 01/16/24 Initiation of Depo Provera(Discharge Diagnosis) - 01/16/24 Endometriosis of pelvic peritoneum, unspecified(Final) - Migraine with aura, not intractable, without status migrainosus(Final) - Encounter for initial prescription of injectable contraceptive(Final) - Encounter for test, result negative(Final) - Discharge Disposition: Home or Self Care Attending Physician: Carrington Geiger MD Allergies, Adverse Reactions, Alerts No Known Medication Allergies Assessment and Plan Extracted from: Title:Clinic - Office Visit Note Author:Carrington Geiger MD Date:01/16/24 1.??Endometriosis of pelvic peritoneum??N80.30 2.??Migraine with aura??G43.109 Additional Actions: ORDERED - medroxyPROGESTERone, 150 mg = 1 mL, Intramuscular, every 3 mo, # 1 mL, 4 Refill(s), other reason (Rx) After some discussion she would like to stop the oral contraceptive pill and start Depo-Provera. ??I??put in a prescription for that. ??Her test was negative??and we gave her her first injection today.?? She can come back every 3 months to continue the shot. ??She may need??a bit more often??but hopefully every 12 weeks to work. ??I recommended she continue the combined oral contraceptive pill for 2 more weeks and then she can stop that and see how things are going.?? She will call if she needs??any other testing after starting a new relationship.?? This was a 30 min appt with the entire time spent reviewing her options for continued suppression??as we made our plan to switch over to using Depo-Provera. Future Appointments Medications !-Ortho Tri-Cyclen oral tablet 1 tab, Oral, Daily, # 84 tab, 4 Refill(s), Pharmacy: [facility], 157, cm, 01/12/22 10:04:00 EDT, Height/Length [...] 0 Refill(s) Start Date: 11/09/22 Status: Ordered Depo-Provera Contraceptive 150 mg/mL intramuscular suspension 150 mg = 1 mL, Intramuscular, every 3 mo, # 1 mL, 4 Refill(s), other reason (Rx) Start Date: 01/16/24 Stop Date: 04/10/25 Status: Ordered desogestrel-ethinyl estradiol triphasic oral tablet 1 tab, Oral, Daily, # 28 tab, 12 Refill(s), Pharmacy: [facility], 157.48, cm, 06/17/23 15:06:00 EDT, Height, [...] documented surgical case 2x3 3x2 4right wrist Results Laboratory List Name Date Urine Qual POCT 01/16/24 Most recent to oldest [Reference Range]: 1 U Preg POCT [Negative] Negative (01/16/24 4:23 PM) Vital Signs Most recent to oldest [Reference Range]: 1 Blood Pressure [90-120/60-80 mmHg] 116/6 4mmHg (01/16/24 3:34 PM) Mean Arterial Pressure, Cuff [65-140 mmH g] 81 mmHg (01/16/24 3:34 PM) Weight 58.6 kg (01/16/24 3:34 PM) Weight Measured (lbs) 129.191 lb (01/16/24 3:34 PM) Weight Dosing 58.600 kg (01/16/24 3:34 PM) [place] Body Weight Calculated 50.1 kg (01/16/24 3:34 PM) Height 157.48 cm (01/16/24 3:34 PM) Height/Length Measured (inches) 62 inch (01/16/24 3:34 PM) BSA Measured 1.6 m2 (01/16/24 3:34 PM) Body Mass Index 23.63 kg/m2 (01/16/24 3:34 PM) Social History Social History Type Response Smoking Status Smoking tobacco use: Never tobacco user;Never entered on: 06/17/23 Sex Female Sex Representation Female (finding) Physician Outpatient Note * Carrington Geiger MD: PERFORM Event Display: Office Clinic Note Physician Authored Date: [id number] ELDER VASQUEZCuco Nor[place] :1995 Age:28 years Sex:Female Visit Date:01/16/2024 Primary Care Physician: GISELA LOJA APRN Chief Complaint INTERACTIVE PROJECT MANAGER established: Follow-up pelvic pain History of Present Illness The patient presents in follow-up well-known to me.?? I saw her last in August.?? She has been on an oral contraceptive pill for suppression and when I saw her in August it was working well.?Unfortunately she has started noticingincreasing discomfort with her cycles.?She??started having pain 2 weeks before the last cycle and??it increased to a relatively severe level but at time her menses started. ??She continues to have some residual pain. ??She broke up with her boyfriend. ??She does not have a new partner. ??She is not interested in??sexually transmitted infection related testing as shedoes not feel she has had any exposures that she is concerned about. ?? Pap 02/09/2022 neg/neg Ct-Ng ?05/15/2019 neg/neg Ct-Ng/ pos trich?10/2016 neg pap ?2019 positive chlamydia?? Physical Exam Vitals & Measurements BP:??116/64?? HT:??157.48??cm?? WT:??58.6??kg?? BMI:??23.63?? Pain Score:??6?? BSA:??1.6?? Clinic Assessment/Plan 1.??Endometriosis of pelvic peritoneum??N80.30 2.??Migraine with aura??G43.109 Additional Actions: ORDERED - medroxyPROGESTERone, 150 mg = 1 mL, Intramuscular, every 3 mo, # 1 mL, 4 Refill(s), otherreason (Rx) After some discussion she would like to stop the oral contraceptive pill and start Depo-Provera. ??I??put in a prescription for that. ??Her test was negative??and we gave her her first injection today.?? She can come back every 3 months to continue the shot. ??She may need??a bit more often??but hopefully every 12 weeks to work. ??I recommended she continue the combined oral contraceptive pill for 2 more weeks and then she can stop that and see how things are going.?? She will call ifshe needs??any other testing after starting a new relationship.?? This was a 30 min appt with the entire time spent reviewing her options for continued suppression??as we made our plan to switch overto using Depo-Provera. Problem List/Past Medical History Ongoing Acquired hypothyroidism [...] - Esophagogastroduodenoscopy???Laparoscopic left salpingo-oophorectomy???Release of tendon Medications What How Much When Why Instructions New medroxyPROGESTERone (Depo-Provera Contraceptive 150 mg/ mL intramuscular suspension) 1 Milliliters Intramuscular (in a muscle) Every 3 months Duration: 90 Days Refills: 4 Unchanged acetaminophen (Tylenol Extra Strength 500 mg oral tablet) 4 times a day 1 Unknown ?? Unchanged amoxicillin (amoxicillin 875 mg oral tablet) Unchanged amoxicillin-clavulanate (amoxicillin-clavulanate 875 mg-125 mg oral tablet) 1 tab Oral (given by mouth) Every 12 hours Right otitis media Duration: 7 Days Unchanged colestipol (colestipol 1 g oral tablet) [...] tab Oral (given by mouth) Every day Allergies No Known Medication Allergies Social History Alcohol Never Electronic Cigarette/Vaping Electronic Cigarette Use: Never. Employment/School Unemployed, Highest education level: High school. Home/Environment Lives with Children. Living situation: Home/Independent. Sexual Sexually active: Yes. Substance Use Never Tobacco Never tobacco user Tobacco Use:. Never Smokeless Tobacco use:. Family History Alive and well: Mother, Son and Son. Asthma: Son. Heart attack: Father. Hypothyroidism: Father. Electronically Signed on 01/16/2024 16:05 EDT Carrington Geiger MD Patient Care team information Care Team Personnel Name: GISELA LOJA APRN Position: No Access Member Role: Primary Care Physician Address: [address] Care Team Related Persons Name: JOHNNY VU Insurance Providers Guarantor name: KENYETTA VASQUEZ Health Plan Information #: 1 Payer: [place] Member Number: [id number] Policy Number: [place] Health Plan Information #: 2 Payer: [place] Member Number: [id number] Policy Number: [place]UE Health Plan Information #: 3 Payer: [place] Member Number: [id number] Policy Number: [id number]
--- OUTSIDE RECORDS SUMMARY | 2024-04-16 17:00 | XMS_ITS | Continuity of Care Document ---
Author Organization [facility] Address [address] [place] [address] Care Team Providers Care Commercial Drone Pilot Name Role Phone GISELA LOJA APRN Primary Care Physician [phone] Encounter [facility] NBR [id number] Date(s): 03/27/24 - 03/27/[address] [facility] [address] [place] [address]- [place] Discharge Disposition: Home Encounter Type: Between Visit Allergies, Adverse Reactions, Alerts No Known Medication Allergies Assessment and Plan Future Appointments Problem List Condition Confirmation Course Effective Dates [...] Access Member Role: Primary Care Physician Address: [address] Telecom: Care Team Related Persons Name: JOHNNY VU Insurance Providers Guarantor name: KENYETTA VASQUEZ Simple Admit Plan Information #: 1 Payer: MEDICAID [place] Member Number: NA Policy Number: NA Group Number: NA
--- OUTSIDE RECORDS SUMMARY | 2024-04-16 17:00 | XMS_ITS | Continuity of Care Document ---
Author Organization [facility] Ambulatory Clinics Address [address] [place] [address] Care Team Providers Care Epic Application Coordinator Name Role Phone GISELA LOJA APRN Primary Care Physician [phone] Encounter [facility] NBR [id number] Date(s): 09/16/23 - 09/16/23 [facility] Ambulatory Clinics [address] [place], [place] [address] Encounter Diagnosis Dysmenorrhea(Discharge Diagnosis) - 09/16/23 Endometriosis of pelvic peritoneum(Discharge Diagnosis) - 09/16/23 Oral contraceptive pill surveillance(Discharge Diagnosis) - 09/16/23 Dysmenorrhea, unspecified(Final) - Endometriosis of pelvic peritoneum, unspecified(Final) - Encounter for surveillance of contraceptive pills(Final) - Discharge Disposition: Home or Self Care Attending Physician: Carrington Geiger MD Allergies, Adverse Reactions, Alerts No Known Medication Allergies Assessment and Plan Extracted from: Title:Clinic - Office Visit Note Author:Carrington Geiger MD Date:09/16/23 1.??Dysmenorrhea??N94.6 2.??Endometriosis of pelvic peritoneum??N80.30 3.??Oral contraceptive pill surveillance??Z30.41 This pill works better than her last pill??and for now??she would like to leave things where they are.?? She is only in her second pill pack??and hopefully we will see some continued improvement.?? I made a plan for her to come back for a Pap visit??with cultures in 1 year.?? I can see her sooner if the control pill??is not working well for her. Future Appointments Medications !-Ortho Tri-Cyclen oral tablet 1 tab, Oral, Daily, # 84 tab, 4 Refill(s), Pharmacy: [facility], 157, cm, 01/12/22 10:04:00 EDT, Height/Length [...] Daily, # 28 tab, 12 Refill(s), Pharmacy: [facility], 157.48, cm, 06/17/23 15:06:00 EDT, Height, [...] BID, # 10 cap, 0 Refill(s), Pharmacy: [facility], 157, cm, 01/12/22 10:04:00 EDT, Height/Length Dosing, 72, kg, 01/12/22 10:04:00 EDT, Weight Dosing Start Date: 11/21/22 Stop Date: 11/26/22 Status: Ordered norgestimate-ethinyl estradiol triphasic (0.18 mg-0.215 mg-0.250 mg)-25 mcg oral tablet 1 tab, Oral, Daily, # 84 tab, 4 Refill(s), Pharmacy: [facility], 157.48, cm, 06/17/23 15:06:00 EDT, Height, [...] [Reference Range]: 1 Blood Pressure [90-140/60-90 mmHg] 108/6 4mmHg (09/16/23 3:16 PM) Mean Arterial Pressure, Cuff [65-140 mmH g] 79 mmHg (09/16/23 3:16 PM) Weight 57.3 kg (09/16/23 3:16 PM) Weight Measured (lbs) 126.325 lb (09/16/23 3:16 PM) Weight Dosing 57.300 kg (09/16/23 3:16 PM) [place] Body Weight Calculated 50.1 kg (09/16/23 3:16 PM) Height 157.48 cm (09/16/23 3:16 PM) Height/Length Measured (inches) 62 inch (09/16/23 3:16 PM) BSA Measured 1.58 m2 (09/16/23 3:16 PM) Body Mass Index 23.1 kg/m2 (09/16/23 3:16 PM) Social History Social History Type Response Smoking Status Smoking tobacco use: Never tobacco user;Never entered on: 06/17/23 Sex Female Physician Outpatient Note * Carrington Geiger MD: PERFORM Event Display: Office Clinic Note Physician Authored Date: [id number] KENYETTA VASQUEZ :1995 Age:28 years Sex:Female Visit Date:09/16/2023 Primary Care Physician: GISELA LOJA APRN Chief Complaint IP 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 Period started 09/05 which was a week earlier than expected. ??Flow just stopped this morning ?? History of Present Illness The patient presents in follow-up to review how things are going on a new combined oral contraceptive pill.?? We switched to a desogestrel???ethinyl estradiol triphasic pill August 20.?? Prior to that she was on a norgestimate???ethinyl estradiol pill since June 16.?? She has had longstanding struggles with menstrual control and pelvic pain and is status post laparoscopic ablation of pelvic endometriosis lesions as well as left salpingo- oophorectomy.?? She has been on GnRH agonists as well as Depo-Provera in the past. ?? The new pillhas been better than her last. ??Her mood is slightly improved.?? She notes a headache when she comes off of the pill,??in??the placebo pill??portion of the pill pack.?This last month??the bleeding occurred??slightly early. ?? She is in a relationship??that seems stable over the past year.??He is 37,??owns a [employer], and??does [employer] on the side.??He does not have children??though he would be interested in having children in the future at some point.She is??happy in the relationship and tends to drive over tosee him??where he lives in [place]. ?? Pap 02/09/2022 neg/neg Ct-Ng ?05/15/2019 neg/neg Ct-Ng/ pos trich?10/2016 neg pap ?2019 positive chlamydia?? Physical Exam Vitals & Measurements BP:??108/64?? HT:??157.48??cm?? WT:??57.3??kg?? BMI:??23.1?? BSA:??1.58?? Clinic Assessment/Plan 1.??Dysmenorrhea??N94.6 2.??Endometriosis of pelvic peritoneum??N80.30 3.??Oral contraceptive pill surveillance??Z30.41 This pill works better than her last pill??and for now??she would like to leave things where they are.?? She is only in her second pill pack??and hopefully we will see some continued improvement.?? Imade a plan for her to come back for a Pap visit??with cultures in 1 year.?? I can see her sooner if the control pill??is not working well for her. Problem List/Past Medical History Ongoing Acquired hypothyroidism [...] Medications What How Much When Why Instructions Unchanged acetaminophen (Tylenol Extra Strength 500 mg oral tablet) 4 times a day 1 Unknown ?? Unchanged colestipol (colestipol 1 g oral tablet) 1 tab Oral (given by mouth) 3 times a day with a full glass of water, taken w/ meals ?? Unchanged desogestrel-ethinyl estradiol (desogestrel-ethinyl estradiol triphasic oral tablet) 1 tab Oral (given by mouth) Every day Duration: 28 Days Unchanged lamoTRIgine (lamoTRIgine 100 mg oral tablet) [...] Cigarette Use: Never. Employment/School Employed, Work/School description: [employer]. Highest education level: Highschool. Home/Environment Lives with Children. Living situation: Home/Independent. Sexual Sexually active: Yes. Substance Use Never Tobacco Never tobacco user Tobacco Use:. Never Smokeless Tobacco use:. Family History Alive and well: Mother, Son and Son. Asthma: Son. Heart attack: Father. Hypothyroidism: Father. Electronically Signed on 09/16/2023 15:47 EDT Carrington Geiger MD Patient Care team information Care Team Personnel Name: GISELA LOJA APRN Position: No Access Member Role: Primary Care Physician Address: Address: [address] [address]- [place] Care Team Related Persons Name: JOHNNY VU Address: Home
--- OUTSIDE RECORDS SUMMARY | 2024-04-16 17:00 | XMS_ITS | Continuity of Care Document ---
Author Organization [facility] Ambulatory Clinics Address [address] [place] [address] Care Team Providers Care Foreman Or Supervisor And Operator Name Role Phone GISELA LOJA APRN Primary Care Physician [phone] Encounter [facility] NBR [id number] Date(s): 02/12/24 - 02/12/24 [facility] Ambulatory Clinics [address] [place], [place] [address] Discharge Disposition: Home or Self Care Attending Physician: Amy Mcmullen APRN Allergies, Adverse Reactions, Alerts No Known Medication Allergies Assessment and Plan Future Appointments Medications !-Ortho Tri-Cyclen oral tablet 1 tab, Oral, Daily, # 84 tab, 4 Refill(s), Pharmacy: [facility], 157, cm, 01/12/22 10:04:00 EDT, Height/Length Dosing, 72, kg, 01/12/22 10:04:00 EDT, Weight Dosing Start Date: 11/09/22 Status: Ordered amoxicillin 875 mg oral tablet 0 Refill(s) Start Date: 12/19/23 Status: Ordered amoxicillin-clavulanate 875 mg-125 mg oral tablet 1 tab, Oral, every 12 hr, # 14 tab, 0 Refill(s), Pharmacy: [facility], 157.48, cm, 09/16/23 15:16:00 EDT, [...] Daily, # 28 tab, 12 Refill(s), Pharmacy: [facility], 157.48, cm, 06/17/23 15:06:00 EDT, Height, 57.3, kg, 06/17/23 15:14:00 EDT, Weight Dosing Start Date: 08/21/23 Stop Date: 08/19/24 Status: Ordered fluconazole 200 mg oral tablet See Instructions, 1 tab today and repeat in 4 days, # 2 tab, 3 Refill(s), Pharmacy: [facility] #[facility], 157.48, cm, 02/12/24 10:37:00 EST, Height, 61.3, kg, 02/12/24 10:43:00 EST, Weight Dosing Start Date: 02/12/24 Status: Ordered lamoTRIgine 100 mg oral tablet [...] BID, # 10 cap, 0 Refill(s), Pharmacy: [facility], 157, cm, 01/12/22 10:04:00 EDT, Height/Length Dosing, 72, kg, 01/12/22 10:04:00 EDT, Weight Dosing Start Date: 11/21/22 Stop Date: 11/26/22 Status: Ordered norgestimate-ethinyl estradiol triphasic (0.18 mg-0.215 mg-0.250 mg)-25 mcg oral tablet 1 tab, Oral, Daily, # 84 tab, 4 Refill(s), Pharmacy: [facility], 157.48, cm, 06/17/23 15:06:00 EDT, [...] [Reference Range]: 1 Blood Pressure [90-120/60-80 mmHg] 112/7 0mmHg (02/12/24 10:37 AM) Mean Arterial Pressure, Cuff [65-140 mmH g] 84 mmHg (02/12/24 10:37 AM) Weight 61.3 kg (02/12/24 10:37 AM) Weight Measured (lbs) 135.143 lb (02/12/24 10:37 AM) Weight Dosing 61.300 kg (02/12/24 10:37 AM) [place] Body Weight Calculated 50.1 kg (02/12/24 10:37 AM) Height 157.48 cm (02/12/24 10:37 AM) Height/Length Measured (inches) 62 inch (02/12/24 10:37 AM) BSA Measured 1.64 m2 (02/12/24 10:37 AM) Body Mass Index 24.72 kg/m2 (02/12/24 10:37 AM) Social History Social History Type Response Smoking Status Smoking tobacco use: Never tobacco user;Never entered on: 06/17/23 Sex Female Sex Representation Female (finding) Patient Care team information Care Team Personnel Name: GISELA LOJA APRN Position: No Access Member Role: Primary Care Physician Address: [address] Care Team Related Persons Name: JOHNNY VU Insurance Providers Guarantor name: KENYETTA VASQUEZ Health Plan Information #: 1 Payer: [place] Member Number: [id number] Policy Number: NA Health Plan Information #: 2 Payer: [place] Member Number: [id number] Policy Number: NA Health Plan Information #: 3 Payer: [place] Member Number: [id number] Policy Number: NA
--- OUTSIDE RECORDS SUMMARY | 2024-04-16 17:00 | XMS_ITS | Continuity of Care Document ---
Author Organization [facility] Ambulatory Clinics Address [address] [place] [address] Care Team Providers Care Dope Dry House Operator Name Role Phone GISELA LOJA APRN Primary Care Physician Encounter [facility] NBR [id number] Date(s): 03/23/24 - 03/23/24 [facility] Ambulatory Clinics [address] [place] [address] [place] Encounter Diagnosis Dysmenorrhea(Discharge Diagnosis) - 03/23/24 Endometriosis of pelvic peritoneum(Discharge Diagnosis) - 03/23/24 Postcoital bleeding(Discharge Diagnosis) - 03/23/24 Dysmenorrhea, unspecified(Final) - Endometriosis of pelvic peritoneum, unspecified(Final) - Postcoital and contact bleeding(Final) - Discharge Disposition: Home or Self Care Attending Physician: Carrington Geiger MD Encounter Type: Clinic Allergies, Adverse Reactions, Alerts No Known Medication Allergies Assessment and Plan Extracted from: Title:Clinic - Office Visit Note Author:Carrington Geiger MD Date:03/23/24 1.??Dysmenorrhea??N94.6 2.??Endometriosis of pelvic peritoneum??N80.30 3.??Postcoital bleeding??N93.0 Additional Actions: ORDERED - progesterone, 400 mg =, Oral, every night at bedtime, # 60 cap, 1 Refill(s), Pharmacy: [facility], 157.48, cm, 03/23/24 14:00:00 EST, Height, 63.4, kg, 03/23/24 14:09:00 EST, Weight Dosing It is a bit early for the Depo-Provera??to have fully suppressed??the endometriosis??and endometrial??function.?? I recommended she try her best to get into the second dose and see how things go.?To assist??the Depo-Provera??and suppressing the lining more quickly, I recommended??the addition of??micronized progesterone at night for the next month. ??She then will be back in a couple weeks to have her second Depo shot and??we will take the??micronized progesterone for another 2 weeks??after that. ??From there??she should be able to stop the medication and we will reconvene 2 weeks following that to see how things are going.?? Hopefully she will see improved overall suppression??and some of these complaints??will have resolved??as the Depo-Provera has had more time to take effect.?? If not we may need to move in a different direction. ?? This was a??25-minute appointment with??the entire time spent reviewing how things are going and making a plan to suppress the pelvis more??effectively with the addition of micronized progesterone ?? Future Appointments Problem List Condition Confirmation Course [...] [Reference Range]: 1 Blood Pressure [90-120/60-80 mmHg] 114/6 4mmHg (03/23/24 2:00 PM) Mean Arterial Pressure, Cuff [65-140 mmH g] 81 mmHg (03/23/24 2:00 PM) Weight 63.4 kg (03/23/24 2:00 PM) Weight Measured (lbs) 139.773 lb (03/23/24 2:00 PM) Weight Dosing 63.400 kg (03/23/24 2:00 PM) [place] Body Weight Calculated 50.1 kg (03/23/24 2:00 PM) Height 157.48 cm (03/23/24 2:00 PM) Height/Length Measured (inches) 62 inch (03/23/24 2:00 PM) BSA Measured 1.67 m2 (03/23/24 2:00 PM) Body Mass Index 25.56 kg/m2 (03/23/24 2:00 PM) Social History Social History Type Response Smoking Status Smoking tobacco use: Never tobacco user;Never entered on: 06/17/23 Sex Female Sex Representation Female (finding) Physician Outpatient Note * Carrington Geiger MD: PERFORM Event Display: Office Clinic Note Physician Authored Date: [id number] KENYETTA VASQUEZ :1995 Age:28 years Sex:Female Visit Date:03/23/2024 Primary Care Physician: GISELA LOJA APRN Chief Complaint RN TRAVEL acute: Pelvic pain and pain after intercourse History of Present Illness The patient presents in follow-up well-known to me??with struggles surrounding pelvic pain and postcoital bleeding.?? She has a longstanding history of endometriosis and recently started a suppressive plan with Depo-Provera in December.?? She has been having??sex with her partner and noting??spotting occasionally??but at other times heavier bleeding postcoitally.?? The pain is still present as well. ??Most notable during intercourse in certain positions. ??She can feel it at other times when notsexually active.?? No bladder issues. ??No bowel issues. ?? Pap 02/09/2022 neg/neg Ct-Ng ?05/15/2019 neg/neg Ct-Ng/ pos trich?10/2016 neg pap ?2019 positive chlamydia? Received Depo Provera 01/16/2024 Physical Exam Vitals & Measurements BP:??114/64?? HT:??157.48??cm?? WT:??63.4??kg?? BMI:??25.56?? Pain Score:??6?? BSA:??1.67?? Clinic Assessment/Plan 1.??Dysmenorrhea??N94.6 2.??Endometriosis of pelvic peritoneum??N80.30 3.??Postcoital bleeding??N93.0 Additional Actions: ORDERED - progesterone, 400 mg =, Oral, every night at bedtime, # 60 cap, 1 Refill(s), Pharmacy: [facility], 157.48, cm, 03/23/24 14:00:00 EST, Height, 63.4, kg, 03/23/24 14:09:00 EST, Weight Dosing It is a bit early for the Depo-Provera??to have fully suppressed??the endometriosis??and endometrial??function.?? I recommended she try her best to get into the second dose and see how things go.?To assist??the Depo- Provera??and suppressing the lining more quickly, I recommended??the addition of??micronized progesterone at night for the next month. ??She then will be back in a couple weeks to have her second Depo shot and??we will take the??micronized progesterone for another 2 weeks??after that. ??From there??she should be able to stop the medication and we will reconvene 2 weeks following that to see how things are going.?? Hopefully she will see improved overall suppression??and some of these complaints??will have resolved??as the Depo-Provera has had more time to take effect.?? If not we may need to move in a different direction. ?? This was a??25-minute appointment with??the entire time spent reviewing how things are going andmaking a plan to suppress the pelvis more??effectively with the addition of micronized progesterone Problem List/Past Medical History Ongoing Acquired hypothyroidism [...] What How Much When Why Instructions New progesterone (progesterone 200 mg oral capsule) 400 Milligrams Oral (given by mouth) Every night at bedtime Duration: 30 Days Refills: 1 Pickup at [facility] Unchanged acetaminophen (Tylenol Extra Strength 500 mg [...] Unchanged desogestrel-ethinyl estradiol (Velivet oral tablet) Unchanged fluconazole (fluconazole 200 mg oral tablet) See instructions 1 tab today and repeat in 4 days ?? Unchanged lamoTRIgine (lamoTRIgine 100 mg oral tablet) See instructions 1/ 2 tablet orally once daily ?? Unchanged lamoTRIgine (lamoTRIgine 25 mg oral tablet) 1 tab Oral (given by mouth) Every day Unchanged levothyroxine (levothyroxine 100 mcg (0.1 mg) oral tablet) 1 tab Oral (given by mouth) Every day Unchanged levothyroxine (levothyroxine 88 mcg (0.088 mg) oral tablet) 1 tab Oral (given by mouth) Every day Unchanged lithium (lithium 300 mg oral tablet, extended release) 1 tab Oral (given by mouth) Every day Unchanged medroxyPROGESTERone (Depo-Provera Contraceptive 150 mg/ mL intramuscular suspension) 1 Milliliters Intramuscular (in a muscle) Every 3 months Duration: 90 Days Unchanged nitrofurantoin (Macrobid 100 mg oral capsule) [...] (given by mouth) Every day Pharmacy Information [facility]: [address] [place], [place] [id number] [phone] Allergies No Known Medication Allergies Social History Alcohol Never Electronic Cigarette/Vaping Electronic Cigarette Use: Never. Employment/School Employed, Work/School description: [employer]. Highest education level: High school. Home/Environment Lives with Children. Living situation: Home/Independent. Sexual Sexually active: Yes. Substance Use Never Tobacco Never tobacco user Tobacco Use:. Never Smokeless Tobacco use:. Family History Alive and well: Mother, Son and Son. Asthma: Son. Heart attack: Father. Hypothyroidism: Father. Electronically Signed on 03/23/2024 15:56 EST Carrington Geiger MD Patient Care team information Care Team Personnel Name: GISELA LOJA APRN Position: No Access Member Role: Primary Care Physician Address: [facility] [address] [facility], [place] [address] Telecom: Care Team Related Persons Name: JOHNNY VU Insurance Providers Guarantor name: KENYETTA VASQUEZ [employer] Plan Information #: 2 Payer: SELF PAY Member Number: NA Policy Number: NA Group Number: Health Plan Information #: 3 Payer: [place] Member Number: NA Policy Number: NA Group Number: NA Health Plan Information #: 4 Payer: [place] Member Number: NA Policy Number: NA Group Number: NA
--- OUTSIDE RECORDS SUMMARY | 2024-04-16 17:00 | XMS_ITS | Continuity of Care Document ---
Author Organization [facility] Ambulatory Clinics Address [address] [place] [address] Care Team Providers Care Business Area Director Name Role Phone GISELA LOJA APRN Primary Care Physician Encounter [facility] NBR [id number] Date(s): 06/17/23 - 06/17/23 [facility] Ambulatory Clinics [address], [place] [address] Encounter Diagnosis Oral contraceptive use(Discharge Diagnosis) - 06/17/23 Orthostasis(Discharge Diagnosis) - 06/17/23 Discharge Disposition: Home or Self Care Attending Physician: Carrington Geiger MD Allergies, Adverse Reactions, Alerts No Known Medication Allergies Assessment and Plan Extracted from: Title:Clinic - Office Visit Note Author:Carrington Geiger MD Date:06/17/23 1.??Oral contraceptive use?? Z30.41 ??Overall the patient is doing well with this particular pill but is struggling with the third week. ??I recommended we trial a different??dosing regimen and??sent through a prescription for Ortho Tri-Cyclen Lo. ??Hopefully that will work better for her??over the long-term.?? We will follow-up in 3 months to see if she sees some improvement.?? This was a??20-minute appointment with??the majority of this time spent reviewing how things are going with this current pill, reviewing??pill??options and then deciding to reduce her dosing.?? We also spent some time reviewing??her desire to have another child and some relationship issues. 2.??Orthostasis??I95.1 Additional Actions: ORDERED - norgestimate-ethinyl estradiol, 1 tab, Oral, Daily, # 84 tab, 4 Refill(s), Pharmacy: [facility], 157.48, cm, 06/17/23 15:06:00 EDT, Height, 57.3, kg, 06/17/23 15:14:00 EDT, Weight Dosing Future Appointments Medications !-Ortho Tri-Cyclen oral tablet 1 tab, Oral, Daily, # 84 tab, 4 Refill(s), Pharmacy: [facility], 157, cm, 01/12/22 10:04:00 EDT, Height/Length [...] BID, # 10 cap, 0 Refill(s), Pharmacy: [facility], 157, cm, 01/12/22 10:04:00 EDT, Height/Length Dosing, 72, kg, 01/12/22 10:04:00 EDT, Weight Dosing Start Date: 11/21/22 Stop Date: 11/26/22 Status: Ordered norgestimate-ethinyl estradiol triphasic (0.18 mg-0.215 mg-0.250 mg)-25 mcg oral tablet 1 tab, Oral, Daily, # 84 tab, 4 Refill(s), Pharmacy: [facility], 157.48, cm, 06/17/23 15:06:00 EDT, [...] Range]: 1 Blood Pressure [90-140/60-90 mmHg] 104/6 2mmHg (06/17/23 3:06 PM) Mean Arterial Pressure, Cuff [65-140 mmH g] 76 mmHg (06/17/23 3:06 PM) Weight 57.3 kg (06/17/23 3:06 PM) Weight Measured (lbs) 126.325 lb (06/17/23 3:06 PM) Weight Dosing 57.300 kg (06/17/23 3:06 PM) [place] Body Weight Calculated 50.1 kg (06/17/23 3:06 PM) Height 157.48 cm (06/17/23 3:06 PM) Height/Length Measured (inches) 62 inch (06/17/23 3:06 PM) BSA Measured 1.58 m2 (06/17/23 3:06 PM) Body Mass Index 23.1 kg/m2 (06/17/23 3:06 PM) Social History Social History Type Response Smoking Status Smoking tobacco use: Never tobacco user;Never entered on: 06/17/23 Sex Female Physician Outpatient Note * Carrington Geiger MD: PERFORM Event Display: Office Clinic Note Physician Authored Date: [id number] KENYETTA VASQUEZ :1995 Age:28 years Sex:Female Visit Date:06/17/2023 Primary Care Physician: GISELA LOJA APRN 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 Pcp concerned because the week before her periods she feels weak and ??heart races. History of Present Illness The patient presents in distant follow-up well-known to our practice.?? She has had longstanding struggles with menstrual control as well as pelvic pain.?? Most recently she has used the control pill continuously.?? She has also used Depo as well as other GnRH agonists.?? She has had laparoscopies for endometriosis and is status post removal of the left tube and ovary. ?? The patient states that??she is??feeling well during the first 2 weeks of her pill pack. ??During the third week she notes orthostasis, the feeling of being weak, and??actually passed out once leading to??a concussion.?? She then gets her menses during the sugar pills and does well. ??She otherwisetolerates this pill well. ??The pain is minimal??for her endometriosis. ??She does have??a stable relationship??though it is a long distance and she only sees him every other weekend. ?? Pap 02/09/2022 neg/neg Ct-Ng ?05/15/2019 neg/neg Ct-Ng/ pos trich?10/2016 neg pap ?2019 positive chlamydia?? Physical Exam Vitals & Measurements BP:??104/62?? HT:??157.48??cm?? WT:??57.3??kg?? BMI:??23.1?? BSA:??1.58?? Clinic Assessment/Plan 1.??Oral contraceptive use??Z30.41 ??Overall the patient is doing well with this particular pill but is struggling with the third week. ??I recommended we trial a different??dosing regimen and??sent through a prescription for Ortho Tri-Cyclen Lo. ??Hopefully that will work better for her??over the long-term.?? We will follow-up in 3months to see if she sees some improvement.?? This was a??20-minute appointment with??the majority of this time spent reviewing how things are going with this current pill, reviewing??pill??options and then deciding to reduce her dosing.?? We also spent some time reviewing??her desire to have another child and some relationship issues. 2.??Orthostasis??I95.1 Additional Actions: ORDERED - norgestimate-ethinyl estradiol, 1 tab, Oral, Daily, # 84 tab, 4 Refill(s), Pharmacy: [facility], 157.48, cm, 06/17/23 15:06:00 EDT, Height, 57.3, kg, 06/17/23 15:14:00 EDT, Weight Dosing Problem List/Past Medical History Ongoing Acquired hypothyroidism [...] Medications What How Much When Why Instructions Changed norgestimate-ethinyl estradiol (!- Ortho Tri-Cyclen oraltablet) 1 tab Oral (given by mouth) Every day BCP ( control pills) initiation Acne Encounter for Papanicolaou smear for cervical cancer screening Encounter for special screening examination for infection with predominantly sexual mode of transmission Changed norgestimate-ethinyl estradiol (norgestimate-ethinyl estradiol triphasic (0.18 mg-0.215 mg-0.250 mg)-25 mcg oral tablet) 1 tab Oral (given by mouth) Every day Duration: 84 Days Pickup at [facility] Unchanged acetaminophen (Tylenol Extra Strength 500 mg oral tablet) 4 times a day 1 Unknown ?? Unchanged colestipol (colestipol 1 g oral tablet) 1 tab Oral (given by mouth) 3 times a day with a full glass of water, taken w/ meals ?? Unchanged lamoTRIgine (lamoTRIgine 100 mg oral [...] times a day Duration: 5 Days Unchanged omeprazole (omeprazole 40 mg oral delayed release capsule) 1 Capsules Oral (given by mouth) Every day Unchanged QUEtiapine (QUEtiapine 100 mg oral tablet) 1 tab Oral (given by mouth) Every day Pharmacy Information [facility]: [address], [place] [id number] [phone] Allergies No Known Medication Allergies Social History Alcohol Never Electronic Cigarette/Vaping Electronic Cigarette Use: Never. Employment/School Employed, Work/School description: [employer]. Highest education level: Highschool. Home/Environment Lives with Children. Living situation: Home/Independent. Sexual Sexually active: Yes. Substance Use Never Tobacco Never tobacco user Tobacco Use:. Never Smokeless Tobacco use:. Family History Alive and well: Mother, Son and Son. Asthma: Son. Heart attack: Father. Hypothyroidism: Father. Electronically Signed on 06/17/23 07:30 PM Carrington Geiger MD Patient Care team information Care Team Personnel Name: GISELA LOJA APRN Position: No Access Member Role: Primary Care Physician Address: Address: [address] [place] [place] [address]- Care Team Related Persons Name: JOHNNY VU Address: Home
--- OUTSIDE RECORDS SUMMARY | 2024-04-16 17:00 | XMS_ITS | Continuity of Care Document ---
Author Organization [facility] Ambulatory Clinics Address [address] [place] [address] Care Team Providers Care Occupational Therapy Program Director Name Role Phone GISELA LOJA APRN Primary Care Physician Encounter [facility] NBR [id number] Date(s): 08/21/23 - 08/21/23 [facility] Ambulatory Clinics [address] [place], [place] [address] Discharge Disposition: Home Allergies, Adverse Reactions, Alerts No Known Medication Allergies Assessment and Plan Future Appointments Medications !-Ortho Tri-Cyclen oral tablet 1 tab, Oral, Daily, # 84 tab, 4 Refill(s), Pharmacy: [facility], 157, cm, 01/12/22 10:04:00 EDT, Height/Length [...] Daily, # 28 tab, 12 Refill(s), Pharmacy: [facility], 157.48, cm, 06/17/23 15:06:00 EDT, Height, [...] BID, # 10 cap, 0 Refill(s), Pharmacy: [facility], 157, cm, 01/12/22 10:04:00 EDT, Height/Length Dosing, 72, kg, 01/12/22 10:04:00 EDT, Weight Dosing Start Date: 11/21/22 Stop Date: 11/26/22 Status: Ordered norgestimate-ethinyl estradiol triphasic (0.18 mg-0.215 mg-0.250 mg)-25 mcg oral tablet 1 tab, Oral, Daily, # 84 tab, 4 Refill(s), Pharmacy: [facility], 157.48, cm, 06/17/23 [...] tobacco user;Never entered on: 06/17/23 Sex Female Patient Care team information Care Team Personnel Name: GISELA LOJA APRN Position: No Access Member Role: Primary Care Physician Address: Address: [id number] [place] [address] Care Team Related Persons Name: JOHNNY VU Address: Home
[2024-04-16 19:21] LABS: TSH (W/Ref FT4) 6.07 uIU/mL (0.36-3.74)
[2024-04-16 19:42] LABS: FREE T4 0.85 ng/dL (0.76-1.46)
== END 2024-04-16 16:58 | disposition home or self-care (01) ==
LOC: NCHCN 16:57
PROVIDERS: PCP Nurse Practitioner Family; Visit Provider Nurse Practitioner Family
DX: E03.9 Hypothyroidism, unspecified (principal)
CPT/HCPCS: 84439; 84443

== ENCOUNTER 2024-06-10 10:41 | Outpatient (REF) | payer MEDICAID, SELFPAY ==
[2024-06-10 15:50] LABS: TSH (W/Ref FT4) 3.74 uIU/mL (0.36-3.74)
== END 2024-06-10 10:42 | disposition home or self-care (01) ==
LOC: NCHCN 10:41
PROVIDERS: PCP Nurse Practitioner Family; Visit Provider Nurse Practitioner Family
DX: E03.9 Hypothyroidism, unspecified (principal)
CPT/HCPCS: 84443

== ENCOUNTER 2024-11-23 21:26 | Emergency (ER) | payer MEDICAID, SELFPAY ==
[2024-11-23 21:30] VITALS: BP 112/75; PULSE 83; RESP 18; TEMP 36.8; O2SAT 100
--- NOTE | 2024-11-23 21:30 | DI.RAD_ITS ---
Exam(s) XR RIBS LT PA CHEST 3V CLINICAL HISTORY L rib pain after having back cracked. COMPARISON: CR,XR XR RIBS LT W PA LAT CHEST from 01/16/2020 TECHNIQUE:: PA and lateral views of the chest and four views of the left ribs were performed. FINDINGS: LUNGS: Clear. No pleural abnormality seen. HEART: Normal. MEDIASTINUM: Normal. BONES: No displaced rib fracture is seen. No compression fractures are seen in the thoracic spine. No bony destructive lesion is seen. OTHER FINDINGS: None. IMPRESSION: 1. Unremarkable radiographic appearance of the left ribs. 2. No acute pulmonary findings.
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
[2024-11-23] MEDS: Lidocaine 5% Patch 1 PATCH TP (21:47)
[2024-11-23] MEDS: Cyclobenzaprine 10 MG TAB PO (21:47)
[2024-11-23] MEDS: Acetaminophen 500 MG TAB 1000 MG PO (21:47)
[2024-11-23] MEDS: Ketorolac 30 MG/ML VIAL IM (21:48)
[2024-11-23] MEDS: Cyclobenzaprine 10 MG TAB, 3 TABS/BTL PO (22:36)
[2024-11-23 22:41] VITALS: PULSE 76; RESP 18; TEMP 36.7; O2SAT 98
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
== END 2024-11-23 22:42 | disposition home or self-care (01) ==
PROVIDERS: Emergency Provider Physician Assistant; PCP Nurse Practitioner Family
DX: R07.89 Other chest pain (principal)
CPT/HCPCS: 99283; 99284; 96372; 71101; J1885

== ENCOUNTER 2024-12-15 00:37 | Outpatient (CLI) | payer MEDICAID, SELFPAY ==
[2024-12-15 15:54] LABS: Abs Immature Grans 0.01 10^3/uL (0.0-0.06); HCT 39.8 % (36.0-46.0); HGB 13.3 g/dL (11.2-15.7); Immature Grans % 0.1 %; MCH 29.6 pg (27.0-33.0); MCHC 33.4 % (32.0-36.0); MCV 88 fL (80-95); MPV 10.0 fL (8.0-11.0); Platelet Count 302 10^3/uL (130-400); RBC 4.50 10^6/uL (3.93-5.22); RDW 12.1 % (11.7-14.6); RDW-SD 39.0 fL; WBC 7.87 10^3/uL (4.4-10.8)
[2024-12-15 18:05] LABS: Iron 81 ug/dL (50-170); Total Iron Binding Capacity 334 ug/dL (250-450); Transferrin Sat 24 % (15-50)
[2024-12-15 18:06] LABS: Anion Gap 9.5 mmol/L (3-11); BUN 13 mg/dL (7-18); CO2 28.5 mmol/L (21.0-32.0); Calcium 9.5 mg/dL (8.5-10.1); Chloride 102 mmol/L (98-107); Estimated GFR 124.53 (mL/min/1.73m2); Ferritin 32 ng/mL (8-252); Glucose 115 mg/dL (74-106); Potassium 4.0 mmol/L (3.5-5.1); Sodium 140 mmol/L (136-145); TSH (W/Ref FT4) 1.13 uIU/mL (0.36-3.74)
== END 2024-12-15 00:38 | disposition home or self-care (01) ==
PROVIDERS: PCP Nurse Practitioner Family; Visit Provider Nurse Practitioner Family
DX: R53.83 Other fatigue (principal); E03.9 Hypothyroidism, unspecified
CPT/HCPCS: 36415; 80048; 82728; 83540; 83550; 84443; 85025